=== PATIENT | female | born 1945 | race Caucasian/White ===

== ENCOUNTER 2016-12-18 12:01 | Outpatient (CLI) | payer MEDICARE | END 2016-12-18 12:02 | disposition short-term general hospital (02) | DX: R51 Headache (principal); R42 Dizziness and giddiness; R07.9 Chest pain, unspecified; W18.30XA Fall on same level, unspecified, initial encounter; Y92.009 Unspecified place in unspecified non-institutional (private) residence as the place of occurrence of the external cause | CPT/HCPCS: A0425; A0427 ==

== ENCOUNTER 2017-06-05 10:37 | Outpatient (CLI) | payer MEDICARE | END 2017-06-05 10:38 | disposition short-term general hospital (02) | LOC: EMS 10:37 | PROVIDERS: ATTEND Surgery | DX: R69 Illness, unspecified (principal) | CPT/HCPCS: A0425; A0429 ==

== ENCOUNTER 2017-07-06 10:32 | Emergency (ER) | payer MEDICARE ==
[2017-07-06] MEDS ORDERED: oxyCODONE 5 MG TABLET PO STA (11:30)
--- NOTE | 2017-07-06 11:31 | ED Physician Documentation ---
History of Present Illness - Stated complaint Stated Complaint: GLF/HIP/LT KNEE PX - Chief complaint Chief Complaint: General - History obtained from History obtained from: Patient, Family - History of Present Illness Timing: Today, How many hours ago (6) Pain level max: 8 Pain level now: 8 Improved by: nothing Worsened by: nothing - Additonal information Additional information: Patient is a 71-year-old female who presents to the emergency department with a trip and fall today landing on her left side of her head, hip and knee. Continued pain since that time. Took her Vicodin at home without relief. She states that she has a history of several strokes in the past, daughter noticed that her left side of her face seems to be drooping more than usual today. Patient has been able to ambulate after the fall, but states her Vicodin is not controlling her pain. Did not lose consciousness. Has not had vomiting. 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 : None HEENT: None Psych: None Musculoskeletal: None Derm: None - Past Surgical History Past Surgical History: Yes General: Cholecystectomy Ortho: Spine surgery /JUNIOR STAFF ACCOUNTANT: Hysterectomy Neuro: Craniotomy - Present Medications Home Medications: Ambulatory Orders Medication Instructions Recorded Confirmed Aspirin [Aspir 81] 81 mg PO DAILY 06/08/14 07/06/17 Hydrocodone/Acetaminophen 1 tab PO Q6H PRN 06/08/14 07/06/17 [Hydrocodone-APAP 7.5-300] LORazepam [Ativan] 1 mg PO TID PRN 06/08/14 07/06/17 Levetiracetam [Keppra] 1,000 mg PO BID 06/08/14 07/06/17 Triamterene/Hydrochlorothiazid 1 tab PO DAILY 06/08/14 07/06/17 [Triamterene-Hctz 37.5-25 mg Tb] Melatonin 10 mg QPM 01/21/16 07/06/17 levETIRAcetam [Keppra] 250 mg BID 01/21/16 07/06/17 Atorvastatin [Lipitor] 1 tab PO DAILY 08/06/16 07/06/17 Calcium Carbonate 2 tab PO DAILY 08/06/16 07/06/17 Cholecalciferol (Vitamin D3) 400 units PO DAILY 08/06/16 07/06/17 [Vitamin D3] Escitalopram [Lexapro] 1 tab PO DAILY 08/06/16 07/06/17 Gabapentin 2 tab PO DAILY 08/06/16 07/06/17 Omeprazole 1 tab PO DAILY 08/06/16 07/06/17 Cephalexin [Keflex] 500 mg PO Q6H #28 capsule 07/06/17 Oxycodone HCl/Acetaminophen 1 - 2 each PO Q6H PRN #14 tablet 07/06/17 [Percocet 5-325 mg Tablet] - Allergies Allergies/Adverse Reactions: Allergies Allergy/AdvReac Type Severity Reaction Status Date / Time No Known Drug Allergies Allergy Verified 07/06/17 11:29 - Social History Does the pt smoke?: No Smoking Status: Never smoker Does the pt drink ETOH?: No Does the pt have substance abuse?: No - Immunizations Immunizations are current?: Yes - POLST Patient has POLST: No PD ED PE NORMAL - Vitals Vital signs reviewed: Yes - General General: Alert and oriented X 3, No acute distress, Well developed/nourished - HEENT HEENT: Atraumatic, PERRL, EOMI, Ears normal, Moist mucous membranes, Pharynx benign - Neck Neck: Supple, no meningeal sign, No bony TTP - Cardiac Cardiac: RRR, Strong equal pulses - Respiratory Respiratory: No respiratory distress, Clear bilaterally - Abdomen Abdomen: Soft, Non tender, Non distended - Back Back: No CVA TTP, No spinal TTP - Derm Derm: Warm and dry - Extremities Extremities: No deformity, Other (mild diffuse TTP L hip and knee. FROM present , but with pain. normal skin. NVI. o/w normal exam of the remaining extremities. ) - Neuro Neuro: Alert and oriented X 3, No motor deficit, No sensory deficit, Normal speech, Other (minimal L facial droop. NIHSS 1 @1102) - Psych Psych: Normal mood, Normal affect Results - Vitals Vitals: Vital Signs - 24 hr 07/06/17 07/06/17 07/06/17 10:34 12:37 13:35 Temperature 36.0 C L 36.7 C Heart Rate 78 74 76 Respiratory 18 18 12 Rate Blood Pressure 136/95 H 138/91 H 146/77 H O2 Saturation 98 99 94 07/06/17 15:14 Temperature 36.6 C Heart Rate 71 Respiratory 16 Rate Blood Pressure 135/62 H O2 Saturation 98 Oxygen O2 Source Room air - EKG (time done) 1231 Rate: Rate (enter#) (71) Rhythm: NSR [place]: Normal Intervals: Normal FL QRS: Normal Ischemia: Non specific changes - Labs Labs: Laboratory Tests 07/06/17 07/06/17 07/06/17 12:45 12:45 12:45 WBC 6.4 RBC 4.48 Hgb 10.9 L Hct 33.7 L MCV 75.2 L MCH 24.3 L MCHC 32.4 RDW 15.7 H Plt Count 294 MPV 7.9 Neut # 3.6 Lymph # 2.1 [place] # 0.4 Eos # 0.2 Baso # 0.1 Absolute Nucleated RBC 0.00 Nucleated RBC % 0.0 PT 11.6 INR 1.0 APTT 27.4 Sodium 139 Potassium 3.9 Chloride 104 Carbon Dioxide 26 Anion Gap 9.0 BUN 24 H Creatinine 1.0 Estimated GFR (MDRD) 55 L Glucose 86 Calcium 9.2 Total Bilirubin 0.6 AST 19 ALT 19 Alkaline Phosphatase 73 Total Protein 7.1 Albumin 4.0 Globulin 3.1 Albumin/Globulin Ratio 1.3 Lipase 35 Urine Color Urine Clarity Urine pH Ur Specific [place] Urine Protein Urine Glucose (UA) Urine Ketones Urine Occult Blood Urine Nitrite Urine Bilirubin Urine Urobilinogen Ur Leukocyte Esterase Urine RBC Urine WBC Ur Epithelial Cells Ur Squamous Epith Cells Urine Bacteria Ur Microscopic Review Urine Culture Comments 07/06/17 14:10 WBC RBC Hgb Hct MCV MCH MCHC RDW Plt Count MPV Neut # Lymph # [place] # Eos # Baso # Absolute Nucleated RBC Nucleated RBC % PT INR APTT Sodium Potassium Chloride Carbon Dioxide Anion Gap BUN Creatinine Estimated GFR (MDRD) Glucose Calcium Total Bilirubin AST ALT Alkaline Phosphatase Total Protein Albumin Globulin Albumin/Globulin Ratio Lipase Urine Color YELLOW Urine Clarity HAZY Urine pH 6.0 Ur Specific [place] 1.010 Urine Protein NEGATIVE Urine Glucose (UA) NEGATIVE Urine Ketones NEGATIVE Urine Occult Blood NEGATIVE Urine Nitrite NEGATIVE Urine Bilirubin NEGATIVE Urine Urobilinogen 0.2 (NORMAL) Ur Leukocyte Esterase MODERATE H Urine RBC 0-5 Urine WBC >25 H Ur Epithelial Cells FEW Renal Tubular Ur Squamous Epith Cells FEW Squamous Urine Bacteria None Seen Ur Microscopic Review INDICATED Urine Culture Comments INDICATED - Rads (name of study) head CT Radiology: Prelim report reviewed, EMP read contemporaneously, See rad report ( No acute intracranial process. ) L hip xray Radiology: Prelim report reviewed, EMP read contemporaneously, See rad report ( No definite fracture given exam limitations secondary to bony demineralization. ) L knee xray Radiology: Prelim report reviewed, EMP read contemporaneously, See rad report ( No definite fracture or malalignment. ) PD MEDICAL DECISION MAKING - ED course Complexity details: reviewed old records, reviewed results, re-evaluated patient , considered differential, d/w patient, d/w family ED course: Patient is a 71-year-old female who presents to the emergency department after a mechanical trip and fall in which she injured her head, her left knee and her left hip. No acute findings on x-ray. Pain well controlled. Ambulating well with a walker in the emergency department. No acute findings on head CT. Does appear to have a UTI and we will treat her for this. Does not appear to have had an acute stroke. Her neurological findings appear to be baseline according to the patient and her family. She would like to go home at this time and does not want further workup in the hospital including carotid ultrasound, CT angiogram or MRI. She will follow-up closely with her PCP. Will place on pain medication for home. No acute laboratory issues other than the UTI. Patient and family counseled regarding signs and symptoms for which I believe and urgent re-evaluation would be necessary. Patient with good understanding of and agreement to plan and is comfortable going home at this time This document was made in part using voice recognition software. While efforts are made to proofread this document, sound alike and grammatical errors may occur. Departure - Departure Disposition: 01 Home, Self Care Clinical Impression: UTI (urinary tract infection) Qualifiers: Urinary tract infection type: acute cystitis Hematuria presence: without hematuria Qualified Code(s): N30.00 - Acute cystitis without hematuria Fall Qualifiers: Encounter type: initial encounter Qualified Code(s): W19.XXXA - Unspecified fall, initial encounter Condition: Good Instructions: ED Mechanical Fall, ED UTI Cystitis Female Follow-Up: Kimani Mckeon MD [Primary Care Provider] - Within 1 week Prescriptions: Cephalexin [Keflex] 500 mg PO Q6H #28 capsule Oxycodone HCl/Acetaminophen [Percocet 5-325 mg Tablet] 1 - 2 each PO Q6H PRN # 14 tablet PRN Reason: pain Comments: Take all antibiotics until gone. Return if you worsen. Do not drink alcohol or drive while on narcotic pain medicine. Note that many narcotic pain relievers also contain tylenol/acetaminophen. Please ensure that your total dose of acetaminophen from all sources does not exceed 3 grams (3000mg) per day. You may constipated on this medication, take a stool softener such as "Colace" twice a day while you are on it. Also recommend a [id number] laxative such as senna or MiraLAX any day that you do not have a bowel movement. If you received narcotic pain medication in the emergency department, do not drive or operate machinery for the next 24 hours. Discharge Date/Time: 07/06/17 15:14
[2017-07-06] MEDS ORDERED: oxyCODONE 5 MG TABLET ONE (12:06)
--- NOTE | 2017-07-06 12:25 | XRAY Preliminary Report ---
Exam: XR Hip w/Pelvis 2-3V LT IMPRESSION: No definite fracture given exam limitations secondary to bony demineralization. Consider MRI for further evaluation - if warranted. [facility] SITE ID: [id number]
--- NOTE | 2017-07-06 12:27 | XRAY Report ---
EXAM: LEFT HIP AND PELVIS RADIOGRAPHY EXAM DATE: 07/06/2017 11:56 AM. HISTORY: Fall, L hip pain. COMPARISONS: None. TECHNIQUE: 1 view of the pelvis and 1 view of the hip. FINDINGS: Bones: Bony demineralization does limit cortical evaluation. No definite fracture or focus of destruc tion. Degenerative changes at the lumbosacral junction. Joints: The bilateral hip, pubis symphysis, and sacroiliac joints are grossly normal. Soft Tissues: Unremarkable. IMPRESSION: No definite fracture given exam limitations secondary to bony demineralization. Consider MRI for further evaluation - if warranted. [facility] Referring Provider Line: [phone] SITE ID: [id number]
--- NOTE | 2017-07-06 12:27 | XRAY Preliminary Report ---
Exam: XR Knee 4 View LT IMPRESSION: No definite fracture or malalignment. [facility] SITE ID: [id number]
--- NOTE | 2017-07-06 12:29 | XRAY Report ---
EXAM: LEFT KNEE RADIOGRAPHY EXAM DATE: 07/06/2017 11:55 AM. CLINICAL HISTORY: Fall, L knee pain. COMPARISON: None. TECHNIQUE: 4 views. FINDINGS: Bones: Diffuse demineralization does limit characterization of the bony cortices. No definite fractur e or focus of destruction. Joints: No effusion. No subluxations. Soft Tissues: Normal. No soft tissue swelling. IMPRESSION: No definite fracture or malalignment. [facility] Referring Provider Line: [phone] SITE ID: [id number]
--- NOTE | 2017-07-06 12:37 | CT Preliminary Report ---
Exam: CT Head W/O IMPRESSION: No acute intracranial process. [facility] SITE ID: [id number]
--- NOTE | 2017-07-06 12:39 | CT Report ---
EXAM: CT HEAD EXAM DATE: 07/06/2017 12:19 PM. CLINICAL HISTORY: Fall, head injury, L sided weakness. COMPARISON: 08/06/2016. TECHNIQUE: Multiaxial CT images were obtained from the foramen magnum to the vertex. IV contrast: Non e. Reformats: Coronal. In accordance with CT protocol optimization, one or more of the following dose reduction techniques w ere utilized for this exam: automated exposure control, adjustment of mA and/or KV based on patient s ize, or use of iterative reconstructive technique. FINDINGS: Parenchyma: No intraparenchymal hemorrhage. No evidence of mass, midline shift, or CT findings of inf arction. Penn-white differentiation is distinct. Extraaxial Spaces: Normal for age. No subdural or epidural collections identified. Ventricles: Normal in size and position. Sinuses: Imaged paranasal sinuses, orbits, and mastoids show no significant abnormality. Bones: Post craniotomy changes, right parietal distribution. No evidence of acute fracture or calvari al defect. IMPRESSION: No acute intracranial process. [facility] Referring Provider Line: [phone] SITE ID: [id number]
[2017-07-06 12:56] LABS: BASOPHILS # (AUTO) 0.1 10^3/uL (0.0-0.1); BASOPHILS % (AUTO) 0.9 %; EOSINOPHILS # (AUTO) 0.2 10^3/uL (0.0-0.7); EOSINOPHILS % (AUTO) 3.5 %; HCT - HEMATOCRIT 33.7 % (37.0-47.0); HGB - HEMOGLOBIN 10.9 g/dL (12.0-16.0); LYMPHOCYTES # (AUTO) 2.1 10^3/uL (1.5-3.5); LYMPHOCYTES % (AUTO) 32.6 %; MEAN CORPUSCULAR HEMOGLOBIN 24.3 pg (27.0-31.0); MEAN CORPUSCULAR HGB CONC 32.4 g/dL (32.0-36.0); MEAN CORPUSCULAR VOLUME 75.2 fL (81.0-99.0); MEAN PLATELET VOLUME 7.9 fL (7.9-10.8); MONOCYTES # (AUTO) 0.4 10^3/uL (0.0-1.0); NEUTROPHILS # (AUTO) 3.6 10^3/uL (1.5-6.6); RED BLOOD COUNT 4.48 10^6/uL (4.20-5.40); RED CELL DISTRIBUTION WIDTH 15.7 % (12.0-15.0); UNCORRECTED WHITE BLOOD COUNT 6.4 x10^3/uL; WHITE BLOOD COUNT 6.4 x10^3/uL (4.8-10.8)
[2017-07-06 13:04] LABS: PT - PROTHROMBIN TIME 11.6 secs (9.9-12.6)
[2017-07-06 13:07] LABS: ALBUMIN/GLOBULIN RATIO 1.3 (1.0-2.2); BILIRUBIN,TOTAL 0.6 mg/dL (0.2-1.0); CALCIUM 9.2 mg/dL (8.5-10.3); POTASSIUM 3.9 mmol/L (3.5-5.0); TOTAL PROTEIN 7.1 g/dL (6.7-8.2)
[2017-07-06] MEDS ORDERED: KETOROLAC 30 MG/ML VIAL IM STA (13:07)
[2017-07-06 13:12] LABS: PARTIAL THROMBOPLASTIN TIME 27.4 secs (24.9-33.3)
[2017-07-06] MEDS ORDERED: KETOROLAC 30 MG/ML VIAL ONE (13:22)
[2017-07-06 14:28] LABS: BILIRUBIN,URINE NEGATIVE (NEGATIVE)
[2017-07-06 14:51] LABS: UA w/ MICROSCOPIC CHARGE YES
[2017-07-06 14:55] LABS: UR CULTURE IF IND INDICATED; WBC,URINE >25 /HPF (0-5)
[2017-07-06 15:14] VITALS: BP 135/62
== END 2017-07-06 15:14 | disposition home or self-care (01) ==
LOC: ED 10:32
DX: N30.00 Acute cystitis without hematuria (principal); M25.552 Pain in left hip; M25.562 Pain in left knee; W01.0XXA Fall on same level from slipping, tripping and stumbling without subsequent striking against object, initial encounter; Y92.019 Unspecified place in single-family (private) house as the place of occurrence of the external cause; I10 Essential (primary) hypertension; Z86.73 Personal history of transient ischemic attack (TIA), and cerebral infarction without residual deficits; G47.30 Sleep apnea, unspecified; G40.909 Epilepsy, unspecified, not intractable, without status epilepticus; Z79.82 Long term (current) use of aspirin
CPT/HCPCS: 36415; 70450; 73502; 73564; 80053; 81001; 83690; 85025; 85610; 85730; 87086; 93005; 96372; 99283; A9270; 81003

== ENCOUNTER 2017-07-18 09:13 | Emergency (ER) | payer MEDICARE ==
--- NOTE | 2017-07-18 11:44 | ED Physician Documentation ---
PD HPI LOWER EXT INJURY - Stated complaint Stated Complaint: LT KNEE PX - Chief complaint Chief Complaint: Ext Problem - History obtained from History obtained from: Patient, Family - History of Present Illness PD HPI LOW EXT INJURY LOCATION: Left, Hip, Knee Type of injury: Fall Where injury occurred: Home Timing - onset: How many days ago (12) Timing - duration: Days (12) Timing - details: Abrupt onset, Still present Improved by: Rest, Immobilization Worsened by: Moving, Palpating Associated symptoms: No: Weakness, Numbness, Tingling, Swelling Contributing factors: No: Anticoagulated Similar symptoms before: Diagnosis (hip contusion) Recently seen: Emergency Dept - Additional information Additional information: 71-year-old female fell 12 days ago in her home onto her left hip and knee. She has pain in the knee and hip that was initially some better with pain medication and she has run out of her oxycodone in the hydrocodone that she has at home is inadequate for her pain relief.She has been able to bear weight on the left hip with her walker. Review of Systems Constitutional: denies: Fever Eyes: denies: Decreased vision Ears: denies: Ear pain Nose: denies: Congestion Throat: denies: Sore throat Respiratory: denies: Cough GI: denies: Vomiting Skin: denies: Rash Musculoskeletal: reports: Joint pain, Pain with weight bearing. 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 : None HEENT: None Psych: None Musculoskeletal: None Derm: None - Past Surgical History Past Surgical History: Yes General: Cholecystectomy Ortho: Spine surgery /MACHINE BUNCH MAKER: Hysterectomy Neuro: Craniotomy - Present Medications Home Medications: Ambulatory Orders Medication Instructions Recorded Confirmed Aspirin [Aspir 81] 81 mg PO DAILY 06/08/14 07/18/17 Hydrocodone/Acetaminophen 1 tab PO Q6H PRN 06/08/14 07/18/17 [Hydrocodone-APAP 7.5-300] LORazepam [Ativan] 1 mg PO TID PRN 06/08/14 07/18/17 Levetiracetam [Keppra] 1,500 mg PO BID 06/08/14 07/18/17 Triamterene/Hydrochlorothiazid 1 tab PO DAILY 06/08/14 07/18/17 [Triamterene-Hctz 37.5-25 mg Tb] Melatonin 10 mg QPM 01/21/16 07/18/17 Atorvastatin [Lipitor] 1 tab PO DAILY 08/06/16 07/18/17 Calcium Carbonate 2 tab PO DAILY 08/06/16 07/18/17 Cholecalciferol (Vitamin D3) 400 units PO DAILY 08/06/16 07/18/17 [Vitamin D3] Escitalopram [Lexapro] 20 mg PO DAILY 08/06/16 07/18/17 Gabapentin 2 tab PO TID 08/06/16 07/18/17 Omeprazole 1 tab PO DAILY 08/06/16 07/18/17 Oxycodone HCl 10 mg PO Q6HR PRN #20 tablet 07/18/17 - Allergies Allergies/Adverse Reactions: Allergies Allergy/AdvReac Type Severity Reaction Status Date / Time No Known Drug Allergies Allergy Verified 07/06/17 11:29 - Social History Does the pt smoke?: No Smoking Status: Never smoker Does the pt drink ETOH?: No Does the pt have substance abuse?: No - Immunizations Immunizations are current?: Yes - POLST Patient has POLST: No PD ED PE NORMAL - Vitals Vital signs reviewed: Yes (hypertensive ) - General General: No acute distress, Well developed/nourished - HEENT HEENT: Atraumatic, PERRL - Respiratory Respiratory: No respiratory distress - Derm Derm: Normal color, Warm and dry, No rash - Extremities Extremities: No deformity, No edema, Other (I am able to flex and rotate the left hip without much pain to the patient . There is no shortening and the distal n/v is intact. There is ligamentous laxity to the medial and lateral collateral ligaments of the left knee and this is not different from the right knee. There is some tenderness along the joint line medial and lateral. ) - Neuro Neuro: No motor deficit, No sensory deficit - Psych Psych: Normal mood, Normal affect Results - Vitals Vitals: Vital Signs - 24 hr 07/18/17 09:18 Temperature 36.7 C Heart Rate 74 Respiratory 18 Rate Blood Pressure 147/95 H O2 Saturation 97 Oxygen O2 Source Room air PD MEDICAL DECISION MAKING - ED course Complexity details: reviewed results, re-evaluated patient, considered differential, d/w patient, d/w family ED course: 71-year-old female with a fall 2012 days ago had x-rays done at that time I have reviewed the x-rays they do appear to be adequate x-rays with fair bone density and no evidence of acute fracture. The patient's course is consistent with contusion and recovery from this with a poor pain tolerance and a resistance to narcotic pain reliever. She requires a higher dose of pain medication and hydrocodone does not appear as effective his oxycodone for this pain. We will provide a limited prescription for oxycodone for this episode of pain. Departure - Departure Disposition: 01 Home, Self Care Clinical Impression: Contusion of hip, left Qualifiers: Encounter type: initial encounter Qualified Code(s): S70.02XA - Contusion of left hip, initial encounter Left knee sprain Qualifiers: Encounter type: initial encounter Involved ligament of knee: unspecified ligament Qualified Code(s): S83.92XA - Sprain of unspecified site of left knee, initial encounter Condition: Stable Instructions: ED Sprain Knee, ED Contusion Hip Follow-Up: Kimani Mckeon MD [Primary Care Provider] - Prescriptions: Oxycodone HCl 10 mg PO Q6HR PRN #20 tablet PRN Reason: Pain
[2017-07-18 11:52] VITALS: BP 148/98
== END 2017-07-18 12:01 | disposition home or self-care (01) ==
LOC: ED 09:13
DX: S70.02XA Contusion of left hip, initial encounter (principal); W01.0XXA Fall on same level from slipping, tripping and stumbling without subsequent striking against object, initial encounter; Y92.019 Unspecified place in single-family (private) house as the place of occurrence of the external cause; S83.92XA Sprain of unspecified site of left knee, initial encounter; I10 Essential (primary) hypertension; G47.30 Sleep apnea, unspecified; Z86.73 Personal history of transient ischemic attack (TIA), and cerebral infarction without residual deficits; G40.909 Epilepsy, unspecified, not intractable, without status epilepticus; Z79.82 Long term (current) use of aspirin
CPT/HCPCS: 99283

== ENCOUNTER 2017-10-29 13:31 | Outpatient (CLI) | payer MEDICARE | END 2017-10-29 13:32 | disposition short-term general hospital (02) | LOC: EMS 13:31 | PROVIDERS: ATTEND Surgery | DX: R10.9 Unspecified abdominal pain (principal) | CPT/HCPCS: A0425; A0429 ==

== ENCOUNTER 2017-11-06 09:55 | Outpatient (CLI) | payer MEDICARE | END 2017-11-06 09:56 | disposition critical access hospital (66) | LOC: EMS 09:55 | PROVIDERS: ATTEND Surgery | DX: R52 Pain, unspecified (principal) | CPT/HCPCS: A0425; A0429 ==

== ENCOUNTER 2017-11-06 10:12 | Emergency (ER) | payer MEDICARE ==
[2017-11-06] MEDS ORDERED: HYDROmorphone 1 MG/ML SYRINGE IM STA (11:40)
[2017-11-06] MEDS ORDERED: LORazepam 2 MG/ML VIAL IM STA (11:40)
[2017-11-06] MEDS ORDERED: ONDANSETRON ODT 4 MG TABLET TL STA (11:40)
--- NOTE | 2017-11-06 11:43 | ED Physician Documentation ---
PD HPI ABD PAIN - Stated complaint Stated Complaint: WEAKNESS - Chief complaint Chief Complaint: Abd Pain - History obtained from History obtained from: Patient - History of Present Illness Timing - onset: Today Timing - duration: Hours Timing - details: Gradual onset, Still present Quality: Aching, Sharp, Pain Location: LUQ Improved by: Laying still Worsened by: Moving, Breathing, Position, Palpation Associated symptoms: Nausea Similar symptoms before: Diagnosis (hiatal hernia) Recently seen: Emergency Dept - Additional information Additional information: 72-year-old female with chronic pain and pain management issues as developed some epigastric and left upper quadrant pain that has been diagnosed as a hiatal hernia. She was seen at [facility] several weeks ago with this similar pain. She is normally on pain medication 4 times per day. She takes hydrocodone 10/325. This morning her son left for work without giving her her pain medication and Ativan. He usually has her medications locked up and dispenses them to her. 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 : None HEENT: None Psych: None Musculoskeletal: None Derm: None - Past Surgical History Past Surgical History: Yes General: Cholecystectomy Ortho: Spine surgery /SYSTEMS NAVIGATOR: Hysterectomy Neuro: Craniotomy - Present Medications Home Medications: Ambulatory Orders Medication Instructions Recorded Confirmed Aspirin [Aspir 81] 81 mg PO DAILY 06/08/14 07/18/17 Hydrocodone/Acetaminophen 1 tab PO Q6H PRN 06/08/14 07/18/17 [Hydrocodone-APAP 7.5-300] LORazepam [Ativan] 1 mg PO TID PRN 06/08/14 07/18/17 Levetiracetam [Keppra] 1,500 mg PO BID 06/08/14 07/18/17 Triamterene/Hydrochlorothiazid 1 tab PO DAILY 06/08/14 07/18/17 [Triamterene-Hctz 37.5-25 mg Tb] Melatonin 10 mg QPM 01/21/16 07/18/17 Atorvastatin [Lipitor] 1 tab PO DAILY 08/06/16 07/18/17 Calcium Carbonate 2 tab PO DAILY 08/06/16 07/18/17 Cholecalciferol (Vitamin D3) 400 units PO DAILY 08/06/16 07/18/17 [Vitamin D3] Escitalopram [Lexapro] 20 mg PO DAILY 08/06/16 07/18/17 Gabapentin 2 tab PO TID 08/06/16 07/18/17 Omeprazole 1 tab PO DAILY 08/06/16 07/18/17 Oxycodone HCl 10 mg PO Q6HR PRN #20 tablet 07/18/17 - Allergies Allergies/Adverse Reactions: Allergies Allergy/AdvReac Type Severity Reaction Status Date / Time No Known Drug Allergies Allergy Verified 07/06/17 11:29 - Social History Does the pt smoke?: No Smoking Status: Never smoker Does the pt drink ETOH?: No Does the pt have substance abuse?: No - Immunizations Immunizations are current?: Yes - POLST Patient has POLST: No PD ED PE NORMAL - Vitals Vital signs reviewed: Yes (hypertensive) - General General: Alert and oriented X 3, Well developed/nourished, Other (72 y/o female is grunting in pain and appears anxious. ) - HEENT HEENT: Atraumatic, PERRL, EOMI - Neck Neck: Supple, no meningeal sign - Cardiac Cardiac: RRR, No murmur - Respiratory Respiratory: No respiratory distress, Clear bilaterally - Abdomen Abdomen: Soft, Other (epigastric and LUQ pain with hyperalldynia) - Back Back: No CVA TTP, No spinal TTP - Derm Derm: Normal color, Warm and dry, No rash - Extremities Extremities: No deformity, No edema - Neuro Neuro: Alert and oriented X 3, No motor deficit, No sensory deficit, Normal speech Eye Opening: Spontaneous Motor: Obeys Commands Verbal: Oriented GCS Score: 15 - Psych Psych: Other (mood is helpless and affect is flat. ) Results - Vitals Vitals: Vital Signs - 24 hr 11/06/17 11/06/17 10:13 12:21 Temperature 36.5 C Heart Rate 83 69 Respiratory 18 20 Rate Blood Pressure 149/86 H 124/84 H O2 Saturation 100 100 Oxygen O2 Source Room air PD MEDICAL DECISION MAKING - ED course Complexity details: reviewed old records, reviewed results, re-evaluated patient , considered differential, d/w patient ED course: This 72-year-old female usually takes 10 mg of hydrocodone and Ativan in the morning. She was unable to access her medications because her son left to go to work without unlocking the narcotic. She came into the emergency department with a pain crisis she was administered 1 mg of Dilaudid IM and Ativan. She had improvement and is able to ambulate in the department without significant difficulty. Departure - Departure Disposition: 01 Home, Self Care Clinical Impression: Pain crisis Condition: Stable Instructions: ED Chronic Pain Management Follow-Up: Kimani Mckeon MD [Primary Care Provider] -
[2017-11-06 12:23] VITALS: BP 124/84
== END 2017-11-06 14:34 | disposition home or self-care (01) ==
LOC: EDUNIT# → ED 10:12
DX: R10.13 Epigastric pain (principal); G89.29 Other chronic pain; I10 Essential (primary) hypertension; G47.30 Sleep apnea, unspecified; Z86.73 Personal history of transient ischemic attack (TIA), and cerebral infarction without residual deficits; Z79.82 Long term (current) use of aspirin
CPT/HCPCS: 96372; 99283; 99284; J1170; J2060; Q0162

== ENCOUNTER 2017-12-16 10:24 | Outpatient (CLI) | payer MEDICARE | END 2017-12-16 23:59 | disposition critical access hospital (66) | LOC: EMS 10:24 | PROVIDERS: ATTEND Surgery | DX: R07.81 Pleurodynia (principal); M54.2 Cervicalgia; R51 Headache; R42 Dizziness and giddiness; W18.39XA Other fall on same level, initial encounter; W22.8XXA Striking against or struck by other objects, initial encounter; Y92.003 Bedroom of unspecified non-institutional (private) residence as the place of occurrence of the external cause | CPT/HCPCS: A0425; A0427 ==

== ENCOUNTER 2017-12-16 10:28 | Emergency (ER) | payer MEDICARE ==
--- NOTE | 2017-12-16 12:18 | ED Physician Documentation ---
PD HPI HEAD INJURY - Stated complaint Stated Complaint: FALL - Chief complaint Chief Complaint: Neuro - History obtained from History obtained from: Patient - History of Present Illness Mechanism of head injury: Fell (lost balance or thinks she might have had seizure, which she has about once weekly.) Where head injury occurred: Home Timing - onset: Today Location of injury: Right, Front Associated symptoms: No: LOC, AMS, Nausea / vomiting, Neck pain Symptoms worsen with: Palpation, Movement Similar symptoms before: Has not had sx before Recently seen: Not recently seen Review of Systems Constitutional: denies: Fever, Chills Nose: denies: Rhinorrhea / runny nose, Congestion Throat: denies: Sore throat Cardiac: reports: Chest pain / pressure (right side where she fell) Respiratory: denies: Cough GI: reports: Abdominal Pain (right side after the fall). 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 : None HEENT: None Psych: None Musculoskeletal: None Derm: None - Past Surgical History Past Surgical History: Yes General: Cholecystectomy Ortho: Spine surgery /MINIATURE SET DESIGNER: Hysterectomy Neuro: Craniotomy - Present Medications Home Medications: Ambulatory Orders Medication Instructions Recorded Confirmed Aspirin [Aspir 81] 81 mg PO DAILY 06/08/14 07/18/17 Hydrocodone/Acetaminophen 1 tab PO Q6H PRN 06/08/14 07/18/17 [Hydrocodone-APAP 7.5-300] LORazepam [Ativan] 1 mg PO TID PRN 06/08/14 07/18/17 Levetiracetam [Keppra] 1,500 mg PO BID 06/08/14 07/18/17 Triamterene/Hydrochlorothiazid 1 tab PO DAILY 06/08/14 07/18/17 [Triamterene-Hctz 37.5-25 mg Tb] Melatonin 10 mg QPM 01/21/16 07/18/17 Atorvastatin [Lipitor] 1 tab PO DAILY 08/06/16 07/18/17 Calcium Carbonate 2 tab PO DAILY 08/06/16 07/18/17 Cholecalciferol (Vitamin D3) 400 units PO DAILY 08/06/16 07/18/17 [Vitamin D3] Escitalopram [Lexapro] 20 mg PO DAILY 08/06/16 07/18/17 Gabapentin 2 tab PO TID 08/06/16 07/18/17 Omeprazole 1 tab PO DAILY 08/06/16 07/18/17 Oxycodone HCl 10 mg PO Q6HR PRN #20 tablet 07/18/17 Oxycodone HCl/Acetaminophen 1 each PO TID PRN #15 tablet 12/16/17 [Percocet 7.5-325 mg Tablet] - Allergies Allergies/Adverse Reactions: Allergies Allergy/AdvReac Type Severity Reaction Status Date / Time No Known Drug Allergies Allergy Verified 07/06/17 11:29 - Social History Does the pt smoke?: No Smoking Status: Never smoker Does the pt drink ETOH?: No Does the pt have substance abuse?: No - Immunizations Immunizations are current?: Yes - POLST Patient has POLST: No PD ED PE NORMAL - Vitals Vital signs reviewed: Yes - General General: Alert and oriented X 3, No acute distress, Well developed/nourished - HEENT HEENT: Ears normal, Pharynx benign. No: Atraumatic (some tender right side of head without deformity. ) - Neck Neck: Supple, no meningeal sign, No adenopathy - Cardiac Cardiac: RRR, No murmur - Respiratory Respiratory: Clear bilaterally, Other (right lateral chest) - Abdomen Abdomen: Soft, Non tender - Back Back: No CVA TTP - Derm Derm: Normal color, Warm and dry - Extremities Extremities: No tenderness to palpate, Normal ROM s pain, No edema, No calf tenderness / cord - Neuro Neuro: Alert and oriented X 3, No motor deficit, Normal speech Eye Opening: Spontaneous Motor: Obeys Commands Verbal: Oriented GCS Score: 15 Results - Vitals Vitals: Oxygen O2 Source Room air - Labs Labs: Laboratory Tests 12/16/17 12/16/17 12:30 12:30 WBC 7.2 RBC 4.45 Hgb 9.7 L Hct 30.5 L MCV 68.6 L MCH 21.7 L MCHC 31.7 L RDW 20.3 H Plt Count 365 MPV 7.5 L Neut # 4.5 Lymph # 1.8 [place] # 0.6 Eos # 0.2 Baso # 0.1 Absolute Nucleated RBC 0.00 Nucleated RBC % 0.0 Sodium 137 Potassium 4.0 Chloride 103 Carbon Dioxide 25 Anion Gap 9.0 BUN 19 Creatinine 0.9 Estimated GFR (MDRD) 61 L Glucose 94 Calcium 9.1 Total Bilirubin 0.3 AST 20 ALT 18 Alkaline Phosphatase 67 Total Protein 7.1 Albumin 3.8 Globulin 3.3 Albumin/Globulin Ratio 1.2 Lipase 24 - Rads (name of study) CT abd and chest Radiology: Prelim report reviewed (no organ injuries nor noted fractures. ) head CT Radiology: Prelim report reviewed (no acute findings/ no bleeding) PD MEDICAL DECISION MAKING - ED course Complexity details: reviewed results (CTs normal. ), considered differential, d/ w patient Departure - Departure Disposition: Home, Self Care Clinical Impression: Accidental fall Qualifiers: Encounter type: initial encounter Qualified Code(s): W19.XXXA - Unspecified fall, initial encounter Chest wall contusion Qualifiers: Encounter type: initial encounter Laterality: right Qualified Code(s): S20.211A - Contusion of right front wall of thorax, initial encounter Abdominal wall contusion Qualifiers: Encounter type: initial encounter Qualified Code(s): S30.1XXA - Contusion of abdominal wall, initial encounter Condition: Stable Record reviewed to determine appropriate education?: Yes Instructions: ED Contusion Chest Wall Follow-Up: Kimani Mckeon MD [Primary Care Provider] - Prescriptions: Oxycodone HCl/Acetaminophen [Percocet 7.5-325 mg Tablet] 1 each PO TID PRN #15 tablet PRN Reason: Pain Comments: No signs of internal organ injury or fractures or bleeding on your CT scans of the head chest and belly. Continue usual medications including your typical pain medications at home. Add Percocet if needed 3 times a day for pain. Recheck if not improved over the next several days. Discharge Date/Time: 12/16/17 15:02
[2017-12-16] MEDS ORDERED: LORazepam 0.5 MG TABLET PO STA (12:27)
[2017-12-16] MEDS ORDERED: HYDROmorphone 1 MG/ML SYRINGE IVP STA (12:27)
[2017-12-16 12:47] LABS: BASOPHILS # (AUTO) 0.1 10^3/uL (0.0-0.1); BASOPHILS % (AUTO) 1.2 %; EOSINOPHILS # (AUTO) 0.2 10^3/uL (0.0-0.7); EOSINOPHILS % (AUTO) 2.6 %; HGB - HEMOGLOBIN 9.7 g/dL (12.0-16.0); LYMPHOCYTES # (AUTO) 1.8 10^3/uL (1.5-3.5); LYMPHOCYTES % (AUTO) 25.4 %; MEAN CORPUSCULAR HEMOGLOBIN 21.7 pg (27.0-31.0); MEAN CORPUSCULAR HGB CONC 31.7 g/dL (32.0-36.0); MEAN CORPUSCULAR VOLUME 68.6 fL (81.0-99.0); MEAN PLATELET VOLUME 7.5 fL (7.9-10.8); MONOCYTES # (AUTO) 0.6 10^3/uL (0.0-1.0); MONOCYTES % (AUTO) 7.8 %; NEUTROPHILS # (AUTO) 4.5 10^3/uL (1.5-6.6); PLT - PLATELET COUNT 365 10^3/uL (130-450); RED BLOOD COUNT 4.45 10^6/uL (4.20-5.40); RED CELL DISTRIBUTION WIDTH 20.3 % (12.0-15.0); WHITE BLOOD COUNT 7.2 x10^3/uL (4.8-10.8)
[2017-12-16 12:54] LABS: ALBUMIN 3.8 g/dL (3.2-5.5); ALBUMIN/GLOBULIN RATIO 1.2 (1.0-2.2); BILIRUBIN,TOTAL 0.3 mg/dL (0.2-1.0); CALCIUM 9.1 mg/dL (8.5-10.3); CREATININE 0.9 mg/dL (0.4-1.0); TOTAL PROTEIN 7.1 g/dL (6.7-8.2)
[2017-12-16] MEDS ORDERED: IOPAMIDOL-300 100 ML VIAL ONE (13:15)
--- NOTE | 2017-12-16 13:57 | CT Preliminary Report ---
Exam: CT HEAD W/O IMPRESSION: No acute intracranial abnormality identified. [facility] SITE ID: [id number]
--- NOTE | 2017-12-16 13:57 | CT Report ---
EXAM: CT HEAD EXAM DATE: 12/16/2017 01:31 PM. CLINICAL HISTORY: Fell and struck head with pain; h/o prior craniotomy 4 years. COMPARISON: 07/06/2017. TECHNIQUE: Multiaxial CT images were obtained from the foramen magnum to the vertex. Reformats: Coron al. IV contrast: None. In accordance with CT protocol optimization, one or more of the following dose reduction techniques w ere utilized for this exam: automated exposure control, adjustment of mA and/or KV based on patient s ize, or use of iterative reconstructive technique. FINDINGS: Parenchyma: No acute intracranial abnormality identified. No acute hemorrhage, mass effect, midline s hift. Penn-white differentiation appears maintained. Extraaxial Spaces: No acute extra axial collection. Ventricles: Appropriate in size and configuration. Sinuses and Orbits: Imaged paranasal sinuses, orbits, and mastoids show no significant abnormality. Bones: No depressed skull fracture. Prior right-sided craniotomy changes again noted. Other: None. IMPRESSION: No acute intracranial abnormality identified. [facility] Referring Provider Line: [phone] SITE ID: [id number]
[2017-12-16] MEDS ORDERED: IOPAMIDOL-300 100 ML VIAL IVP ONE (14:02)
--- NOTE | 2017-12-16 14:02 | CT Report ---
EXAM: CT CHEST EXAM DATE: 12/16/2017 01:38 PM. CLINICAL HISTORY: Fell and hurts left chest/abd and head. COMPARISONS: None. TECHNIQUE: Routine helical CT imaging was performed through the chest. IV contrast: None. Reconstruct ions: Coronal and sagittal. In accordance with CT protocol optimization, one or more of the following dose reduction techniques w ere utilized for this exam: automated exposure control, adjustment of mA and/or KV based on patient s ize, or use of iterative reconstructive technique. FINDINGS: Lungs/Pleura: Trachea and central bronchi are patent. There is mild respiratory motion artifact durin g image acquisition. Small amount of reticulation noted at the left lung base. No other focal consoli dation or pleural effusions. No pneumothorax. No dominant mass. Mediastinum: Cardiac size appears normal. No pericardial effusion. Aorta and great vessels appear unr emarkable. Coronary artery calcifications. Large hiatal hernia with dominant portion of the stomach a t the left lower chest medially. Bones: Anterior cervical spine fusion hardware noted. No acute fracture or spondylolisthesis identifi ed. Mild multilevel degenerative changes of the spine. Visualized Abdomen: Prior cholecystectomy surgical changes are noted. Calcification at the approximat e mid pole of the left kidney anterior left renal rounded lesion is partially visualized. Other: None. IMPRESSION: 1. Large hiatal hernia with much of the stomach at the left lower chest medially and adjacent mild at electasis. No other focal lung consolidation or pleural effusions. No pneumothorax. [facility] Referring Provider Line: [phone] SITE ID: [id number]
--- NOTE | 2017-12-16 14:09 | CT Report ---
EXAM: CT ABDOMEN AND PELVIS EXAM DATE: 12/16/2017 01:38 PM. CLINICAL HISTORY: Fell and hurts chest and abd/head. COMPARISONS: None. TECHNIQUE: Routine helical CT imaging was performed through the abdomen and pelvis. IV contrast: 100M L ISOVUE 300. Enteric contrast: No. Reconstructions: Coronal and sagittal. In accordance with CT protocol optimization, one or more of the following dose reduction techniques w ere utilized for this exam: automated exposure control, adjustment of mA and/or KV based on patient s ize, or use of iterative reconstructive technique. FINDINGS: Lung Bases: Large hiatal hernia with much of the stomach at the left lung base medially. Liver: Too small to characterize tiny hypoattenuating foci within the right lobe, possibly tiny cyst or hemangioma. Otherwise, homogeneous without focal mass. Gallbladder/Bile Ducts: Prior cholecystectomy. Spleen: Unremarkable. Pancreas: Unremarkable. Adrenal Glands: Unremarkable. Kidneys: Symmetric enhancement. No hydronephrosis. Calcification at the posterior midpole of the left kidney measuring approximately 7 mm. Probable cyst anteriorly at the mid to lower pole of the left k idney measuring approximately 19 mm. Peritoneal Cavity/Bowel: No bowel obstruction. Mild colonic diverticulosis. No acute focal inflammato ry change. No discrete collection. No bulky adenopathy. No free air. No free fluid. Pelvic Organs: Urinary bladder is incompletely distended. Uterus appears surgically absent. Vasculature: Mild atherosclerotic vascular calcification. No aneurysmal dilation. Bones: Degenerative change of the spine again noted, most notably at L5-S1 and L2-L3, without signifi cant change from lumbar spine CT 08/06/2016. T12 Schmorl's node again noted. No acute fracture identi fied. No spondylolisthesis. Other: None. IMPRESSION: No acute traumatic visceral injury identified within the abdomen or pelvis. [facility] Referring Provider Line: [phone] SITE ID: [id number]
--- NOTE | 2017-12-16 14:09 | CT Preliminary Report ---
Exam: CT ABDOMEN/PELVIS W/ IMPRESSION: No acute traumatic visceral injury identified within the abdomen or pelvis. [facility] SITE ID: [id number]
[2017-12-16 14:46] VITALS: BP 137/90
== END 2017-12-16 15:02 | disposition home or self-care (01) ==
LOC: EDUNIT# → ED 10:28
DX: S20.211A Contusion of right front wall of thorax, initial encounter (principal); S30.1XXA Contusion of abdominal wall, initial encounter; W18.30XA Fall on same level, unspecified, initial encounter; W22.09XA Striking against other stationary object, initial encounter; Y92.009 Unspecified place in unspecified non-institutional (private) residence as the place of occurrence of the external cause; I10 Essential (primary) hypertension; Z86.73 Personal history of transient ischemic attack (TIA), and cerebral infarction without residual deficits; Z79.82 Long term (current) use of aspirin; Z86.69 Personal history of other diseases of the nervous system and sense organs
CPT/HCPCS: 36415; 70450; 71260; 74177; 80053; 83690; 85025; 96374; 99284; A9270; J1170; Q9967

== ENCOUNTER 2017-12-21 11:07 | Outpatient (CLI) | payer MEDICARE | END 2017-12-21 11:08 | disposition critical access hospital (66) | LOC: EMS 11:07 | PROVIDERS: ATTEND Surgery | DX: R53.1 Weakness (principal); R20.0 Anesthesia of skin; R51 Headache; R11.0 Nausea; R42 Dizziness and giddiness | CPT/HCPCS: A0425; A0427 ==

== ENCOUNTER 2017-12-21 11:20 | Observation (INO) | payer MEDICARE ==
[2017-12-21] MEDS ORDERED: MORPHINE 2 MG/ML CARPUJECT IVP STA (11:27)
--- NOTE | 2017-12-21 11:30 | ED Physician Documentation ---
History of Present Illness - Stated complaint Stated Complaint: POSS STROKE - Additonal information Additional information: hx from pt 72 female hx fall ICH and crani in 2012 today was in good health walking the dog when she abruptly developed L sided weakness at 1015 and a severe MOLINA no fall no recent fever cough NVD Review of Systems Constitutional: denies: Fever, Chills Eyes: reports: Decreased vision (L eye) Ears: denies: Loss of hearing Throat: denies: Sore throat Cardiac: denies: Chest pain / pressure Respiratory: denies: Dyspnea GI: denies: Abdominal Pain, Nausea, Vomiting Neurologic: reports: Focal weakness, Numbness, Headache. 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 : None HEENT: None Psych: None Musculoskeletal: None Derm: None - Past Surgical History Past Surgical History: Yes General: Cholecystectomy Ortho: Spine surgery /KIER TENDER: Hysterectomy Neuro: Craniotomy - Present Medications Home Medications: Ambulatory Orders Medication Instructions Recorded Confirmed Aspirin [Aspir 81] 81 mg PO DAILY 06/08/14 07/18/17 Hydrocodone/Acetaminophen 1 tab PO Q6H PRN 06/08/14 07/18/17 [Hydrocodone-APAP 7.5-300] LORazepam [Ativan] 1 mg PO TID PRN 06/08/14 07/18/17 Levetiracetam [Keppra] 1,500 mg PO BID 06/08/14 07/18/17 Triamterene/Hydrochlorothiazid 1 tab PO DAILY 06/08/14 07/18/17 [Triamterene-Hctz 37.5-25 mg Tb] Melatonin 10 mg QPM 01/21/16 07/18/17 Atorvastatin [Lipitor] 1 tab PO DAILY 08/06/16 07/18/17 Calcium Carbonate 2 tab PO DAILY 08/06/16 07/18/17 Cholecalciferol (Vitamin D3) 400 units PO DAILY 08/06/16 07/18/17 [Vitamin D3] Escitalopram [Lexapro] 20 mg PO DAILY 08/06/16 07/18/17 Gabapentin 2 tab PO TID 08/06/16 07/18/17 Omeprazole 1 tab PO DAILY 08/06/16 07/18/17 Oxycodone HCl 10 mg PO Q6HR PRN #20 tablet 07/18/17 Oxycodone HCl/Acetaminophen 1 each PO TID PRN #15 tablet 12/16/17 [Percocet 7.5-325 mg Tablet] - Allergies Allergies/Adverse Reactions: Allergies Allergy/AdvReac Type Severity Reaction Status Date / Time No Known Drug Allergies Allergy Verified 07/06/17 11:29 - Social History Does the pt smoke?: No Smoking Status: Never smoker Does the pt drink ETOH?: No Does the pt have substance abuse?: No - Immunizations Immunizations are current?: Yes - POLST Patient has POLST: No PD ED PE NORMAL - Vitals Vital signs reviewed: Yes - General General: Alert and oriented X 3 - HEENT HEENT: PERRL, EOMI, Other (dec vision from L eye) - Neck Neck: Supple, no meningeal sign - Cardiac Cardiac: RRR - Respiratory Respiratory: No respiratory distress, Clear bilaterally - Derm Derm: Normal color - Neuro Neuro: Alert and oriented X 3, Normal speech. 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 2-12 intact (dec sensation L face and dec vision L eye), No motor deficit, No sensory deficit Eye Opening: Spontaneous Motor: Obeys Commands Verbal: Oriented GCS Score: 15 Results - Vitals Vitals: Vital Signs - 24 hr 12/21/17 12/21/17 11:25 11:45 Temperature 37.3 C Heart Rate 70 66 Respiratory 14 19 Rate Blood Pressure 142/71 H 146/87 H O2 Saturation 98 100 Oxygen O2 Source Room air - EKG (time done) 1219 Rate: Rate (enter#) (62) Rhythm: NSR [place]: Normal Intervals: Normal [place] Ischemia: Non specific changes - Labs Labs: Laboratory Tests 12/21/17 12/21/17 12/21/17 11:28 11:28 11:28 WBC 8.9 RBC 4.85 Hgb 10.5 L Hct 32.9 L MCV 67.8 L MCH 21.6 L MCHC 31.9 L RDW 20.6 H Plt Count 425 MPV 7.4 L Neut # Not Reportable Lymph # Not Reportable [place] # Not Reportable Eos # Not Reportable Baso # Not Reportable Absolute Nucleated RBC Not Reportable Total Counted 100 Band Neuts % (Manual) 3 Abnorm Lymph % (Manual) 0 Myelocytes % 1 H Nucleated RBC % Not Reportable Neutrophils # (Manual) 5.3 Lymphocytes # (Manual) 3.2 Monocytes # (Manual) 0.3 Eosinophils # (Manual) 0.0 Basophils # (Manual) 0.0 Differential Comment MANUAL DIFFERENTIAL Platelet Estimate NORMAL (130-450,000) Platelet Morphology NORMAL APPEARANCE RBC Morph Micro Appear 1+ OVALOCYTES PT 12.0 INR 1.1 Sodium 134 L Potassium 3.7 Chloride 103 Carbon Dioxide 19 L Anion Gap 12.0 BUN 16 Creatinine 1.1 H Estimated GFR (MDRD) 49 L Glucose 98 Calcium 9.6 - Rads (name of study) CTH Radiology: See rad report (no acute - prior crani ) CTA head Radiology: See rad report (no intracranial large vesel occlusion) CTA neck Radiology: See rad report (tortuous carotid arteries without acute abn or stenosis, vertebral arteries grossly unremarkable but eval limited by streak artifact from hardware) PD MEDICAL DECISION MAKING - ED course ED course: acute stroke in window for TPA but not a candidate 2/2 prior ICH CTH CTA head and neck neg spoke with Dr Goel neuro at [facility] and they have no intervention to benefit pt (ie not a TPA or IR candidate) so rec admit [place] for echo tele MRI PT etc, states if pt already on asa but hx ICH would rec change to plavix but not do a period of both due to risk of bleed 2 PM sx about the same pt updated re plan called hospitalist at 2 PM Departure - Departure Disposition: 66 [facility] DC/Xfer Clinical Impression: Cerebrovascular accident (CVA) Qualifiers: CVA mechanism: unspecified Qualified Code(s): I63.9 - Cerebral infarction, unspecified Anemia Qualifiers: Anemia type: unspecified type Qualified Code(s): D64.9 - Anemia, unspecified Condition: Fair NIHSS - Time Time: 11:20 - Level of Consciousness Level of consciousness: (0) Alert, Keenly responsive LOC Questions: (0) Answers both Q's correct LOC Commands: (0) Performs both correctly - Gaze Best Gaze: (0) Normal - Visual Visual: (1) Partial hemianopia - Facial Palsy Facial Palsy: (0) Normal, symmetrical movement - Motor Arms (both separate) Motor Arm (right): (0) No drift Motor Arm (left): (2) Some effort against gravity - Motor Legs (both separate) Motor Leg (right): (0) No drift Motor Leg (left): (2) Some effort against gravity - Limb Ataxia Limb Ataxia: (0) Absent - Sensory Sensory: (1) Oqac-yk-ohzjwild loss - Best Language Best Language: (0) No aphasia - Dysarthria Dysarthria: (0) Normal - Extinction and Inattention (formally neg Extinction and inattention: (0) No abnormality - Total Score/Results Total Score/Result: 6
[2017-12-21 11:33] LABS: BASOPHILS % (AUTO) 1.5 %; EOSINOPHILS % (AUTO) 1.9 %; HGB - HEMOGLOBIN 10.5 g/dL (12.0-16.0); LYMPHOCYTES % (AUTO) 34.5 %; MEAN CORPUSCULAR HEMOGLOBIN 21.6 pg (27.0-31.0); MEAN CORPUSCULAR HGB CONC 31.9 g/dL (32.0-36.0); MEAN CORPUSCULAR VOLUME 67.8 fL (81.0-99.0); MEAN PLATELET VOLUME 7.4 fL (7.9-10.8); MONOCYTES % (AUTO) 7.1 %; PLT - PLATELET COUNT 425 10^3/uL (130-450); RED BLOOD COUNT 4.85 10^6/uL (4.20-5.40); RED CELL DISTRIBUTION WIDTH 20.6 % (12.0-15.0); WHITE BLOOD COUNT 8.9 x10^3/uL (4.8-10.8)
[2017-12-21 11:41] LABS: CALCIUM 9.6 mg/dL (8.5-10.3); CREATININE 1.1 mg/dL (0.4-1.0)
[2017-12-21 11:45] LABS: ABNORMAL LYMPHS % (MANUAL) 0 %
[2017-12-21 11:50] LABS: INR 1.1 (0.8-1.2)
[2017-12-21] MEDS ORDERED: IOPAMIDOL-300 100 ML VIAL ONE (11:55)
--- NOTE | 2017-12-21 12:01 | CT Preliminary Report ---
Exam: CT HEAD W/O STROKE PROTOCOL IMPRESSION: 1. No acute intracranial abnormality. 2. No contraindication to thrombolytic therapy. 3. Prior right frontal craniotomy. Findings discussed immediately with Dr. Chiu by phone on 12/21/2017 at 11:59 AM [facility] The above findings were discussed with Dr. Chiu by Dr. Dawna Valencia at 12:00 hrs on 12/21/17. SITE ID: [id number]
--- NOTE | 2017-12-21 12:02 | CT Report ---
EXAM: CT HEAD EXAM DATE: 12/21/2017 11:42 AM. CLINICAL HISTORY: L side weakness onset 1015. COMPARISON: None. TECHNIQUE: Multiaxial CT images were obtained from the foramen magnum to the vertex. Reformats: Coron al. IV contrast: None. In accordance with CT protocol optimization, one or more of the following dose reduction techniques w ere utilized for this exam: automated exposure control, adjustment of mA and/or KV based on patient s ize, or use of iterative reconstructive technique. FINDINGS: Parenchyma: No intraparenchymal hemorrhage. No evidence of mass, midline shift, or CT findings of inf arction. Penn-white differentiation is distinct. Extraaxial Spaces: Normal for age. No subdural or epidural collections identified. Ventricles: Normal in size and position. Sinuses and Orbits: Imaged paranasal sinuses, orbits, and mastoids show no significant abnormality. Bones: Prior left frontal craniotomy. Other: None. IMPRESSION: 1. No acute intracranial abnormality. 2. No contraindication to thrombolytic therapy. 3. Prior right frontal craniotomy. Findings discussed immediately with Dr. Chiu by phone on 12/21/2017 at 11:59 AM [facility] The above findings were discussed with Dr. Chiu by Dr. Dawna Valencia at 12:00 hrs on 12/21/17. Referring Provider Line: [phone] SITE ID: [id number]
[2017-12-21 12:13] LABS: BAND NEUTROPHILS % (MANUAL) 3 %; LYMPHOCYTES # (MANUAL) 3.2 10^3/uL (1.5-3.5); LYMPHOCYTES % (MANUAL) 36 %; MONOCYTES # (MANUAL) 0.3 10^3/uL (0.0-1.0); MYELOCYTES % (MANUAL) 1 %; NEUTROPHILS # (MANUAL) 5.3 10^3/uL (1.5-6.6); NEUTROPHILS % (MANUAL) 57 %
[2017-12-21 12:14] LABS: DIFFERENTIAL COMMENT MANUAL DIFFERENTIAL; PLATELET ESTIMATE, MANUAL NORMAL (130-450,000) (NORMAL); PLATELET MORPHOLOGY NORMAL APPEARANCE (NORMAL)
[2017-12-21] MEDS ORDERED: IOPAMIDOL-300 100 ML VIAL IVP ONE (12:17)
--- NOTE | 2017-12-21 12:33 | CT Preliminary Report ---
Exam: CT NECK ANGIO IMPRESSION: 1. The tortuous cervical carotid arteries do not show evidence of acute abnormality or significant st enosis. 2. The cervical vertebral arteries are grossly unremarkable as far as visualized but evaluation is li mited by streak artifact from spinal fusion hardware. [facility] SITE ID: [id number]
--- NOTE | 2017-12-21 12:41 | CT Report ---
EXAM: CT ANGIOGRAM HEAD. CT OF THE BRAIN WITHOUT IV CONTRAST. EXAM DATE: 12/21/2017 12:16 PM CLINICAL HISTORY: Left sided weakness. COMPARISON: None. TECHNIQUE: Brain CT with contrast: Routine contrast enhanced brain CT. Coronal reconstructions. CT Angiogram: Using a multidetector scanner, high-resolution axial images were acquired from the skul l base through vertex following rapid infusion of intravenous contrast. Reformats: Multiplanar MIP re formats were reconstructed. Nascet criteria used for stenosis measurement. IV Contrast: 80 mL Isovue 300. In accordance with CT protocol optimization, one or more of the following dose reduction techniques w ere utilized for this exam: automated exposure control, adjustment of mA and/or KV based on patient s ize, or use of iterative reconstructive technique. FINDINGS: Contrast enhanced brain CT: No abnormal enhancement. Head CT angiogram: Mild atherosclerotic calcifications of the cavernous segments of the internal carotid arteries. Minim al atherosclerotic calcification of the proximal left intradural vertebral artery. These changes are not associated with arterial occlusive disease. No evidence for proximal flow limiting stenosis, occlusion or filling defect of the anterior, middle or posterior cerebral arteries. No intracranial vertebrobasilar insufficiency or evidence for aneurys m of the [place] of [place]. Impression: 1. No evidence for intracranial large vessel occlusion. 2. No evidence for abnormal brain enhancement. [facility] Referring Provider Line: [phone] SITE ID: [id number]
--- NOTE | 2017-12-21 12:42 | CT Report ---
EXAM: CT ANGIOGRAM NECK EXAM DATE: 12/21/2017 12:16 PM. CLINICAL HISTORY: Left-sided weakness. COMPARISON: None. TECHNIQUE: Routine axial helical imaging was performed from the skull base through the aortic arch. R econstructions: Routine multiplanar 3D MIP reconstructions. IV Contrast: 80 mL Isovue 300. Evaluation of arterial stenosis is based on a NASCET method of measurement. In accordance with CT protocol optimization, one or more of the following dose reduction techniques w ere utilized for this exam: automated exposure control, adjustment of mA and/or KV based on patient s ize, or use of iterative reconstructive technique. FINDINGS: Chronic multilevel hypertrophic degenerative cervical spinal spondylosis and findings of previous ant erior cervical spine surgical fusion. Cervical vertebral arteries are grossly patent bilaterally and a focal flow-limiting lesion is not id entified but evaluation is incomplete where obscured by beam hardening artifact from spinal fusion hoover rdware. Tortuous bilateral cervical carotid arteries. Both arteries are medialized into the retropharyngeal s pace especially notable near their bifurcations in the neck. There is no evidence for acute abnormality or focal flow-limiting stenosis of the cervical carotid ar teries. IMPRESSION: 1. The tortuous cervical carotid arteries do not show evidence of acute abnormality or significant st enosis. 2. The cervical vertebral arteries are grossly unremarkable as far as visualized but evaluation is li mited by streak artifact from spinal fusion hardware. [facility] Referring Provider Line: [phone] SITE ID: [id number]
[2017-12-21] MEDS ORDERED: LORazepam 0.5 MG TABLET PO STA (14:06)
[2017-12-21] MEDS ORDERED: ONDANSETRON 4 MG/2 ML VIAL ONE (14:34)
[2017-12-21] MEDS ORDERED: PROMETHAZINE INJ 12.5 MG in SODIUM CHLORIDE 0.9% 50 ML IV STA (14:41)
--- NOTE | 2017-12-21 16:03 | HISTORY & PHYSICAL EXAMINATION ---
Chief Complaint - Chief Complaint Chief Complaint: acute left sided weakness History of Present Illness - Admitted From Admitted From:: ED - History Obtained From Records Reviewed: yes History obtained from: chart review, patient, patient's daughter Exam Limitations: none - History of Present Illness HPI Comment/Other: Marion Roth is an obese 72 year old female with a past medical history of intercranial hemorrhage, craniotomy in 2011, hypertension, hyperlipidemia, sleep apnea, CPAP prescribed-but non-compliant, CVA, seizure disorder, hiatal hernia, chronic hearing loss and anemia. She presented to the ED via ambulance after she was in her bathroom and noticed sudden left arm and leg weakness with blurry vision and a headache. The headache was described as if a tight band was around her head near her forehead and was squeezing. She denies loss of consciousness, falls, or incontinence. She will be admitted to observation for a TIA/CVA work up. Her daughter, Conchita is present for this exam. History - Past Medical History Cardiovascular: reports: Hypertension, High cholesterol Respiratory: reports: Sleep apnea, CPAP use (non-compliant) Neuro: reports: CVA, Head injury (ICH and craniotomy in 2011), Seizure disorder Endocrine/Autoimmune: reports: None GI: reports: GERD, Hiatal hernia HAM PASSER: reports: None : reports: Nocturia, Frequency HEENT: reports: Chronic vision loss, Chronic hearing loss Psych: reports: Depression, Anxiety, Schizophrenia Musculoskeletal: reports: Chronic back pain Derm: reports: None MRSA Hx?: No - Past Surgical History General: reports: Cholecystectomy Ortho: reports: Spine surgery /HAM PASSER: reports: Hysterectomy Neuro: reports: Craniotomy - Family & Social History Family History: Mother: , Father: Family History Comment/Other: Mother of heart disease, CVA. Father suffered from cardiac disease and claims that he swallowed a toothpic which became lodged in his throat which led to iminent . The patient has 3 brother, and 6 sisters. Her older brother just this week. Living arrangement: At home Living Situation: With family Social History Notes: The patient has 2 daughters, older one lives in [place], [place]. The patient lives with her daughter, Conchita and her . They have 2 dogs. The patient denies alcohol, tobacco, or illicit drug use. The patient wishes to be a FULL code. - Substance History Use: Uses substance without health or social issues: NONE Abuse: Recurrent use of substance despite neg consequences: NONE Dependence: Experiences withdrawal or developed tolerances: NONE - POLST Patient has POLST: No POLST Status: Full Code Meds/Allgy - Home Medications Home Medications: Ambulatory Orders Medication Instructions Recorded Confirmed LORazepam [Ativan] 1 mg PO TID 06/08/14 12/21/17 Levetiracetam [Keppra] 1,500 mg PO BID 06/08/14 12/21/17 Triamterene/Hydrochlorothiazid 1 tab PO DAILY 06/08/14 12/21/17 [Triamterene-Hctz 37.5-25 mg Tb] Gabapentin 600 mg PO 0800,1400,2100 08/06/16 12/21/17 Omeprazole 325 mg PO DAILY 08/06/16 12/21/17 Ferrous Sulfate 325 mg PO DAILY 12/21/17 12/21/17 Hydrocodone/Acetaminophen 1 tab PO QID 12/21/17 12/21/17 [Hydrocodone-Acetamin 10-325 mg] Aspirin [Adult Aspirin Regimen] 81 mg PO DAILY #30 tablet. 12/22/17 Atorvastatin Calcium 40 mg PO DAILY #30 tablet 12/22/17 Risperidone [Risperdal] 2 mg PO DAILY #30 tablet 12/22/17 Sertraline [Zoloft] 50 mg PO DAILY #30 tablet 12/22/17 Temazepam [Restoril] 15 mg PO HS #30 capsule 12/22/17 - Allergies Allergies/Adverse Reactions: Allergies Allergy/AdvReac Type Severity Reaction Status Date / Time No Known Drug Allergies Allergy Verified 07/06/17 11:29 Review of Systems - Constitutional Constitutional: reports: Fatigue, Weakness - Eyes Eyes: reports: Blurred vision, Vision loss, Corrective lenses - Ears, Nose & Throat Ears, Nose & Throat: reports: Hearing loss, Hearing aids, Dental decay - Cardiovascular Cariovascular: reports: Decr. exercise tolerance - Gastrointestinal Gastrointestinal: reports: Constipation, Reflux/heartburn - Genitourinary Genitourinary: reports: Dysuria, Frequency, Incontinence, Nocturia - Musculoskeletal Musculoskeletal: reports: Back pain, Limited range of motion, Joint swelling - Neurological Neurological: reports: General weakness, Focal weakness, Headache, Numbness, Abnormal gait, Seizures, Incoordination - Psychiatric Psychiatric: reports: Depression, Anxiety - Hematologic/Lymphatic Hematologic/Lymphatic: reports: Anemia - All Other Systems All Other Systems: reports: Reviewed and negative Exam - Vital Signs Reviewed Vital Signs: Yes Vital Signs: Vital Signs x48h Pulse Resp BP Pulse Ox 12/21/17 14:37 67 18 125/79 100 - Physical Exam General Appearance: positive: Alert, Moderate distress, Anxious Eyes Bilateral: positive: Normal inspection, PERRL ENT: positive: ENT inspection nml, Pharynx nml, Dry mucous membranes Neck: positive: Nml inspection, Thyroid nml, No JVD, Trachea midline Respiratory: positive: Chest non-tender, No respiratory distress, Other ( diminished) Cardiovascular: positive: Regular rate & rhythm, No gallop, Systolic murmur, Decreased pulse(s) Peripheral Pulses: positive: 1+ Abdomen: positive: Non-tender, Nml bowel sounds, Other (obese, soft) Back: positive: Nml inspection Skin: positive: No rash, Warm, Dry, Pallor Extremities: positive: Non-tender, Full ROM, Nml appearance, Pedal edema Neurologic/Psychiatric: positive: Oriented x3, Motor nml, Weakness, Sensory loss , Slurred/abnml speech, Depressed mood/affect Reflexes: Bicep (R): 3+, Bicep (L): 1+, Ankle (R): 3+, Ankle (L): 1+ Conclusion/Plan - Problem List (1) TIA (transient ischemic attack) Conclusion/Plan: Patient has a history of CVA, but does not think it caused any residual today. She was in her usual state of health today while walking her dog. Soon after that she was in her bathroom and began having sudden left sided weakness with blurry vision. She also had a headache which felt like a band was tightly squeezing her head near her forehead. She denies falls or recent head injury. She had trouble speaking and describes her tongue felt enlarged and numb as if she had been to the dentist. She also states that this became worse as noted by EMS, but after getting to the ED it became better. During this exam, the patient is noted to have no difficulty speaking, and no facial droop. Both upper and lower left extremities are noted to be weakened. Plan: Admit to observation and complete a TIA/CVA work up. (2) Seizure disorder Conclusion/Plan: Patient has a history of ICH and craniotomy in ~2011. 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 She remains on Keppra and lorazepam at home. Plan: Seizure precautions and monitor. (3) Hiatal hernia Conclusion/Plan: Patient was recently diagnosed with this and can be seen on her most recent CT scan completed on 12/16/17. The hernia is described as a large hiatal hernia with much of the stomach at the left lung base medially. Patient states that she has a scheduled EGD and colonoscopy coming up. Plan: Continue PPI and monitor. (4) Depression with anxiety Conclusion/Plan: Although the patient has just lost her brother, she can be tearful at times and has physical signs of anxiety such as rocking back and forth, making little eye contact and focusing on the past. She takes max dose of Lexapro at home and is prescribed lorazepam, as needed. MRI was not available due to staffing yesterday, so patient is recommended to complete at another time. Plan: Changed Lexapro to Zoloft as per her request. This should be monitored and followed up with psychologist. - Lab Results Lab results reviewed: Yes Fish Bones: 12/22/17 06:26 12/22/17 06:26 - Diagnostic Imaging Results Diagnostic Imaging Results: positive: Prelim report reviewed, Final report reviewed - EKG Results EKG Interpreted Independently: Yes Core Measures - Anticipated LOS I expect patient to be DC'd or transferred within 96 hours.: Yes - DVT/VTE - Prophylaxis VTE/DVT Device ordered at admit?: Yes VTE/DVT Prophylaxis med ordered at admit?: Yes - Stroke - Rehab Assessment Rehab services assessment to be ordered?: Yes - AMI - Statin at Admit Aspirin Prescribed on Admit: Yes
[2017-12-21] MEDS: LORazepam 2 MG/ML VIAL IVP PRN ×2 (16:27→20:00)
[2017-12-21] MEDS: HYDROcod/ACETAM 10 MG/325 MG TABLET PO SCH ×2 (16:28→20:02)
[2017-12-21] MEDS: SODIUM CHLORIDE FLUSH 0.9% 10 ML SYRINGE IVP SCH ×2 (16:30→20:06)
--- NOTE | 2017-12-21 18:49 | ADVANCE CARE PLANNING NOTE ---
Advance Care Planning - Date/Time Date: 12/21/17 Time: 18:49 - Purpose of encounter Text: Establish code status and end-of-life wishes. - Parties in attendance Parties in attendance: Myself, the patient Marion Roth and her daughter, Conchita. - Decisional capacity Decisional capacity of: The patient is A & O x4 and understands her medical decisions. Daughter is in agreement. - Subjective/Patient's story Subjective/Patient's story: Marion states that she would like us to perform life saving measures. She states that she does not want to be kept in a vegetative state, but if it is something that can be fixed, ok. - Objective/Medical story Objective/Medical Story: Patient was questioned on all 4 aspects of rescue; Intubation-yes, chest compressions-yes, shocking-yes, cardiac medications-yes. The patient and her daughter are fully aware that the chances of a full recovery after resuscitation are minimal and may only be in the low teens (%). The patient agreed with remaining a FULL code, make all attempts. - Goals of Care Goals of care determinations: Goals of care are to treat all medical conditions and make all rescue attempts in case of an emergency. The patient wants more than anything to have her anxiety managed, and feels that "she has made many mistakes in her life". - Plan Plan: Continue medical work up for TIA/CVA and inform the patient of the results. She will likely be discharged in the AM after testing comes back and she passes a PT evaluation. - Code Status Code Status: Attempt Resuscitation - Time Spent on Advance Care Planning Time spent on advance care plannin
[2017-12-21] MEDS: levETIRAcetam 250 MG TABLET PO SCH (20:00)
[2017-12-21] MEDS: GABAPENTIN 300 MG CAPSULE PO SCH (20:01)
[2017-12-21] MEDS ORDERED: NON FORMULARY MED (Melatonin [Melatonin] 10 MG) PO SCH (21:00)
[2017-12-21] MEDS ORDERED: ATORVASTATIN 10 MG TABLET PO SCH ×2 (21:00)
[2017-12-22] MEDS: LORazepam 2 MG/ML VIAL IVP PRN ×4 (00:53→13:23)
[2017-12-22] MEDS: SODIUM CHLORIDE FLUSH 0.9% 10 ML SYRINGE IVP PRN ×2 (00:54→11:39)
[2017-12-22] MEDS ORDERED: TEMAZEPAM 7.5 MG CAPSULE PO PRN (01:25)
[2017-12-22 06:51] LABS: BASOPHILS # (AUTO) 0.1 10^3/uL (0.0-0.1); EOSINOPHILS # (AUTO) 0.2 10^3/uL (0.0-0.7); EOSINOPHILS % (AUTO) 3.2 %; HGB - HEMOGLOBIN 9.7 g/dL (12.0-16.0); LYMPHOCYTES % (AUTO) 27.1 %; MEAN CORPUSCULAR HEMOGLOBIN 21.1 pg (27.0-31.0); MEAN CORPUSCULAR HGB CONC 30.9 g/dL (32.0-36.0); MEAN CORPUSCULAR VOLUME 68.4 fL (81.0-99.0); MEAN PLATELET VOLUME 7.6 fL (7.9-10.8); MONOCYTES # (AUTO) 0.5 10^3/uL (0.0-1.0); MONOCYTES % (AUTO) 7.4 %; NEUTROPHILS # (AUTO) 4.4 10^3/uL (1.5-6.6); NEUTROPHILS % (AUTO) 61.3 %; PLT - PLATELET COUNT 403 10^3/uL (130-450); RED BLOOD COUNT 4.59 10^6/uL (4.20-5.40); RED CELL DISTRIBUTION WIDTH 20.8 % (12.0-15.0); WHITE BLOOD COUNT 7.2 x10^3/uL (4.8-10.8)
[2017-12-22 06:56] LABS: ALBUMIN 3.9 g/dL (3.2-5.5); ALBUMIN/GLOBULIN RATIO 1.3 (1.0-2.2); BILIRUBIN,TOTAL 0.5 mg/dL (0.2-1.0); CALCIUM 8.8 mg/dL (8.5-10.3); CREATININE 1.1 mg/dL (0.4-1.0); MAGNESIUM 1.8 mg/dL (1.7-2.8); TOTAL PROTEIN 6.9 g/dL (6.7-8.2)
[2017-12-22] MEDS ORDERED: PANTOPRAZOLE 40 MG TABLET PO SCH (07:00)
[2017-12-22 07:12] LABS: PLATELET ESTIMATE, MANUAL NORMAL (130-450,000) (NORMAL)
[2017-12-22] MEDS: ONDANSETRON 4 MG/2 ML VIAL IVP PRN ×2 (07:50→12:51)
[2017-12-22] MEDS: SODIUM CHLORIDE FLUSH 0.9% 10 ML SYRINGE IVP SCH ×3 (07:51→12:53)
[2017-12-22] MEDS: HYDROcod/ACETAM 10 MG/325 MG TABLET PO SCH ×2 (08:33→13:23)
[2017-12-22] MEDS ORDERED: CHOLECALCIFEROL 400 UNIT PO SCH (09:00)
[2017-12-22] MEDS ORDERED: ASPIRIN EC 81 MG TABLET PO SCH (09:00)
[2017-12-22] MEDS ORDERED: ESCITALOPRAM 10 MG TABLET PO SCH (09:00)
[2017-12-22] MEDS ORDERED: CALCIUM CARBONATE PO SCH (09:00)
[2017-12-22] MEDS ORDERED: FERROUS SULFATE 325 MG TABLET PO SCH (09:00)
[2017-12-22] MEDS ORDERED: POLYETHYLENE GLYCOL 3350 17 GM PACKET PO SCH (09:00)
[2017-12-22] MEDS ORDERED: TRIAMT/HCTZ 37.5 MG/25 MG CAPSULE PO SCH (09:00)
[2017-12-22] MEDS: levETIRAcetam 250 MG TABLET PO SCH (10:09)
[2017-12-22] MEDS: GABAPENTIN 300 MG CAPSULE PO SCH (10:12)
--- NOTE | 2017-12-22 12:23 | Discharge Plan ---
Discharge Plan Disposition: Home, Self Care Condition: Good Prescriptions: Aspirin [Adult Aspirin Regimen] 81 mg PO DAILY #30 tablet. Atorvastatin Calcium 40 mg PO DAILY #30 tablet Risperidone [Risperdal] 2 mg PO DAILY #30 tablet Sertraline [Zoloft] 50 mg PO DAILY #30 tablet Diet: Regular Activity Restrictions: No Restrictions Shower Restrictions: No Driving Restrictions: No Weight Bearing: Full Weight Instruction Topics: Stroke Sx, TIA, Stroke After Moods Depression, Stroke Self Care, Stroke Dc Additional Instructions or Follow Up instructions: You were admitted overnight due to left sided weakness which improved. All testing was normal. We recommend a follow up MRI as an outpatient. You were evaluated by physical therapy. Please see your PCP as a follow up to this stay. No Smoking: If you smoke, Please STOP! Call for help. Follow-up with: Kimani Mckeon MD [Primary Care Provider] -
--- NOTE | 2017-12-22 12:25 | DISCHARGE SUMMARY ---
Discharge Summary Admit Date: 12/21/17 Discharge Date: 12/22/17 Discharging Provider: GIOVANNI Ramos Primary Care Provider: Kimani Mckeon Code Status: Attempt Resuscitation Condition at Discharge: Good Discharge Disposition: 01 Home, Self Care - DIAGNOSES Admission Diagnoses: Essential (primary) hypertension (I10) Anxiety disorder, unspecified (F41.9) Epilepsy, unspecified, not intractable, without status epilepticus (G40.909) Transient cerebral ischemic attack, unspecified (G45.9) Hyperlipidemia, unspecified (E78.5) Weakness (R53.1) Discharge Diagnoses with Status of Each Condition: TIA (transient ischemic attack) (G45.9) confirmed on this admission based on exam findings. Seizure disorder (G40.909) chronic, stable. HTN (hypertension) (I10) chronic stable. Dyslipidemia (E78.5) chronic, statin increased due to this event. Left-sided weakness (R53.1) improved. Anxiety and depression (F41.9) worsened, so medications were changed. - HPI History of Present Illness: Marion Roth is an obese 72 year old female with a past medical history of intercranial hemorrhage, craniotomy in 2011, hypertension, hyperlipidemia, sleep apnea, CPAP prescribed-but non-compliant, CVA, seizure disorder, hiatal hernia, chronic hearing loss and anemia. She presented to the ED via ambulance after she was in her bathroom and noticed sudden left arm and leg weakness with blurry vision and a headache. The headache was described as if a tight band was around her head near her forehead and was squeezing. She denies loss of consciousness, falls, or incontinence. She will be admitted to observation for a TIA/CVA work up. Her daughter, Conchita is present for this exam. - HOSPITAL COURSE Hospital Course: The following diagnoses were prevalent during this hospital stay: (1) TIA (transient ischemic attack)- Patient has a history of CVA, but does not think it caused any residual today. She was in her usual state of health today while walking her dog. Soon after that she was in her bathroom and began having sudden left sided weakness with blurry vision. She also had a headache which felt like a band was tightly squeezing her head near her forehead. She denies falls or recent head injury. She had trouble speaking and describes her tongue felt enlarged and numb as if she had been to the dentist. She also states that this became worse as noted by EMS, but after getting to the ED it became better. During admission exam, the patient is noted to have no difficulty speaking, and no facial droop. Both upper and lower left extremities were noted to be weakened. Patient was admitted to observation and complete a TIA/CVA work up was completed including telemetry monitoring, echocardiogram, MRI STAT (this was not completed due to lack of staffing), PT evaluation and CTA head/neck was completed in the ED. (2) Seizure disorder- Patient has a history of ICH and craniotomy in ~2011. 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 She remains on Keppra and lorazepam at home which was continued while inpatient. Patient was placed on Seizure precautions and monitored. (3) Hiatal hernia- Patient was recently diagnosed with this and can be seen on her most recent CT scan completed on 12/16/17. The hernia is described as a large hiatal hernia with much of the stomach at the left lung base medially. Patient states that she has a scheduled EGD and colonoscopy coming up. Patient was continued on her regular PPI and monitored. (4) Depression with anxiety- Although the patient has just lost her brother, she can be tearful at times and has physical signs of anxiety such as rocking back and forth, making little eye contact and focusing on the past. She takes max dose of Lexapro at home and is prescribed lorazepam, as needed. MRI was not available due to staffing yesterday, so patient is recommended to complete at another time. Patient's medications were reviewed and it was noted that she continued to have uncontrolled anxiety which was causing nausea and mild tremors. Lexapro was changed to Zoloft as per her request. This should be monitored and followed up with psychologist. Disposition: At the time of discharge, it was explained that she is medically cleared to return home. The patient was in stable condition and was transported via private car, daughter. Prescriptions were sent to pharmacy. - ALLERGIES Allergies/Adverse Reactions: Allergies Allergy/AdvReac Type Severity Reaction Status Date / Time No Known Drug Allergies Allergy Verified 07/06/17 11:29 - MEDICATIONS Home Medications: Ambulatory Orders Medication Instructions Recorded Confirmed LORazepam [Ativan] 1 mg PO TID 06/08/14 12/21/17 Levetiracetam [Keppra] 1,500 mg PO BID 06/08/14 12/21/17 Triamterene/Hydrochlorothiazid 1 tab PO DAILY 06/08/14 12/21/17 [Triamterene-Hctz 37.5-25 mg Tb] Gabapentin 600 mg PO 0800,1400,2100 08/06/16 12/21/17 Omeprazole 325 mg PO DAILY 08/06/16 12/21/17 Ferrous Sulfate 325 mg PO DAILY 12/21/17 12/21/17 Hydrocodone/Acetaminophen 1 tab PO QID 12/21/17 12/21/17 [Hydrocodone-Acetamin 10-325 mg] Aspirin [Adult Aspirin Regimen] 81 mg PO DAILY #30 tablet. 12/22/17 Atorvastatin Calcium 40 mg PO DAILY #30 tablet 12/22/17 Risperidone [Risperdal] 2 mg PO DAILY #30 tablet 12/22/17 Sertraline [Zoloft] 50 mg PO DAILY #30 tablet 12/22/17 - PHYSICAL EXAM AT DISCHARGE General Appearance: positive: Alert, Moderate distress, Anxious, Other (Patient very anxious about returning home, since MRI was not completed.) Eyes Bilateral: positive: Normal inspection, PERRL ENT: positive: ENT inspection nml, Pharynx nml, No signs of dehydration Neck: positive: Nml inspection, Thyroid nml, No JVD, Trachea midline Respiratory: positive: Chest non-tender, No respiratory distress, Breath sounds nml Cardiovascular: positive: Regular rate & rhythm, No gallop, Decreased pulse(s) Abdomen: positive: Non-tender, Nml bowel sounds, Other (obese, soft) Back: positive: Nml inspection Skin: positive: No rash, Warm, Dry Extremities: positive: Non-tender, Full ROM, Pedal edema Neurologic/Psychiatric: positive: Oriented x3, CN's nml (2-12), Motor nml, Sensation nml, Weakness, Sensory loss, Depressed mood/affect Reflexes: Bicep (R): 3+, Bicep (L): 2+ - LABS Result Diagrams: 12/22/17 06:26 12/22/17 06:26 - DIAGNOSTIC IMAGING Diagnostic Imaging Results: Prelim report reviewed, Final report reviewed Diagnostic Imaging Results Comments: EXAM: CT ANGIOGRAM HEAD. CT OF THE BRAIN WITHOUT IV CONTRAST. EXAM DATE: 12/21/2017 12:16 PM CLINICAL HISTORY: Left sided weakness. COMPARISON: None. TECHNIQUE: Brain CT with contrast: Routine contrast enhanced brain CT. Coronal reconstructions. CT Angiogram: Using a multidetector scanner, high-resolution axial images were acquired from the skull base through vertex following rapid infusion of intravenous contrast. Reformats: Multiplanar MIP reformats were reconstructed. Nascet criteria used for stenosis measurement. IV Contrast: 80 mL Isovue 300. In accordance with CT protocol optimization, one or more of the following dose reduction techniques were utilized for this exam: automated exposure control, adjustment of mA and/or KV based on patient size, or use of iterative reconstructive technique. FINDINGS: Contrast enhanced brain CT: No abnormal enhancement. Head CT angiogram: Mild atherosclerotic calcifications of the cavernous segments of the internal carotid arteries. Minimal atherosclerotic calcification of the proximal left intradural vertebral artery. These changes are not associated with arterial occlusive disease. No evidence for proximal flow limiting stenosis, occlusion or filling defect of the anterior, middle or posterior cerebral arteries. No intracranial vertebrobasilar insufficiency or evidence for aneurysm of the [place] of [place]. Impression: 1. No evidence for intracranial large vessel occlusion. 2. No evidence for abnormal brain enhancement. EXAM: CT ANGIOGRAM NECK EXAM DATE: 12/21/2017 12:16 PM. CLINICAL HISTORY: Left-sided weakness. COMPARISON: None. TECHNIQUE: Routine axial helical imaging was performed from the skull base through the aortic arch. Reconstructions: Routine multiplanar 3D MIP reconstructions. IV Contrast: 80 mL Isovue 300. Evaluation of arterial stenosis is based on a NASCET method of measurement. In accordance with CT protocol optimization, one or more of the following dose reduction techniques were utilized for this exam: automated exposure control, adjustment of mA and/or KV based on patient size, or use of iterative reconstructive technique. FINDINGS: Chronic multilevel hypertrophic degenerative cervical spinal spondylosis and findings of previous anterior cervical spine surgical fusion. Cervical vertebral arteries are grossly patent bilaterally and a focal flow- limiting lesion is not identified but evaluation is incomplete where obscured by beam hardening artifact from spinal fusion hardware. Tortuous bilateral cervical carotid arteries. Both arteries are medialized into the retropharyngeal space especially notable near their bifurcations in the neck. There is no evidence for acute abnormality or focal flow-limiting stenosis of the cervical carotid arteries. IMPRESSION: 1. The tortuous cervical carotid arteries do not show evidence of acute abnormality or significant stenosis. 2. The cervical vertebral arteries are grossly unremarkable as far as visualized but evaluation is limited by streak artifact from spinal fusion hardware. EXAM: CT HEAD EXAM DATE: 12/21/2017 11:42 AM. CLINICAL HISTORY: L side weakness onset 1015. COMPARISON: None. TECHNIQUE: Multiaxial CT images were obtained from the foramen magnum to the vertex. Reformats: Coronal. IV contrast: None. In accordance with CT protocol optimization, one or more of the following dose reduction techniques were utilized for this exam: automated exposure control, adjustment of mA and/or KV based on patient size, or use of iterative reconstructive technique. FINDINGS: Parenchyma: No intraparenchymal hemorrhage. No evidence of mass, midline shift, or CT findings of infarction. Epnn-white differentiation is distinct. Extraaxial Spaces: Normal for age. No subdural or epidural collections identified. Ventricles: Normal in size and position. Sinuses and Orbits: Imaged paranasal sinuses, orbits, and mastoids show no significant abnormality. Bones: Prior left frontal craniotomy. Other: None. IMPRESSION: 1. No acute intracranial abnormality. 2. No contraindication to thrombolytic therapy. 3. Prior right frontal craniotomy. ECHOCARDIOGRAM 12/21/17 As compared to a previous echocardiogram there are no significant changes. Mild concentric LV hypertrophy, EF of 70-75%, no regional wall motion abnormalities. No valve abnormalities, the RVSP at rest is 21 mmHg. A prior echo on 01/22/16 was negative for PFO shunting. - FOLLOW UP Follow Up: Disposition: 01 Home, Self Care Condition: Good Prescriptions: Aspirin [Adult Aspirin Regimen] 81 mg PO DAILY #30 tablet. Atorvastatin Calcium 40 mg PO DAILY #30 tablet Sertraline [Zoloft] 50 mg PO DAILY #30 tablet Risperidone 2mg PO daily #30 tablet Diet: Regular Activity Restrictions: No Restrictions Shower Restrictions: No Driving Restrictions: No Weight Bearing: Full Weight Additional Instructions or Follow Up instructions: You were admitted overnight due to left sided weakness which improved. All testing was normal. We recommend a follow up MRI as an outpatient. You were evaluated by physical therapy and passed. It is thought that you are at near baseline mobility. Please see your PCP as a follow up to this stay. - TIME SPENT Time Spent in Discharge (Minutes): 60
[2017-12-22] MEDS ORDERED: SERTRALINE 50 MG TABLET PO SCH (13:00)
[2017-12-22 14:10] VITALS: BP 132/80
== END 2017-12-22 13:50 | disposition home or self-care (01) ==
LOC: EDUNIT# → ED 11:20 → UNDOADMOB 14:06 → OBS 14:06
PROVIDERS: ADMIT Hospitalist; ATTEND Nurse Practitioner
DX: G45.9 Transient cerebral ischemic attack, unspecified (principal); G40.909 Epilepsy, unspecified, not intractable, without status epilepticus; I10 Essential (primary) hypertension; E78.5 Hyperlipidemia, unspecified; R53.1 Weakness; D64.9 Anemia, unspecified; F41.8 Other specified anxiety disorders; K44.9 Diaphragmatic hernia without obstruction or gangrene; K21.9 Gastro-esophageal reflux disease without esophagitis; R29.706 NIHSS score 6; G47.30 Sleep apnea, unspecified; H91.90 Unspecified hearing loss, unspecified ear; Z86.79 Personal history of other diseases of the circulatory system; Z86.73 Personal history of transient ischemic attack (TIA), and cerebral infarction without residual deficits; Z91.19 Patient's noncompliance with other medical treatment and regimen; Z79.82 Long term (current) use of aspirin; Z79.891 Long term (current) use of opiate analgesic; Z79.899 Other long term (current) drug therapy
CPT/HCPCS: 36415; 70450; 70496; 70498; 80048; 80053; 83735; 85025; 85610; 93005; 93306; 96374; 96375; 96376; 97161; 99284; A9270; G0378; G8978; G8979; J2060; Q9967; 99285

== ENCOUNTER 2018-01-20 10:38 | Emergency (ER) | payer MEDICARE ==
[2018-01-20 11:14] LABS: MUDS CUTOFF CONCENTRATIONS CUTOFF CONC BELOW:
[2018-01-20 11:17] LABS: BILIRUBIN,URINE NEGATIVE (NEGATIVE); GLUCOSE, URINE (UA) NEGATIVE (NEGATIVE); KETONES,URINE (UA) NEGATIVE (NEGATIVE); LEUKOCYTE ESTERASE, URINE NEGATIVE (NEGATIVE); NITRITE,URINE NEGATIVE (NEGATIVE); OCCULT BLOOD,URINE NEGATIVE (NEGATIVE); PROTEIN,URINE NEGATIVE (NEGATIVE); UROBILINOGEN,URINE 0.2 (NORMAL) E.U./dL (NORMAL)
[2018-01-20 11:20] LABS: CLARITY,URINE CLEAR (CLEAR)
[2018-01-20 11:33] LABS: AMPHETAMINE SCREEN,URINE NEGATIVE (NEGATIVE); BENZODIAZEPINES SCREEN, URINE POSITIVE (NEGATIVE); COCAINE SCREEN URINE NEGATIVE (NEGATIVE); METHAMPHETAMINES SCREEN, URINE NEGATIVE (NEGATIVE); OPIATE SCREEN, URINE NEGATIVE (NEGATIVE)
[2018-01-20 11:34] LABS: METHADONE SCREEN, URINE NEGATIVE (NEGATIVE); OXYCODONE SCREEN, URINE NEGATIVE (NEGATIVE); PROPOXYPHENE SCREEN, URINE NEGATIVE (NEGATIVE); TRICYCLIC ANTIDEPRESSANT,URINE NEGATIVE (NEGATIVE)
[2018-01-20 11:35] LABS: BASOPHILS # (AUTO) 0.1 10^3/uL (0.0-0.1); BASOPHILS % (AUTO) 0.7 %; EOSINOPHILS # (AUTO) 0.2 10^3/uL (0.0-0.7); EOSINOPHILS % (AUTO) 2.3 %; HGB - HEMOGLOBIN 10.9 g/dL (12.0-16.0); LYMPHOCYTES # (AUTO) 1.8 10^3/uL (1.5-3.5); LYMPHOCYTES % (AUTO) 26.3 %; MEAN CORPUSCULAR HEMOGLOBIN 22.8 pg (27.0-31.0); MEAN CORPUSCULAR VOLUME 71.3 fL (81.0-99.0); MEAN PLATELET VOLUME 7.5 fL (7.9-10.8); MONOCYTES # (AUTO) 0.5 10^3/uL (0.0-1.0); NEUTROPHILS # (AUTO) 4.4 10^3/uL (1.5-6.6); NEUTROPHILS % (AUTO) 63.7 %; PLT - PLATELET COUNT 347 10^3/uL (130-450); RED BLOOD COUNT 4.76 10^6/uL (4.20-5.40); RED CELL DISTRIBUTION WIDTH 23.6 % (12.0-15.0)
[2018-01-20 11:51] LABS: ACETAMINOPHEN < 10 ug/mL (10-30); ALBUMIN 4.2 g/dL (3.2-5.5); ALBUMIN/GLOBULIN RATIO 1.4 (1.0-2.2); ALKALINE PHOSPHATASE 77 IU/L (42-121); ALT ALANINE AMINOTRANSFERASE 21 IU/L (10-60); AST ASPARTATE AMINOTRANSFERASE 22 IU/L (10-42); BILIRUBIN,TOTAL 0.4 mg/dL (0.2-1.0); BUN - BLOOD UREA NITROGEN 18 mg/dL (6-20); CALCIUM 9.2 mg/dL (8.5-10.3); CARBON DIOXIDE - CO2 24 mmol/L (21-32); CHLORIDE 103 mmol/L (101-111); GFR - MDRD 54 (>89); GLUCOSE 97 mg/dL (70-100); LIPASE 46 U/L (22-51); SALICYLATE < 6.0 mg/dL; SODIUM 135 mmol/L (135-145); TOTAL PROTEIN 7.3 g/dL (6.7-8.2)
[2018-01-20 12:01] LABS: PLATELET ESTIMATE, MANUAL NORMAL (130-450,000) (NORMAL); PLATELET MORPHOLOGY NORMAL APPEARANCE (NORMAL)
[2018-01-20] MEDS ORDERED: LORazepam 0.5 MG TABLET PO STA ×2 (12:33→19:37)
[2018-01-20] MEDS ORDERED: HYDROcod/ACETAM 10 MG/325 MG TABLET PO STA (12:33)
[2018-01-20] MEDS ORDERED: GABAPENTIN 100 MG CAPSULE PO STA (13:39)
[2018-01-20] MEDS ORDERED: PANTOPRAZOLE 40 MG TABLET PO STA (18:16)
[2018-01-20] MEDS ORDERED: HYDROcod/ACETAM 5/325 MG TABLET PO STA (19:37)
[2018-01-20] MEDS ORDERED: ATORVASTATIN 40 MG TABLET PO STA (21:59)
[2018-01-20] MEDS ORDERED: levETIRAcetam 250 MG TABLET PO STA (22:00)
[2018-01-20] MEDS ORDERED: risperiDONE 1 MG TABLET PO SCH (22:00)
--- NOTE | 2018-01-20 23:05 | ED Physician Documentation ---
PD HPI MHE - Stated complaint Stated Complaint: MHE - Chief complaint Chief Complaint: MHE - History obtained from History obtained from: Patient, Family - History of Present Illness Primary symptom: Suicidal ideation, Depression Pain level max: 0 Pain level now: 0 Similar symptoms before: Diagnosis (Depression) Recently seen: Not recently seen - Additional information Additional information: Patient is a 72-year-old female who presents to the emergency department complaining of worsening depression and suicidal ideation. She states that she feels worthless and does not see a reason to live. Her brother recently . She had 10 brothers and sisters, only 4 of which are still living. She states that she has had a long history of depression but [place] She is accompanied today by her daughter. Review of Systems Ten Systems: 10 systems reviewed and negative Constitutional: denies: Fever, Chills Ears: denies: Ear pain Nose: denies: Rhinorrhea / runny nose, Congestion Throat: denies: Sore throat Cardiac: denies: Chest pain / pressure Respiratory: denies: Dyspnea, Cough, Wheezing GI: denies: Abdominal Pain, Nausea, Vomiting, Diarrhea Skin: denies: Rash Musculoskeletal: denies: Neck pain, Back pain Neurologic: denies: Headache PD PAST MEDICAL HISTORY - Past Medical History Cardiovascular: Hypertension, High cholesterol Respiratory: Sleep apnea, CPAP use Neuro: CVA, Head injury, Seizure disorder Endocrine/Autoimmune: None GI: GERD, Hiatal hernia POT ROOM TAPPER: None : Nocturia, Frequency HEENT: Chronic vision loss, Chronic hearing loss Psych: Depression, Anxiety, Schizophrenia Musculoskeletal: Chronic back pain Derm: None - Past Surgical History Past Surgical History: Yes General: Cholecystectomy Ortho: Spine surgery /POT ROOM TAPPER: Hysterectomy Neuro: Craniotomy - Present Medications Home Medications: Ambulatory Orders Medication Instructions Recorded Confirmed LORazepam [Ativan] 1 mg PO TID 06/08/14 01/20/18 Levetiracetam [Keppra] 1,500 mg PO BID 06/08/14 01/20/18 Triamterene/Hydrochlorothiazid 1 tab PO DAILY 06/08/14 01/20/18 [Triamterene-Hctz 37.5-25 mg Tb] Gabapentin 600 mg PO 0800,1400,2100 08/06/16 01/20/18 Omeprazole 325 mg PO DAILY 08/06/16 01/20/18 Ferrous Sulfate 325 mg PO DAILY 12/21/17 01/20/18 Hydrocodone/Acetaminophen 1 tab PO QID 12/21/17 01/20/18 [Hydrocodone-Acetamin 10-325 mg] Aspirin [Adult Aspirin Regimen] 81 mg PO DAILY #30 tablet. 12/22/17 01/20/18 Atorvastatin Calcium 40 mg PO DAILY #30 tablet 12/22/17 01/20/18 Risperidone [Risperdal] 2 mg PO DAILY #30 tablet 12/22/17 01/20/18 Sertraline [Zoloft] 75 mg PO DAILY 01/20/18 01/20/18 - Allergies Allergies/Adverse Reactions: Allergies Allergy/AdvReac Type Severity Reaction Status Date / Time No Known Drug Allergies Allergy Verified 07/06/17 11:29 - Social History Does the pt smoke?: No Smoking Status: Never smoker Does the pt drink ETOH?: No Does the pt have substance abuse?: No - Immunizations Immunizations are current?: Yes - POLST Patient has POLST: No POLST Status: Full Code PD ED PE NORMAL - Vitals Vital signs reviewed: Yes - General General: Alert and oriented X 3, Well developed/nourished, Other (Tearful) - HEENT HEENT: PERRL, Moist mucous membranes, Pharynx benign - Neck Neck: Supple, no meningeal sign - Cardiac Cardiac: RRR, Strong equal pulses - Respiratory Respiratory: No respiratory distress, Clear bilaterally - Abdomen Abdomen: Soft, Non tender, Non distended - Derm Derm: Warm and dry, No rash - Extremities Extremities: No edema, No calf tenderness / cord - Neuro Neuro: Alert and oriented X 3 - Psych Psych: Other (Tearful during interview) Results - Vitals Vitals: Vital Signs - 24 hr 01/20/18 01/20/18 10:48 21:49 Temperature 36.5 C 36.8 C Heart Rate 77 88 Respiratory 20 17 Rate Blood Pressure 142/92 H 140/85 H O2 Saturation 98 99 Oxygen O2 Source Room air - Labs Labs: Laboratory Tests 01/20/18 01/20/18 01/20/18 11:05 11:29 11:29 WBC 7.0 RBC 4.76 Hgb 10.9 L Hct 33.9 L MCV 71.3 L MCH 22.8 L MCHC 32.0 RDW 23.6 H Plt Count 347 MPV 7.5 L Neut # 4.4 Lymph # 1.8 [place] # 0.5 Eos # 0.2 Baso # 0.1 Absolute Nucleated RBC 0.00 Nucleated RBC % 0.0 Manual Slide Review Indicated Platelet Estimate NORMAL (130-450,000) Platelet Morphology NORMAL APPEARANCE RBC Morph Micro Appear 3+ MICROCYTOSIS Sodium 135 Potassium 4.0 Chloride 103 Carbon Dioxide 24 Anion Gap 8.0 BUN 18 Creatinine 1.0 Estimated GFR (MDRD) 54 L Glucose 97 Calcium 9.2 Total Bilirubin 0.4 AST 22 ALT 21 Alkaline Phosphatase 77 Total Protein 7.3 Albumin 4.2 Globulin 3.1 Albumin/Globulin Ratio 1.4 Lipase 46 Urine Color YELLOW Urine Clarity CLEAR Urine pH 6.0 Ur Specific [place] 1.010 Urine Protein NEGATIVE Urine Glucose (UA) NEGATIVE Urine Ketones NEGATIVE Urine Occult Blood NEGATIVE Urine Nitrite NEGATIVE Urine Bilirubin NEGATIVE Urine Urobilinogen 0.2 (NORMAL) Ur Leukocyte Esterase NEGATIVE Ur Microscopic Review NOT INDICATED Urine Culture Comments NOT INDICATED Salicylates < 6.0 Urine Opiates Screen NEGATIVE Ur Oxycodone Screen NEGATIVE Urine Methadone Screen NEGATIVE Ur Propoxyphene Screen NEGATIVE Acetaminophen < 10 L Ur Barbiturates Screen NEGATIVE Ur Tricyclics Screen NEGATIVE Ur Phencyclidine Scrn NEGATIVE Ur Amphetamine Screen NEGATIVE U Methamphetamines Scrn NEGATIVE U Benzodiazepines Scrn POSITIVE H Urine Cocaine Screen NEGATIVE U Cannabinoids Screen NEGATIVE Ethyl Alcohol < 5.0 PD MEDICAL DECISION MAKING - ED course Complexity details: reviewed results, re-evaluated patient, considered differential, d/w patient, d/w family ED course: Patient is a 72-year-old female with a long history of depression, feeling suicidal today. She appears medically clear for psychiatric care. Social work was consulted but is unable to evaluate the patient today. We will hold her until social work and evaluate her in the morning. She is considering tele- psychiatry while in the emergency department as well for medication adjustment. Patient will be turned over to the oncoming emergency department physician. This document was made in part using voice recognition software. While efforts are made to proofread this document, sound alike and grammatical errors may occur. Departure - Departure Clinical Impression: Suicidal ideation Depression Qualifiers: Depression Type: unspecified Qualified Code(s): F32.9 - Major depressive disorder, single episode, unspecified Condition: Stable
[2018-01-21] MEDS ORDERED: HYDROcod/ACETAM 5/325 MG TABLET PO STA (01:44)
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
[2018-01-21] MEDS ORDERED: MAG HYDROX/AL HYDROX/SIMETH 30 ML UDC PO STA (07:20)
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
--- NOTE | 2018-01-21 08:25 | XRAY Report ---
EXAM: LEFT ANKLE RADIOGRAPHY EXAM DATE: 01/21/2018 08:09 AM. CLINICAL HISTORY: Injury. Pain COMPARISON: None. TECHNIQUE: 3 views. FINDINGS: Bones: There is a sclerotic appearing expansile lesion in the medial aspect of the distal tibial shaf t with nonaggressive features. This may represent a healing fracture or ossification of a fibroma. No evidence of an acute fracture is seen. Joints: No effusion. No subluxations. The ankle mortise is normally aligned. Soft Tissues: Mild soft tissue swelling. IMPRESSION: Nonaggressive appearing distal left tibial lesion. No evidence of an acute fracture or ac crow malalignment. If there is persistent left tibial pain or a history of malignancy whole body bone scan may be useful. [facility] Referring Provider Line: [phone] SITE ID: [id number]
[2018-01-21] MEDS ORDERED: risperiDONE 1 MG TABLET PO SCH (10:00)
[2018-01-21] MEDS ORDERED: TRIAMT/HCTZ 37.5 MG/25 MG CAPSULE PO SCH (10:00)
[2018-01-21] MEDS ORDERED: SERTRALINE 25 MG TABLET PO SCH (10:00)
[2018-01-21] MEDS ORDERED: HYDROcod/ACETAM 5/325 MG TABLET PO SCH (10:00)
[2018-01-21] MEDS ORDERED: PANTOPRAZOLE 40 MG TABLET PO SCH (11:00)
[2018-01-21] MEDS ORDERED: levETIRAcetam 250 MG TABLET PO SCH (11:00)
[2018-01-21] MEDS ORDERED: GABAPENTIN 300 MG CAPSULE PO SCH (11:00)
[2018-01-21] MEDS ORDERED: LORazepam 0.5 MG TABLET PO SCH (11:00)
[2018-01-21 15:19] VITALS: BP 141/97
== END 2018-01-21 15:36 | disposition home or self-care (01) ==
LOC: ED 10:38
DX: R45.851 Suicidal ideations (principal); F32.9 Major depressive disorder, single episode, unspecified; Z86.73 Personal history of transient ischemic attack (TIA), and cerebral infarction without residual deficits; I10 Essential (primary) hypertension; E78.00 Pure hypercholesterolemia, unspecified
CPT/HCPCS: 36415; 73610; 80053; 80306; 80307; 81003; 83690; 85025; 93005; 99284; 99285; A9270; G0480; Q3014; 80320; 80329; 81001; 87086

== ENCOUNTER 2018-02-24 12:12 | Outpatient (CLI) | payer MEDICARE | END 2018-02-24 12:13 | disposition critical access hospital (66) | LOC: EMS 12:12 | PROVIDERS: ATTEND Surgery | DX: M54.2 Cervicalgia (principal); M54.9 Dorsalgia, unspecified; M25.562 Pain in left knee; R56.9 Unspecified convulsions | CPT/HCPCS: A0425; A0429 ==

== ENCOUNTER 2018-02-24 12:32 | Emergency (ER) | payer MEDICARE ==
[2018-02-24] MEDS ORDERED: MORPHINE 10 MG/ML VIAL IVP STA (12:39)
--- NOTE | 2018-02-24 12:43 | ED Physician Documentation ---
History of Present Illness - Stated complaint Stated Complaint: NECK/BACK PX - Chief complaint Chief Complaint: Back Pain - History obtained from History obtained from: Patient, EMS - History of Present Illness Timing: Today Pain level max: 9 Pain level now: 7 Improved by: remaining still Worsened by: movement - Additonal information Additional information: patient states she has several seizures per week and is on keppra for this. States thinks she had a few seizures last night and this am. Now with head, neck and back pain. Review of Systems Ten Systems: 10 systems reviewed and negative Constitutional: denies: Fever, Chills Ears: denies: Ear pain Nose: denies: Rhinorrhea / runny nose, Congestion Throat: denies: Sore throat Cardiac: denies: Chest pain / pressure Respiratory: denies: Cough GI: denies: Abdominal Pain, Nausea, Vomiting, Diarrhea Skin: denies: Rash Neurologic: denies: Focal weakness, Numbness, Confused PD PAST MEDICAL HISTORY - Past Medical History Cardiovascular: Hypertension, High cholesterol Respiratory: Sleep apnea, CPAP use Endocrine/Autoimmune: None GI: GERD, Hiatal hernia GLASS SCULLION: None : Nocturia, Frequency HEENT: Chronic vision loss, Chronic hearing loss Psych: Depression, Anxiety, Schizophrenia Musculoskeletal: Chronic back pain Derm: None - Past Surgical History Past Surgical History: Yes General: Cholecystectomy Ortho: Spine surgery /GLASS SCULLION: Hysterectomy Neuro: Craniotomy - Present Medications Home Medications: Ambulatory Orders Medication Instructions Recorded Confirmed LORazepam [Ativan] 1 mg PO TID 06/08/14 01/20/18 Levetiracetam [Keppra] 1,500 mg PO BID 06/08/14 01/20/18 Triamterene/Hydrochlorothiazid 1 tab PO DAILY 06/08/14 01/20/18 [Triamterene-Hctz 37.5-25 mg Tb] Gabapentin 600 mg PO 0800,1400,2100 08/06/16 01/20/18 Omeprazole 325 mg PO DAILY 08/06/16 01/20/18 Ferrous Sulfate 325 mg PO DAILY 12/21/17 01/20/18 Hydrocodone/Acetaminophen 1 tab PO QID 12/21/17 01/20/18 [Hydrocodone-Acetamin 10-325 mg] Aspirin [Adult Aspirin Regimen] 81 mg PO DAILY #30 tablet. 12/22/17 01/20/18 Atorvastatin Calcium 40 mg PO DAILY #30 tablet 12/22/17 01/20/18 Risperidone [Risperdal] 2 mg PO DAILY #30 tablet 12/22/17 01/20/18 Sertraline [Zoloft] 75 mg PO DAILY 01/20/18 01/20/18 Cyclobenzaprine [Flexeril] 10 mg PO TID PRN #14 tablet 02/24/18 Oxycodone HCl/Acetaminophen 1 - 2 each PO Q6H PRN #10 tablet 02/24/18 [Percocet 5-325 mg Tablet] - Allergies Allergies/Adverse Reactions: Allergies Allergy/AdvReac Type Severity Reaction Status Date / Time NSAIDS (Non-Steroidal Allergy Unknown Verified 02/24/18 12:38 Anti-Inflamma - Social History Does the pt smoke?: No Smoking Status: Never smoker Does the pt drink ETOH?: No Does the pt have substance abuse?: No - Immunizations Immunizations are current?: Yes - POLST Patient has POLST: No POLST Status: Full Code PD ED PE NORMAL - Vitals Vital signs reviewed: Yes - General General: Alert and oriented X 3, No acute distress, Well developed/nourished - HEENT HEENT: Atraumatic, PERRL, Ears normal, Moist mucous membranes - Neck Neck: Supple, no meningeal sign, Other (mild c-spine ttp) - Cardiac Cardiac: RRR, Strong equal pulses - Respiratory Respiratory: No respiratory distress, Clear bilaterally - Abdomen Abdomen: Soft, Non tender, Non distended - Back Back: Other (mild diffuse T/L spine TTP.) - Derm Derm: Warm and dry - Extremities Extremities: No deformity, No tenderness to palpate, Normal ROM s pain - Neuro Neuro: Alert and oriented X 3, electrologist 2-12 intact, No motor deficit, No sensory deficit Eye Opening: Spontaneous Motor: Obeys Commands Verbal: Oriented GCS Score: 15 Results - Vitals Vitals: Oxygen O2 Source Room air - Labs Labs: Laboratory Tests 02/24/18 02/24/18 13:00 13:00 WBC 7.9 RBC 4.97 Hgb 11.8 L Hct 36.2 L MCV 72.8 L MCH 23.8 L MCHC 32.7 RDW 20.1 H Plt Count 323 MPV 7.7 L Neut # 5.0 Lymph # 2.2 [place] # 0.5 Eos # 0.2 Baso # 0.1 Absolute Nucleated RBC 0.00 Nucleated RBC % 0.0 Sodium 131 L Potassium 3.5 Chloride 99 L Carbon Dioxide 21 Anion Gap 11.0 BUN 14 Creatinine 0.8 Estimated GFR (MDRD) 70 L Glucose 93 Calcium 9.0 Total Bilirubin 0.6 AST 21 ALT 23 Alkaline Phosphatase 75 Total Protein 7.3 Albumin 4.1 Globulin 3.2 Albumin/Globulin Ratio 1.3 Lipase 35 - Rads (name of study) head CT Radiology: Prelim report reviewed, EMP read contemporaneously, See rad report ( No acute intracranial abnormality) Cervical spine CT Radiology: Prelim report reviewed, EMP read contemporaneously, See rad report ( No acute cervical spine abnormality) Thoracic spine x-ray Radiology: Prelim report reviewed, EMP read contemporaneously, See rad report ( No acute abnormality) Lumbar spine x-ray Radiology: Prelim report reviewed, EMP read contemporaneously, See rad report ( No acute abnormality) PD MEDICAL DECISION MAKING - ED course Complexity details: reviewed old records (Prior ED visit), reviewed results, re- evaluated patient, considered differential, d/w patient, d/w family ED course: Patient is a 72-year-old female who presents to the emergency department with head, neck and back pain after having a seizure at home today. No acute findings on imaging. Pain well controlled. Will prescribe a small amount of pain medication and muscle relaxants for home. Ambulating well in the emergency department. No acute neurological deficits. Will have her follow-up with her doctor to adjust her Keppra as needed. Patient counseled regarding signs and symptoms for which I believe and urgent re-evaluation would be necessary. Patient with good understanding of and agreement to plan and is comfortable going home at this time This document was made in part using voice recognition software. While efforts are made to proofread this document, sound alike and grammatical errors may occur. Departure - Departure Disposition: 01 Home, Self Care Clinical Impression: Neck pain, Seizure disorder Back pain Qualifiers: Back pain location: back pain in unspecified location Chronicity: acute Back pain laterality: bilateral Qualified Code(s): M54.9 - Dorsalgia, unspecified Condition: Good Instructions: ED Neck Back Pain General Follow-Up: Kimani Mckeon MD [Primary Care Provider] - Within 1 week Prescriptions: Cyclobenzaprine [Flexeril] 10 mg PO TID PRN #14 tablet PRN Reason: Spasms Oxycodone HCl/Acetaminophen [Percocet 5-325 mg Tablet] 1 - 2 each PO Q6H PRN # 10 tablet PRN Reason: pain Comments: Return if you worsen. This should improve over the next 2-3 days. You should talk with your doctor about adjusting your antiseizure medications Do not drink alcohol or drive while on narcotic pain medicine. Note that many narcotic pain relievers also contain tylenol/acetaminophen. Please ensure that your total dose of acetaminophen from all sources does not exceed 3 grams (3000mg) per day. You may constipated on this medication, take a stool softener such as "Colace" twice a day while you are on it. Also recommend a uqha-kub-tabkjfp laxative such as senna or MiraLAX any day that you do not have a bowel movement. If you received narcotic pain medication in the emergency department, do not drive or operate machinery for the next 24 hours. Discharge Date/Time: 02/24/18 15:00
[2018-02-24] MEDS ORDERED: ONDANSETRON 4 MG/2 ML VIAL IVP STA (12:44)
[2018-02-24 13:13] LABS: BASOPHILS # (AUTO) 0.1 10^3/uL (0.0-0.1); BASOPHILS % (AUTO) 1.1 %; EOSINOPHILS # (AUTO) 0.2 10^3/uL (0.0-0.7); EOSINOPHILS % (AUTO) 2.1 %; HGB - HEMOGLOBIN 11.8 g/dL (12.0-16.0); LYMPHOCYTES # (AUTO) 2.2 10^3/uL (1.5-3.5); LYMPHOCYTES % (AUTO) 27.2 %; MEAN CORPUSCULAR HEMOGLOBIN 23.8 pg (27.0-31.0); MEAN CORPUSCULAR HGB CONC 32.7 g/dL (32.0-36.0); MEAN CORPUSCULAR VOLUME 72.8 fL (81.0-99.0); MEAN PLATELET VOLUME 7.7 fL (7.9-10.8); MONOCYTES # (AUTO) 0.5 10^3/uL (0.0-1.0); MONOCYTES % (AUTO) 6.4 %; NEUTROPHILS % (AUTO) 63.2 %; PLT - PLATELET COUNT 323 10^3/uL (130-450); RED BLOOD COUNT 4.97 10^6/uL (4.20-5.40); RED CELL DISTRIBUTION WIDTH 20.1 % (12.0-15.0); WHITE BLOOD COUNT 7.9 x10^3/uL (4.8-10.8)
[2018-02-24 13:20] LABS: ALBUMIN 4.1 g/dL (3.2-5.5); ALBUMIN/GLOBULIN RATIO 1.3 (1.0-2.2); BILIRUBIN,TOTAL 0.6 mg/dL (0.2-1.0); CREATININE 0.8 mg/dL (0.4-1.0); TOTAL PROTEIN 7.3 g/dL (6.7-8.2)
--- NOTE | 2018-02-24 13:57 | XRAY Preliminary Report ---
Exam: XR THORACIC SPINE 2 VIEW IMPRESSION: Negative for acute fracture and subluxation. [facility] SITE ID: [id number]
--- NOTE | 2018-02-24 13:57 | XRAY Report ---
EXAM: THORACIC SPINE RADIOGRAPHY EXAM DATE: 02/24/2018 01:29 PM. CLINICAL HISTORY: Back pain, s/p seizure. COMPARISON: CT 08/06/2016. TECHNIQUE: 2 views. FINDINGS: Alignment: There is a very mild broad-based apex right curvature of the thoracic spine which appears unchanged since previous CT. No subluxation. Bones: There are findings of prior anterior surgical fusion of C5-C7. Thoracic vertebral bodies appea r normal in height. Disks: Normal. Disk heights are maintained. Soft Tissues: Right diaphragm is elevated, unchanged. IMPRESSION: Negative for acute fracture and subluxation. [facility] Referring Provider Line: [phone] SITE ID: [id number]
--- NOTE | 2018-02-24 13:58 | CT Report ---
EXAM: CT HEAD EXAM DATE: 02/24/2018 01:39 PM. CLINICAL HISTORY: Headache, s/p seizure. COMPARISON: 12/21/2017. TECHNIQUE: Multiaxial CT images were obtained from the foramen magnum to the vertex. Reformats: Coron al. IV contrast: None. In accordance with CT protocol optimization, one or more of the following dose reduction techniques w ere utilized for this exam: automated exposure control, adjustment of mA and/or KV based on patient s ize, or use of iterative reconstructive technique. FINDINGS: Parenchyma: No intraparenchymal hemorrhage. No evidence of mass, midline shift, or CT findings of acu te infarction. Small focus of hypodensity within the low left basal ganglia region could represent re mote lacunar infarct or prominent perivascular space. Penn-white differentiation is distinct. There i s scattered air ventricular white matter hypodensity which may represent small vessel ischemic diseas e. Extraaxial Spaces: Normal for age. No subdural or epidural collections identified. Ventricles: Normal in size and position. Sinuses and Orbits: Imaged paranasal sinuses, orbits, and mastoids show no significant abnormality. Bones: No evidence of acute fracture or calvarial defect. Patient has undergone right lateral craniot agustin. Other: None. IMPRESSION: No acute intracranial CT abnormality. No evidence of hemorrhage or mass effect. [facility] Referring Provider Line: [phone] SITE ID: [id number]
--- NOTE | 2018-02-24 14:04 | XRAY Report ---
EXAM: LUMBOSACRAL SPINE RADIOGRAPHY EXAM DATE: 02/24/2018 01:29 PM. CLINICAL HISTORY: Back pain COMPARISONS: 08/06/2016. TECHNIQUE: 2 views. FINDINGS: Alignment: No evidence of dislocation. Bones: No fractures or focal bony lesions. Disks/Facets: There is moderate multilevel degenerative disease. Sacroiliac Joints: Unremarkable. Soft Tissues: No unexpected findings. IMPRESSION: No evidence of fracture or dislocation. There is moderate multilevel degenerative disease . [facility] Referring Provider Line: [phone] SITE ID: [id number]
--- NOTE | 2018-02-24 14:07 | CT Report ---
EXAM: CT CERVICAL SPINE WITHOUT CONTRAST DATE: 02/24/2018 01:39 PM. HISTORY: Neck pain COMPARISONS: 08/06/2016. TECHNIQUE: Thin-section axial images were acquired of the cervical spine without contrast. Post-proce ssing: Coronal and sagittal reformats. Other: None. In accordance with CT protocol optimization, one or more of the following dose reduction techniques w ere utilized for this exam: automated exposure control, adjustment of mA and/or KV based on patient s ize, or use of iterative reconstructive technique. FINDINGS: Alignment: No evidence of dislocation. There is reversal of the normal cervical lordosis. Patient has undergone C5-C7 cervical fusion. No evidence of acute hardware dysfunction. Bones: No fracture or bone lesion. Interspace Levels/Facets: No evidence of significant degenerative disease. Musculature: No significant abnormalities are seen. Other: No evidence of prevertebral soft tissue swelling or apical pneumothorax. IMPRESSION: No evidence of cervical spine fracture or dislocation. [facility] Referring Provider Line: [phone] SITE ID: [id number]
[2018-02-24] MEDS ORDERED: oxyCOD/ACETAMIN 5 MG/325 MG TABLET PO STA (14:34)
[2018-02-24 14:54] VITALS: BP 135/74
== END 2018-02-24 15:00 | disposition home or self-care (01) ==
LOC: EDUNIT# → ED 12:32
DX: G40.909 Epilepsy, unspecified, not intractable, without status epilepticus (principal); M54.2 Cervicalgia; M54.9 Dorsalgia, unspecified; R51 Headache; I10 Essential (primary) hypertension
CPT/HCPCS: 36415; 70450; 72070; 72100; 72125; 80053; 83690; 85025; 96374; 99284; A9270

== ENCOUNTER 2018-04-13 09:52 | Outpatient (CLI) | payer MEDICARE | END 2018-04-13 09:53 | disposition critical access hospital (66) | LOC: EMS 09:52 | PROVIDERS: ATTEND Surgery | DX: R51 Headache (principal); R53.1 Weakness; R29.810 Facial weakness; R47.81 Slurred speech | CPT/HCPCS: A0425; A0427 ==

== ENCOUNTER 2018-04-13 10:05 | Observation (INO) | payer MEDICARE ==
--- NOTE | 2018-04-13 10:09 | ED Physician Documentation ---
PD HPI FOCAL NEURO - Stated complaint Stated Complaint: L WEAKNESS, L FACIAL DROOP - History obtained from History obtained from: Patient - History of Present Illness Timing - onset: How many hours ago (about 9 am, so 1 hour ago, had onset of headache and then left sided weakness. She says she has had these several times before, with Dx of TIAs.), Today Timing - duration: Hours (1) Timing - details: Abrupt onset, Still present Severity of deficit: Moderate Weakness: Face, Arm, Leg, Left Numbness: No: Face, Arm, Leg Associated symptoms: Headache. No: Nausea / vomiting, Fall, Head injury Contributing factors: negative: Anticoagulated (just aspirin daily), Vascular dz , Atrial fibrillation Baseline status: positive: A&OX3, ambulatory, indep Similar symptoms before: Diagnosis (TIA) Recently seen: Not recently seen Review of Systems Constitutional: denies: Fever, Chills Nose: denies: Rhinorrhea / runny nose, Congestion Throat: denies: Sore throat Cardiac: denies: Chest pain / pressure, Palpitations Respiratory: denies: Dyspnea, Cough GI: denies: Abdominal Pain, Nausea, Vomiting : denies: Dysuria, Frequency Skin: denies: Rash, Lesions Neurologic: reports: Focal weakness, Headache. denies: Numbness, Confused, Altered mental status, Head injury PD PAST MEDICAL HISTORY - Past Medical History Cardiovascular: Hypertension, High cholesterol Respiratory: Sleep apnea, CPAP use Endocrine/Autoimmune: None GI: GERD, Hiatal hernia COMPUTER COMPOSITOR: None : Nocturia, Frequency HEENT: Chronic vision loss, Chronic hearing loss Psych: Depression, Anxiety, Schizophrenia Musculoskeletal: Chronic back pain Derm: None - Past Surgical History Past Surgical History: Yes General: Cholecystectomy Ortho: Spine surgery /COMPUTER COMPOSITOR: Hysterectomy Neuro: Craniotomy - Present Medications Home Medications: Ambulatory Orders Medication Instructions Recorded Confirmed LORazepam [Ativan] 1 mg PO TID PRN 06/08/14 04/13/18 Triamterene/Hydrochlorothiazid 1 tab PO DAILY 06/08/14 04/13/18 [Triamterene-Hctz 37.5-25 mg Tb] Gabapentin 600 mg PO 0800,1400,2100 08/06/16 04/13/18 Omeprazole 20 mg PO BIDAC 08/06/16 04/13/18 Hydrocodone/Acetaminophen 1 tab PO QID PRN 12/21/17 04/13/18 [Hydrocodone-Acetamin 10-325 mg] Aspirin [Adult Aspirin Regimen] 81 mg PO DAILY #30 tablet. 12/22/17 04/13/18 Sertraline [Zoloft] 50 mg PO DAILY 01/20/18 04/13/18 Atorvastatin Calcium 40 mg PO QPM 04/13/18 04/13/18 Meclizine HCl [Motion Sickness 25 mg PO DAILY PRN 04/13/18 04/13/18 Relief] Risperidone [Risperdal] 2 mg PO QPM 04/13/18 04/13/18 levETIRAcetam [Levetiracetam] 1,500 mg PO BID 04/13/18 04/13/18 - Allergies Allergies/Adverse Reactions: Allergies Allergy/AdvReac Type Severity Reaction Status Date / Time NSAIDS (Non-Steroidal Allergy Unknown Verified 02/24/18 12:38 Anti-Inflamma - Social History Does the pt smoke?: No Smoking Status: Never smoker Does the pt drink ETOH?: No Does the pt have substance abuse?: No - Family History Family history: reports: Non contributory - Immunizations Immunizations are current?: Yes - POLST Patient has POLST: No POLST Status: Full Code PD ED PE NORMAL - Vitals Vital signs reviewed: Yes - General General: Alert and oriented X 3, No acute distress, Well developed/nourished - HEENT HEENT: Moist mucous membranes, Pharynx benign - Neck Neck: Supple, no meningeal sign, No adenopathy - Cardiac Cardiac: RRR, No murmur - Respiratory Respiratory: Clear bilaterally - Abdomen Abdomen: Soft, Non tender - Back Back: No CVA TTP - Derm Derm: Normal color, Warm and dry - Extremities Extremities: No tenderness to palpate, Normal ROM s pain, No calf tenderness / cord, Other (1+ edema in both legs, not tender. ) - Neuro Neuro: Alert and oriented X 3, No sensory deficit, Normal speech, Other (mild left facial droop and left arm/leg weakness. ) Eye Opening: Spontaneous Motor: Obeys Commands Verbal: Oriented GCS Score: 15 - Psych Psych: Normal mood NIHSS - Level of Consciousness Level of consciousness: (0) Alert, Keenly responsive LOC Questions: (0) Answers both Q's correct LOC Commands: (0) Performs both correctly - Gaze Best Gaze: (0) Normal - Visual Visual: (0) No loss - Facial Palsy Facial Palsy: (1) Minor paralysis - Motor Arms (both separate) Motor Arm (right): (0) No drift Motor Arm (left): (1) Drift - Motor Legs (both separate) Motor Leg (right): (0) No drift Motor Leg (left): (1) Drift - Limb Ataxia Limb Ataxia: (0) Absent - Sensory Sensory: (0) Normal - Best Language Best Language: (0) No aphasia - Dysarthria Dysarthria: (0) Normal - Extinction and Inattention (formally neg Extinction and inattention: (0) No abnormality - Total Score/Results Total Score/Result: 3 Results - Vitals Vitals: Vital Signs - 24 hr 04/13/18 04/13/18 04/13/18 10:08 10:57 11:08 Temperature 36.1 C L Heart Rate 76 69 72 Respiratory 16 14 18 Rate Blood Pressure 137/90 H 132/80 H 143/90 H O2 Saturation 65 L 97 95 04/13/18 12:52 Temperature Heart Rate 65 Respiratory 12 Rate Blood Pressure 127/81 H O2 Saturation 95 Oxygen O2 Source Room air - Labs Labs: Laboratory Tests 04/13/18 04/13/18 04/13/18 10:28 10:28 10:28 WBC 6.6 RBC 5.18 Hgb 13.0 Hct 40.8 MCV 78.6 L MCH 25.2 L MCHC 32.0 RDW 19.0 H Plt Count 253 MPV 7.7 L Neut # (Auto) 4.7 Lymph # (Auto) 1.4 L [place] # (Auto) 0.3 Eos # (Auto) 0.1 Baso # (Auto) 0.0 Absolute Nucleated RBC 0.00 Nucleated RBC % 0.0 Sodium 136 Potassium 3.8 Chloride 101 Carbon Dioxide 25 Anion Gap 10.0 BUN 15 Creatinine 1.0 Estimated GFR (MDRD) 54 L Glucose 137 H Calcium 9.3 Total Bilirubin 0.7 AST 24 ALT 24 Alkaline Phosphatase 79 Total Protein 7.5 Albumin 4.1 Globulin 3.4 Albumin/Globulin Ratio 1.2 Triglycerides 163 H Cholesterol 131 LDL Cholesterol, Calc 41 VLDL Cholesterol 33 HDL Cholesterol 57 L LDL/HDL Ratio 0.7 Cholesterol/HDL Ratio 2.3 Lipase 29 - Rads (name of study) head CT Radiology: Prelim report reviewed, Discussed with rads (no acute process.) braing angio Radiology: Prelim report reviewed (no proximal occlusions nor flow defects noted. ) PD MEDICAL DECISION MAKING - ED course Complexity details: considered differential (She has had several episodes similar to this diagnosed as TIA. She was here several months ago and had neck CTA as well as an echocardiogram. There are no obvious abnormalities. The note from that admission said there was discussion with [facility] neurology and the patient was not a candidate because of prior brain surgery. I did not talk with them today. I did discuss potential interventions or TPA with the patient and she did not want any of the "that clot busting medicine." The one-sided weakness or associated with the headaches each time in lieu of her prior brain surgery would also suggest the possibility of complex migraines versus TIA. At this point she still has considerable left-sided weakness. The patient does not want TPA. She does not have any proximal lesions on her brain CTA and so there is no retrieval interventions. I talked with the hospitalist who will place her in observation here.), d/w patient - Sepsis Event Vital Signs: Vital Signs - 24 hr 04/13/18 04/13/18 04/13/18 10:08 10:57 11:08 Temperature 36.1 C L Heart Rate 76 69 72 Respiratory 16 14 18 Rate Blood Pressure 137/90 H 132/80 H 143/90 H O2 Saturation 65 L 97 95 04/13/18 12:52 Temperature Heart Rate 65 Respiratory 12 Rate Blood Pressure 127/81 H O2 Saturation 95 Oxygen O2 Source Room air Departure - Departure Disposition: ED Place in Observation Clinical Impression: Left-sided weakness Headache Qualifiers: Headache type: unspecified Headache chronicity pattern: acute headache Intractability: not intractable Qualified Code(s): R51 - Headache TIA (transient ischemic attack) Qualifiers: Transient cerebral ischemia type: unspecified Qualified Code(s): G45.9 - Transient cerebral ischemic attack, unspecified Condition: Stable Record reviewed to determine appropriate education?: Yes Discharge Date/Time: 04/13/18 13:55
[2018-04-13] MEDS ORDERED: SODIUM CHLORIDE 0.9% 1,000 ML IV ONE (10:19)
[2018-04-13] MEDS ORDERED: ONDANSETRON 4 MG/2 ML VIAL IVP STA (10:19)
[2018-04-13] MEDS ORDERED: MORPHINE 10 MG/ML VIAL IVP STA (10:19)
[2018-04-13] MEDS ORDERED: METOCLOPRAMIDE 10 MG/2 ML VIAL IVP STA (10:20)
[2018-04-13] MEDS ORDERED: ACETAMINOPHEN 1,000 MG/100 ML 100 ML IV STA (10:21)
[2018-04-13 10:35] LABS: BASOPHILS % (AUTO) 0.5 %; EOSINOPHILS # (AUTO) 0.1 10^3/uL (0.0-0.7); EOSINOPHILS % (AUTO) 1.9 %; LYMPHOCYTES # (AUTO) 1.4 10^3/uL (1.5-3.5); LYMPHOCYTES % (AUTO) 20.6 %; MEAN CORPUSCULAR HEMOGLOBIN 25.2 pg (27.0-31.0); MEAN CORPUSCULAR VOLUME 78.6 fL (81.0-99.0); MEAN PLATELET VOLUME 7.7 fL (7.9-10.8); MONOCYTES # (AUTO) 0.3 10^3/uL (0.0-1.0); MONOCYTES % (AUTO) 5.2 %; NEUTROPHILS # (AUTO) 4.7 10^3/uL (1.5-6.6); NEUTROPHILS % (AUTO) 71.8 %; PLT - PLATELET COUNT 253 10^3/uL (130-450); RED BLOOD COUNT 5.18 10^6/uL (4.20-5.40); WHITE BLOOD COUNT 6.6 x10^3/uL (4.8-10.8)
[2018-04-13] MEDS ORDERED: IOPAMIDOL-300 100 ML VIAL ONE (10:37)
--- NOTE | 2018-04-13 10:38 | CT Report ---
Procedure Date: 04/13/2018 Accession Number: [id number] / [id number] Procedure: CT - Head W/O Stroke Protocol CPT Code: FULL RESULT: EXAM: CT HEAD EXAM DATE: 04/13/2018 10:26 AM. CLINICAL HISTORY: Onset headache and left side weakness this morning. Stroke protocol. COMPARISON: 02/24/2018. TECHNIQUE: Multiaxial CT images were obtained from the foramen magnum to the vertex. Reformats: Coronal. IV contrast: None. In accordance with CT protocol optimization, one or more of the following dose reduction techniques were utilized for this exam: automated exposure control, adjustment of mA and/or KV based on patient size, or use of iterative reconstructive technique. FINDINGS: Parenchyma: Minimal patchy hypodensity bilaterally greatest in the left putamen, as before. No intraparenchymal hemorrhage. No evidence of mass, midline shift, or CT findings of acute infarction. Penn-white differentiation is distinct. Extraaxial Spaces: Normal for age. No subdural or epidural collections identified. Ventricles: Normal in size and position. Sinuses and Orbits: Imaged paranasal sinuses, orbits, and mastoids show no significant abnormality. Bones: Right parietal craniotomy, as before. Mild hyperostosis frontalis interna. Other: Mild calcification in bilateral cavernous internal carotid arteries and proximal intracranial left vertebral artery. No hyperdense MCA. IMPRESSION: 1. No intracranial hemorrhage or current CT evidence of acute CVA. 2. Minimal small vessel ischemic change bilaterally, as before. 3. Prior right parietal craniotomy. [facility] The critical result notification system was initiated by Dr. Colt Markham at 10:35 hrs on 04/13/18. The above findings were discussed with [employer] by Dr. Colt Markham at 10:37 hrs on 04/13/18.
[2018-04-13 10:47] LABS: ALBUMIN 4.1 g/dL (3.2-5.5); ALBUMIN/GLOBULIN RATIO 1.2 (1.0-2.2); BILIRUBIN,TOTAL 0.7 mg/dL (0.2-1.0); CALCIUM 9.3 mg/dL (8.5-10.3); TOTAL PROTEIN 7.5 g/dL (6.7-8.2)
[2018-04-13] MEDS ORDERED: IOPAMIDOL-300 100 ML VIAL IVP ONE (10:55)
--- NOTE | 2018-04-13 11:35 | CT Report ---
Procedure Date: 04/13/2018 Accession Number: [id number] / [id number] Procedure: CT - Head Angio CPT Code: FULL RESULT: EXAM: CT ANGIOGRAM HEAD. CT SCAN OF THE HEAD WITH CONTRAST. EXAM DATE: 04/13/2018 10:56 AM CLINICAL HISTORY: Headache and onset left weakness this morning. COMPARISON: CTA of the head 12/21/[address] scan of the head without contrast 04/13/2008 seen.. TECHNIQUE: - CT Scan Head: Using a multidetector scanner, axial images were acquired from the foramen magnum to the skull vertex prior to and following contrast administration. - CT Angiogram: Using a multidetector scanner, high-resolution axial images were acquired from the skull base through vertex following rapid infusion of intravenous contrast. Reformats: Multiplanar MIP reformats were reconstructed. Nascet criteria used for stenosis measurement. IV Contrast: 100 mL Isovue-300. In accordance with CT protocol optimization, one or more of the following dose reduction techniques were utilized for this exam: automated exposure control, adjustment of mA and/or KV based on patient size, or use of iterative reconstructive technique. FINDINGS: CT scan of the head with contrast: There is normal enhancement within the deep venous sinuses. There is normal enhancement within the brain parenchyma. CTA of the head: There are surgical changes of a right frontal craniotomy. The imaged portions of the orbits are normal in appearance. The trimmer helper spaces exhibit symmetric densities. The right and left parotid spaces enhance symmetrically. There are small foci of calcific plaquing of the left vertebral artery intradural segment producing a less than 25% stenosis. The right vertebral artery intradural segment is smooth and nonstenotic. The right posterior inferior cerebellar artery is without flow-limiting stenosis. The left posterior-inferior cerebellar artery is without flow-limiting stenosis. The right anterior inferior cerebellar artery is smooth and nonstenotic. There is a small left anterior-inferior cerebellar artery. The basilar artery is without flow-limiting stenosis. The right superior cerebellar artery is without flow-limiting stenosis. The left superior cerebellar artery is without flow-limiting stenosis. The left P1 and P2 segments of the left posterior cerebral artery are without flow-limiting stenosis. The right P1 and P2 segments of the right posterior cerebral artery are without flow-limiting stenosis. There is mild calcific plaquing in the cavernous and supraclinoid intracranial internal carotid arteries bilaterally without flow-limiting stenosis. The right M1 and proximal M2 segments of the right middle cerebral artery are smooth and nonstenotic. The left M1 and proximal M2 segments of the left middle cerebral artery are smooth and nonstenotic. The right A1 segment is smooth and nonstenotic. The left A1 segment is smooth and nonstenotic. There is a small anterior communicating artery. The right A2 segment of the right anterior cerebral artery is smooth and nonstenotic. The left A2 segment of the left anterior cerebral artery is smooth and nonstenotic. There is normal enhancement within the deep venous sinuses. IMPRESSION: 1. Normal postcontrast CT scan of the head. 2. There are small foci of calcific plaquing of the left vertebral artery intradural segment producing a less than 25% stenosis. 3. There is no evidence of cerebral aneurysm. There is no proximal arterial occlusion.
[2018-04-13] MEDS ORDERED: SODIUM CHLORIDE FLUSH 0.9% 10 ML SYRINGE IVP PRN (13:01)
[2018-04-13] MEDS ORDERED: SUMAtriptan 25 MG TABLET PO STA (14:10)
[2018-04-13] MEDS ORDERED: HYDROcod/ACETAM 10 MG/325 MG TABLET PO PRN (14:35)
[2018-04-13 14:38] LABS: CHOL/HDL RATIO 2.3 (<4.4); CHOLESTEROL 131 mg/dL; HDL CHOLESTEROL 57 mg/dL; LDL CHOLESTEROL,CALCULATED 41 mg/dL; LDL/HDL RATIO 0.7 (<4.4); VLDL CHOLESTEROL 33 mg/dL
[2018-04-13] MEDS ORDERED: LORazepam 0.5 MG TABLET PO PRN (14:39)
[2018-04-13] MEDS ORDERED: GABAPENTIN 400 MG CAPSULE PO SCH (15:17)
[2018-04-13] MEDS ORDERED: risperiDONE 1 MG TABLET PO SCH ×2 (16:00→21:00)
[2018-04-13] MEDS ORDERED: ATORVASTATIN 40 MG TABLET PO SCH ×2 (16:00→21:00)
[2018-04-13] MEDS: SODIUM CHLORIDE FLUSH 0.9% 10 ML SYRINGE IVP SCH (16:52)
[2018-04-13] MEDS: PANTOPRAZOLE 40 MG TABLET PO SCH (16:52)
--- NOTE | 2018-04-13 17:03 | PROVIDER PROGRESS NOTE ---
Hospitalist Cross-cover Note - Cross-Cover Note Cross-Cover Note: Addendum: In scrolling further down in old imaging studies, noted MRI brain WAS done with very similar presentation (see Dr Quevedo Admission note 01/21/2016) (same facial tingling left sided "not working" On that visit, patient was also still symptomatic in the ED, however MRI did not show any abnormalities even when she was still having symptoms. MRI notable only for mild chronic microvascular angiopathy (also noted on CT today) MRI at that time with no evidence of infarction, hemorrhge, or acute abnormality ; A previously noted 6mm focus of signal abnormality in the Right hypothalamus was LESS evident on that study, (possible artifact) Neurology has suggested (in communication w/ ED) these symptoms could represent complex migraine. Gave patient dose of Imitrex 25 mg and she DOES note symptoms resolved . At this time, given EACH of these episodes has occurred with headache, although these episodes have been diagnosed as TIA's, may have all been manifestation of complex migraine Given the extensive brain imaging she has had with each of these episodes (no new findings), and since often in setting of headache, will NOT pursue MRi brain again . Continue observation overnight on telemetry If any new changes, will reconsider brain MRI, Likely discharge in AM with prn imitrex (only to us on limited basis )
--- NOTE | 2018-04-13 19:52 | HISTORY & PHYSICAL EXAMINATION ---
DATE OF SERVICE: 04/13/2018 Physician: GIOVANNI Holder PRIMARY CARE PROVIDER: Kimani Mckeon MD CHIEF COMPLAINT: Onset of weakness on left and slurred speech this morning, and left facial tingling. HISTORY OF PRESENT ILLNESS: Patient is a 72-year-old female who presented to the ER today after developing symptoms of "trouble walking, odd feeling of her left leg and left upper extremity," although she was able to bear weight, "it just felt weak." Also had feel slurred speech and felt like she had to repeatedly asked her daughter to repeat herself. She had woken up feeling her normal self, did have toast with peanut butter this morning and then these symptoms developed approximately at 9 o'clock. She finds it very similar to symptoms that she had when presented here on several occasions in past with diagnosis of TIA. Also, at approximately the same time this morning, she did have a headache. Headache started at the back of her neck, went over her head, and behind her eyes. She was "due" for her Vicodin which she takes for osteoarthritis pain but there was very little relief of the headache with the Vicodin. In the emergency room, she did still have persistent left sided weakness. Daughter was present, and notes that at a certain point her mother had to sit, could raise R arm gustavo 1/[address] up compared with left, and reports "both sides of her mouth were drooping". Head CT with no acute finding / nor old. CTA of the head and neck similarly showed no gross abnormality, although there was some artifact by spinal fusion hardware. She does have small vessel ischemic changes bilaterally, which are not new. A CT angiogram of the brain done today showed only small foci of calcific plaquing of the left vertebral artery, less than 25 % stenosis. No evidence of aneurysm or arterial occlusion. Echocardiograms done previously demonstrate normal LV size and function with an EF of 70-75 percent and no significant valvular abnormality. PAST MEDICAL HISTORY: Includes: 1. Seizure disorder. 2. 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 3. Recent diagnosis of a hiatal hernia and GERD which the patient denies, but was found incidentally on a chest x-ray. 4. Anxiety. 5. Lower extremity edema. The patient denies hypertension. 6. Hypercholesterolemia. 7. Osteoarthritis. 8. Chronic opiate use for lower back pain and osteoarthritis. 9. Peripheral neuropathy. HOME MEDICATIONS: Include: 1. Atorvastatin 40 mg once daily. 2. Gabapentin 600 mg at 8, 2 p.m. and 9 p.m. 3. Ativan 1 tablet 3 times daily approximately at 8 a.m., 2 p.m. and 4 p.m. 4. Keppra 1500 mg twice daily. 5. Omeprazole 20 mg twice daily. 6. Risperdal 2 mg once daily at bedtime for sleep. 7. Zoloft 75 mg once daily. 8. Maxzide 37.5/25 once daily (patient reports this is only for lower extremity edema). 9. Aspirin 81 mg once daily 10. Vicodin 10 mg/325 one tablet 4 times daily for osteoarthritis pain. The patient had 120 Vicodin filled on 04/06/2018 and 90 Ativan tablets filled on 03/30/2018. ALLERGIES: NO KNOWN DRUG ALLERGIES. SOCIAL HISTORY: She is a never smoker. No tobacco and no alcohol. No illicits. FAMILY HISTORY: Her mother of pneumonia approximately age 94. Father of what she believes was peritonitis at age 78. She was 1 of 10 children of whom only 4 are left. Mother and his sister did have a stroke and she reports "lots of heart disease." [place]. SOCIAL HISTORY: The patient lives with her daughter, Conchita and . [place] She has a daughter who lives in [place]. REVIEW OF SYSTEMS: GENERAL: She does have approximately 50-pound unintentional weight gain. She reports this is due to "being sedentary." No new activity intolerance. No fevers or night sweats. HEAD, EARS, EYES, NOSE AND THROAT: She does wear glasses. She denies any vision changes including no specific vision changes with this presentation. CARDIOVASCULAR: She reports that at baseline and for a long time she has been relatively activity intolerant with shortness of breath with anything she does. She reports this is her baseline and she admits that she is sedentary. RESPIRATORY: Occasional cough, gentle activity intolerance. No orthopnea, no PND. GASTROINTESTINAL: No nausea, vomiting, diarrhea, constipation, other than a single episode of loose bowels yesterday. GENITOURINARY: Occasionally has urgency. No incontinence. No dysuria. MUSCULOSKELETAL: As per the HPI. No falls at home. NEUROLOGIC: As per the HPI. She does have history of migraines; however, she has never been on a triptan. PSYCHIATRIC: She does have anxiety, not clear why she is on the Risperdal, but reports that her mood is controlled. ENDOCRINE: She denies excessive thirst, however, reports that she drinks very much fluid during the day, including water, soda and coffee. No heat or cold intolerance. No unusual bruising or bleeding. PHYSICAL EXAMINATION: VITAL SIGNS: On presentation, she was afebrile, heart rate 79, blood pressure 133/98. At the time I saw her, her most recent vital signs were heart rate of 66, blood pressure 130/83, respiratory rate 14, 98% oxygenation on room air. GENERAL: She is a pleasant female who appears perhaps slightly older than stated age with considerable wrinkling, lying on the stretcher. She is alert, oriented and appropriate. HEAD, EARS, EYES, NOSE AND THROAT: She has a full head of hair. She has no obvious cranial abnormality on visual exam but has a slight depression on the R upper parietal yessica. Eyes: She is not wearing glasses currently. Extraocular movements are intact with a slight slow beat nystagmus at the extremes to the upper right and upper left. There is no icterus. Oral mucosa is moist. Tongue is midline. NECK: Supple. Carotids are +2. No appreciable bruit. Her neck is full. CARDIOVASCULAR: Skin is warm and dry with no diaphoresis. She has a regular rate and rhythm with no appreciable extra sounds. Pulses are +2 radial and dorsalis pedis bilaterally. LUNGS: She has unlabored respirations at rest and no adventitious breath sounds. ABDOMEN: Generous. She has an old small laparoscopy scar, right upper quadrant. Her abdomen is soft. She had tenderness in the left upper quadrant area with deep palpation , but otherwise is nontender. Bowel sounds are positive. No appreciable organomegaly. SKIN: Warm and dry. NEUROLOGIC: As above. Cranial nerves 2-12 are intact. NO dysarthria, no facial droop for me Her upper extremity pulverizer strength was equal bilaterally, 5/5. Her lower extremity strength was possibly 4/5 on the left and 5/5 on the right w/ plantar / dorsiflexion Patellar reflexes were not appreciable DIAGNOSTIC STUDIES: CT angiogram done today: 1. Normal post-contrast CT scan of the head. 2. Small foci of calcific plaquing of the left vertebral artery intradural segment, less than 25% stenosis. No evidence of aneurysm, no proximal arterial occlusion. CT head done today: 1. No intracranial hemorrhage or evidence of acute CVA nor old CVA. 2. Small vessel ischemic change bilaterally. 3. Prior right parietal craniotomy. Echocardiogram done 12/21/2017: Normal left ventricular size and function with an EF of 70-75 percent, grade 1 diastolic dysfunction. No wall motion abnormalities, no significant valvular disease, just trace mitral regurgitation, negative bubble study. EKG was not yet done today. EKG January 2017: Normal sinus rhythm with a rate of approximately 78 with no acute ischemic changes. LABORATORY DATA: Today, sodium 136, potassium 3.8, chloride 101, bicarbonate 25 , BUN 15, creatinine 1.0, glucose 137. Remaining chemistry studies unremarkable consistent with prior labs. CBC: White count 6.6, hemoglobin 13, hematocrit 40.8, 252,000 platelets. ASSESSMENT AND PLAN: 1. Left-sided weakness and left facial paresthesia. (See addendum as well) Although these symptoms have been diagnosed as TIA on prior presentations ,( even with a negative MRI done WHILE when symptoms were persisting in 2016 ), neurologist in d/w ED suggested these could represent complex Migraines. (RF ;s for ischemia are ? family history of CAD and stroke. She personally denies hypertension, saying that the Maxzide is only for lower extremity edema. She does not smoke. She is not diabetic. Cholesterol numbers have not been checked recently. (I am ordering/ she is on statin) and on daily ASA. Imaging studies thus far are unrevealing including the noncontrast CT and the CT angiogram as has been the case in the past. At this time, I will not repeat the carotid ultrasound or the echo which are unlikely to have new information. Conceivably this could be a complex migraine. I am curious to try a dose of Imitrex and she still has some mild sensation of weakness and still feels "weird." I will first evaluate the response to the Imitrex, but then will consider still a brain MRI. EKG is not yet done in ED ws done on admit to floor; NSR , rate 68, no ischemic changes. Flattened T waves She continue on her aspirin. Blood pressure control is in a very reasonable range does not require any acute lowering nor does require any volume to ensure it is high enough. She will have serial neuro exams. At this time she does not require a swallow evaluation and she will be on telemetry. 2. Hypercholesterolemia. As noted, she will have a repeat lipid panel as I do not see one in the last 2 years. She will continue on her statin. 3. Sleep apnea. She is not using her CPAP. 4. History of traumatic brain injury.(s/p fall backwards due to seizure w/ ICH , sp craniotomy; no residual deficits) 5. Seizure disorder. She is on Keppra and has not had a seizure recently, although she reports that when she does have them, it consists of just some muscle tightening and she is generally conscious with these./ not post ictal after 6. Depression and anxiety. She will continue on her home Ativan, nighttime Risperdal and Zoloft. I do not anticipate that any of those are related to her symptoms. I also do not suspect that any of this represents a seizure (although on one of these presentations, she did have a seizure the morning she presented w/ these same paresthesias and left sided weakness. 7. Chronic pain. She will continue on her 4 times daily p.r.n. Vicodin at home dose . 8. Gastroesophageal reflux disease. The patient was recently started on omeprazole. She has some questions about whether she really has this and says it was started just because they "saw a hiatal hernia on a chest x-ray." We will defer continued PPI to her primary care provider. 9. CODE STATUS: FULL. 10. Venous thromboembolism prophylaxis will be Lovenox. TD: 04/13/2018 14:34 SONU
[2018-04-13] MEDS: GABAPENTIN 300 MG CAPSULE PO SCH (20:18)
[2018-04-13] MEDS: levETIRAcetam 250 MG TABLET PO SCH (20:18)
[2018-04-13] MEDS: HYDROcod/ACETAM 10 MG/325 MG TABLET PO PRN (20:19)
[2018-04-13] MEDS: LORazepam 0.5 MG TABLET PO PRN (20:19)
[2018-04-14] MEDS: SODIUM CHLORIDE FLUSH 0.9% 10 ML SYRINGE IVP SCH ×2 (00:22→08:42)
[2018-04-14] MEDS: HYDROcod/ACETAM 10 MG/325 MG TABLET PO PRN ×2 (00:34→08:52)
[2018-04-14] MEDS: LORazepam 0.5 MG TABLET PO PRN ×2 (00:34→08:52)
[2018-04-14] MEDS: PANTOPRAZOLE 40 MG TABLET PO SCH (06:21)
[2018-04-14] MEDS ORDERED: PANTOPRAZOLE 40 MG TABLET PO SCH (07:00)
[2018-04-14 07:57] VITALS: BP 146/82
[2018-04-14] MEDS: levETIRAcetam 250 MG TABLET PO SCH (08:41)
[2018-04-14] MEDS: GABAPENTIN 300 MG CAPSULE PO SCH (08:41)
[2018-04-14] MEDS: ENOXAPARIN 40 MG/0.4 ML SYRINGE SUBQ SCH ×2 (08:41→10:12)
[2018-04-14] MEDS ORDERED: POLYETHYLENE GLYCOL 3350 17 GM PACKET PO SCH (09:00)
[2018-04-14] MEDS ORDERED: ASPIRIN EC 81 MG TABLET PO SCH (09:00)
[2018-04-14] MEDS ORDERED: SERTRALINE 50 MG TABLET PO SCH (09:00)
[2018-04-14 09:53] LABS: BASOPHILS # (AUTO) 0.1 10^3/uL (0.0-0.1); BASOPHILS % (AUTO) 0.7 %; EOSINOPHILS # (AUTO) 0.2 10^3/uL (0.0-0.7); EOSINOPHILS % (AUTO) 2.3 %; HGB - HEMOGLOBIN 12.3 g/dL (12.0-16.0); LYMPHOCYTES # (AUTO) 1.5 10^3/uL (1.5-3.5); LYMPHOCYTES % (AUTO) 19.6 %; MEAN CORPUSCULAR HEMOGLOBIN 25.4 pg (27.0-31.0); MEAN CORPUSCULAR VOLUME 79.4 fL (81.0-99.0); MEAN PLATELET VOLUME 7.8 fL (7.9-10.8); MONOCYTES # (AUTO) 0.5 10^3/uL (0.0-1.0); MONOCYTES % (AUTO) 6.3 %; NEUTROPHILS # (AUTO) 5.4 10^3/uL (1.5-6.6); NEUTROPHILS % (AUTO) 71.1 %; PLT - PLATELET COUNT 267 10^3/uL (130-450); RED BLOOD COUNT 4.85 10^6/uL (4.20-5.40); RED CELL DISTRIBUTION WIDTH 19.1 % (12.0-15.0); WHITE BLOOD COUNT 7.6 x10^3/uL (4.8-10.8)
[2018-04-14 10:02] LABS: ALBUMIN 3.7 g/dL (3.2-5.5); ALBUMIN/GLOBULIN RATIO 1.1 (1.0-2.2); BILIRUBIN,TOTAL 0.6 mg/dL (0.2-1.0); CALCIUM 9.1 mg/dL (8.5-10.3); MAGNESIUM 1.7 mg/dL (1.7-2.8); TOTAL PROTEIN 7.2 g/dL (6.7-8.2)
--- NOTE | 2018-04-14 10:32 | Discharge Plan ---
Discharge Plan Disposition: Home, Self Care Condition: Stable Prescriptions: SUMAtriptan [Imitrex] 25 mg PO Q6H PRN #15 tablet PRN Reason: Headache Diet: Regular Activity Restrictions: Activity as Tolerated Shower Restrictions: No (fall precaution) Weight Bearing: Full Weight Instruction Topics: Sumatriptan tablets, ED Headache Migraine, TIA Additional Instructions or Follow Up instructions: May follow up PCP in one week, follow up neurologist as out-pt. Should your symptoms return or worsen, you may present ER or call 911 for help. No Smoking: If you smoke, Please STOP! Call for help. Follow-up with: Kimani Mckeon MD [Primary Care Provider] -
--- NOTE | 2018-04-14 10:40 | DISCHARGE SUMMARY ---
Discharge Summary Discharge Date: 04/14/18 Discharging Provider: WATSON Primary Care Provider: Dr. Mckeon Condition at Discharge: Stable Discharge Disposition: 01 Home, Self Care Discharge Facility Name: home - DIAGNOSES Admission Diagnoses: TIA hx of traumatic brain injury seizure anxiety Chronic pain Discharge Diagnoses with Status of Each Condition: TIA pt has hx of recent couple times of TIA, all image studies were negative for acute findings in the past. today pt walked free at floor hallway. NIHSS is zero. CT and CTA of head on this time are negative for acute findings. Ms. Ulloa , [employer], who admitted pt on yesterday, she did not think pt had TIA, per Ms Laila reports to me, so no MRI, ECHO, US of carotid were ordered. Imitrex release pt' s headache. Pt had no complaints after admission of Imitrex. Imitrex is prescribed to pt as PRN hx of traumatic brain injury stable, continue PCP management seizure stable, continue home regimen anxiety stable, continue PCP management Chronic pain stable, continue PCP management - HPI History of Present Illness: Pt was admitted for TIA. Pt had couple times of TIA in this year. All image studies were negative to explain her symptoms. Pt had hx of traumatic brain injury. CT and CTA of head today are negative intracranial findings. Pt walked free in floor hallway by herself. NIHSS is zero. - ALLERGIES Allergies/Adverse Reactions: Allergies Allergy/AdvReac Type Severity Reaction Status Date / Time NSAIDS (Non-Steroidal Allergy Unknown Verified 02/24/18 12:38 Anti-Inflamma - MEDICATIONS Home Medications: Ambulatory Orders Medication Instructions Recorded Confirmed LORazepam [Ativan] 1 mg PO TID PRN 06/08/14 04/13/18 Triamterene/Hydrochlorothiazid 1 tab PO DAILY 06/08/14 04/13/18 [Triamterene-Hctz 37.5-25 mg Tb] Gabapentin 600 mg PO 0800,1400,2100 08/06/16 04/13/18 Omeprazole 20 mg PO BIDAC 08/06/16 04/13/18 Hydrocodone/Acetaminophen 1 tab PO QID PRN 12/21/17 04/13/18 [Hydrocodone-Acetamin 10-325 mg] Aspirin [Adult Aspirin Regimen] 81 mg PO DAILY #30 tablet. 12/22/17 04/13/18 Sertraline [Zoloft] 50 mg PO DAILY 01/20/18 04/13/18 Atorvastatin Calcium 40 mg PO QPM 04/13/18 04/13/18 Meclizine HCl [Motion Sickness 25 mg PO DAILY PRN 04/13/18 04/13/18 Relief] Risperidone [Risperdal] 2 mg PO QPM 04/13/18 04/13/18 levETIRAcetam [Levetiracetam] 1,500 mg PO BID 04/13/18 04/13/18 SUMAtriptan [Imitrex] 25 mg PO Q6H PRN #15 tablet 04/14/18 - PHYSICAL EXAM AT DISCHARGE General Appearance: positive: No acute distress, Alert. negative: Lethargic Eyes Bilateral: positive: Normal inspection, PERRL, No lid inflammation, Conjunctivae nml ENT: positive: ENT inspection nml, Pharynx nml, No signs of dehydration. negative: Purulent nasal drainage, Pharyngeal erythema, Oral lesions Neck: positive: Nml inspection, Thyroid nml, No JVD, Trachea midline. negative : Thyromegaly, Lymphadenopathy (R), Lymphadenopathy (L), Stiff neck, Carotid bruit, Swelling/bruising, Tracheal deviation Respiratory: positive: Chest non-tender, No respiratory distress, Breath sounds nml. negative: Wheezes, Rales, Rhonchi Cardiovascular: positive: Regular rate & rhythm, No murmur, No gallop. negative : Irregularly irregular, Extrasystoles, Tachycardia, Bradycardia, JVD present, Systolic murmur, Diastolic murmur Peripheral Pulses: positive: 2+ Abdomen: positive: Non-tender, No organomegaly, Nml bowel sounds, No distention. negative: Tenderness, Guarding, Rebound Back: positive: Nml inspection. negative: CVA tenderness (R), CVA tenderness (L ) Skin: positive: Color nml, No rash, Warm, Dry. negative: Cyanosis, Diaphoresis , Pallor Extremities: positive: Non-tender, Full ROM, Nml appearance. negative: Calf tenderness, Ronak's sign/cords Neurologic/Psychiatric: positive: Motor nml, Sensation nml, Mood/affect nml. negative: Weakness, Sensory loss, Facial droop, Slurred/abnml speech, Depressed mood/affect - LABS Result Diagrams: 04/14/18 09:45 04/14/18 09:45 - FOLLOW UP Follow Up: May follow up PCP in one week, follow up neurologist as out-pt. Should your symptoms return or worsen, you may present ER or call 911 for help. - TIME SPENT Time Spent in Discharge (Minutes): 45
[2018-04-14] MEDS ORDERED: NYSTATIN POWDER 15 GM TOP SCH (11:00)
[2018-04-14] MEDS ORDERED: SERTRALINE 25 MG TABLET PO SCH (16:00)
== END 2018-04-14 11:00 | disposition home or self-care (01) ==
LOC: EDUNIT# → ED 10:05 → SUPCPDRO 10:05 → MS2 13:01 → OBS 17:55
PROVIDERS: ADMIT Nurse Practitioner; ATTEND Nurse Practitioner Gerontology
DX: R51 Headache (principal); R29.810 Facial weakness; R47.81 Slurred speech; G40.909 Epilepsy, unspecified, not intractable, without status epilepticus; G89.29 Other chronic pain; F41.9 Anxiety disorder, unspecified; F32.9 Major depressive disorder, single episode, unspecified; M19.90 Unspecified osteoarthritis, unspecified site; R60.0 Localized edema; E78.00 Pure hypercholesterolemia, unspecified; G47.30 Sleep apnea, unspecified; K21.9 Gastro-esophageal reflux disease without esophagitis; Z79.82 Long term (current) use of aspirin; Z79.891 Long term (current) use of opiate analgesic; R20.2 Paresthesia of skin; R53.1 Weakness; I10 Essential (primary) hypertension; F20.9 Schizophrenia, unspecified; Z79.899 Other long term (current) drug therapy; R40.2412 Glasgow coma scale score 13-15, at arrival to emergency department; M54.5 Low back pain; K44.9 Diaphragmatic hernia without obstruction or gangrene; Z82.3 Family history of stroke; Z82.49 Family history of ischemic heart disease and other diseases of the circulatory system; Z86.69 Personal history of other diseases of the nervous system and sense organs; Z87.820 Personal history of traumatic brain injury
CPT/HCPCS: 36415; 70450; 70496; 80053; 80061; 83690; 83735; 85025; 93005; 96361; 96365; 96372; 96375; 99284; 99285; A9270; G0378; J0131; J1650; J2765; Q9967; 83721; 99283

== ENCOUNTER 2018-04-20 11:07 | Outpatient (CLI) | payer MEDICARE | END 2018-04-20 11:08 | disposition critical access hospital (66) | LOC: EMS 11:07 | PROVIDERS: ATTEND Surgery | DX: R10.9 Unspecified abdominal pain (principal) | CPT/HCPCS: A0425; A0429 ==

== ENCOUNTER 2018-04-20 11:21 | Emergency (ER) | payer MEDICARE ==
[2018-04-20 11:32] VITALS: BP 138/97
[2018-04-20 11:47] LABS: BASOPHILS # (AUTO) 0.1 10^3/uL (0.0-0.1); BASOPHILS % (AUTO) 1.4 %; EOSINOPHILS # (AUTO) 0.1 10^3/uL (0.0-0.7); EOSINOPHILS % (AUTO) 1.4 %; HGB - HEMOGLOBIN 13.5 g/dL (12.0-16.0); LYMPHOCYTES # (AUTO) 2.7 10^3/uL (1.5-3.5); LYMPHOCYTES % (AUTO) 26.9 %; MEAN CORPUSCULAR HEMOGLOBIN 25.6 pg (27.0-31.0); MEAN CORPUSCULAR HGB CONC 33.5 g/dL (32.0-36.0); MEAN CORPUSCULAR VOLUME 76.3 fL (81.0-99.0); MONOCYTES # (AUTO) 0.8 10^3/uL (0.0-1.0); MONOCYTES % (AUTO) 8.1 %; NEUTROPHILS # (AUTO) 6.1 10^3/uL (1.5-6.6); NEUTROPHILS % (AUTO) 62.2 %; PLT - PLATELET COUNT 341 10^3/uL (130-450); RED BLOOD COUNT 5.28 10^6/uL (4.20-5.40); RED CELL DISTRIBUTION WIDTH 18.2 % (12.0-15.0); WHITE BLOOD COUNT 9.8 x10^3/uL (4.8-10.8)
--- NOTE | 2018-04-20 11:50 | ED Physician Documentation ---
PD HPI ABD PAIN - Stated complaint Stated Complaint: ABD PX - Chief complaint Chief Complaint: Abd Pain - History obtained from History obtained from: Patient - History of Present Illness Timing - onset: Today Timing - duration: Days Timing - details: Gradual onset (has had some pain in upper abd for several days. Recently in hospital for left weakness and headache Dx with either TIA or possible complex migraine. Did not have abd pain at that time. States does have ongoing back pain and did not have her pain med nor ativan for anxiety today due to the abd pain.), Still present, Waxing and waning Quality: Cramping, Aching, Pain Location: Epigastric Radiation: Lower back. No: Left flank, Right flank Improved by: No: Eating Worsened by: Eating Associated symptoms: Nausea. No: Fever, Diarrhea, Constipation, Melena, Hematochezia Recently seen: Emergency Dept, Admitted (for TIA symptoms. 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 : Nocturia, Frequency HEENT: Chronic vision loss, Chronic hearing loss Psych: Depression, Anxiety, Schizophrenia Musculoskeletal: Chronic back pain Derm: None - Past Surgical History Past Surgical History: Yes General: Cholecystectomy Ortho: Spine surgery /REGIONAL HR MANAGER: Hysterectomy Neuro: Craniotomy - Present Medications Home Medications: Ambulatory Orders Medication Instructions Recorded Confirmed LORazepam [Ativan] 1 mg PO TID PRN 06/08/14 04/20/18 Triamterene/Hydrochlorothiazid 1 tab PO DAILY 06/08/14 04/20/18 [Triamterene-Hctz 37.5-25 mg Tb] Gabapentin 600 mg PO 0800,1400,2100 08/06/16 04/20/18 Omeprazole 20 mg PO BIDAC 08/06/16 04/20/18 Hydrocodone/Acetaminophen 1 tab PO QID PRN 12/21/17 04/20/18 [Hydrocodone-Acetamin 10-325 mg] Aspirin [Adult Aspirin Regimen] 81 mg PO DAILY #30 tablet. 12/22/17 04/20/18 Sertraline [Zoloft] 50 mg PO DAILY 01/20/18 04/20/18 Atorvastatin Calcium 40 mg PO QPM 04/13/18 04/20/18 Meclizine HCl [Motion Sickness 25 mg PO DAILY PRN 04/13/18 04/20/18 Relief] Risperidone [Risperdal] 2 mg PO QPM 04/13/18 04/20/18 levETIRAcetam [Levetiracetam] 1,500 mg PO BID 04/13/18 04/20/18 SUMAtriptan [Imitrex] 25 mg PO Q6H PRN #15 tablet 04/14/18 04/20/18 Lidocaine Viscous 2% [Xylocaine 5 ml PO Q4H PRN #1 bottle 04/20/18 Viscous 2%] Sucralfate 1 gm PO QID #30 tablet 04/20/18 - Allergies Allergies/Adverse Reactions: Allergies Allergy/AdvReac Type Severity Reaction Status Date / Time NSAIDS (Non-Steroidal Allergy Unknown Verified 02/24/18 12:38 Anti-Inflamma - Social History Does the pt smoke?: No Smoking Status: Never smoker Does the pt drink ETOH?: No Does the pt have substance abuse?: No - Immunizations Immunizations are current?: Yes - POLST Patient has POLST: No POLST Status: Full Code PD ED PE NORMAL - Vitals Vital signs reviewed: Yes - General General: Alert and oriented X 3, No acute distress, Well developed/nourished - HEENT HEENT: Ears normal, Pharynx benign - Neck Neck: Supple, no meningeal sign, No adenopathy - Cardiac Cardiac: RRR, No murmur - Respiratory Respiratory: Clear bilaterally - Abdomen Abdomen: Soft, Non distended, No organomegaly, Other (tender epigastric and RUQ areas. ) - Back Back: No CVA TTP - Derm Derm: Normal color, Warm and dry, No rash - Extremities Extremities: No tenderness to palpate, Normal ROM s pain, No edema, No calf tenderness / cord - Neuro Neuro: Alert and oriented X 3, No motor deficit, Normal speech Results - Vitals Vitals: Vital Signs - 24 hr 04/20/18 11:25 Temperature 36.2 C L Heart Rate 70 Respiratory 22 Rate Blood Pressure 138/97 H O2 Saturation 95 Oxygen O2 Source Room air - Labs Labs: Laboratory Tests 04/20/18 04/20/18 04/20/18 11:29 11:29 12:15 WBC 9.8 RBC 5.28 Hgb 13.5 Hct 40.3 MCV 76.3 L MCH 25.6 L MCHC 33.5 RDW 18.2 H Plt Count 341 MPV 8.0 Neut # (Auto) 6.1 Lymph # (Auto) 2.7 [place] # (Auto) 0.8 Eos # (Auto) 0.1 Baso # (Auto) 0.1 Absolute Nucleated RBC 0.00 Nucleated RBC % 0.0 Sodium 129 L Potassium 3.8 Chloride 98 L Carbon Dioxide 22 Anion Gap 9.0 BUN 14 Creatinine 0.9 Estimated GFR (MDRD) 61 L Glucose 83 Calcium 9.6 Total Bilirubin 0.8 AST 24 ALT 25 Alkaline Phosphatase 68 Total Protein 7.6 Albumin 3.9 Globulin 3.7 Albumin/Globulin Ratio 1.1 Lipase 78 H Urine Color YELLOW Urine Clarity CLEAR Urine pH 7.5 Ur Specific [place] 1.010 Urine Protein NEGATIVE Urine Glucose (UA) NEGATIVE Urine Ketones NEGATIVE Urine Occult Blood NEGATIVE Urine Nitrite NEGATIVE Urine Bilirubin NEGATIVE Urine Urobilinogen 0.2 (NORMAL) Ur Leukocyte Esterase MODERATE H Urine RBC 0-5 Urine WBC 11-25 H Ur Epithelial Cells FEW Transitional Ur Squamous Epith Cells FEW Squamous Urine Bacteria Rare Ur Microscopic Review INDICATED Urine Culture Comments INDICATED PD MEDICAL DECISION MAKING - ED course Complexity details: reviewed old records, reviewed results, re-evaluated patient (improved with gi cocktail. ), considered differential, d/w patient - Sepsis Event Vital Signs: Vital Signs - 24 hr 04/20/18 11:25 Temperature 36.2 C L Heart Rate 70 Respiratory 22 Rate Blood Pressure 138/97 H O2 Saturation 95 Oxygen O2 Source Room air Departure - Departure Disposition: Home, Self Care Clinical Impression: Epigastric abdominal pain Gastritis Qualifiers: Gastritis type: unspecified gastritis Chronicity: acute Gastritis bleeding: without bleeding Qualified Code(s): K29.00 - Acute gastritis without bleeding Condition: Stable Record reviewed to determine appropriate education?: Yes Instructions: ED Gastritis Follow-Up: Kimani Mckeon MD [Primary Care Provider] - Prescriptions: Lidocaine Viscous 2% [Xylocaine Viscous 2%] 5 ml PO Q4H PRN #1 bottle PRN Reason: Pain Sucralfate 1 gm PO QID #30 tablet Comments: Continue usual medications. You can use the omeprazole that you have once or twice daily. Add sucralfate 3 or 4 times a day to coat the stomach. To that you can use antacid such as Maalox or Mylanta and combine the lidocaine with it. That did seem to help you here today. Follow-up with your primary care this coming week. Return as needed. Discharge Date/Time: 04/20/18 13:44
[2018-04-20 11:58] LABS: ALBUMIN 3.9 g/dL (3.2-5.5); ALBUMIN/GLOBULIN RATIO 1.1 (1.0-2.2); BILIRUBIN,TOTAL 0.8 mg/dL (0.2-1.0); CALCIUM 9.6 mg/dL (8.5-10.3); CREATININE 0.9 mg/dL (0.4-1.0); TOTAL PROTEIN 7.6 g/dL (6.7-8.2)
[2018-04-20 12:21] LABS: BILIRUBIN,URINE NEGATIVE (NEGATIVE); GLUCOSE, URINE (UA) NEGATIVE (NEGATIVE); KETONES,URINE (UA) NEGATIVE (NEGATIVE); LEUKOCYTE ESTERASE, URINE MODERATE (NEGATIVE); NITRITE,URINE NEGATIVE (NEGATIVE); OCCULT BLOOD,URINE NEGATIVE (NEGATIVE); PH,URINE 7.5 PH (5.0-7.5); PROTEIN,URINE NEGATIVE (NEGATIVE); UROBILINOGEN,URINE 0.2 (NORMAL) E.U./dL (NORMAL)
[2018-04-20 12:23] LABS: CLARITY,URINE CLEAR (CLEAR)
[2018-04-20] MEDS ORDERED: LORazepam 2 MG/ML VIAL IVP STA (12:23)
[2018-04-20] MEDS ORDERED: ONDANSETRON 4 MG/2 ML VIAL IVP STA (12:23)
[2018-04-20] MEDS ORDERED: MORPHINE 10 MG/ML VIAL IVP STA (12:23)
[2018-04-20] MEDS ORDERED: MAG HYDROX/AL HYDROX/SIMETH 30 ML UDC PO STA (12:23)
[2018-04-20] MEDS ORDERED: LIDOCAINE VISCOUS 2% 15 ML UDC MM STA (12:23)
[2018-04-20 12:33] LABS: BACTERIA,URINE Rare /HPF (None Seen); EPITHELIAL CELLS,UR FEW Transitional /HPF (<= Few); RBC,URINE 0-5 /HPF (0-5); SQUAMOUS EPITHELIAL CELL,UR FEW Squamous (<= Few)
[2018-04-20] MEDS ORDERED: SUCRALFATE 1 GM/10 ML UDC PO STA (13:09)
== END 2018-04-20 13:44 | disposition home or self-care (01) ==
LOC: ED 11:21
DX: R10.13 Epigastric pain (principal); K29.00 Acute gastritis without bleeding; I10 Essential (primary) hypertension; E78.00 Pure hypercholesterolemia, unspecified; Z86.73 Personal history of transient ischemic attack (TIA), and cerebral infarction without residual deficits
CPT/HCPCS: 36415; 80053; 81001; 83690; 85025; 87086; 96374; 96375; 99283; A9270; J2060; 81003

== ENCOUNTER 2019-02-08 10:34 | Outpatient (CLI) | payer MEDICARE | END 2019-02-08 10:35 | disposition critical access hospital (66) | LOC: EMS 10:34 | PROVIDERS: ATTEND Surgery | DX: R11.2 Nausea with vomiting, unspecified (principal); R19.7 Diarrhea, unspecified; R53.1 Weakness; R10.9 Unspecified abdominal pain | CPT/HCPCS: A0425; A0429 ==

== ENCOUNTER 2019-02-08 10:52 | Emergency (ER) | payer MEDICARE ==
[2019-02-08] MEDS ORDERED: IOVERSOL 320 100 ML VIAL IVP ONE ×3 (10:53→13:01)
--- NOTE | 2019-02-08 11:28 | ED Physician Documentation ---
PD HPI NVD - Stated complaint Stated Complaint: N/V/D - Chief complaint Chief Complaint: Abd Pain - History obtained from History obtained from: Patient - History of Present Illness Timing - onset: How many days ago (2) Timing - duration: Days (2) Timing - details: Abrupt onset, Still present Associated symptoms: Fever, Abdominal pain (upper abd and LUQ area), Loss of appetite Contributing factors: No: Sick contact, Bad food, Recent antibiotics Improved by: No: Vomiting Worsened by: Eating, Palpation. No: Breathing Similar symptoms before: Has not had sx before Recently seen: Not recently seen Review of Systems Constitutional: reports: Myalgias, Fatigue. denies: Fever, Chills Nose: denies: Rhinorrhea / runny nose, Congestion Throat: denies: Sore throat Cardiac: denies: Chest pain / pressure, Palpitations Respiratory: denies: Cough GI: reports: Abdominal Pain (cramping pain epigastric and LUQ,), Nausea, Constipation, Diarrhea. denies: Vomiting : denies: Dysuria, Frequency Musculoskeletal: denies: Neck pain, Back pain, Extremity swelling Neurologic: reports: Generalized weakness. 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, Frequency HEENT: Chronic vision loss, Chronic hearing loss Psych: Depression, Anxiety, Schizophrenia Musculoskeletal: Chronic back pain Derm: None - Past Surgical History Past Surgical History: Yes General: Cholecystectomy Ortho: Spine surgery /FARM SUPERVISOR: Hysterectomy Neuro: Craniotomy - Present Medications Home Medications: Ambulatory Orders Medication Instructions Recorded Confirmed RX: LORazepam [Ativan] 1 mg PO TID PRN 06/08/14 04/20/18 RX: Triamterene/Hydrochlorothiazid 1 tab PO DAILY 06/08/14 04/20/18 [Triamterene-Hctz 37.5-25 mg Tb] RX: Gabapentin 600 mg PO 0800,1400,2100 08/06/16 04/20/18 RX: Omeprazole 20 mg PO BIDAC 08/06/16 04/20/18 RX: Hydrocodone/Acetaminophen 1 tab PO QID PRN 12/21/17 04/20/18 [Hydrocodone-Acetamin 10-325 mg] RX: Aspirin [Adult Aspirin Regimen] 81 mg PO DAILY #30 tablet. 12/22/17 04/20/18 RX: Sertraline [Zoloft] 50 mg PO DAILY 01/20/18 04/20/18 RX: Atorvastatin Calcium 40 mg PO QPM 04/13/18 04/20/18 RX: Meclizine HCl [Motion Sickness 25 mg PO DAILY PRN 04/13/18 04/20/18 Relief] RX: Risperidone [Risperdal] 2 mg PO QPM 04/13/18 04/20/18 RX: levETIRAcetam [Levetiracetam] 1,500 mg PO BID 04/13/18 04/20/18 SUMAtriptan [Imitrex] 25 mg PO Q6H PRN #15 tablet 04/14/18 04/20/18 RX: Lidocaine Viscous 2% 5 ml PO Q4H PRN #1 bottle 04/20/18 [Xylocaine Viscous 2%] RX: Sucralfate 1 gm PO QID #30 tablet 04/20/18 Diphenoxylate/Atropine [Lomotil] 1 each PO QID PRN #12 tablet 02/08/19 Ondansetron Odt [Zofran] 4 mg TL Q6H PRN #15 tablet 02/08/19 Oxycodone HCl/Acetaminophen 1 each PO Q6H PRN #15 tablet 02/08/19 [Percocet 7.5-325 mg Tablet] RX: Famotidine 20 mg PO DAILY #30 tablet 02/08/19 - Allergies Allergies/Adverse Reactions: Allergies Allergy/AdvReac Type Severity Reaction Status Date / Time NSAIDS (Non-Steroidal Allergy Unknown Verified 02/08/19 11:10 Anti-Inflamma - Social History Does the pt smoke?: No Smoking Status: Never smoker Does the pt drink ETOH?: No Does the pt have substance abuse?: No - Immunizations Immunizations are current?: Yes - POLST Patient has POLST: No POLST Status: Full Code PD ED PE NORMAL - Vitals Vital signs reviewed: Yes - General General: Alert and oriented X 3, No acute distress, Well developed/nourished - HEENT HEENT: PERRL, Ears normal, Pharynx benign. No: Moist mucous membranes - Neck Neck: Supple, no meningeal sign, No adenopathy - Cardiac Cardiac: RRR, No murmur - Respiratory Respiratory: Clear bilaterally - Abdomen Abdomen: Normal bowel sounds, Soft, Non distended, No organomegaly, Other (tender epigastric and LUQ with local guarding but no percussion nor rebound tenderness. ) - Rectal Rectal: Deferred - Back Back: No CVA TTP - Derm Derm: Normal color, Warm and dry - Extremities Extremities: Normal ROM s pain, No edema, No calf tenderness / cord - Neuro Neuro: Alert and oriented X 3, No motor deficit, Normal speech Results - Vitals Vitals: Vital Signs - 24 hr 02/08/19 02/08/19 02/08/19 10:55 13:51 14:40 Temperature 36.2 C L 36.7 C Heart Rate 73 56 L 67 Respiratory 14 18 20 Rate Blood Pressure 151/103 H 149/85 H 121/101 H O2 Saturation 97 99 96 Oxygen O2 Source Room air - Labs Labs: Laboratory Tests 02/08/19 02/08/19 11:45 11:45 WBC 8.8 RBC 5.34 Hgb 14.0 Hct 42.7 MCV 79.9 L MCH 26.2 L MCHC 32.8 RDW 14.9 Plt Count 311 MPV 8.6 Neut # (Auto) 5.5 Lymph # (Auto) 2.7 [place] # (Auto) 0.4 Eos # (Auto) 0.1 Baso # (Auto) 0.1 Absolute Nucleated RBC 0.01 Nucleated RBC % 0.1 Sodium 136 Potassium 3.5 Chloride 103 Carbon Dioxide 19 L Anion Gap 14.0 H BUN 15 Creatinine 0.9 Estimated GFR (MDRD) 61 L Glucose 94 Calcium 9.7 Magnesium 1.9 Total Bilirubin 0.7 AST 22 ALT 23 Alkaline Phosphatase 63 Total Protein 7.5 Albumin 4.1 Globulin 3.4 Albumin/Globulin Ratio 1.2 Lipase 44 - Rads (name of study) abd CT Radiology: Prelim report reviewed (diverticula but no signs diverticulitis. s/p CCY and Hyst. No acute process otherwise. ), See rad report PD MEDICAL DECISION MAKING - ED course Complexity details: reviewed results, re-evaluated patient (improved with IV meds. ), considered differential (consider diverticulitis, gallbladder (has had it removed), gastritis, GE, among others. ), d/w patient, d/w family Departure - Departure Disposition: 01 Home, Self Care Clinical Impression: Nausea vomiting and diarrhea, Gastroenteritis Condition: Stable Record reviewed to determine appropriate education?: Yes Instructions: ED Diet Vomiting Diarrhea Follow-Up: Kimani Mckeon MD [Primary Care Provider] - Prescriptions: Diphenoxylate/Atropine [Lomotil] 1 each PO QID PRN #12 tablet PRN Reason: Diarrhea RX: Famotidine 20 mg PO DAILY #30 tablet Ondansetron Odt [Zofran] 4 mg TL Q6H PRN #15 tablet PRN Reason: Nausea / Vomiting Oxycodone HCl/Acetaminophen [Percocet 7.5-325 mg Tablet] 1 each PO Q6H PRN #15 tablet PRN Reason: Pain Comments: I presume this may be an abrupt viral stomach flu and typically would last couple of days. Use ondansetron if needed for nausea and Lomotil for diarrhea. Famotidine acid reduction medicine daily for the next week or 2. Add Percocet for pain as needed for the short term. Recheck if not improved over the next 1 to 2 days and return sooner if worsening. Discharge Date/Time: 02/08/19 15:04
[2019-02-08] MEDS ORDERED: SODIUM CHLORIDE 0.9% 1,000 ML IV ONE (12:16)
[2019-02-08] MEDS ORDERED: ONDANSETRON 4 MG/2 ML VIAL IVP STA ×2 (12:16→14:13)
[2019-02-08] MEDS ORDERED: LIDOCAINE VISCOUS 2% 15 ML UDC MM STA (12:17)
[2019-02-08] MEDS ORDERED: FAMOTIDINE 20 MG/2 ML VIAL IVP STA (12:17)
[2019-02-08] MEDS ORDERED: MAG HYDROX/AL HYDROX/SIMETH 30 ML UDC PO STA (12:17)
[2019-02-08] MEDS ORDERED: MORPHINE 10 MG/ML VIAL IVP STA (12:17)
[2019-02-08 12:24] LABS: BASOPHILS # (AUTO) 0.1 10^3/uL (0.0-0.1); EOSINOPHILS # (AUTO) 0.1 10^3/uL (0.0-0.7); EOSINOPHILS % (AUTO) 1.2 %; LYMPHOCYTES # (AUTO) 2.7 10^3/uL (1.5-3.5); LYMPHOCYTES % (AUTO) 30.7 %; MEAN CORPUSCULAR HEMOGLOBIN 26.2 pg (27.0-31.0); MEAN CORPUSCULAR HGB CONC 32.8 g/dL (32.0-36.0); MEAN CORPUSCULAR VOLUME 79.9 fL (81.0-99.0); MEAN PLATELET VOLUME 8.6 fL (7.9-10.8); MONOCYTES # (AUTO) 0.4 10^3/uL (0.0-1.0); MONOCYTES % (AUTO) 4.1 %; NEUTROPHILS # (AUTO) 5.5 10^3/uL (1.5-6.6); PLT - PLATELET COUNT 311 10^3/uL (130-450); RED BLOOD COUNT 5.34 10^6/uL (4.20-5.40); RED CELL DISTRIBUTION WIDTH 14.9 % (12.0-15.0); WHITE BLOOD COUNT 8.8 x10^3/uL (4.8-10.8)
[2019-02-08 12:33] LABS: ALBUMIN 4.1 g/dL (3.2-5.5); ALBUMIN/GLOBULIN RATIO 1.2 (1.0-2.2); BILIRUBIN,TOTAL 0.7 mg/dL (0.2-1.0); CALCIUM 9.7 mg/dL (8.5-10.3); CREATININE 0.9 mg/dL (0.4-1.0); MAGNESIUM 1.9 mg/dL (1.7-2.8); TOTAL PROTEIN 7.5 g/dL (6.7-8.2)
--- NOTE | 2019-02-08 13:32 | CT Report ---
Reason: left upper abd pain for few days Procedure Date: 02/08/2019 Accession Number: [id number] / [id number] Procedure: CT - Abdomen/Pelvis W CPT Code: FULL RESULT: EXAM: CT ABDOMEN AND PELVIS EXAM DATE: 02/08/2019 01:05 PM. CLINICAL HISTORY: Abdomen pain. COMPARISONS: ABDOMEN/PELVIS W/ 12/16/2017 1:24 PM. TECHNIQUE: Routine helical CT imaging was performed through the abdomen and pelvis. IV contrast: 90 cc of Optiray 320. Enteric contrast: No. Reconstructions: Coronal and sagittal. In accordance with CT protocol optimization, one or more of the following dose reduction techniques were utilized for this exam: automated exposure control, adjustment of mA and/or KV based on patient size, or use of iterative reconstructive technique. FINDINGS: Lung Bases: Large hiatal hernia. Liver: Stable subcentimeter right lobe low density. Gallbladder/Bile Ducts: Cholecystectomy. No dilated ducts. Spleen: Stable ill-defined subcentimeter low densities. Pancreas: Normal. Adrenal Glands: Normal. Kidneys: Stable nonobstructing posterior left renal cortical 7 mm calcification and anterior 19 mm exophytic left renal cortical cyst, otherwise unremarkable. Peritoneal Cavity/Bowel: Moderate diverticulosis. No free fluid, free air or adenopathy. No masses or acute inflammatory process. The appendix is not identified. Pelvic Organs: Hysterectomy. Unremarkable bladder. Vasculature: No aortic enlargement. Mild atherosclerotic calcification. Bones: Degenerative disk disease at L2-L3 and L5-S1. Other: None. IMPRESSION: 1. Diverticulosis without diverticulitis or other acute abnormality in the abdomen and pelvis. 2. Cholecystectomy and hysterectomy. 3. Large hiatal RADIA
[2019-02-08] MEDS ORDERED: HYDROmorphone 1 MG/ML CARPUJECT IVP STA (14:13)
[2019-02-08] MEDS ORDERED: DIPHENOX/ATROPINE 2.5/0.025 MG TABLET PO STA (14:13)
[2019-02-08 14:41] VITALS: BP 121/101
== END 2019-02-08 15:04 | disposition home or self-care (01) ==
LOC: EDBD → EDUNIT# → ED 10:52
DX: K52.9 Noninfective gastroenteritis and colitis, unspecified (principal); K57.30 Diverticulosis of large intestine without perforation or abscess without bleeding; K21.9 Gastro-esophageal reflux disease without esophagitis; K44.9 Diaphragmatic hernia without obstruction or gangrene; I10 Essential (primary) hypertension; Z79.82 Long term (current) use of aspirin; Z90.49 Acquired absence of other specified parts of digestive tract
CPT/HCPCS: 36415; 74177; 80053; 83690; 83735; 85025; 96361; 96374; 96375; 99283; 99284; A9270; J1170; Q9967

== ENCOUNTER 2019-02-10 12:10 | Outpatient (CLI) | payer MEDICARE | END 2019-02-10 12:11 | disposition critical access hospital (66) | LOC: EMS 12:10 | PROVIDERS: ATTEND Surgery | DX: R53.1 Weakness (principal); R20.0 Anesthesia of skin; R51 Headache; R11.0 Nausea | CPT/HCPCS: A0425; A0427 ==

== ENCOUNTER 2019-02-10 12:25 | Observation (INO) | payer MEDICARE ==
[2019-02-10] MEDS ORDERED: IOVERSOL 320 100 ML VIAL IVP ONE ×3 (12:40→14:56)
--- NOTE | 2019-02-10 12:42 | ED Physician Documentation ---
PD HPI FOCAL NEURO - Stated complaint Stated Complaint: POSS STROKE - History obtained from History obtained from: Patient, EMS - History of Present Illness Timing - onset: Today (73-year-old woman with history of schizophrenia and anxiety, also a subdural hemorrhage necessitating craniotomy in 2011 presents with 2 complaints. One she had recurrent epigastric nonradiating pain that recurred today. She was seen here 2 days ago for it, had a negative work-up and improved with pain medication. Secondly at 1130 this morning she started to have difficulty with her tongue and left-sided numbness. She feels like the left-sided numbness is gone but still has a thick tongue. 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 HEENT: Chronic vision loss, Chronic hearing loss Psych: Depression, Anxiety, Schizophrenia Musculoskeletal: Chronic back pain Derm: None - Past Surgical History Past Surgical History: Yes General: Cholecystectomy Ortho: Spine surgery /MAGAZINE 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 12/22/17 02/10/19 RX: Sertraline [Zoloft] 50 mg PO DAILY 01/20/18 02/10/19 RX: Atorvastatin Calcium 40 mg PO QPM 04/13/18 02/10/19 RX: Meclizine HCl [Motion Sickness 25 mg PO DAILY PRN 04/13/18 02/10/19 Relief] RX: Risperidone [Risperdal] 2 mg PO QPM 04/13/18 02/10/19 RX: levETIRAcetam [Levetiracetam] 1,500 mg PO BID 04/13/18 02/10/19 Diphenoxylate/Atropine [Lomotil] 1 each PO QID PRN #12 tablet 02/08/19 02/10/19 Ondansetron Odt [Zofran] 4 mg TL Q6H PRN #15 tablet 02/08/19 02/10/19 Oxycodone HCl/Acetaminophen 1 each PO Q6H PRN #15 tablet 02/08/19 02/10/19 [Percocet 7.5-325 mg Tablet] RX: Famotidine 20 mg PO DAILY #30 tablet 02/08/19 02/10/19 - Allergies Allergies/Adverse Reactions: Allergies Allergy/AdvReac Type Severity Reaction Status Date / Time NSAIDS (Non-Steroidal Allergy Unknown Verified 02/10/19 12:53 Anti-Inflamma - Social History Does the pt smoke?: No Smoking Status: Never smoker Does the pt drink ETOH?: No Does the pt have substance abuse?: No - Family History Family history: reports: Non contributory - Immunizations Immunizations are current?: Yes - POLST Patient has POLST: No POLST Status: Full Code PD ED PE NORMAL - Vitals Vital signs reviewed: Yes - General General: Alert and oriented X 3, No acute distress - HEENT HEENT: PERRL, EOMI - Neck Neck: Supple, no meningeal sign, No bony TTP - Cardiac Cardiac: RRR, No murmur - Respiratory Respiratory: No respiratory distress, Clear bilaterally - Abdomen Abdomen: Normal bowel sounds, Soft, Non tender - Back Back: No CVA TTP, No spinal TTP - Derm Derm: Normal color, Warm and dry - Neuro Neuro: Alert and oriented X 3 Eye Opening: Spontaneous Motor: Obeys Commands Verbal: Oriented GCS Score: 15 - Psych Psych: Normal mood, Normal affect NIHSS - Time Time: 12:50 - Level of Consciousness Level of consciousness: (0) Alert, Keenly responsive LOC Questions: (0) Answers both Q's correct LOC Commands: (0) Performs both correctly - Gaze Best Gaze: (0) Normal - Visual Visual: (0) No loss - Facial Palsy Facial Palsy: (0) Normal, symmetrical movement - Motor Arms (both separate) Motor Arm (right): (0) No drift Motor Arm (left): (0) No drift - Motor Legs (both separate) Motor Leg (right): (0) No drift Motor Leg (left): (0) No drift - Limb Ataxia Limb Ataxia: (0) Absent - Sensory Sensory: (1) [id number] loss (L side, arm/leg/face) - Best Language Best Language: (0) No aphasia - Dysarthria Dysarthria: (1) [id number] dysarthria (thick tongue) - Extinction and Inattention (formally neg Extinction and inattention: (0) No abnormality - Total Score/Results Total Score/Result: 2 Results - Vitals Vitals: Vital Signs - 24 hr 02/10/19 02/10/19 02/10/19 12:25 13:10 13:11 Temperature 35.8 C L Heart Rate 63 60 60 Respiratory 22 14 18 Rate Blood Pressure 179/118 H 195/77 H 195/77 H O2 Saturation 100 98 99 02/10/19 02/10/19 13:30 13:37 Temperature Heart Rate 64 64 Respiratory 19 20 Rate Blood Pressure 166/87 H 141/92 H O2 Saturation 99 98 Oxygen O2 Source Room air - Labs Labs: Laboratory Tests 02/10/19 02/10/19 02/10/19 12:55 12:55 12:55 WBC 8.8 RBC 5.05 Hgb 13.2 Hct 41.0 MCV 81.2 MCH 26.2 L MCHC 32.3 RDW 15.3 H Plt Count 266 MPV 8.5 Neut # (Auto) 5.1 Lymph # (Auto) 2.9 [place] # (Auto) 0.5 Eos # (Auto) 0.1 Baso # (Auto) 0.2 H Absolute Nucleated RBC 0.00 Nucleated RBC % 0.0 Manual Slide Review Indicated Platelet Morphology RARE GIANT PLATELETS PT 13.6 H INR 1.2 Sodium 133 L Potassium 3.8 Chloride 100 L Carbon Dioxide 20 L Anion Gap 13.0 BUN 20 Creatinine 0.9 Estimated GFR (MDRD) 61 L Glucose 93 Calcium 8.9 Total Bilirubin 0.7 AST 24 ALT 23 Alkaline Phosphatase 59 Total Creatine Kinase 110 CK-MB (CK-2) Troponin I Total Protein 7.0 Albumin 3.8 Globulin 3.2 Albumin/Globulin Ratio 1.2 Lipase 42 Urine Color Urine Clarity Urine pH Ur Specific [place] Urine Protein Urine Glucose (UA) Urine Ketones Urine Occult Blood Urine Nitrite Urine Bilirubin Urine Urobilinogen Ur Leukocyte Esterase Urine RBC Urine WBC Ur Squamous Epith Cells Urine Bacteria Ur Microscopic Review Urine Culture Comments 02/10/19 02/10/19 12:55 13:30 WBC RBC Hgb Hct MCV MCH MCHC RDW Plt Count MPV Neut # (Auto) Lymph # (Auto) [place] # (Auto) Eos # (Auto) Baso # (Auto) Absolute Nucleated RBC Nucleated RBC % Manual Slide Review Platelet Morphology PT INR Sodium Potassium Chloride Carbon Dioxide Anion Gap BUN Creatinine Estimated GFR (MDRD) Glucose Calcium Total Bilirubin AST ALT Alkaline Phosphatase Total Creatine Kinase CK-MB (CK-2) 2.5 Troponin I < 0.04 Total Protein Albumin Globulin Albumin/Globulin Ratio Lipase Urine Color YELLOW Urine Clarity CLEAR Urine pH 6.5 Ur Specific [place] <=1.005 Urine Protein NEGATIVE Urine Glucose (UA) NEGATIVE Urine Ketones TRACE Urine Occult Blood NEGATIVE Urine Nitrite NEGATIVE Urine Bilirubin NEGATIVE Urine Urobilinogen 0.2 (NORMAL) Ur Leukocyte Esterase SMALL H Urine RBC None Seen Urine WBC 0-3 Ur Squamous Epith Cells MANY Squamous H Urine Bacteria Rare Ur Microscopic Review INDICATED Urine Culture Comments NOT INDICATED - Rads (name of study) CTH, CTAH, CTAN Radiology: EMP read contemporaneously (normal) PD MEDICAL DECISION MAKING - ED course ED course: 73-year-old woman who presents with 2 complaints, recurrent epigastric pain that was worked up the other day and negative. Interestingly she does not remember whether or not any other day, she did, but she remembers clearly that she had 10 mg of morphine, 1 mg of Dilaudid, and received a prescription for Percocet to go home with. Of note her less pressing complaint to her is new neurologic sympto ms starting 1130 this morning consisting of a thick tongue and left-sided numbness. The left-sided numbness persists on exam which she says is improving. NIH stroke scale on arrival was 2. Case was discussed by phone with Dr. Whitney Connors, tele-stroke neurology at [facility]. Given the psychiatric comorbidities, the history of the subdural hemorrhage, and low stroke scale she recommends against TPA and I agree. Departure - Departure Disposition: ED Place in Observation Clinical Impression: Epigastric abdominal pain TIA (transient ischemic attack) Qualifiers: Transient cerebral ischemia type: unspecified Qualified Code(s): G45.9 - Transient cerebral ischemic attack, unspecified Condition: Stable Discharge Date/Time: 02/10/19 14:20
[2019-02-10] MEDS ORDERED: MAG HYDROX/AL HYDROX/SIMETH 30 ML UDC PO STA (12:56)
[2019-02-10] MEDS ORDERED: LIDOCAINE VISCOUS 2% 15 ML UDC MM STA (12:56)
--- NOTE | 2019-02-10 12:59 | CT Report ---
Reason: CVA sx Procedure Date: 02/10/2019 Accession Number: [id number] / [id number] Procedure: CT - Head W/O Stroke Protocol CPT Code: FULL RESULT: EXAM: CT HEAD EXAM DATE: 02/10/2019 12:44 PM. CLINICAL HISTORY: CVA sx. COMPARISON: HEAD ANGIO 04/13/2018 10:23 AM HEAD W/O STROKE PROTOCOL 04/13/2018 10:23 AM. TECHNIQUE: Multiaxial CT images were obtained from the foramen magnum to the vertex. Reformats: Sagittal and coronal. IV contrast: None. In accordance with CT protocol optimization, one or more of the following dose reduction techniques were utilized for this exam: automated exposure control, adjustment of mA and/or KV based on patient size, or use of iterative reconstructive technique. FINDINGS: Parenchyma: Lacunar infarct in the left basal ganglia, similar to the prior head CT dated 04/13/2018. It was not present on the prior examination. No intraparenchymal hemorrhage. No evidence of mass, midline shift, or CT findings of acute infarction. Penn-white differentiation is distinct. Extraaxial Spaces: Normal for age. No subdural or epidural collections identified. Ventricles: Normal in size and position. Sinuses and Orbits: Imaged paranasal sinuses, orbits, and mastoids show no significant abnormality. Bones: Prior right-sided craniotomy. Other: None. IMPRESSION: 1. No acute intracranial abnormality. 2. Old lacunar infarct in the left basal ganglia, similar to the prior head CT dated 04/13/2018. RADIA The critical test notification system was initiated by Dr. Dawna Valencia at 12:54 PM on 02/10/2019. The above critical test findings were discussed with Woody Coelho by Dr. Dawna Valencia at 12:58 PM on 02/10/2019.
--- NOTE | 2019-02-10 13:01 | CT Report ---
Reason: CVA sx Procedure Date: 02/10/2019 Accession Number: [id number] / [id number] Procedure: CT - ANGIO HEAD W CPT Code: FULL RESULT: EXAM: CT ANGIOGRAM HEAD. EXAM DATE: 02/10/2019 12:46 PM CLINICAL HISTORY: 73-year-old woman with acute stroke. COMPARISON: HEAD ANGIO 04/13/2018 10:23 AM HEAD W/O STROKE PROTOCOL 02/10/2019 12:29 PM. TECHNIQUE: - CT Angiogram: Using a multidetector scanner, high-resolution axial images were acquired from the skull base through vertex following rapid infusion of intravenous contrast. Reformats: Multiplanar MIP reformats were reconstructed. Nascet criteria used for stenosis measurement. IV Contrast: OPTI 320 100mL. In accordance with CT protocol optimization, one or more of the following dose reduction techniques were utilized for this exam: automated exposure control, adjustment of mA and/or KV based on patient size, or use of iterative reconstructive technique. FINDINGS: CTA HEAD: RIGHT: - Visualized Internal Carotid: Patent without significant stenosis or aneurysm. There is mild atherosclerotic plaque along the siphon. - Anterior Cerebral: Patent without significant stenosis or aneurysm. - Middle Cerebral: Patent without significant stenosis or aneurysm. - Posterior Cerebral: Patent without significant stenosis or aneurysm. - Posterior Communicating: Not well seen. - Visualized Vertebral: Patent without significant stenosis or dissection. LEFT: - Visualized Internal Carotid: Patent without significant stenosis or aneurysm. There is mild atherosclerotic plaque along the siphon. - Anterior Cerebral: Patent without significant stenosis or aneurysm. The A1 segment is hypoplastic, a normal variant. - Middle Cerebral: Patent without significant stenosis or aneurysm. - Posterior Cerebral: Patent without significant stenosis or aneurysm. - Posterior Communicating: Patent. No aneurysm. - Visualized Vertebral: Patent without significant stenosis or dissection. CENTRAL: - Anterior Communicating: Patent. No aneurysm. - Basilar: Patent without significant stenosis, dissection, or aneurysm. POSTCONTRAST HEAD: No abnormal enhancement. IMPRESSION: 1. No large vessel occlusion, significant vascular stenosis, or aneurysm. RADIA
--- NOTE | 2019-02-10 13:03 | CT Report ---
Reason: CVA sx Procedure Date: 02/10/2019 Accession Number: [id number] / [id number] Procedure: CT - ANGIO NECK W/WO CPT Code: FULL RESULT: EXAM: CT ANGIOGRAM NECK EXAM DATE: 02/10/2019 12:46 PM. CLINICAL HISTORY: 73-year-old woman with acute stroke. COMPARISON: HEAD ANGIO 04/13/2018 10:23 AM. TECHNIQUE: Routine axial helical imaging was performed from the skull base through the aortic arch. Reconstructions: Routine multiplanar 3D MIP reconstructions. IV Contrast: OPTI 320 100mL. Evaluation of arterial stenosis is based on a NASCET method of measurement. In accordance with CT protocol optimization, one or more of the following dose reduction techniques were utilized for this exam: automated exposure control, adjustment of mA and/or KV based on patient size, or use of iterative reconstructive technique. FINDINGS: RIGHT: - Common and Internal Carotid: Patent without signficant stenosis. No evidence of atherosclerotic plaque at the bifurcation. Stenosis by NASCET criteria: 0%. No evidence of dissection. - External Carotid: Unremarkable. - Vertebral: Patent without significant stenosis. No evidence of dissection. LEFT: - Common and Internal Carotid: Patent without signficant stenosis. No evidence of atherosclerotic plaque at the bifurcation. Stenosis by NASCET criteria: 0%. No evidence of dissection. - External Carotid: Unremarkable. - Vertebral: Patent without significant stenosis. No evidence of dissection. SOFT TISSUES AND BONES: Visualized soft tissues are unremarkable. Lung apices are clear. No evidence of acute fracture or malalignment of the cervical spine. Status post ACDF of C5-C7. IMPRESSION: 1. Normal CTA of the neck. No significant vascular stenosis, atherosclerotic plaque, or dissection. RADIA
[2019-02-10 13:07] LABS: BASOPHILS # (AUTO) 0.2 10^3/uL (0.0-0.1); BASOPHILS % (AUTO) 2.2 %; EOSINOPHILS # (AUTO) 0.1 10^3/uL (0.0-0.7); EOSINOPHILS % (AUTO) 1.5 %; HGB - HEMOGLOBIN 13.2 g/dL (12.0-16.0); LYMPHOCYTES # (AUTO) 2.9 10^3/uL (1.5-3.5); LYMPHOCYTES % (AUTO) 33.1 %; MEAN CORPUSCULAR HEMOGLOBIN 26.2 pg (27.0-31.0); MEAN CORPUSCULAR HGB CONC 32.3 g/dL (32.0-36.0); MEAN CORPUSCULAR VOLUME 81.2 fL (81.0-99.0); MEAN PLATELET VOLUME 8.5 fL (7.9-10.8); MONOCYTES # (AUTO) 0.5 10^3/uL (0.0-1.0); MONOCYTES % (AUTO) 5.3 %; NEUTROPHILS # (AUTO) 5.1 10^3/uL (1.5-6.6); NEUTROPHILS % (AUTO) 57.9 %; PLT - PLATELET COUNT 266 10^3/uL (130-450); RED BLOOD COUNT 5.05 10^6/uL (4.20-5.40); RED CELL DISTRIBUTION WIDTH 15.3 % (12.0-15.0); WHITE BLOOD COUNT 8.8 x10^3/uL (4.8-10.8)
[2019-02-10 13:09] LABS: INR 1.2 (0.8-1.2); PT - PROTHROMBIN TIME 13.6 secs (9.9-12.6)
[2019-02-10 13:15] LABS: ALBUMIN 3.8 g/dL (3.2-5.5); ALBUMIN/GLOBULIN RATIO 1.2 (1.0-2.2); BILIRUBIN,TOTAL 0.7 mg/dL (0.2-1.0); CALCIUM 8.9 mg/dL (8.5-10.3); CREATININE 0.9 mg/dL (0.4-1.0)
[2019-02-10] MEDS ORDERED: ASPIRIN CHEW 81 MG TABLET PO STA (13:17)
[2019-02-10] MEDS ORDERED: LABETALOL 20 MG/4 ML SYRINGE IVP STA (13:17)
[2019-02-10] MEDS ORDERED: MORPHINE 10 MG/ML VIAL IVP STA (13:23)
[2019-02-10 13:25] LABS: TROPONIN I < 0.04 ng/mL (<0.49)
[2019-02-10 13:26] LABS: PLATELET MORPHOLOGY RARE GIANT PLATELETS (NORMAL)
[2019-02-10 13:27] LABS: CREATINE KINASE MB 2.5 ng/mL (0.6-6.3)
[2019-02-10 13:39] LABS: BILIRUBIN,URINE NEGATIVE (NEGATIVE); GLUCOSE, URINE (UA) NEGATIVE (NEGATIVE); KETONES,URINE (UA) TRACE mg/dL (NEGATIVE); LEUKOCYTE ESTERASE, URINE SMALL (NEGATIVE); NITRITE,URINE NEGATIVE (NEGATIVE); OCCULT BLOOD,URINE NEGATIVE (NEGATIVE); PH,URINE 6.5 PH (5.0-7.5); PROTEIN,URINE NEGATIVE (NEGATIVE); UROBILINOGEN,URINE 0.2 (NORMAL) E.U./dL (NORMAL)
[2019-02-10 13:41] LABS: CLARITY,URINE CLEAR (CLEAR)
[2019-02-10 13:48] LABS: BACTERIA,URINE Rare /HPF (None Seen); RBC,URINE None Seen /HPF (0-5); SQUAMOUS EPITHELIAL CELL,UR MANY Squamous (<= Few)
[2019-02-10] MEDS ORDERED: SODIUM CHLORIDE FLUSH 0.9% 10 ML SYRINGE IVP PRN (13:56)
[2019-02-10] MEDS ORDERED: LORazepam 1 MG TABLET PO PRN (13:58)
[2019-02-10] MEDS ORDERED: MECLIZINE 12.5 MG TABLET PO PRN (13:58)
--- NOTE | 2019-02-10 16:13 | HISTORY & PHYSICAL EXAMINATION ---
Chief Complaint - Chief Complaint Chief Complaint: my left arm went numb ~ 11-30 til 2-2:30, along with MOLINA History of Present Illness - Admitted From Admitted From:: ED - History Obtained From Records Reviewed: old EMR nots History obtained from: Patient - History of Present Illness HPI Comment/Other: Patient is a 73 yo woman (actually known to me from prior very similar presentation in April 2019) who abruptly developed LUE tingling and numbness (says this is the first time her whole arm felt numb) along with a frontal and posterior headache, and abdominal pain "My stomach always hurts, but anytime I get this numbness the stomach hurst worse". Today she also has an assoicated "thick tongue". By ~ 2.5-3 hrs, the L arm parestheia had resolved, but the tongue "thickness" and headache persist. Of note she was in the ED for the abdominal pain 2 days ago which she say sresolved. With the LUE paresthesia and headache, No assoicated motor weakness or discordination, no dysarthria, no trouble chewing or swallowing, no facial assymetry, no vision changes or field defects. She is on daily ASA and statin. RE CVA risks, no DM, no tobacco, on statin, lipids controlled, no Htn on maxizide LE edema (pt denies for HTN), Fam hx of CVA and CAD. In ED today, CT brain showed lacunar infarct Left basal ganglia unchanged from 04/2018; . CTA neck and CTA brain showed no significant vessel narrowing. . VS unremarkable on presentation, x modestly elevated SBP 150-160, improved without intervention, but improved w/no intervention. The last MRI brain was 2015. At that time an MRI was able to be pursued WHILE having paresthesias, NO findings consistent with ischemia on DWI WHILE symptoms persisted; felt to be more c/w anxiety attack at that time. In April 2018 with a similar presentation, complex migraine was considered, as she had a similar presentation with headache andparesthesias and reported improvement with imitrex. She was discharged with Rx for prn imitrex. She has no recall of ever trying imitrex but reports presenting several x similar symptoms. Patient admitted for evaluation of possible TIA today. Of note, patients granddaughter notes that she perceives element of attention seeking from patient when she visits. 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 Father suffered from cardiac disease and claims that he swallowed a toothpic which became lodged in his throat which led to iminent . The patient has 3 brother, and 6 sisters. Her older brother just this week. Social History Notes: The patient has 2 daughters, older one lives in [place], [place]. The patient lives with her daughter, Conchita and her . No longer have dogs. 350 lb autistic 17 yo of whom patient is somewhat "afraid" . The patient denies alcohol, tobacco, or illicit drug use. The patient wishes to be a FULL code. - Substance History Use: Uses substance without health or social issues: NONE Abuse: Recurrent use of substance despite neg consequences: NONE - POLST Patient has POLST: No POLST Status: Full Code Meds/Allgy - Home Medications Home Medications: Ambulatory Orders Medication Instructions Recorded Confirmed LORazepam [Ativan] 1 mg PO TID PRN 06/08/14 02/10/19 Gabapentin 600 mg PO 0800,1400,2100 08/06/16 02/10/19 Omeprazole 20 mg PO BIDAC 08/06/16 02/10/19 Hydrocodone/Acetaminophen 1 tab PO QID PRN 12/21/17 02/10/19 [Hydrocodone-Acetamin 10-325 mg] Aspirin [Adult Aspirin Regimen] 81 mg PO DAILY #30 tablet. 12/22/17 02/10/19 Sertraline [Zoloft] 50 mg PO DAILY 01/20/18 02/10/19 Atorvastatin Calcium 40 mg PO QPM 04/13/18 02/10/19 Meclizine HCl [Motion Sickness 25 mg PO DAILY PRN 04/13/18 02/10/19 Relief] Risperidone [Risperdal] 2 mg PO QPM 04/13/18 02/10/19 levETIRAcetam [Levetiracetam] 1,500 mg PO BID 04/13/18 02/10/19 Diphenoxylate/Atropine [Lomotil] 1 each PO QID PRN #12 tablet 02/08/19 02/10/19 Famotidine 20 mg PO DAILY #30 tablet 02/08/19 02/10/19 Ondansetron Odt [Zofran Odt] 4 mg TL Q6H PRN #15 tablet 02/08/19 02/10/19 Triamterene/Hydrochlorothiazid 1 tab PO DAILY PRN #0 02/11/19 02/10/19 [Triamterene-Hctz 37.5-25 mg Tb] - Allergies Allergies/Adverse Reactions: Allergies Allergy/AdvReac Type Severity Reaction Status Date / Time NSAIDS (Non-Steroidal Allergy Unknown Verified 02/10/19 12:53 Anti-Inflamma Review of Systems - Constitutional Constitutional: reports: Weight loss (reports 14 lb wt loss). denies: Fatigue, Weight gain - Eyes Eyes: reports: Other (wears glasses). denies: Pain, Field loss, Vision loss, Dipolpia - Ears, Nose & Throat Ears, Nose & Throat: reports: Vertigo (takes meclizine in the am for occas vertigiounous symptoms). denies: Hearing loss, Sore throat - Cardiovascular Cariovascular: denies: Palpitations, Chest pain, Lightheadedness (has vertigo, uses meclizine q am) - Respiratory Respiratory: denies: Cough, Sputum production, Wheezing - Gastrointestinal Gastrointestinal: reports: Abdominal pain ("always have pain from my hiatal hernia"), Constipation (Reports chronic abdominal pain bilateral upper quadrants, no change in bowel habits, BM ~ q 3 days, no constipation, occas diarrhea (cant elaborate on why lomotil is on med list), Diarrhea. 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 Grand daughter informs me in private in the diaz that she notices her grandmother (this patient) seems to attention seek when she is there "acts weaker"/ needy of assist) - Endocrine Endocrine: denies: Polyuria, Polydypsia - All Other Systems All Other Systems: reports: Reviewed and negative Exam - Vital Signs Reviewed Vital Signs: Yes Vital Signs: Vital Signs x48h Temp Pulse Pulse Resp BP BP Pulse Ox 02/10/19 15:56 37.0 C 54 L 18 115/90 H 95 02/10/19 14:00 62 22 151/80 H 98 02/10/19 13:37 64 20 141/92 H 98 02/10/19 13:30 64 19 166/87 H 99 02/10/19 13:11 60 18 195/77 H 99 02/10/19 13:10 60 14 195/77 H 98 02/10/19 12:25 35.8 C L 63 22 179/118 H 100 - Physical Exam General Appearance: positive: Lethargic, Other (pleasant, elderly female alert, oriented, but increasingly anxious with history taking, grabbing head when I ask questions, but relaxes with assurance just getting history) Eyes Bilateral: positive: PERRL, EOMI, Other (no nystagmus) Respiratory: positive: No respiratory distress, Breath sounds nml Cardiovascular: positive: Regular rate & rhythm, No murmur Abdomen: positive: No organomegaly, Nml bowel sounds, Tenderness (across upper abdomen, permits deep palpation, no guarding, no rebound) Back: positive: CVA tenderness (R), CVA tenderness (L) Skin: positive: Warm, Dry. negative: Diaphoresis, Pallor, Skin rash Extremities: negative: Pedal edema (as above, anxious, Patient denies any suicidal ideation, or thoughts of self harm, several mos ago,had SI as house was too "crazy" . Has 18 yo 350 lb autistic grandson, she was nervous of him, also dogs in the house (dogs were ok), she says her medication was changed; NO further thoughts of self harm) Neurologic/Psychiatric: positive: Oriented x3, Other (oriented but anxious, no facial asymmetry CN 2-12 intact, rapid alternating movements intact, articulate, symmetric 5/5 hand firer watertender (? maybe 4+ / 5 on left), no finger discoordination left, no pronator drift). negative: Mood/affect nml, Facial droop Conclusion/Plan - Problem List (1) TIA (transient ischemic attack) Conclusion/Plan: Possible TIA No + hyperlipidemia on statin, on ASA, no dM, no HTN, no tobacco , + FHx CAD stroke No new findings on CT head, CTA head/ neck with no significant vessel narrowing On ASA, Statin, no hx afib Monitor on telemetry Last MRI 2015 as noted WHILE symptoms (similar paresthesias) present showed no ischemia and ED MD suspected anxiety Prior consideration that this could be migraine relief w/imitrex (she does not recall this) MRI tonight; patient reports the sensation of tongue numbness/ thickness present during MRI If no ischemia on MRI, since symptoms still present negative findings argue this is not ischemia No significant findings on prior Echo 12/2017 w/ similar presentation (EF 70-75%, n WMA, No significant valuvlar abnl, RVSP 21mm) I have no reason to suspect this has changed, Qualifiers: Transient cerebral ischemia type: unspecified Qualified Code(s): G45.9 - Transient cerebral ischemic attack, unspecified (2) Abdominal pain Conclusion/Plan: No associated fever, chills,, no leukocytosis unchanged bowel movements, no emesis, tolerating PO, non acute abdomen No change in regimen Continue home H2B for known hiatal hernia Continue home analgesic that she takes for OA pain (vicodin) (3) Anxiety Conclusion/Plan: Anxiety and Depression/ Chronic normally takes tid ativan 1mg continue home zoloft If MRI negative, ? if some psychiatric component of symptoms given granddaughters report of what she perceives as attention seeking when she is in house (diagnosis of exclusion, but since still has tongue paresthesia, if MRI negative w/ continued symptoms (as it was in 2016), helpful information Continue Ativan 1mg TID prn (states she will be ok in Mri) Mild metabolic acidosis may be compensating for mild hyperventilation/ quite anxious affect (4) Hyperlipidemia Conclusion/Plan: On statin, lipids checked 04/23; Good control, LDL 41, TC 131, HDL 57 TG 163 (5) Prerenal azotemia Conclusion/Plan: very mild with BUN/cr ratio 20:1 will gently hydrate tonight (6) Osteoarthritis Conclusion/Plan: Has been on long standing qid vicodin ; continue home regimen, patient denies, self change of dose, no diversion, has been taking benzo (1 mg tid ativan for long time w/o adverse effect) Not on bowel regimen; denies constipation Continue home regimen (7) Insomnia Conclusion/Plan: Insomnia and anxiety On Risperdal 2 mg at home continue home regime (8) Vertigo Conclusion/Plan: Takes daily morning meclizine for AM vertigionous symptoms continue prn kevon meclizine (9) Full code status Conclusion/Plan: Patient states "Do whatever you need to do" (10) History of suicidal ideation Conclusion/Plan: Several months ago Reports situational (see above) Denies any thoughts of self harm - Lab Results Fish Bones: 02/10/19 12:55 02/10/19 12:55
[2019-02-10] MEDS: GABAPENTIN 300 MG CAPSULE PO SCH ×2 (16:47→21:01)
[2019-02-10] MEDS ORDERED: GADOBUTROL 10 MMOL/10 ML VIAL ONE (18:54)
[2019-02-10] MEDS ORDERED: GADOBUTROL 10 MMOL/10 ML VIAL IVP ONE (19:01)
--- NOTE | 2019-02-10 20:02 | MRI Report ---
Reason: TIA Procedure Date: 02/10/2019 Accession Number: [id number] / [id number] Procedure: MRI - Brain W/WO CPT Code: FULL RESULT: EXAM: MRI BRAIN WITHOUT AND WITH CONTRAST. EXAM DATE: 02/10/2019 06:59 PM. CLINICAL HISTORY: 73-year-old presenting with TIA-like episode. Evaluate for intracranial pathology. COMPARISON: CTA head and neck 02/10/2019; CT head 02/10/2019; MR brain 01/21/2016. TECHNIQUE: Multiplanar, multisequence T1-weighted and fluid-sensitive MR sequences of the brain were performed. Sequences optimized for routine evaluation. Other: None. IV Contrast: 10 cc Gadavist. FINDINGS: Brain Volume: Normal for age. Parenchyma: No acute parenchymal hemorrhage, mass, or midline shift. There is mild to moderate bilateral areas of T2/FLAIR signal hyperintensity seen that appear similar to MR brain 01/21/2016. No areas of restricted diffusion seen to suggest acute infarct. No areas of abnormal parenchymal susceptibility artifact. No abnormal enhancement. Ventricles/Cisterns: No hydrocephalus. Post surgical changes of right parietal craniotomy with underlying dural thickening enhancement that is likely postsurgical. No other definite abnormal extraction fluid collection/mass seen. Orbits: Symmetric and unremarkable. Sella Turcica: The pituitary gland, cavernous sinuses, suprasellar cistern and optic chiasm are unremarkable. IAC: Symmetric and unremarkable. Vasculature: Normal signal flow void is seen in the major arterial structures at the skull base. The dural sinuses are patent and enhance normally. Sinuses: No acute sinus disease. Bones: Post surgical changes of right parietal craniotomy. Other: None. IMPRESSION: 1. No definite acute intracranial pathology seen; specifically, no acute infarct, acute intracranial hemorrhage, mass, hydrocephalus, or midline shift. No abnormal postcontrast enhancement. 2. Mild to moderate white matter changes seen that appear similar to MR brain 01/21/2016 that while nonspecific, may represent sequela of chronic small vessel ischemic disease. 3. Post surgical changes of prior right parietal craniotomy similar to CT head 02/10/2019. RADIA
[2019-02-10] MEDS: SODIUM CHLORIDE FLUSH 0.9% 10 ML SYRINGE IVP SCH (20:27)
[2019-02-10] MEDS ORDERED: risperiDONE 1 MG TABLET PO SCH (21:00)
[2019-02-10] MEDS ORDERED: ATORVASTATIN 40 MG TABLET PO SCH (21:00)
[2019-02-10] MEDS: levETIRAcetam 250 MG TABLET PO SCH (21:01)
[2019-02-10] MEDS: HYDROcod/ACETAM 10 MG/325 MG TABLET PO PRN (21:02)
[2019-02-11] MEDS: SODIUM CHLORIDE FLUSH 0.9% 10 ML SYRINGE IVP SCH ×2 (00:09→08:21)
[2019-02-11] MEDS: HYDROcod/ACETAM 10 MG/325 MG TABLET PO PRN (06:32)
[2019-02-11 07:47] VITALS: BP 106/77
[2019-02-11] MEDS ORDERED: GABAPENTIN 300 MG CAPSULE PO SCH (08:00)
[2019-02-11] MEDS: levETIRAcetam 250 MG TABLET PO SCH (08:18)
[2019-02-11] MEDS ORDERED: ASPIRIN EC 81 MG TABLET PO SCH (09:00)
[2019-02-11] MEDS ORDERED: POLYETHYLENE GLYCOL 3350 17 GM PACKET PO SCH (09:00)
[2019-02-11] MEDS ORDERED: FAMOTIDINE 20 MG TABLET PO SCH (09:00)
[2019-02-11] MEDS ORDERED: SERTRALINE 50 MG TABLET PO SCH (09:00)
--- NOTE | 2019-02-11 10:59 | Discharge Plan ---
Discharge Plan Disposition: 01 Home, Self Care Condition: Stable Diet: Regular Activity Restrictions: No Restrictions Shower Restrictions: No Driving Restrictions: Yes Weight Bearing: Full Weight Additional Instructions or Follow Up instructions: 1 Left upper extremity, and tongue paresthesia, and headache; You came to the hospital with left arm, and hand tingling and numbness, you also had at the same time a headache across the front and back of your head. You noted your tongue felt "thick" which affected speech. You had no vision changes, no motor problems (could move/use all extremities at normal strength),no swallowing difficulties, no trouble understanding, no facial droop. CT scan of the head showed no bleed, no new findings since the CT of April 2018, (Old lacunar (deep brain) infarct of left basal ganglia as seen in 2018). Imaging of the brain and neck vessels showed no narrowing. MRI of the brain done WHILE you still had sensation of tongue thickness/ numbness did not show signs of impaired blood flow. Similarly in 2016, you had an Mri while still having similar symptoms, with no finding of impaired blood flow. All of this was done to ensure this was not a stroke, As there were no MRI findings while you still had symptoms this is NOT likely a TIA. You did not have a stroke No heart abnormalities on telemetry Mild elevation on blood pressure when you arrived 170-190s systolic for ~ 1 hr, improved quiclkly to low 100's once settled in hospital with no intervention Of note you had no exacerbation of those symptoms with a low pressure. You are on Aspirin and statin, you are not diabetic, nor hypertensive, nor smoker. Continue the ASpirin and statin for prevention of stroke 2 Abdominal Pain; you have a known hiatal hernia, you report chronic associated pain, but worsening pain along with the above symptoms. tolerating food, No fever, no elevated white count, moving bowels This improved with no specific intervention 3 No new medications needed Resume your home medications EXCEPT; -The only recommended change in your medications since your blood pressure runs low, is to only take the triametere/ HCTZ IF NEEDED for swelling you have no swelling now No Smoking: If you smoke, Please STOP! Call for help. Follow-up with: Kimani Mckeon MD [Primary Care Provider] - 1 Week
--- NOTE | 2019-02-12 20:33 | DISCHARGE SUMMARY ---
Discharge Summary Admit Date: 02/10/19 Discharge Date: 02/11/19 Discharging Provider: Carli Ulloa Code Status: Attempt Resuscitation Condition at Discharge: Stable Discharge Disposition: 01 Home, Self Care Discharge Facility Name: Discharge from [facility] to home - DIAGNOSES Admission Diagnoses: -TIA (not discharge diagnosis) Left upper extremity paresthesia , tongue paresthesia Anxiety GERD Discharge Diagnoses with Status of Each Condition: NOT TIA/Do not suspect TIA, MRI DWI with no ischemia while tongue paresthesias still present LUE , tongue paresthesia; Resolved Anxiety; chronic ongoing, continue w/ TID Ativan GERD - HPI History of Present Illness: Patient is a 73 yo woman who developed LUE tingling and numbness (says this is the first time her whole arm felt numb) along with a frontal and posterior headache, and abdominal pain "My stomach always hurts, but anytime I get this numbness the stomach hurst worse". Today she also has an assoicated "thick t ongue". Reports symptoms persisted By ~ 2.5-3 hrs, including while in ED, noted the L arm parestheia had resolved, but the tongue "thickness" and headache persist. With the LUE paresthesia and headache, No assoicated motor weakness or discordination, no dysarthria, no trouble chewing or swallowing, no facial assymetry, no vision changes or field defects. She is on daily ASA and statin. RE CVA risks, no DM, no tobacco, on statin, lipids controlled, no Htn on maxizide for LE edema (pt denies for HTN), Fam hx of CVA and CAD. In ED today, CT brain showed lacunar infarct Left basal ganglia unchanged from 04/2018; . CTA neck and CTA brain showed no significant vessel narrowing. . VS unremarkable on presentation, x modestly elevated SBP 150-160, improved without intervention, to a baseline of ~ SBP 106 w/ no worsening of symptoms The last MRI brain was 2015. At that time an MRI was able to be pursued WHILE having paresthesias, NO findings consistent with ischemia on DWI WHILE symptoms persisted; felt to be more c/w anxiety attack at that time. In April 2018 with a similar presentation, complex migraine was considered, as she had a similar presentation with headache andparesthesias and reported improvement with imitrex. She was discharged with Rx for prn imitrex. She has no recall of ever trying imitrex but reports presenting several x similar symptoms. Patient admitted for evaluation of possible TIA today. Of note, patients granddaughter notes that she perceives element of attention seeking from patient when she visits. - CONSULTS | PROCEDURES Consultations: none Procedures: none - HOSPITAL COURSE Hospital Course: Left upper extremity, and tongue paresthesia, and headache; No other neurologic symptoms or deficts CT scan of the head showed no bleed, no new findings since the CT of April 2018, (Old lacunar infarct of left basal ganglia as seen in 2018). CTA of the brain and neck vessels showed no narrowing. MRI of the brain done WHILE still had sensation of tongue thickness/ numbness/paresthesia did not show signs of ischemia or infarct Similarly in 2016, Mri done while still having similar symptoms, with no finding of impaired blood flow. No significant findings on prior Echo 12/2017 w/ similar presentation (EF 70- 75%, n WMA, No significant valuvlar abnl, RVSP 21mm) I have no reason to suspect this has changed, REpeat Echo not pursued These paresthesias do NOT likely represent TIA. Anxiety high on the differential, family member notes attention seeking when visits and patient with very anxious affect on history taking Continues ASA and statin Continues TID ativan for anxiety (C02 20 Mild metabolic acidosis may be compensating for mild hyperventilation/ quite anxious affect may represent hyperventilation) Prerenal azotemia Conclusion/Plan: very mild with BUN/cr ratio 20:1 Patient is on Dyazide only for Hx LE edema No edema identified , not even trace pretibial Pt reports the dyazide is only for LE edema, NOT hypertension, and indeed her SBP runs low 100's, Advised patient to only take the dyazide prn edema, not daily - ALLERGIES Allergies/Adverse Reactions: Allergies Allergy/AdvReac Type Severity Reaction Status Date / Time NSAIDS (Non-Steroidal Allergy Unknown Verified 02/10/19 12:53 Anti-Inflamma - MEDICATIONS Home Medications: Ambulatory Orders Medication Instructions Recorded Confirmed LORazepam [Ativan] 1 mg PO TID PRN 06/08/14 02/10/19 Gabapentin 600 mg PO 0800,1400,2100 08/06/16 02/10/19 Omeprazole 20 mg PO BIDAC 08/06/16 02/10/19 Hydrocodone/Acetaminophen 1 tab PO QID PRN 12/21/17 02/10/19 [Hydrocodone-Acetamin 10-325 mg] Aspirin [Adult Aspirin Regimen] 81 mg PO DAILY #30 tablet. 12/22/17 02/10/19 Sertraline [Zoloft] 50 mg PO DAILY 01/20/18 02/10/19 Atorvastatin Calcium 40 mg PO QPM 04/13/18 02/10/19 Meclizine HCl [Motion Sickness 25 mg PO DAILY PRN 04/13/18 02/10/19 Relief] Risperidone [Risperdal] 2 mg PO QPM 04/13/18 02/10/19 levETIRAcetam [Levetiracetam] 1,500 mg PO BID 04/13/18 02/10/19 Diphenoxylate/Atropine [Lomotil] 1 each PO QID PRN #12 tablet 02/08/19 02/10/19 Famotidine 20 mg PO DAILY #30 tablet 02/08/19 02/10/19 Ondansetron Odt [Zofran Odt] 4 mg TL Q6H PRN #15 tablet 02/08/19 02/10/19 Triamterene/Hydrochlorothiazid 1 tab PO DAILY PRN #0 02/11/19 02/10/19 [Triamterene-Hctz 37.5-25 mg Tb] - PHYSICAL EXAM AT DISCHARGE General Appearance: positive: Other (anxious to get discharged) Eyes Bilateral: positive: Normal inspection, PERRL, EOMI Neck: negative: No JVD Respiratory: positive: No respiratory distress, Breath sounds nml. negative: Wheezes, Rales Cardiovascular: positive: Regular rate & rhythm, No murmur Abdomen: positive: Nml bowel sounds, No distention. negative: Tenderness Skin: positive: Warm, Dry Extremities: negative: Pedal edema Neurologic/Psychiatric: positive: Oriented x3. negative: Mood/affect nml (anxious affect, CN 2-12 intact, facial symmetry, Rapid alternating movements intact, 5/5 upper and lower motor strength) - LABS Result Diagrams: 02/10/19 12:55 02/10/19 12:55 - DIAGNOSTIC IMAGING Diagnostic Imaging Results: Final report reviewed Diagnostic Imaging Results Comments: In ED today, CT brain showed lacunar infarct Left basal ganglia unchanged from 04/2018; . CTA neck and CTA brain showed no significant vessel narrowing MRI brain (of note, still had sensation of tongue being thick during study MRI; smild to moderate bilaeral areas ofT2/flair similar to MR brain 01/21/16, NO areasof restricted diffusion to suggest acute infarct; No abnormal enhancement No acute inracranial pathology, Mild to moderate white matter changes similar to MR 01/21/16, ; SVID - SEPSIS Current Stage of Sepsis: Ruled out (na) Confirmed Source and Organism (if known) of Sepsis: NA
== END 2019-02-11 11:25 | disposition home or self-care (01) ==
LOC: ED 12:25 → MS2 13:56 → OBS 22:21
PROVIDERS: ADMIT Nurse Practitioner; ATTEND Nurse Practitioner
DX: R20.2 Paresthesia of skin (principal); F41.9 Anxiety disorder, unspecified; F20.9 Schizophrenia, unspecified; F32.9 Major depressive disorder, single episode, unspecified; K21.9 Gastro-esophageal reflux disease without esophagitis; E87.2 Acidosis; R39.2 Extrarenal uremia; K44.9 Diaphragmatic hernia without obstruction or gangrene; G89.29 Other chronic pain; M54.9 Dorsalgia, unspecified; G40.909 Epilepsy, unspecified, not intractable, without status epilepticus; G47.30 Sleep apnea, unspecified; R35.1 Nocturia; R35.0 Frequency of micturition; E78.5 Hyperlipidemia, unspecified; H54.7 Unspecified visual loss; H91.90 Unspecified hearing loss, unspecified ear; G47.00 Insomnia, unspecified; R42 Dizziness and giddiness; M19.90 Unspecified osteoarthritis, unspecified site; Z79.82 Long term (current) use of aspirin; Z79.891 Long term (current) use of opiate analgesic; Z87.820 Personal history of traumatic brain injury; Z82.0 Family history of epilepsy and other diseases of the nervous system; Z82.49 Family history of ischemic heart disease and other diseases of the circulatory system
CPT/HCPCS: 36415; 70450; 70496; 70498; 70553; 80053; 81001; 82550; 82553; 83690; 84484; 85025; 85610; 93005; 96374; 99284; 99285; A9270; A9585; Q9967; 81003; 87086

== ENCOUNTER 2019-02-26 18:53 | Observation (INO) | payer MEDICARE ==
--- NOTE | 2019-02-26 19:13 | ED Physician Documentation ---
PD HPI CHEST PAIN - Stated complaint Stated Complaint: SOA/MOLINA - Chief complaint Chief Complaint: Cardiac - History obtained from History obtained from: Patient - History of Present Illness Timing - onset: Today (Since 1:00 today she said some left sided jaw pain with breathlessness and some slight substernal chest pressure that is otherwise nonradiating. The pain and the shortness of breath are not exertional. She denies pedal edema or calf pain. She has a slight cough with it. No history of heart problems with the exception of on a stress test about 6 years ago she had a area of completed ischemia per her description.) Review of Systems Ten Systems: 10 systems reviewed and negative Constitutional: denies: Fever, Chills Nose: denies: Rhinorrhea / runny nose, Congestion Cardiac: denies: Palpitations, Pedal edema, Calf pain Respiratory: denies: Hemoptysis, Wheezing GI: denies: Abdominal Pain PD PAST MEDICAL HISTORY - Past Medical History Cardiovascular: Hypertension, High cholesterol Respiratory: Sleep apnea, CPAP use Neuro: TIA, Seizure disorder, Other (TBI/ SDH craniotomy 2011, 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 >>>reports falling backwards from chair as cause of TBI) Endocrine/Autoimmune: None GI: GERD, Hiatal hernia 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 : Nocturia, Frequency HEENT: Chronic vision loss, Chronic hearing loss Psych: Depression, Anxiety, Schizophrenia Musculoskeletal: Chronic back pain Derm: None - Past Surgical History Past Surgical History: Yes General: Cholecystectomy Ortho: Spine surgery /PRODUCTION MACHINE TENDER: Hysterectomy Neuro: Craniotomy - Present Medications Home Medications: Ambulatory Orders Medication Instructions Recorded Confirmed RX: LORazepam [Ativan] 1 mg PO TID PRN 06/08/14 02/10/19 RX: Gabapentin 600 mg PO 0800,1400,2100 08/06/16 02/10/19 RX: Omeprazole 20 mg PO BIDAC 08/06/16 02/10/19 RX: Hydrocodone/Acetaminophen 1 tab PO QID PRN 12/21/17 02/10/19 [Hydrocodone-Acetamin 10-325 mg] RX: Aspirin [Adult Aspirin Regimen] 81 mg PO DAILY #30 tablet. 12/22/17 02/10/19 RX: Sertraline [Zoloft] 50 mg PO DAILY 01/20/18 02/10/19 RX: Atorvastatin Calcium 40 mg PO QPM 04/13/18 02/10/19 RX: Meclizine HCl [Motion Sickness 25 mg PO DAILY PRN 04/13/18 02/10/19 Relief] RX: Risperidone [Risperdal] 2 mg PO QPM 04/13/18 02/10/19 RX: levETIRAcetam [Levetiracetam] 1,500 mg PO BID 04/13/18 02/10/19 RX: Diphenoxylate/Atropine 1 each PO QID PRN #12 tablet 02/08/19 02/10/19 [Lomotil] RX: Famotidine 20 mg PO DAILY #30 tablet 02/08/19 02/10/19 RX: Ondansetron Odt [Zofran Odt] 4 mg TL Q6H PRN #15 tablet 02/08/19 02/10/19 RX: Triamterene/Hydrochlorothiazid 1 tab PO DAILY PRN #0 02/11/19 02/10/19 [Triamterene-Hctz 37.5-25 mg Tb] - Allergies Allergies/Adverse Reactions: Allergies Allergy/AdvReac Type Severity Reaction Status Date / Time NSAIDS (Non-Steroidal Allergy Unknown Verified 02/26/19 18:59 Anti-Inflamma - Social History Does the pt smoke?: No Smoking Status: Never smoker Does the pt drink ETOH?: No Does the pt have substance abuse?: No - Family History Family history: reports: Non contributory - Immunizations Immunizations are current?: Yes - POLST Patient has POLST: No POLST Status: Full Code PD ED PE NORMAL - Vitals Vital signs reviewed: Yes - General General: Alert and oriented X 3, No acute distress - HEENT HEENT: PERRL, EOMI - Neck Neck: Supple, no meningeal sign, No bony TTP - Cardiac Cardiac: RRR, No murmur - Respiratory Respiratory: No respiratory distress, Clear bilaterally - Abdomen Abdomen: Soft, Non tender - Extremities Extremities: No edema, No calf tenderness / cord - Neuro Neuro: Alert and oriented X 3, Normal speech Results - Vitals Vitals: Vital Signs - 24 hr 02/26/19 02/26/19 02/26/19 18:55 19:29 19:30 Temperature 36.2 C L Heart Rate 80 68 68 Respiratory 14 16 16 Rate Blood Pressure 171/108 H 180/97 H 111/89 H O2 Saturation 96 96 97 Oxygen O2 Source Room air - EKG (time done) 1905 Rate: Rate (enter#) (70) Rhythm: NSR [place]: Normal Intervals: Normal HI QRS: Normal Ischemia: Normal ST segments Computer interpretation: Agree with computer - Labs Labs: Laboratory Tests 02/26/19 02/26/19 02/26/19 19:22 19:22 19:22 WBC 7.2 RBC 4.45 Hgb 12.2 Hct 36.3 L MCV 81.6 MCH 27.3 MCHC 33.5 RDW 15.1 H Plt Count 263 MPV 7.9 Neut # (Auto) 4.4 Lymph # (Auto) 2.2 [place] # (Auto) 0.4 Eos # (Auto) 0.2 Baso # (Auto) 0.1 Absolute Nucleated RBC 0.00 Nucleated RBC % 0.0 D-Dimer Sodium 136 Potassium 3.6 Chloride 103 Carbon Dioxide 23 Anion Gap 10.0 BUN 16 Creatinine 0.8 Estimated GFR (MDRD) 70 L Glucose 96 Calcium 8.7 Total Bilirubin 0.3 AST 19 ALT 23 Alkaline Phosphatase 62 Troponin I < 0.04 Total Protein 6.7 Albumin 3.8 Globulin 2.9 Albumin/Globulin Ratio 1.3 Lipase 37 02/26/19 19:22 WBC RBC Hgb Hct MCV MCH MCHC RDW Plt Count MPV Neut # (Auto) Lymph # (Auto) [place] # (Auto) Eos # (Auto) Baso # (Auto) Absolute Nucleated RBC Nucleated RBC % D-Dimer 216.3 Sodium Potassium Chloride Carbon Dioxide Anion Gap BUN Creatinine Estimated GFR (MDRD) Glucose Calcium Total Bilirubin AST ALT Alkaline Phosphatase Troponin I Total Protein Albumin Globulin Albumin/Globulin Ratio Lipase - Rads (name of study) 1v chest Radiology: EMP read contemporaneously (hiatal hernia, NAD) PD MEDICAL DECISION MAKING - ED course ED course: 73 yo F with acute CP. EKG and initial biomarkers neg. HEART score 5. Dr. Thurman will obs. Departure - Departure Disposition: ED Place in Observation Clinical Impression: Full code status, Chest pain Condition: Stable Discharge Date/Time: 02/26/19 20:46
[2019-02-26 19:29] LABS: BASOPHILS # (AUTO) 0.1 10^3/uL (0.0-0.1); BASOPHILS % (AUTO) 0.8 %; EOSINOPHILS # (AUTO) 0.2 10^3/uL (0.0-0.7); EOSINOPHILS % (AUTO) 2.5 %; HGB - HEMOGLOBIN 12.2 g/dL (12.0-16.0); LYMPHOCYTES # (AUTO) 2.2 10^3/uL (1.5-3.5); LYMPHOCYTES % (AUTO) 30.1 %; MEAN CORPUSCULAR HEMOGLOBIN 27.3 pg (27.0-31.0); MEAN CORPUSCULAR HGB CONC 33.5 g/dL (32.0-36.0); MEAN CORPUSCULAR VOLUME 81.6 fL (81.0-99.0); MEAN PLATELET VOLUME 7.9 fL (7.9-10.8); MONOCYTES # (AUTO) 0.4 10^3/uL (0.0-1.0); MONOCYTES % (AUTO) 5.6 %; NEUTROPHILS # (AUTO) 4.4 10^3/uL (1.5-6.6); PLT - PLATELET COUNT 263 10^3/uL (130-450); RED BLOOD COUNT 4.45 10^6/uL (4.20-5.40); RED CELL DISTRIBUTION WIDTH 15.1 % (12.0-15.0); WHITE BLOOD COUNT 7.2 x10^3/uL (4.8-10.8)
[2019-02-26] MEDS ORDERED: ACETAMINOPHEN 325 MG TABLET PO STA (19:36)
[2019-02-26] MEDS ORDERED: ONDANSETRON 4 MG/2 ML VIAL IVP STA (19:36)
--- NOTE | 2019-02-26 19:39 | XRAY Report ---
Reason: chest pain Procedure Date: 02/26/2019 Accession Number: [id number] / [id number] Procedure: XR - Chest 1 View X-Ray CPT Code: 16527 FULL RESULT: EXAM: CHEST RADIOGRAPHY EXAM DATE: 02/26/2019 06:58 PM. CLINICAL HISTORY: Chest pain. COMPARISON: THORACIC SPINE 2 VIEW 02/24/2018 1:15 PM. TECHNIQUE: 1 view. FINDINGS: Lungs/Pleura: There is a retrocardiac double density which appears similar to the previous exam and is consistent with a moderate sized hiatal hernia. No consolidation or acute airspace disease. Negative for pneumothorax. Trachea is midline. Mediastinum: Heart size is normal. Other: None. IMPRESSION: 1. No acute airspace disease. 2. Moderate sized hiatal hernia unchanged [facility]
[2019-02-26 19:41] LABS: ALBUMIN 3.8 g/dL (3.2-5.5); ALBUMIN/GLOBULIN RATIO 1.3 (1.0-2.2); BILIRUBIN,TOTAL 0.3 mg/dL (0.2-1.0); CALCIUM 8.7 mg/dL (8.5-10.3); CREATININE 0.8 mg/dL (0.4-1.0); TOTAL PROTEIN 6.7 g/dL (6.7-8.2)
[2019-02-26] MEDS ORDERED: ASPIRIN CHEW 81 MG TABLET PO STA (19:47)
[2019-02-26] MEDS ORDERED: ACETAMINOPHEN 325 MG TABLET PO PRN (19:57)
[2019-02-26] MEDS ORDERED: SODIUM CHLORIDE FLUSH 0.9% 10 ML SYRINGE IVP PRN (19:57)
--- NOTE | 2019-02-26 20:14 | HISTORY & PHYSICAL EXAMINATION ---
Chief Complaint - Chief Complaint Chief Complaint: chest pain History of Present Illness - Admitted From Admitted From:: [facility] ED - History Obtained From Records Reviewed: yes History obtained from: patient - History of Present Illness HPI Comment/Other: Patient seen on 02/26/19 at 2100pm Patient is a 73 y/o female who presented to the ED with complain of substernal chest pain, left jaw pain, dyspnea and headache. Onset was around 1pm today while she was clearing the dining table. It was intermittent. She denies any chest pain currently and she appears comfortable on room air She reports feeling nauseous earlier, but not currently. She denied vomiting or abdominal pain. She reports having a chemical stress test about 15 years ago, but is not clear on the outcome She rates her headache as an 8/10. She denies any injury. Work up in the ED included Troponin and EKG which are unremarkable so far. She is being admitted for further work up. 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 Father suffered from cardiac disease and claims that he swallowed a toothpic which became lodged in his throat which led to iminent . The patient has 3 brother, and 6 sisters. Her older brother just this week. Social History Notes: The patient has 2 daughters, older one lives in [place], [place]. The patient lives with her daughter, Conchita and her . No longer have dogs. 350 lb autistic 17 yo of whom patient is somewhat "afraid" . The patient denies alcohol, tobacco, or illicit drug use. The patient wishes to be a FULL code. - Substance History Use: Uses substance without health or social issues: NONE - POLST Patient has POLST: No POLST Status: Full Code Meds/Allgy - Home Medications Home Medications: Ambulatory Orders Medication Instructions Recorded Confirmed LORazepam [Ativan] 1 mg PO TID PRN 06/08/14 02/10/19 Gabapentin 600 mg PO 0800,1400,2100 08/06/16 02/10/19 Omeprazole 20 mg PO BIDAC 08/06/16 02/10/19 Hydrocodone/Acetaminophen 1 tab PO QID PRN 12/21/17 02/10/19 [Hydrocodone-Acetamin 10-325 mg] Aspirin [Adult Aspirin Regimen] 81 mg PO DAILY #30 tablet. 12/22/17 02/10/19 Sertraline [Zoloft] 50 mg PO DAILY 01/20/18 02/10/19 Atorvastatin Calcium 40 mg PO QPM 04/13/18 02/10/19 Meclizine HCl [Motion Sickness 25 mg PO DAILY PRN 04/13/18 02/10/19 Relief] Risperidone [Risperdal] 2 mg PO QPM 04/13/18 02/10/19 levETIRAcetam [Levetiracetam] 1,500 mg PO BID 04/13/18 02/10/19 Diphenoxylate/Atropine [Lomotil] 1 each PO QID PRN #12 tablet 02/08/19 02/10/19 Famotidine 20 mg PO DAILY #30 tablet 02/08/19 02/10/19 Ondansetron Odt [Zofran Odt] 4 mg TL Q6H PRN #15 tablet 02/08/19 02/10/19 Triamterene/Hydrochlorothiazid 1 tab PO DAILY PRN #0 02/11/19 02/10/19 [Triamterene-Hctz 37.5-25 mg Tb] - Allergies Allergies/Adverse Reactions: Allergies Allergy/AdvReac Type Severity Reaction Status Date / Time NSAIDS (Non-Steroidal Allergy Unknown Verified 02/26/19 18:59 Anti-Inflamma Review of Systems - Constitutional Constitutional: denies: Fever, Chills, Malaise, Weakness, Poor appetite, D iaphoresis, Night sweats - Eyes Eyes: denies: Blurred vision, Vision loss - Ears, Nose & Throat Ears, Nose & Throat: denies: Nasal pain, Nasal discharge, Sore throat, Hoarseness - Cardiovascular Cariovascular: reports: Chest pain. denies: Irregular heart rate, Palpitations, Edema, Lightheadedness, Syncope, Exertional dyspnea - Respiratory Respiratory: denies: Cough, Sputum production, Wheezing, Hemoptysis, Orthopnea - Gastrointestinal Gastrointestinal: denies: Abdominal pain, Abdominal distention, Black stools, Nausea, Vomiting - Genitourinary Genitourinary: denies: Dysuria, Frequency, Urgency, Hematuria - Musculoskeletal Musculoskeletal: denies: Muscle pain, Back pain - Integumentary Integumentary: denies: Rash, Pruritis, Lesions - Neurological Neurological: denies: General weakness, Focal weakness, Headache, Dizziness - Psychiatric Psychiatric: denies: Depression, Anxiety - Endocrine Endocrine: denies: Polyuria, Polydypsia - Hematologic/Lymphatic Hematologic/Lymphatic: denies: Anemia, Bruising, Petechiae Prior Level of Functionality: Patient is independent of activities of daily living. Lives with one of her daughter and daughter's family Exam - Vital Signs Vital Signs: Vital Signs x48h Temp Pulse Resp BP Pulse Ox 02/26/19 19:30 68 16 111/89 H 97 02/26/19 19:29 68 16 180/97 H 96 02/26/19 18:55 36.2 C L 80 14 171/108 H 96 - Physical Exam General Appearance: positive: No acute distress, Alert. negative: Anxious, Le thargic Eyes Bilateral: positive: Normal inspection, PERRL, EOMI ENT: positive: ENT inspection nml, No signs of dehydration Neck: positive: Nml inspection, No JVD, Trachea midline Respiratory: positive: Chest non-tender, No respiratory distress, Breath sounds nml. negative: Wheezes, Rales, Rhonchi Cardiovascular: positive: Regular rate & rhythm, No murmur Abdomen: positive: Non-tender, Nml bowel sounds, No distention. negative: Guarding, Rebound Back: positive: Nml inspection Skin: positive: Color nml, No rash, Warm Extremities: positive: Non-tender, Nml appearance, No pedal edema Neurologic/Psychiatric: positive: Oriented x3, CN's nml (2-12) Conclusion/Plan - Problem List (1) Chest pain Conclusion/Plan: Trend troponin X 2 more. If negative proceed with stress test Patient given full dose aspirin in the ED Will continue baby aspirin daily Qualifiers: Chest pain type: unspecified Qualified Code(s): R07.9 - Chest pain, unspecified (2) Hyperlipidemia Conclusion/Plan: On atorvastatin (3) Osteoarthritis Conclusion/Plan: On vicodin (4) Vertigo Conclusion/Plan: On meclizine (5) Anxiety Conclusion/Plan: On ativan and sertraline (6) Depression Conclusion/Plan: On sertraline Qualifiers: Depression Type: unspecified Qualified Code(s): F32.9 - Major depressive disorder, single episode, unspecified (7) Hypertension Conclusion/Plan: On triamterene/HCTZ Will order hydralazine prn for SBP>160 (8) Seizure disorder Conclusion/Plan: On keppra - Lab Results Fish Bones: 02/26/19 19:22 02/26/19 19:22 - Diagnostic Imaging Results Diagnostic Imaging Results: positive: Final report reviewed - EKG Results EKG Interpreted Independently: Yes Core Measures - Anticipated LOS I expect patient to be DC'd or transferred within 96 hours.: Yes - DVT/VTE - Prophylaxis VTE/DVT Device ordered at admit?: Yes VTE/DVT Prophylaxis med ordered at admit?: Yes
[2019-02-26] MEDS: HYDROcod/ACETAM 10 MG/325 MG TABLET PO PRN (22:03)
[2019-02-26] MEDS: SODIUM CHLORIDE 0.9% 1,000 ML IV SCH (22:04)
[2019-02-27] MEDS: SODIUM CHLORIDE FLUSH 0.9% 10 ML SYRINGE IVP SCH ×2 (01:00→08:42)
[2019-02-27] MEDS: HYDROcod/ACETAM 10 MG/325 MG TABLET PO PRN ×2 (04:10→11:49)
[2019-02-27] MEDS ORDERED: ONDANSETRON ODT 4 MG TABLET TL PRN (05:10)
[2019-02-27 05:32] LABS: BASOPHILS # (AUTO) 0.1 10^3/uL (0.0-0.1); BASOPHILS % (AUTO) 0.8 %; EOSINOPHILS # (AUTO) 0.2 10^3/uL (0.0-0.7); EOSINOPHILS % (AUTO) 3.2 %; HGB - HEMOGLOBIN 12.2 g/dL (12.0-16.0); MEAN CORPUSCULAR HEMOGLOBIN 26.8 pg (27.0-31.0); MEAN CORPUSCULAR HGB CONC 32.6 g/dL (32.0-36.0); MEAN CORPUSCULAR VOLUME 82.4 fL (81.0-99.0); MEAN PLATELET VOLUME 7.9 fL (7.9-10.8); MONOCYTES # (AUTO) 0.5 10^3/uL (0.0-1.0); MONOCYTES % (AUTO) 6.9 %; NEUTROPHILS % (AUTO) 59.1 %; PLT - PLATELET COUNT 256 10^3/uL (130-450); RED BLOOD COUNT 4.53 10^6/uL (4.20-5.40); RED CELL DISTRIBUTION WIDTH 15.1 % (12.0-15.0); WHITE BLOOD COUNT 6.8 x10^3/uL (4.8-10.8)
[2019-02-27 05:40] LABS: CREATININE 0.9 mg/dL (0.4-1.0)
[2019-02-27] MEDS: SODIUM CHLORIDE 0.9% 1,000 ML IV SCH (07:03)
[2019-02-27] MEDS ORDERED: LORazepam 0.5 MG TABLET PO PRN (07:53)
[2019-02-27] MEDS ORDERED: MECLIZINE 12.5 MG TABLET PO PRN (08:17)
[2019-02-27] MEDS: GABAPENTIN 300 MG CAPSULE PO SCH ×2 (08:41→13:40)
[2019-02-27] MEDS ORDERED: SERTRALINE 50 MG TABLET PO SCH (09:00)
[2019-02-27] MEDS ORDERED: ENOXAPARIN 40 MG/0.4 ML SYRINGE SUBQ SCH (09:00)
[2019-02-27] MEDS ORDERED: ASPIRIN EC 325 MG TABLET PO SCH (09:00)
[2019-02-27] MEDS ORDERED: POLYETHYLENE GLYCOL 3350 17 GM PACKET PO SCH (09:00)
[2019-02-27] MEDS ORDERED: levETIRAcetam 250 MG TABLET PO SCH (09:00)
[2019-02-27] MEDS ORDERED: ASPIRIN EC 81 MG TABLET PO SCH ×2 (09:00)
[2019-02-27] MEDS ORDERED: REGADENOSON 0.4 MG/5 ML SYRINGE IVP ONE ×2 (10:26→13:19)
[2019-02-27] MEDS ORDERED: AMINOPHYLLINE 250 MG/10 ML VIAL ONE (10:26)
[2019-02-27] MEDS ORDERED: amLODIPine 5 MG TABLET PO SCH (13:00)
--- NOTE | 2019-02-27 13:02 | CARDIAC PROCEDURE NOTE ---
DATE OF SERVICE: 02/27/2019 Physician: Gricelda Rahman MD INDICATION: Chest pain. CARDIAC RISK FACTORS: Advanced age, obesity, untreated HTN, unknown lipid status. PROCEDURE: After signing informed consent, patient underwent a Lexiscan pharmaceutical stress test with nuclear myocardial perfusion imaging. RESTING HEART RATE: 77. PEAK HEART RATE: 94. RESTING BLOOD PRESSURE: 159/92. PEAK BLOOD PRESSURE: 148/83. Lexiscan was infused per protocol. Patient developed brief flushing and shortness of breath and then had mild "abdominal tightness." She had no chest pain. Oxygen saturation remained between 93-95% throughout the entire test. RESTING EKG: Normal sinus rhythm, left atrial enlargement, right IVCD. EKG AT PEAK: Flattening of T waves in leads V4 through V6 (she already has very low T-waves in leads 2, 3, aVF, and V3 through V6 at baseline). SUMMARY 1. Abnormal resting EKG. 2. No chest pain symptoms during pharmaceutical stress testing. 3. Borderline abnormal EKG changes on this pharmaceutical stress test. 4. Nuclear images reported separately. TD: 02/27/2019 12:45 MTDD
[2019-02-27 13:46] LABS: CHOL/HDL RATIO 2.2 (<4.4); CHOLESTEROL 127 mg/dL; HDL CHOLESTEROL 57 mg/dL; LDL CHOLESTEROL,CALCULATED 49 mg/dL; LDL/HDL RATIO 0.9 (<4.4); VLDL CHOLESTEROL 21 mg/dL
--- NOTE | 2019-02-27 14:06 | Nuclear Medicine Report ---
Reason: chest pain Procedure Date: 02/27/2019 Accession Number: [id number] / [id number] Procedure: NM - Myocardial Perfusion STR/RST CPT Code: FULL RESULT: EXAM: SINGLE-ISOTOPE PHARMACOLOGICAL STRESS TEST WITH REGADENOSON. SINGLE-ISOTOPE AND TWO-DAY REST/STRESS MYOCARDIAL PERFUSION SCANS WITH TOMOGRAPHIC IMAGING, QUANTITATIVE ANALYSIS, WALL MOTION ANALYSIS AND CALCULATION OF EJECTION FRACTION. EXAM DATE: 02/27/2019 01:21 PM. CLINICAL HISTORY: Chest pain. COMPARISON: None available. TECHNIQUE: A pharmacological stress was performed with the infusion of 0.4 mg regadenoson per protocol. According to protocol, 9.2 mCi of Tc-99m sestamibi was injected for stress myocardial perfusion scan. Motion correction was applied when appropriate. The following day after the intravenous administration of 42.9 mCi of Tc-99m sestamibi, a rest myocardial perfusion scan was done with tomography. Motion correction was applied when appropriate. Gated tomographic images were obtained for wall motion analysis and computation of left ventricular ejection fraction. FINDINGS: Visual analysis, there is a small mild reversible defect in the inferolateral wall. There is mildly decreased activity in the anteroseptal wall, similar between the rest and stress images and favored to represent breast attenuation artifact. No other convincing significant fixed or reversible perfusion defects. Computer analysis. Summed stress score 5 Summed rest score 3 Summed difference score 2 Wall motion analysis demonstrates wall motion abnormality. The left ventricular end-diastolic volume is 55 cc. The left ventricular end-systolic volume is 8 cc. The left ventricular ejection fraction is calculated to be 85%. IMPRESSION: 1. On visual analysis, small, mild reversible defect in the inferolateral wall. No other convincing significant fixed or reversible perfusion defects. 2. Left ventricular ejection fraction of 85%. 3. Normal segmental and global wall motion. 4. Normal left ventricular cavity size, no change with stress. 5. Based on computer analysis, mildly abnormal study with mild ischemia. Please correlate findings with stress ECG tracings and procedure notes. [facility]
--- NOTE | 2019-02-27 15:22 | Discharge Plan ---
Discharge Plan Disposition: Home, Self Care Condition: Stable Prescriptions: HYDROcodone/ACET 10/325 [[place] 10 mg/325 mg] 1 tab PO Q6HR PRN #8 tablet PRN Reason: Pain Amlodipine Besylate [Norvasc] 2.5 mg PO DAILY #30 tablet Aspirin [Aspirin EC] 81 mg PO DAILY #30 tablet. Nitroglycerin [Nitrostat] 0.4 mg SL [id number] #100 tab.subl Diet: Cardiac Activity Restrictions: Activity as Tolerated Shower Restrictions: No Driving Restrictions: No Additional Instructions or Follow Up instructions: You were here to evaluate chest pain. The blood tests showed that you did not have a heart attack. The chemical stress test, however, showed that you have coronary heart disease (the stress test was abnormal). Two new prescriptions have been prescribed for that: Norvasc once a day to dilate the coronary arteries and help your occasional high blood pressure, AND nitroglycerin to take only when you get a feeling of chest pain/pressure. You should also be on an aspirin a day and keep treating the cholesterol. Resume all your other pre-hospital medications but remain off the Triampterene/HCT (water pill). See your PCP in follow-up, to get a referral to have a Chemist [employer], since you may need to be scheduled for a coronary angiogram. If you have new or worsening synptoms, come to the ER. No Smoking: If you smoke, Please STOP! Call for help. Follow-up with: Miguel Angel Torres MD [Primary Care Provider] -
[2019-02-27 15:53] VITALS: BP 163/88
[2019-02-27] MEDS ORDERED: risperiDONE 1 MG TABLET PO SCH (21:00)
--- NOTE | 2019-03-02 21:43 | DISCHARGE SUMMARY ---
Physician: Gricelda Rahman MD DATE OF ADMISSION: 02/26/2019 DATE OF DISCHARGE: 02/27/2019 HISTORY OF PRESENT ILLNESS: This is a 73-year-old white female with a history of untreated hypertension, hyperlipidemia, obesity, sleep apnea on CPAP, seizure disorder, paresthesias of the face and tongue which may be a type of migraine, migraine headaches, GERD. The patient presented after new onset of chest pain that was intermittent and associated with nausea; it came and went, occurred with mild activity, like clearing the dining room table. The chest pain was not present in the ER. She was placed in Observation status for evaluation of new onset of chest pain. HOSPITAL COURSE AND DISCHARGE DIAGNOSES 1. Unstable angina pectoris. The patient had serum troponins that were normal x3. She underwent a pharmaceutical stress test the following day. During the stress test, she had no symptoms of chest pain with this but had mild epigastric "tightness" that was brief. The EKG did show new T-wave flattening, and the nuclear scan showed a small area of reversible ischemia in the inferior wall. The patient was managed by increasing medical management: starting Norvasc for both blood pressure control and coronary vasodilation. Also, sublingual nitroglycerin was prescribed, and she was instructed in its use and advised to take 1 aspirin daily. She was told to have light activity, to see her PCP and get a referral to a extrusion former since she may need a coronary angiogram. If symptoms should recur, she was told to come to the ER. 2. Abnormal stress test. As described above. 3. Hypertension, uncontrolled. The patient states she was on Triamterene for blood pressure control, but that this was stopped several months ago; however here she had poorly controlled blood pressure in the 150s-180s/90s. For this reason, she was put on Norvasc as a new agent. 4. Seizure disorder. The patient was kept on her seizure medications while here. 5. Hyperlipidemia. The patient was already on a statin. She had serum fasting lipid levels done that showed total cholesterol of 127, LDL of 49 and triglycerides of 107. She was advised to continue with the same regimen. 6. Osteoarthritis. The patient was kept on her medications for this. 7. Vertigo. She had no complaints of this while here. 8. Anxiety and depression. The patient was kept on her medications while here. ALLERGIES: NONSTEROIDAL ANTI-INFLAMMATORY MEDICINES. MEDICATIONS AT TIME OF DISCHARGE 1. Atorvastatin 40 mg every night. 2. Gabapentin 600 mg every day. 3. Tylenol with codeine 1 tablet q.i.d. p.r.n. 4. Levetiracetam 1500 mg p.o. b.i.d. 5. Lorazepam 1 mg t.i.d. p.r.n. anxiety. 6. Meclizine p.r.n. motion sickness. 7. Omeprazole 20 mg b.i.d. 8. Risperdal 2 mg every night. 9. Sertraline 100 mg daily. 10. [place] 10/325 mg q.i.d., a 2-day supply was provided. 11. Amlodipine 2.5 mg daily. 12. Enteric-coated aspirin 81 mg daily. 13. Sublingual nitroglycerin 0.4 mg every 5 minutes p.r.n. chest pain. 14. Zofran translingual p.r.n. nausea CONDITION OF PATIENT UPON DISCHARGE: Stable. PHYSICAL EXAMINATION VITAL SIGNS: Blood pressure 163/88, pulse 63, room air saturation 93%. HEENT: Unremarkable. NECK: No JVD. No carotid bruits. CHEST: Clear. HEART: Normal heart sounds. ABDOMEN: Obese, nontender. EXTREMITIES: No edema. NEUROLOGIC: Grossly intact. FOLLOWUP: She was advised to see her PCP in the next several days for hospital followup and for referral to a extrusion former. She was advised to come back to the emergency room if chest pain symptoms recurred and were not resolved with sublingual nitroglycerin. CODE STATUS: FULL CODE. Time required to complete the entire discharge, chart review, patient education, dictation: 30 minutes. cc requested for Dr. Miguel Angel Torres. TD: 03/02/2019 19:03 SONU
== END 2019-02-27 16:05 | disposition home or self-care (01) ==
LOC: ED 18:53 → MS2 19:57
PROVIDERS: ADMIT Internal Medicine; ATTEND Internal Medicine
DX: I20.0 Unstable angina (principal); I10 Essential (primary) hypertension; I25.9 Chronic ischemic heart disease, unspecified; G40.909 Epilepsy, unspecified, not intractable, without status epilepticus; E78.5 Hyperlipidemia, unspecified; M19.90 Unspecified osteoarthritis, unspecified site; R42 Dizziness and giddiness; F41.9 Anxiety disorder, unspecified; F32.9 Major depressive disorder, single episode, unspecified; G47.30 Sleep apnea, unspecified; Z87.820 Personal history of traumatic brain injury; R94.31 Abnormal electrocardiogram [ECG] [EKG]; E66.9 Obesity, unspecified; Z68.36 Body mass index [BMI] 36.0-36.9, adult
CPT/HCPCS: 36415; 71045; 78452; 80048; 80053; 80061; 83690; 84484; 85025; 85379; 93005; 93017; 96361; 96372; 96374; 99283; 99284; A9270; A9500; G0378; J1650; J2785; Q0162; 83721

== ENCOUNTER 2019-03-01 17:08 | Emergency (ER) | payer MEDICARE ==
[2019-03-01] MEDS ORDERED: ASPIRIN CHEW 81 MG TABLET PO STA (17:21)
[2019-03-01] MEDS ORDERED: MORPHINE 2 MG/ML CARPUJECT IVP STA ×2 (17:21→18:29)
--- NOTE | 2019-03-01 17:23 | ED Physician Documentation ---
PD HPI CHEST PAIN - Stated complaint Stated Complaint: CP, SOA - Chief complaint Chief Complaint: Cardiac - History obtained from History obtained from: Patient - History of Present Illness Timing - onset: Today (73-year-old woman who I admitted a few days ago for chest pain. During her visit she ruled out. Had a stress test showing a small mild reversible defect in the inferolateral wall without other convincing fixed or reversible perfusion defects. She developed substernal sharp chest pain at rest radiating to the left jaw about half an hour ago while eating dinner. It is similar to but sharper than the chest pain she presented with the other day. She tried nitro twice without help.) Review of Systems Ten Systems: 10 systems reviewed and negative Constitutional: denies: Fever, Chills Throat: denies: Dental pain / toothache, Oral lesions / sores, Sore throat Cardiac: reports: Chest pain / pressure. denies: Palpitations, Pedal edema, Calf pain Respiratory: reports: Dyspnea. 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 : Nocturia, Frequency HEENT: Chronic vision loss, Chronic hearing loss Psych: Depression, Anxiety, Schizophrenia Musculoskeletal: Chronic back pain Derm: None - Past Surgical History Past Surgical History: Yes General: Cholecystectomy Ortho: Spine surgery /NOTCH MACHINE OPERATOR: Hysterectomy Neuro: Craniotomy - Present Medications Home Medications: Ambulatory Orders Medication Instructions Recorded Confirmed Gabapentin 600 mg PO 0800,1400,2100 08/06/16 02/27/19 Omeprazole 20 mg PO BIDAC 08/06/16 02/27/19 Hydrocodone/Acetaminophen 1 tab PO QID PRN 12/21/17 02/27/19 [Hydrocodone-Acetamin 10-325 mg] Aspirin [Adult Aspirin Regimen] 81 mg PO DAILY #30 tablet. 12/22/17 02/27/19 Atorvastatin Calcium 40 mg PO QPM 04/13/18 02/27/19 Meclizine HCl [[place] 25 mg PO DAILY PRN 04/13/18 02/27/19 Relief] Risperidone [Risperdal] 2 mg PO QPM 04/13/18 02/27/19 levETIRAcetam [Levetiracetam] 1,500 mg PO BID 04/13/18 02/27/19 Diphenoxylate/Atropine [Lomotil] 1 each PO QID PRN #12 tablet 02/08/19 02/27/19 Famotidine 20 mg PO DAILY #30 tablet 02/08/19 02/27/19 Ondansetron Odt [Zofran Odt] 4 mg TL Q6H PRN #15 tablet 02/08/19 02/27/19 Amlodipine Besylate [Norvasc] 2.5 mg PO DAILY #30 tablet 02/27/19 Aspirin [Aspirin EC] 81 mg PO DAILY #30 tablet.dr 02/27/19 HYDROcodone/ACET 10/325 [[place] 10 1 tab PO Q6HR PRN #8 tablet 02/27/19 mg/325 mg] LORazepam [Lorazepam] 1 mg PO TID PRN 02/27/19 02/27/19 Nitroglycerin [Nitrostat] 0.4 mg SL [id number] #100 tab.subl 02/27/19 Sertraline HCl 100 mg PO DAILY 02/27/19 02/27/19 - Allergies Allergies/Adverse Reactions: Allergies Allergy/AdvReac Type Severity Reaction Status Date / Time NSAIDS (Non-Steroidal Allergy Unknown Verified 03/01/19 17:19 Anti-Inflamma - Social History Does the pt smoke?: No Smoking Status: Never smoker Does the pt drink ETOH?: No Does the pt have substance abuse?: No - Family History Family history: reports: Non contributory - Immunizations Immunizations are current?: Yes - POLST Patient has POLST: No POLST Status: Full Code PD ED PE NORMAL - Vitals Vital signs reviewed: Yes - General General: Alert and oriented X 3, No acute distress - HEENT HEENT: PERRL, EOMI - Neck Neck: Supple, no meningeal sign, No bony TTP - Cardiac Cardiac: RRR, Other (sublt 1/6 systolic murmur, ) - Respiratory Respiratory: No respiratory distress, Clear bilaterally - Abdomen Abdomen: Soft, Non tender - Back Back: No CVA TTP, No spinal TTP - Derm Derm: No rash - Extremities Extremities: No edema, No calf tenderness / cord - Neuro Neuro: Alert and oriented X 3, Normal speech Results - Vitals Vitals: Vital Signs - 24 hr 03/01/19 03/01/19 17:12 17:20 Temperature 36.9 C Heart Rate 84 Respiratory 16 Rate Blood Pressure 167/92 H Blood Pressure 153/96 H [Left] O2 Saturation 97 Oxygen O2 Source Room air - EKG (time done) 1713 Rate: Rate (enter#) (81) Rhythm: NSR [place]: Normal Intervals: Normal [place] QRS: Normal Ischemia: Non specific changes (Prior echo reviewed she has mild aortic regurgitation kind of diffusely flat T waves. Really no change from a few days ago.). No: ST elevation c/w ischemia Compare to prior EKG: Unchanged from prior EKG Computer interpretation: Agree with computer - Labs Labs: Laboratory Tests 03/01/19 03/01/19 03/01/19 17:30 17:30 17:30 WBC 7.4 RBC 4.51 Hgb 12.4 Hct 37.2 MCV 82.4 MCH 27.4 MCHC 33.3 RDW 15.0 Plt Count 252 MPV 8.1 Neut # (Auto) 5.3 Lymph # (Auto) 1.4 L [place] # (Auto) 0.4 Eos # (Auto) 0.2 Baso # (Auto) 0.0 Absolute Nucleated RBC 0.00 Nucleated RBC % 0.0 PT 11.8 INR 1.0 Sodium 141 Potassium 3.5 Chloride 105 Carbon Dioxide 25 Anion Gap 11.0 BUN 22 H Creatinine 0.8 Estimated GFR (MDRD) 70 L Glucose 115 H Calcium 8.6 Total Bilirubin 0.5 AST 23 ALT 22 Alkaline Phosphatase 72 Total Creatine Kinase 56 CK-MB (CK-2) Troponin I Total Protein 7.0 Albumin 3.9 Globulin 3.1 Albumin/Globulin Ratio 1.3 Lipase 39 03/01/19 17:30 WBC RBC Hgb Hct MCV MCH MCHC RDW Plt Count MPV Neut # (Auto) Lymph # (Auto) [place] # (Auto) Eos # (Auto) Baso # (Auto) Absolute Nucleated RBC Nucleated RBC % PT INR Sodium Potassium Chloride Carbon Dioxide Anion Gap BUN Creatinine Estimated GFR (MDRD) Glucose Calcium Total Bilirubin AST ALT Alkaline Phosphatase Total Creatine Kinase CK-MB (CK-2) 1.3 Troponin I < 0.04 Total Protein Albumin Globulin Albumin/Globulin Ratio Lipase PD MEDICAL DECISION MAKING - ED course ED course: 73-year-old woman with recurrent typical pain in the setting of a recently positive stress test. EKG is nonischemic and initial biomarkers are negative, but she is been in pain a relatively short time. Given the situation I spoke with [facility]. [facility] who agreed with treating this as unstable angina. She was administered aspirin, heparin, and oral metoprolol. She defers to the hospitalist there for admission. Dr De Anda accepts and [place] were completed. Departure - Departure Disposition: 02 Transfer Acute Care Hosp Clinical Impression: Unstable angina Condition: Serious
[2019-03-01 17:38] LABS: BASOPHILS % (AUTO) 0.6 %; EOSINOPHILS # (AUTO) 0.2 10^3/uL (0.0-0.7); HGB - HEMOGLOBIN 12.4 g/dL (12.0-16.0); LYMPHOCYTES # (AUTO) 1.4 10^3/uL (1.5-3.5); MEAN CORPUSCULAR HEMOGLOBIN 27.4 pg (27.0-31.0); MEAN CORPUSCULAR HGB CONC 33.3 g/dL (32.0-36.0); MEAN CORPUSCULAR VOLUME 82.4 fL (81.0-99.0); MEAN PLATELET VOLUME 8.1 fL (7.9-10.8); MONOCYTES # (AUTO) 0.4 10^3/uL (0.0-1.0); MONOCYTES % (AUTO) 5.9 %; NEUTROPHILS # (AUTO) 5.3 10^3/uL (1.5-6.6); NEUTROPHILS % (AUTO) 71.5 %; PLT - PLATELET COUNT 252 10^3/uL (130-450); RED BLOOD COUNT 4.51 10^6/uL (4.20-5.40); WHITE BLOOD COUNT 7.4 x10^3/uL (4.8-10.8)
[2019-03-01 17:43] LABS: PT - PROTHROMBIN TIME 11.8 secs (9.9-12.6)
[2019-03-01 17:55] LABS: ALBUMIN 3.9 g/dL (3.2-5.5); ALBUMIN/GLOBULIN RATIO 1.3 (1.0-2.2); BILIRUBIN,TOTAL 0.5 mg/dL (0.2-1.0); CALCIUM 8.6 mg/dL (8.5-10.3); CREATININE 0.8 mg/dL (0.4-1.0)
[2019-03-01 17:56] LABS: TROPONIN I < 0.04 ng/mL (<0.49)
[2019-03-01 17:58] LABS: CREATINE KINASE MB 1.3 ng/mL (0.6-6.3)
[2019-03-01] MEDS ORDERED: HEPARIN 25000UNITS/500ML (D5W) 25,000 UNIT/500 ML BAG IV STA (18:08)
[2019-03-01] MEDS ORDERED: HEPARIN 5,000 UNIT/ML VIAL IVP STA (18:08)
[2019-03-01] MEDS ORDERED: METOPROLOL TARTRATE 50 MG TABLET PO STA (18:09)
[2019-03-01] MEDS ORDERED: NITROGLYCERIN 2% PASTE TOP STA (18:29)
[2019-03-01 19:41] VITALS: BP 140/105
[2019-03-01] MEDS ORDERED: ONDANSETRON 4 MG/2 ML VIAL IVP STA (19:58)
== END 2019-03-01 20:13 | disposition short-term general hospital (02) ==
LOC: ED 17:08
DX: I20.0 Unstable angina (principal); I35.1 Nonrheumatic aortic (valve) insufficiency; I10 Essential (primary) hypertension; Z79.82 Long term (current) use of aspirin
CPT/HCPCS: 36415; 80053; 82550; 82553; 83690; 84484; 85025; 85610; 93005; 96374; 96375; 96376; 99284; A9270

== ENCOUNTER 2019-03-09 16:07 | Outpatient (CLI) | payer MEDICARE | END 2019-03-09 16:08 | disposition short-term general hospital (02) | LOC: EMS 16:07 | PROVIDERS: ATTEND Surgery | DX: R07.9 Chest pain, unspecified (principal) | CPT/HCPCS: A0425; A0427 ==

== ENCOUNTER 2019-03-29 17:34 | Outpatient (CLI) | payer MEDICARE | END 2019-03-29 17:35 | disposition critical access hospital (66) | LOC: EMS 17:34 | PROVIDERS: ATTEND Surgery | DX: R07.9 Chest pain, unspecified (principal); R11.0 Nausea; R10.9 Unspecified abdominal pain; R19.7 Diarrhea, unspecified | CPT/HCPCS: A0425; A0427 ==

== ENCOUNTER 2019-03-29 17:49 | Emergency (ER) | payer MEDICARE ==
[2019-03-29] MEDS ORDERED: MAG HYDROX/AL HYDROX/SIMETH 30 ML UDC PO STA (18:05)
[2019-03-29] MEDS ORDERED: LIDOCAINE VISCOUS 2% 15 ML UDC MM STA (18:05)
--- NOTE | 2019-03-29 18:07 | ED Physician Documentation ---
PD HPI CHEST PAIN - Stated complaint Stated Complaint: CP - Chief complaint Chief Complaint: Cardiac - History obtained from History obtained from: Patient - History of Present Illness Timing - onset: Today (73-year-old woman presents by eminence for chest pain. I sent her to [facility] about a month ago for chest pain episode after a positive stress test. Per her report she had an angiogram during that admission which was negative for coronary disease. Subsequent to that she did have another chest pain episode and she was treated and released from scheduled ED. About an hour and a half ago she was sitting in her chair watching TV and she developed substernal chest pressure radiating to the back and stomach. There is no shortness of breath with it but she is slightly nauseous.) Review of Systems Ten Systems: 10 systems reviewed and negative Constitutional: denies: Fever, Chills Cardiac: reports: Chest pain / pressure. 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, Frequency HEENT: Chronic vision loss, Chronic hearing loss Psych: Depression, Anxiety, Schizophrenia Musculoskeletal: Chronic back pain Derm: None - Past Surgical History Past Surgical History: Yes General: Cholecystectomy Ortho: Spine surgery /HEAD AND NECK SURGEON: Hysterectomy Neuro: Craniotomy - Present Medications Home Medications: Ambulatory Orders Medication Instructions Recorded Confirmed Gabapentin 600 mg PO 0800,1400,2100 08/06/16 02/27/19 Omeprazole 20 mg PO BIDAC 08/06/16 02/27/19 Hydrocodone/Acetaminophen 1 tab PO QID PRN 12/21/17 02/27/19 [Hydrocodone-Acetamin 10-325 mg] Aspirin [Adult Aspirin Regimen] 81 mg PO DAILY #30 tablet. 12/22/17 02/27/19 Atorvastatin Calcium 40 mg PO QPM 04/13/18 02/27/19 Meclizine HCl [Motion [place] 25 mg PO DAILY PRN 04/13/18 02/27/19 Relief] Risperidone [Risperdal] 2 mg PO QPM 04/13/18 02/27/19 levETIRAcetam [Levetiracetam] 1,500 mg PO BID 04/13/18 02/27/19 Diphenoxylate/Atropine [Lomotil] 1 each PO QID PRN #12 tablet 02/08/19 02/27/19 Famotidine 20 mg PO DAILY #30 tablet 02/08/19 02/27/19 Ondansetron Odt [Zofran Odt] 4 mg TL Q6H PRN #15 tablet 02/08/19 02/27/19 Amlodipine Besylate [Norvasc] 2.5 mg PO DAILY #30 tablet 02/27/19 Aspirin [Aspirin EC] 81 mg PO DAILY #30 tablet. 02/27/19 HYDROcodone/ACET 10/325 [[place] 10 1 tab PO Q6HR PRN #8 tablet 02/27/19 mg/325 mg] LORazepam [Lorazepam] 1 mg PO TID PRN 02/27/19 02/27/19 Nitroglycerin [Nitrostat] 0.4 mg SL [id number] #100 tab.subl 02/27/19 Sertraline HCl 100 mg PO DAILY 02/27/19 02/27/19 - Allergies Allergies/Adverse Reactions: Allergies Allergy/AdvReac Type Severity Reaction Status Date / Time NSAIDS (Non-Steroidal Allergy Unknown Verified 03/29/19 17:57 Anti-Inflamma - Social History Does the pt smoke?: No Smoking Status: Never smoker Does the pt drink ETOH?: No Does the pt have substance abuse?: No - Immunizations Immunizations are current?: Yes - POLST Patient has POLST: No POLST Status: Full Code PD ED PE NORMAL - Vitals Vital signs reviewed: Yes - General General: Alert and oriented X 3, No acute distress - HEENT HEENT: PERRL, EOMI - Neck Neck: Supple, no meningeal sign, No bony TTP - Cardiac Cardiac: RRR, No murmur - Respiratory Respiratory: No respiratory distress, Clear bilaterally - Abdomen Abdomen: Other (Slight epigastric tenderness noting that she does not have a gallbladder) - Derm Derm: Normal color, Warm and dry - Extremities Extremities: No edema, No calf tenderness / cord - Neuro Neuro: Alert and oriented X 3, Normal speech Results - Vitals Vitals: Vital Signs - 24 hr 03/29/19 17:53 Temperature 36.6 C Heart Rate 71 Respiratory 14 Rate Blood Pressure 149/78 H O2 Saturation 98 Oxygen O2 Source Room air - EKG (time done) 1754 Rate: Rate (enter#) (70) Rhythm: NSR [place]: Normal Intervals: Normal [place] QRS: Normal Ischemia: Non specific changes Computer interpretation: Agree with computer - Labs Labs: Laboratory Tests 03/29/19 03/29/19 03/29/19 18:05 18:05 18:05 WBC 8.4 RBC 4.39 Hgb 11.7 L Hct 36.3 L MCV 82.7 MCH 26.7 L MCHC 32.2 RDW 13.3 Plt Count 259 MPV 10.1 Neut # (Auto) 5.4 Lymph # (Auto) 2.3 [place] # (Auto) 0.6 Eos # (Auto) 0.1 Baso # (Auto) 0.1 Absolute Nucleated RBC 0.00 Nucleated RBC % 0.0 Sodium 134 L Potassium 3.6 Chloride 103 Carbon Dioxide 21 Anion Gap 10.0 BUN 22 H Creatinine 0.9 Estimated GFR (MDRD) 61 L Glucose 95 Calcium 9.0 Total Bilirubin 0.7 AST 21 ALT 22 Alkaline Phosphatase 67 Troponin I < 0.04 Total Protein 7.1 Albumin 3.9 Globulin 3.2 Albumin/Globulin Ratio 1.2 Lipase 36 - Rads (name of study) 1v chest Radiology: EMP read contemporaneously (hiatal hernia, nad) PD MEDICAL DECISION MAKING - ED course Complexity details: reviewed old records (Catheterization report from [facility] was received and reviewed. She had coronary angiography on March 042018. ) ED course: 73-year-old woman with recurrent chest pain, previous work-up basically rules out a coronary event given negative angiogram 3 weeks ago. [place] better after treatment here. Had minimal chest pain on discharge, had developed a recurrent headache at that point. Departure - Departure Disposition: Home, Self Care Clinical Impression: Chest pain Qualifiers: Chest pain type: unspecified Qualified Code(s): R07.9 - Chest pain, unspecified Condition: Good Instructions: ED Chest Pain NonCardiac Comments: Follow up with your physician, next available appointment. Return for new or worsening symptoms.
[2019-03-29 18:16] LABS: BASOPHILS # (AUTO) 0.1 10^3/uL (0.0-0.1); BASOPHILS % (AUTO) 0.6 %; EOSINOPHILS # (AUTO) 0.1 10^3/uL (0.0-0.7); EOSINOPHILS % (AUTO) 1.3 %; HGB - HEMOGLOBIN 11.7 g/dL (12.0-16.0); LYMPHOCYTES # (AUTO) 2.3 10^3/uL (1.5-3.5); LYMPHOCYTES % (AUTO) 27.5 %; MEAN CORPUSCULAR HEMOGLOBIN 26.7 pg (27.0-31.0); MEAN CORPUSCULAR HGB CONC 32.2 g/dL (32.0-36.0); MEAN CORPUSCULAR VOLUME 82.7 fL (81.0-99.0); MEAN PLATELET VOLUME 10.1 fL (7.9-10.8); MONOCYTES # (AUTO) 0.6 10^3/uL (0.0-1.0); MONOCYTES % (AUTO) 6.6 %; NEUTROPHILS # (AUTO) 5.4 10^3/uL (1.5-6.6); NEUTROPHILS % (AUTO) 63.9 %; PLT - PLATELET COUNT 259 10^3/uL (130-450); RED BLOOD COUNT 4.39 10^6/uL (4.20-5.40); RED CELL DISTRIBUTION WIDTH 13.3 % (12.0-15.0); WHITE BLOOD COUNT 8.4 x10^3/uL (4.8-10.8)
[2019-03-29 18:26] LABS: ALBUMIN 3.9 g/dL (3.2-5.5); ALBUMIN/GLOBULIN RATIO 1.2 (1.0-2.2); BILIRUBIN,TOTAL 0.7 mg/dL (0.2-1.0); CREATININE 0.9 mg/dL (0.4-1.0); TOTAL PROTEIN 7.1 g/dL (6.7-8.2)
[2019-03-29] MEDS ORDERED: MORPHINE 2 MG/ML CARPUJECT IVP STA (18:29)
[2019-03-29] MEDS ORDERED: LORazepam 1 MG TABLET PO STA (18:48)
--- NOTE | 2019-03-29 19:04 | XRAY Report ---
Reason: chest pain Procedure Date: 03/29/2019 Accession Number: [id number] / [id number] Procedure: XR - Chest 1 View X-Ray CPT Code: 56372 FULL RESULT: EXAM: CHEST RADIOGRAPHY EXAM DATE: 03/29/2019 06:13 PM. CLINICAL HISTORY: Chest pain. COMPARISON: CHEST 1 VIEW 02/26/2019 6:58 PM ABDOMEN/PELVIS W/ 02/08/2019 12:58 PM. TECHNIQUE: 1 view. FINDINGS: Lungs/Pleura: No focal pneumonia or edema evident. No gross pneumothorax or pleural effusion. Mediastinum: No cardiomegaly. Moderate hiatal hernia. Stable aortic contour. Other: Previous cervical surgery. IMPRESSION: 1. No acute process seen in the chest. 2. Hiatal hernia. RADIA
[2019-03-29] MEDS ORDERED: HYDROcod/ACET 5/325 Prepack 4 PO STA (19:25)
[2019-03-29 19:27] VITALS: BP 135/85
== END 2019-03-29 20:02 | disposition home or self-care (01) ==
LOC: EDUNIT# → ED 17:49
DX: R07.89 Other chest pain (principal); R51 Headache; K44.9 Diaphragmatic hernia without obstruction or gangrene; K21.9 Gastro-esophageal reflux disease without esophagitis; I10 Essential (primary) hypertension; Z90.49 Acquired absence of other specified parts of digestive tract; Z79.82 Long term (current) use of aspirin
CPT/HCPCS: 36415; 71045; 80053; 83690; 84484; 85025; 93005; 99283; 99284; A9270; J8499

== ENCOUNTER 2019-04-13 16:48 | Outpatient (CLI) | payer MEDICARE | END 2019-04-13 16:49 | disposition critical access hospital (66) | LOC: EMS 16:48 | PROVIDERS: ATTEND Surgery | DX: R20.0 Anesthesia of skin (principal); R53.1 Weakness; R47.9 Unspecified speech disturbances; R13.10 Dysphagia, unspecified | CPT/HCPCS: A0425; A0427 ==

== ENCOUNTER 2019-04-13 17:08 | Emergency (ER) | payer MEDICARE ==
[2019-04-13] MEDS ORDERED: LORazepam 2 MG/ML VIAL IVP STA (17:12)
[2019-04-13] MEDS ORDERED: ACETAMINOPHEN 325 MG TABLET PO STA (17:12)
--- NOTE | 2019-04-13 17:13 | ED Physician Documentation ---
PD HPI [facility] - Stated complaint Stated Complaint: STROKE SX - History obtained from History obtained from: Patient, EMS - History of Present Illness Timing - onset: Today (73-year-old woman with schizophrenia and anxiety presents with dizziness and nausea that started at 10 AM subsequently felt left-sided numbness and weakness with tongue heaviness around 1 PM and that is persistent. Brought in by ambulance with concern for stroke. She has a history of subdural hemorrhage necessitating craniotomy many years ago. Of note she presented 2 months ago with almost exactly the same complaints and brain MRI was negative. Her main complaint on initial evaluation was that she missed her Ativan dose and would like a dose of that. She also has a headache and left leg pain. There was no trauma.) Review of Systems Ten Systems: 10 systems reviewed and negative Constitutional: denies: Fever, Chills Nose: denies: Rhinorrhea / runny nose, Congestion Respiratory: denies: Dyspnea, Cough GI: denies: Abdominal Pain, Nausea, Vomiting PD PAST MEDICAL HISTORY - Past Medical History Cardiovascular: Hypertension, High cholesterol Respiratory: Sleep apnea, CPAP use Neuro: TIA, Seizure disorder, Other Endocrine/Autoimmune: None GI: GERD, Hiatal hernia [facility] [employer] [facility]: None : Nocturia, Frequency HEENT: Chronic vision loss, Chronic hearing loss Psych: Depression, Anxiety, Schizophrenia Musculoskeletal: Chronic back pain Derm: None - Past Surgical History Past Surgical History: Yes General: Cholecystectomy Ortho: Spine surgery /[facility] [employer] [facility]: Hysterectomy Neuro: Craniotomy - Present Medications Home Medications: Ambulatory Orders Medication Instructions Recorded Confirmed RX: Gabapentin 600 mg PO 0800,1400,2100 08/06/16 02/27/19 RX: Omeprazole 20 mg PO BIDAC 08/06/16 02/27/19 RX: Hydrocodone/Acetaminophen 1 tab PO QID PRN 12/21/17 02/27/19 [Hydrocodone-Acetamin 10-325 mg] RX: Aspirin [Adult Aspirin Regimen] 81 mg PO DAILY #30 tablet. 12/22/17 02/27/19 RX: Atorvastatin Calcium 40 mg PO QPM 04/13/18 02/27/19 RX: Meclizine HCl [Motion Sickness 25 mg PO DAILY PRN 04/13/18 02/27/19 Relief] RX: Risperidone [Risperdal] 2 mg PO QPM 04/13/18 02/27/19 RX: levETIRAcetam [Levetiracetam] 1,500 mg PO BID 04/13/18 02/27/19 RX: Diphenoxylate/Atropine 1 each PO QID PRN #12 tablet 02/08/19 02/27/19 [Lomotil] RX: Famotidine 20 mg PO DAILY #30 tablet 02/08/19 02/27/19 RX: Ondansetron Odt [Zofran Odt] 4 mg TL Q6H PRN #15 tablet 02/08/19 02/27/19 Amlodipine Besylate [Norvasc] 2.5 mg PO DAILY #30 tablet 02/27/19 Aspirin [Aspirin EC] 81 mg PO DAILY #30 tablet.dr 02/27/19 Nitroglycerin [Nitrostat] 0.4 mg SL [id number] #100 tab.subl 02/27/19 RX: HYDROcodone/ACET 10/325 [[place] 1 tab PO Q6HR PRN #8 tablet 02/27/19 10 mg/325 mg] RX: LORazepam [Lorazepam] 1 mg PO TID PRN 02/27/19 02/27/19 RX: Sertraline HCl 100 mg PO DAILY 02/27/19 02/27/19 - Allergies Allergies/Adverse Reactions: Allergies Allergy/AdvReac Type Severity Reaction Status Date / Time NSAIDS (Non-Steroidal Allergy Unknown Verified 03/29/19 17:57 Anti-Inflamma - Social History Does the pt smoke?: No Smoking Status: Never smoker Does the pt drink ETOH?: No Does the pt have substance abuse?: No - Immunizations Immunizations are current?: Yes - POLST Patient has POLST: No POLST Status: Full Code PD ED PE NORMAL - Vitals Vital signs reviewed: Yes - General General: Alert and oriented X 3, No acute distress - HEENT HEENT: PERRL, EOMI - Neck Neck: Supple, no meningeal sign, No bony TTP - Cardiac Cardiac: RRR, No murmur - Respiratory Respiratory: No respiratory distress, Clear bilaterally - Abdomen Abdomen: Soft, Non tender - Back Back: No CVA TTP, No spinal TTP - Derm Derm: Normal color, Warm and dry - Neuro Neuro: Alert and oriented X 3, Normal speech, Other (No pronator drift on the left but she does drift, this is consistent with more of a psychosomatic than a primary neurologic disorder. There is no facial droop. She has difficulty getting the left leg off the bed but claims that is much due to hip pain as it is weakness.) Eye Opening: Spontaneous Motor: Obeys Commands Verbal: Oriented GCS Score: 15 - Psych Psych: Normal mood, Normal affect NIHSS - Time Time: 17:10 - Level of Consciousness Level of consciousness: (0) Alert, Keenly responsive LOC Questions: (0) Answers both Q's correct LOC Commands: (0) Performs both correctly - Gaze Best Gaze: (0) Normal - Visual Visual: (0) No loss - Facial Palsy Facial Palsy: (0) Normal, symmetrical movement - Motor Arms (both separate) Motor Arm (right): (0) No drift Motor Arm (left): (1) Drift (but not pronator) - Motor Legs (both separate) Motor Leg (right): (0) No drift Motor Leg (left): (1) Drift - Limb Ataxia Limb Ataxia: (0) Absent - Sensory Sensory: (0) Normal - Best Language Best Language: (0) No aphasia - Dysarthria Dysarthria: (0) Normal - Extinction and Inattention (formally neg Extinction and inattention: (0) No abnormality - Total Score/Results Total Score/Result: 2 Results - Vitals Vitals: Vital Signs - 24 hr 04/13/19 04/13/19 17:13 17:55 Temperature 36.2 C L Heart Rate 58 L 56 L Respiratory 20 18 Rate Blood Pressure 174/106 H 141/70 H O2 Saturation 97 97 Oxygen O2 Source Room air - EKG (time done) 1732 Rate: Rate (enter#) (55) Rhythm: NSR [place]: Normal Intervals: Other (borderline IVCD 113msec) QRS: Normal Ischemia: Normal ST segments Computer interpretation: Agree with computer - Labs Labs: Laboratory Tests 04/13/19 04/13/19 04/13/19 17:20 17:20 17:20 WBC 9.5 RBC 4.47 Hgb 11.8 L Hct 36.5 L MCV 81.7 MCH 26.4 L MCHC 32.3 RDW 12.6 Plt Count 316 MPV 10.4 Neut # (Auto) 5.4 Lymph # (Auto) 3.2 [place] # (Auto) 0.7 Eos # (Auto) 0.1 Baso # (Auto) 0.1 Absolute Nucleated RBC 0.00 Nucleated RBC % 0.0 PT 12.3 INR 1.1 Sodium 134 L Potassium 3.8 Chloride 102 Carbon Dioxide 21 Anion Gap 11.0 BUN 15 Creatinine 0.8 Estimated GFR (MDRD) 70 L Glucose 91 Calcium 8.8 Total Bilirubin 0.5 AST 22 ALT 21 Alkaline Phosphatase 71 Total Protein 7.2 Albumin 4.1 Globulin 3.1 Albumin/Globulin Ratio 1.3 Lipase 42 - Rads (name of study) CT Head Radiology: EMP read contemporaneously (post op chgs, NAD) PD MEDICAL DECISION MAKING - ED course ED course: 73-year-old woman presents by ambulance for headache, left-sided weakness. Noting that she had very similar symptoms 2 months ago with negative work-up and negative MRI. She does have a history of remote subarachnoid hemorrhage and craniotomy on the right and a seizure disorder. This could be psychosomatic, or could be focal seizure causing Foster's paralysis. She was as concerned about missing her Ativan dosing and having her headache treated as she was about any neurologic deficits. She received some Ativan and Tylenol, the Tylenol had no effect on her headache and this was followed by a milligram of Dilaudid. On recheck at 6:45 PM most of her complaints had resolved and she had no drift of the arm or leg. Departure - Departure Disposition: 01 Home, Self Care Clinical Impression: Left-sided weakness, Seizure disorder Condition: Good Record reviewed to determine appropriate education?: Yes Health Concerns: stroke like symptoms Plan of Treatment: continue current meds Instructions: ED Headache Migraine Comments: You had very similar symptoms 2 months ago that worked up with a negative work- up. I suspect you have a irritable focus on your brain from the previous intracranial hemorrhage that causes recurrent episodes of left-sided symptoms. Thankfully these resolved with treatment here today. Follow-up with your doctor, continue current medications. Discharge Date/Time: 04/13/19 19:01
[2019-04-13 17:37] LABS: ALBUMIN 4.1 g/dL (3.2-5.5); ALBUMIN/GLOBULIN RATIO 1.3 (1.0-2.2); BILIRUBIN,TOTAL 0.5 mg/dL (0.2-1.0); CALCIUM 8.8 mg/dL (8.5-10.3); CREATININE 0.8 mg/dL (0.4-1.0); TOTAL PROTEIN 7.2 g/dL (6.7-8.2)
[2019-04-13 17:50] LABS: INR 1.1 (0.8-1.2); PT - PROTHROMBIN TIME 12.3 secs (9.9-12.6)
[2019-04-13 17:56] LABS: BASOPHILS # (AUTO) 0.1 10^3/uL (0.0-0.1); BASOPHILS % (AUTO) 0.5 %; EOSINOPHILS # (AUTO) 0.1 10^3/uL (0.0-0.7); EOSINOPHILS % (AUTO) 1.5 %; HGB - HEMOGLOBIN 11.8 g/dL (12.0-16.0); LYMPHOCYTES # (AUTO) 3.2 10^3/uL (1.5-3.5); LYMPHOCYTES % (AUTO) 33.7 %; MEAN CORPUSCULAR HEMOGLOBIN 26.4 pg (27.0-31.0); MEAN CORPUSCULAR HGB CONC 32.3 g/dL (32.0-36.0); MEAN CORPUSCULAR VOLUME 81.7 fL (81.0-99.0); MEAN PLATELET VOLUME 10.4 fL (7.9-10.8); MONOCYTES # (AUTO) 0.7 10^3/uL (0.0-1.0); MONOCYTES % (AUTO) 6.9 %; NEUTROPHILS # (AUTO) 5.4 10^3/uL (1.5-6.6); NEUTROPHILS % (AUTO) 57.1 %; PLT - PLATELET COUNT 316 10^3/uL (130-450); RED BLOOD COUNT 4.47 10^6/uL (4.20-5.40); RED CELL DISTRIBUTION WIDTH 12.6 % (12.0-15.0); WHITE BLOOD COUNT 9.5 x10^3/uL (4.8-10.8)
--- NOTE | 2019-04-13 18:04 | CT Report ---
Reason: CVAA sx Procedure Date: 04/13/2019 Accession Number: [id number] / [id number] Procedure: CT - HEAD WO CPT Code: FULL RESULT: EXAM: CT HEAD EXAM DATE: 04/13/2019 05:27 PM. CLINICAL HISTORY: Stroke COMPARISON: HEAD ANGIO 02/10/2019 12:29 PM. TECHNIQUE: Multiaxial CT images were obtained from the foramen magnum to the vertex. Reformats: Sagittal and coronal. IV contrast: None. In accordance with CT protocol optimization, one or more of the following dose reduction techniques were utilized for this exam: automated exposure control, adjustment of mA and/or KV based on patient size, or use of iterative reconstructive technique. FINDINGS: Parenchyma: No intraparenchymal hemorrhage. No evidence of mass, midline shift, or CT findings of infarction. Penn-white differentiation is distinct. Extraaxial Spaces: Normal for age. No subdural or epidural collections identified. Ventricles: Normal in size and position. Sinuses and Orbits: Imaged paranasal sinuses, orbits, and mastoids show no significant abnormality. Bones: Patient has undergone right frontal lateral craniotomy. No acute bony abnormalities are seen. Other: None. IMPRESSION: No acute intracranial CT abnormality. RADIA
[2019-04-13 18:08] VITALS: BP 141/70
[2019-04-13] MEDS ORDERED: HYDROmorphone 1 MG/ML CARPUJECT IVP STA (18:15)
[2019-04-13] MEDS ORDERED: ONDANSETRON 4 MG/2 ML VIAL IVP STA (18:23)
== END 2019-04-13 19:01 | disposition home or self-care (01) ==
LOC: EDUNIT# → ED 17:08
DX: R53.1 Weakness (principal); G40.909 Epilepsy, unspecified, not intractable, without status epilepticus; I10 Essential (primary) hypertension; Z86.73 Personal history of transient ischemic attack (TIA), and cerebral infarction without residual deficits
CPT/HCPCS: 36415; 70450; 80053; 83690; 85025; 85610; 93005; 96374; 96375; 99284; A9270; J1170; J2060

== ENCOUNTER 2019-04-14 18:17 | Outpatient (CLI) | payer MEDICARE | END 2019-04-14 18:18 | disposition critical access hospital (66) | LOC: EMS 18:17 | PROVIDERS: ATTEND Surgery | DX: R07.9 Chest pain, unspecified (principal); R11.0 Nausea | CPT/HCPCS: A0425; A0429 ==

== ENCOUNTER 2019-04-14 18:36 | Emergency (ER) | payer MEDICARE ==
[2019-04-14 19:26] LABS: BASOPHILS # (AUTO) 0.1 10^3/uL (0.0-0.1); BASOPHILS % (AUTO) 0.7 %; EOSINOPHILS # (AUTO) 0.1 10^3/uL (0.0-0.7); EOSINOPHILS % (AUTO) 2.1 %; HGB - HEMOGLOBIN 12.2 g/dL (12.0-16.0); LYMPHOCYTES # (AUTO) 2.8 10^3/uL (1.5-3.5); LYMPHOCYTES % (AUTO) 40.9 %; MEAN CORPUSCULAR HEMOGLOBIN 26.4 pg (27.0-31.0); MEAN CORPUSCULAR HGB CONC 32.6 g/dL (32.0-36.0); MEAN PLATELET VOLUME 9.9 fL (7.9-10.8); MONOCYTES # (AUTO) 0.4 10^3/uL (0.0-1.0); MONOCYTES % (AUTO) 6.2 %; NEUTROPHILS # (AUTO) 3.4 10^3/uL (1.5-6.6); NEUTROPHILS % (AUTO) 49.8 %; PLT - PLATELET COUNT 320 10^3/uL (130-450); RED BLOOD COUNT 4.62 10^6/uL (4.20-5.40); RED CELL DISTRIBUTION WIDTH 12.7 % (12.0-15.0); WHITE BLOOD COUNT 6.8 x10^3/uL (4.8-10.8)
[2019-04-14 19:41] LABS: ALBUMIN 3.9 g/dL (3.2-5.5); ALBUMIN/GLOBULIN RATIO 1.2 (1.0-2.2); BILIRUBIN,TOTAL 0.4 mg/dL (0.2-1.0); CALCIUM 9.4 mg/dL (8.5-10.3); CREATININE 0.9 mg/dL (0.4-1.0); TOTAL PROTEIN 7.1 g/dL (6.7-8.2)
--- NOTE | 2019-04-14 19:45 | XRAY Report ---
Reason: Chest Pain Procedure Date: 04/14/2019 Accession Number: [id number] / [id number] Procedure: XR - Chest 1 View X-Ray CPT Code: 03134 FULL RESULT: EXAM: CHEST RADIOGRAPHY EXAM DATE: 04/14/2019 07:32 PM. CLINICAL HISTORY: Chest Pain. COMPARISON: CHEST 1 VIEW 03/29/2019 5:59 PM. TECHNIQUE: 1 view. FINDINGS: Lungs/Pleura: No focal opacities evident. No pleural effusion. No pneumothorax. Mediastinum: Within exam limitations, the cardiomediastinal contour is normal. Moderate hiatal hernia noted. Other: Lower cervical fusion and right lateral clavicle resection again noted. IMPRESSION: No acute abnormality, again noting moderate hiatal hernia, lower cervical fusion, and lateral right clavicle resection. RADIA
[2019-04-14] MEDS ORDERED: BUTALB/ACETAM/CAFF 50/325/40MG TABLET PO STA (20:26)
[2019-04-14] MEDS ORDERED: LORazepam 2 MG/ML VIAL IVP STA (20:26)
[2019-04-14] MEDS ORDERED: ONDANSETRON 4 MG/2 ML VIAL IVP STA (20:54)
--- NOTE | 2019-04-14 21:08 | ED Physician Documentation ---
History of Present Illness - Stated complaint Stated Complaint: CP,ANXIETY - Chief complaint Chief Complaint: Cardiac - History obtained from History obtained from: Patient, EMS - History of Present Illness Timing: How many hours ago (4) Pain level max: 8 Pain level now: 8 - Additonal information Additional information: Patient states that she lost her ativan today and can't find it. Now has chest pain and states that her anxiety is worsening. took ntg without relief. pain is non-radiating. states pressure like. Has been constant. States also has a headache. Review of Systems Ten Systems: 10 systems reviewed and negative Constitutional: denies: Fever, Chills Throat: denies: Sore throat Respiratory: denies: Cough GI: denies: Abdominal Pain, Vomiting, Diarrhea Skin: denies: Rash Musculoskeletal: denies: Neck pain, Back pain Neurologic: denies: Headache PD PAST MEDICAL HISTORY - Past Medical History Past Medical History: Yes Cardiovascular: Hypertension, High cholesterol, Angina Respiratory: Sleep apnea, CPAP use Neuro: TIA, Seizure disorder, Other Endocrine/Autoimmune: None GI: GERD, Hiatal hernia VP PROJECT: None : Nocturia, Frequency HEENT: Chronic vision loss, Chronic hearing loss Psych: Depression, Anxiety, Schizophrenia Musculoskeletal: Chronic back pain Derm: None - Past Surgical History Past Surgical History: Yes General: Cholecystectomy Ortho: Spine surgery /VP PROJECT: Hysterectomy Neuro: Craniotomy - Present Medications Home Medications: Ambulatory Orders Medication Instructions Recorded Confirmed Gabapentin 600 mg PO 0800,1400,2100 08/06/16 02/27/19 Omeprazole 20 mg PO BIDAC 08/06/16 02/27/19 Hydrocodone/Acetaminophen 1 tab PO QID PRN 12/21/17 02/27/19 [Hydrocodone-Acetamin 10-325 mg] Aspirin [Adult Aspirin Regimen] 81 mg PO DAILY #30 tablet. 12/22/17 02/27/19 Atorvastatin Calcium 40 mg PO QPM 04/13/18 02/27/19 Meclizine HCl [Motion Sickness 25 mg PO DAILY PRN 04/13/18 02/27/19 Relief] Risperidone [Risperdal] 2 mg PO QPM 04/13/18 02/27/19 levETIRAcetam [Levetiracetam] 1,500 mg PO BID 04/13/18 02/27/19 Diphenoxylate/Atropine [Lomotil] 1 each PO QID PRN #12 tablet 02/08/19 02/27/19 Famotidine 20 mg PO DAILY #30 tablet 02/08/19 02/27/19 Ondansetron Odt [Zofran Odt] 4 mg TL Q6H PRN #15 tablet 02/08/19 02/27/19 Amlodipine Besylate [Norvasc] 2.5 mg PO DAILY #30 tablet 02/27/19 Aspirin [Aspirin EC] 81 mg PO DAILY #30 tablet.dr 02/27/19 HYDROcodone/ACET 10/325 [[place] 10 1 tab PO Q6HR PRN #8 tablet 02/27/19 mg/325 mg] LORazepam [Lorazepam] 1 mg PO TID PRN 02/27/19 02/27/19 Nitroglycerin [Nitrostat] 0.4 mg SL [id number] #100 tab.subl 02/27/19 Sertraline HCl 100 mg PO DAILY 02/27/19 02/27/19 - Allergies Allergies/Adverse Reactions: Allergies Allergy/AdvReac Type Severity Reaction Status Date / Time NSAIDS (Non-Steroidal Allergy Unknown Verified 03/29/19 17:57 Anti-Inflamma - Social History Does the pt smoke?: No Smoking Status: Never smoker Does the pt drink ETOH?: No Does the pt have substance abuse?: No - Immunizations Immunizations are current?: Yes - POLST Patient has POLST: No POLST Status: Full Code PD ED PE NORMAL - Vitals Vital signs reviewed: Yes - General General: Alert and oriented X 3, No acute distress, Well developed/nourished - HEENT HEENT: PERRL, Moist mucous membranes - Neck Neck: Supple, no meningeal sign - Cardiac Cardiac: RRR, Strong equal pulses - Respiratory Respiratory: No respiratory distress, Clear bilaterally - Abdomen Abdomen: Soft, Non tender, Non distended - Derm Derm: Warm and dry, No rash - Extremities Extremities: No edema, No calf tenderness / cord - Neuro Neuro: Alert and oriented X 3, No motor deficit, No sensory deficit - Psych Psych: Normal mood, Normal affect Results - Vitals Vitals: Vital Signs - 24 hr 04/14/19 04/14/19 04/14/19 18:45 19:39 19:42 Temperature 36.5 C Heart Rate 64 66 Respiratory 16 18 Rate Blood Pressure 143/96 H Blood Pressure 127/69 [Left] O2 Saturation 99 97 04/14/19 04/14/19 04/14/19 20:49 21:13 21:46 Temperature 36.2 C L Heart Rate 56 L 55 L 52 L Respiratory 20 15 16 Rate Blood Pressure 173/102 H 164/72 H 153/95 H Blood Pressure [Left] O2 Saturation 99 99 97 04/14/19 22:18 Temperature 36.5 C Heart Rate 58 L Respiratory 15 Rate Blood Pressure 151/84 H Blood Pressure [Left] O2 Saturation 97 Oxygen O2 Source Room air - EKG (time done) 1846 Rate: Rate (enter#) (62) Rhythm: NSR [place]: Normal Intervals: Normal CT Ischemia: Non specific changes Compare to prior EKG: Unchanged from prior EKG - Labs Labs: Laboratory Tests 04/14/19 04/14/19 04/14/19 19:19 19:19 19:19 WBC 6.8 RBC 4.62 Hgb 12.2 Hct 37.4 MCV 81.0 MCH 26.4 L MCHC 32.6 RDW 12.7 Plt Count 320 MPV 9.9 Neut # (Auto) 3.4 Lymph # (Auto) 2.8 [place] # (Auto) 0.4 Eos # (Auto) 0.1 Baso # (Auto) 0.1 Absolute Nucleated RBC 0.00 Nucleated RBC % 0.0 Sodium 141 Potassium 3.7 Chloride 109 Carbon Dioxide 19 L Anion Gap 13.0 BUN 16 Creatinine 0.9 Estimated GFR (MDRD) 61 L Glucose 94 Calcium 9.4 Total Bilirubin 0.4 AST 16 ALT 19 Alkaline Phosphatase 67 Troponin I < 0.04 Total Protein 7.1 Albumin 3.9 Globulin 3.2 Albumin/Globulin Ratio 1.2 Lipase 42 04/14/19 21:13 WBC RBC Hgb Hct MCV MCH MCHC RDW Plt Count MPV Neut # (Auto) Lymph # (Auto) [place] # (Auto) Eos # (Auto) Baso # (Auto) Absolute Nucleated RBC Nucleated RBC % Sodium Potassium Chloride Carbon Dioxide Anion Gap BUN Creatinine Estimated GFR (MDRD) Glucose Calcium Total Bilirubin AST ALT Alkaline Phosphatase Troponin I < 0.04 Total Protein Albumin Globulin Albumin/Globulin Ratio Lipase - Rads (name of study) cxr Radiology: Prelim report reviewed, EMP read contemporaneously, See rad report (No acute abnormality) PD MEDICAL DECISION MAKING - ED course Complexity details: reviewed results, re-evaluated patient, considered differ ential (No ST elevation PA, no aortic dissection, no PE, no tension pneumothorax, no aortic aneurysm), d/w patient ED course: Symptoms resolved with Ativan and 4 mg of morphine. She is well-appearing, nontoxic. No evidence of acute coronary syndrome at this time. Negative troponin x2. No significant EKG changes. Patient counseled regarding signs and symptoms for which I believe and urgent re-evaluation would be necessary. Patient with good understanding of and agreement to plan and is comfortable going home at this time This document was made in part using voice recognition software. While efforts are made to proofread this document, sound alike and grammatical errors may occur. Departure - Departure Disposition: 01 Home, Self Care Clinical Impression: Atypical chest pain, Anxiety Condition: Good Instructions: ED Chest Pain Atypical Unkn Cause, ED Panic Attack Follow-Up: Miguel Angel Torres MD [Primary Care Provider] - Within 3 Days Comments: Your cardiac tests are negative tonight. Follow-up with your doctor for further care. Return if you worsen. Discharge Date/Time: 04/14/19 22:20
[2019-04-14] MEDS ORDERED: MORPHINE 2 MG/ML CARPUJECT IVP STA (21:58)
[2019-04-14 22:20] VITALS: BP 151/84
== END 2019-04-14 22:20 | disposition home or self-care (01) ==
LOC: ED 18:36
DX: R07.89 Other chest pain (principal); F41.9 Anxiety disorder, unspecified; I45.81 Long QT syndrome; I10 Essential (primary) hypertension; Z79.82 Long term (current) use of aspirin
CPT/HCPCS: 36415; 71045; 80053; 83690; 84484; 85025; 93005; 96374; 96375; 99284; A9270; J2060

== ENCOUNTER 2019-05-27 15:24 | Outpatient (CLI) | payer MEDICARE | END 2019-05-27 15:25 | disposition critical access hospital (66) | LOC: EMS 15:24 | PROVIDERS: ATTEND Surgery | DX: R20.0 Anesthesia of skin (principal); R53.1 Weakness; R51 Headache | CPT/HCPCS: A0425; A0429 ==

== ENCOUNTER 2019-05-27 15:45 | Emergency (ER) | payer MEDICARE ==
--- NOTE | 2019-05-27 16:05 | ED Physician Documentation ---
History of Present Illness - Stated complaint Stated Complaint: WEAKNESS - Chief complaint Chief Complaint: Neuro - Additonal information Additional information: This is a 73-year-old female with history of schizophrenia, past intracranial h emorrhage on the right status post craniotomy, stroke with possible left-sided deficits, who presents with anxiety, headache, and potentially left-sided weakness. Patient states that today she became very anxious and that 1400 she began developing a headache which is severe, more on the left side and pulsating. This was accompanied by some nausea. She denies fever or abdominal pain. She has presented in the past with anxiety and left-sided weakness, she had a work-up including an MRI which was negative. She denies chest pain. 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 : Nocturia, Frequency HEENT: Chronic vision loss, Chronic hearing loss Psych: Depression, Anxiety, Schizophrenia Musculoskeletal: Chronic back pain Derm: None - Past Surgical History Past Surgical History: Yes General: Cholecystectomy Ortho: Spine surgery /NYLON MACHINE OPERATOR: Hysterectomy Neuro: Craniotomy - Present Medications Home Medications: Ambulatory Orders Medication Instructions Recorded Confirmed Gabapentin 600 mg PO 0800,1400,2100 08/06/16 05/27/19 Omeprazole 20 mg PO BIDAC 08/06/16 05/27/19 Hydrocodone/Acetaminophen 1 tab PO QID PRN 12/21/17 05/27/19 [Hydrocodone-Acetamin 10-325 mg] Aspirin [Adult Aspirin Regimen] 81 mg PO DAILY #30 tablet. 12/22/17 05/27/19 Atorvastatin Calcium 40 mg PO QPM 04/13/18 05/27/19 Risperidone [Risperdal] 2 mg PO QPM 04/13/18 05/27/19 levETIRAcetam [Levetiracetam] 1,500 mg PO BID 04/13/18 05/27/19 Diphenoxylate/Atropine [Lomotil] 1 each PO QID PRN #12 tablet 02/08/19 05/27/19 Amlodipine Besylate [Norvasc] 2.5 mg PO DAILY #30 tablet 02/27/19 05/27/19 LORazepam [Lorazepam] 1 mg PO TID PRN 02/27/19 05/27/19 Nitroglycerin [Nitrostat] 0.4 mg SL [id number] #100 tab.subl 02/27/19 05/27/19 Sertraline HCl 150 mg PO DAILY 02/27/19 05/27/19 Cephalexin [Keflex] 500 mg PO Q6H #24 capsule 05/27/19 - Allergies Allergies/Adverse Reactions: Allergies Allergy/AdvReac Type Severity Reaction Status Date / Time NSAIDS (Non-Steroidal Allergy Unknown Verified 05/27/19 16:00 Anti-Inflamma - Social History Does the pt smoke?: No Smoking Status: Never smoker Does the pt drink ETOH?: No Does the pt have substance abuse?: No - Immunizations Immunizations are current?: Yes - POLST Patient has POLST: No POLST Status: Full Code PD ED PE NORMAL - Vitals Vital signs reviewed: Yes - General General: Alert and oriented X 3 - HEENT HEENT: Atraumatic, PERRL, EOMI - Neck Neck: Supple, no meningeal sign - Cardiac Cardiac: RRR - Respiratory Respiratory: No respiratory distress, Clear bilaterally - Abdomen Abdomen: Normal bowel sounds, Soft, Non tender, Non distended - Derm Derm: Warm and dry - Extremities Extremities: No deformity - Neuro Neuro: Alert and oriented X 3, Other (Face is symmetric, tongue protrudes in midline, there is no droop with smile or raising her eyebrows. Sensation is intact to light touch over her face as well as her bilateral arms and legs. She states that it feels slightly less on the left side of her upper face. She has 4+ out of 5 strength with hand squeeze on the left, and 4+ out of 5 strength with ankle dorsiflexion on the left. Her finger abduction, elbow flexion and extension, ankle plantar flexion are 5 out of 5 bilaterally. She has no pronator drift with bilateral arms. She has no significant drift with her right or left legs, however she states that moving the left leg causes her some pain and is unable to raise it past 45 degrees. No dysmetria on [id number] testing.) - Psych Psych: Normal mood, Normal affect Results - Vitals Vitals: Vital Signs - 24 hr 05/27/19 05/27/19 05/27/19 15:55 17:56 19:24 Temperature 36.4 C L Heart Rate 72 74 60 Respiratory 15 18 15 Rate Blood Pressure 153/104 H 149/96 H 158/87 H O2 Saturation 98 98 93 05/27/19 05/27/19 20:42 20:44 Temperature Heart Rate 70 Respiratory 23 Rate Blood Pressure 153/94 H O2 Saturation 97 Oxygen O2 Source Room air - EKG (time done) 16:01 Other comments: Other comments (Rate 66, rhythm sinus, there is no ST segment elevation or depression, there is some T wave flattening in the lateral precordial leads, QTc 420 on my calculation) - Labs Labs: Microbiology 05/27/19 17:10 Urine Culture - Final Urine,Clean Catch Less Than 10,000 COLONIES/ML UROGENITAL YUMIKO Laboratory Tests 05/27/19 05/27/19 05/27/19 16:41 16:41 16:41 WBC 8.2 RBC 4.23 Hgb 11.5 L Hct 35.8 L MCV 84.6 MCH 27.2 MCHC 32.1 RDW 13.4 Plt Count 262 MPV 10.3 Neut # (Auto) 5.0 Lymph # (Auto) 2.2 [place] # (Auto) 0.5 Eos # (Auto) 0.3 Baso # (Auto) 0.0 Absolute Nucleated RBC 0.00 Nucleated RBC % 0.0 PT 12.0 INR 1.1 Sodium 139 Potassium 3.4 L Chloride 105 Carbon Dioxide 23 Anion Gap 11.0 BUN 18 Creatinine 0.9 Estimated GFR (MDRD) 61 L Glucose 112 H Calcium 8.6 Total Bilirubin < 0.2 L AST 21 ALT 22 Alkaline Phosphatase 73 Total Protein 6.7 Albumin 3.8 Globulin 2.9 Albumin/Globulin Ratio 1.3 Lipase 31 TSH Urine Color Urine Clarity Urine pH Ur Specific [place] Urine Protein Urine Glucose (UA) Urine Ketones Urine Occult Blood Urine Nitrite Urine Bilirubin Urine Urobilinogen Ur Leukocyte Esterase Urine RBC Urine WBC Ur Squamous Epith Cells Urine Bacteria Ur Microscopic Review Urine Culture Comments Ethyl Alcohol < 5.0 05/27/19 05/27/19 16:41 17:10 WBC RBC Hgb Hct MCV MCH MCHC RDW Plt Count MPV Neut # (Auto) Lymph # (Auto) [place] # (Auto) Eos # (Auto) Baso # (Auto) Absolute Nucleated RBC Nucleated RBC % PT INR Sodium Potassium Chloride Carbon Dioxide Anion Gap BUN Creatinine Estimated GFR (MDRD) Glucose Calcium Total Bilirubin AST ALT Alkaline Phosphatase Total Protein Albumin Globulin Albumin/Globulin Ratio Lipase TSH 1.07 Urine Color YELLOW Urine Clarity CLEAR Urine pH 5.5 Ur Specific [place] 1.025 Urine Protein NEGATIVE Urine Glucose (UA) NEGATIVE Urine Ketones NEGATIVE Urine Occult Blood NEGATIVE Urine Nitrite NEGATIVE Urine Bilirubin NEGATIVE Urine Urobilinogen 0.2 (NORMAL) Ur Leukocyte Esterase TRACE H Urine RBC 0-5 Urine WBC 6-10 H Ur Squamous Epith Cells FEW Squamous Urine Bacteria Few Ur Microscopic Review INDICATED Urine Culture Comments INDICATED Ethyl Alcohol - Rads (name of study) CT Head WO Radiology: Other (Possibly increased size of past lacunar infarct, recommend MRI) MR brain W and WO Radiology: Other (No signs of acute stroke) PD MEDICAL DECISION MAKING - ED course Complexity details: considered differential (Stroke, ICH, electrolyte abnormality, migraine, anxiety) ED course: Pt presents with left sided sensation changes, on her exam she has mildly reduced menu planner strength and ankle dorsiflexion on the left, no assymetric drift of her arms or legs. Speech is normal. Pt does not know if this is new or chronic. Her chart states that she has had mild menu planner strength reduction on left in the past, but there is no documentation of her left ankle/Lower leg strength. CT head WO ordered stat. I called pt's family to ask about her baseline, there was no answer. POC glucose unremarkable. CT head WO shows possible increase of previous hypodensity, which may represent acute on chronic stroke. Her deficits are subtle and may be chronic, and she certainly would be a poor TPA candidate. MR brain was obtained and shows no acute stroke. Her symptoms may be just her baseline mild deficits from past stroke, I also think it is likely that there is an anxiety/behavioral component to some of her symptoms, given their onset with her anxiety and resolution afterwards. Given multiple past presentations with similar symptoms and her negative imaging today I doubt TIA. On re-examination her sensation changes have resolved. She states that she feels completely normal and back to baseline now. No new neurologic findings. Labs are notable for chronic anemia, and possible UTI, which we will treat with keflex. She will follow closely with her PCP and return to the ED with any new or worsening symptoms. Departure - Departure Disposition: 01 Home, Self Care Clinical Impression: Weakness UTI (urinary tract infection) Qualifiers: Urinary tract infection type: acute cystitis Hematuria presence: without hematuria Qualified Code(s): N30.00 - Acute cystitis without hematuria Condition: Stable Instructions: ED UTI Cystitis Female Follow-Up: Miguel Angel Torres MD [Primary Care Provider] - Within 1 week Prescriptions: Cephalexin [Keflex] 500 mg PO Q6H #24 capsule Comments: You were seen today for some weakness which has been improving. Some of this weakness may be from a previous stroke. Your MRI does not show signs of a new stroke. Your urine did show signs of a possible urinary tract infection, please take the antibiotic as prescribed. Follow up with your PCP as soon as possible. Discharge Date/Time: 05/27/19 20:54
[2019-05-27] MEDS ORDERED: METOCLOPRAMIDE 10 MG/2 ML VIAL IVP STA (16:33)
[2019-05-27 16:49] LABS: BASOPHILS % (AUTO) 0.5 %; EOSINOPHILS # (AUTO) 0.3 10^3/uL (0.0-0.7); EOSINOPHILS % (AUTO) 3.8 %; HGB - HEMOGLOBIN 11.5 g/dL (12.0-16.0); LYMPHOCYTES # (AUTO) 2.2 10^3/uL (1.5-3.5); LYMPHOCYTES % (AUTO) 27.4 %; MEAN CORPUSCULAR HEMOGLOBIN 27.2 pg (27.0-31.0); MEAN CORPUSCULAR HGB CONC 32.1 g/dL (32.0-36.0); MEAN CORPUSCULAR VOLUME 84.6 fL (81.0-99.0); MEAN PLATELET VOLUME 10.3 fL (7.9-10.8); MONOCYTES # (AUTO) 0.5 10^3/uL (0.0-1.0); MONOCYTES % (AUTO) 6.3 %; NEUTROPHILS % (AUTO) 61.6 %; PLT - PLATELET COUNT 262 10^3/uL (130-450); RED BLOOD COUNT 4.23 10^6/uL (4.20-5.40); RED CELL DISTRIBUTION WIDTH 13.4 % (12.0-15.0); WHITE BLOOD COUNT 8.2 x10^3/uL (4.8-10.8)
[2019-05-27 16:53] LABS: INR 1.1 (0.8-1.2)
[2019-05-27 16:59] LABS: ALBUMIN 3.8 g/dL (3.2-5.5); ALBUMIN/GLOBULIN RATIO 1.3 (1.0-2.2); ALKALINE PHOSPHATASE 73 IU/L (42-121); ALT ALANINE AMINOTRANSFERASE 22 IU/L (10-60); AST ASPARTATE AMINOTRANSFERASE 21 IU/L (10-42); BILIRUBIN,TOTAL < 0.2 mg/dL (0.2-1.0); BUN - BLOOD UREA NITROGEN 18 mg/dL (6-20); CALCIUM 8.6 mg/dL (8.5-10.3); CARBON DIOXIDE - CO2 23 mmol/L (21-32); CHLORIDE 105 mmol/L (101-111); CREATININE 0.9 mg/dL (0.4-1.0); GFR - MDRD 61 (>89); GLUCOSE 112 mg/dL (70-100); LIPASE 31 U/L (22-51); SODIUM 139 mmol/L (135-145); TOTAL PROTEIN 6.7 g/dL (6.7-8.2)
--- NOTE | 2019-05-27 17:08 | XRAY Report ---
Reason: chest pain Procedure Date: 05/27/2019 Accession Number: [id number] / [id number] Procedure: XR - Chest 1 View X-Ray CPT Code: 76922 FULL RESULT: EXAM: CHEST RADIOGRAPHY EXAM DATE: 05/27/2019 04:57 PM. CLINICAL HISTORY: Chest pain. COMPARISON: CHEST 1 VIEW 04/14/2019 7:26 PM. TECHNIQUE: 1 view. FINDINGS: Lungs/Pleura: Left basilar atelectasis or scar similar to previous exam. No acute infiltrate, consolidation, effusion, or pneumothorax. Mediastinum: Normal heart size, unchanged. Upper lobe vessels not distended. Very large hiatal hernia with prominent air-fluid level. Other: Previous resection of right clavicle head and other chronic findings. IMPRESSION: Very large hiatal hernia. RADIA
--- NOTE | 2019-05-27 17:13 | CT Report ---
Reason: Headache, ?increased weakness on left, hx stroke Procedure Date: 05/27/2019 Accession Number: [id number] / [id number] Procedure: CT - HEAD WO CPT Code: FULL RESULT: EXAM: CT HEAD EXAM DATE: 05/27/2019 04:53 PM. CLINICAL HISTORY: Headache, ?increased weakness on left, hx stroke. COMPARISON: HEAD W/O 04/13/2019 5:24 PM. TECHNIQUE: Multiaxial CT images were obtained from the foramen magnum to the vertex. Reformats: Sagittal and coronal. IV contrast: None. In accordance with CT protocol optimization, one or more of the following dose reduction techniques were utilized for this exam: automated exposure control, adjustment of mA and/or KV based on patient size, or use of iterative reconstructive technique. FINDINGS: Parenchyma: A small 8 mm hypodense focus in left lentiform nucleus (image 10 on series 3) is most consistent with an old infarct/lacunar infarct. This focus appears slightly increased in size since 7 8 19, and acute on chronic infarction cannot be completely excluded. Further evaluation is recommended on MRI brain. No evidence of intracranial hemorrhage. No midline shift or mass-effect. Extraaxial Spaces: Normal for age. No subdural or epidural collections identified. Ventricles: Normal in size and position. Sinuses and Orbits: Imaged paranasal sinuses, orbits, and mastoids show no significant abnormality. Bones: Status post right frontal craniotomy with postsurgical changes. Other: None. IMPRESSION: A small 8 mm hypodense focus in left lentiform nucleus (image 10 on series 3) is most consistent with an old infarct/lacunar infarct. This focus appears slightly increased in size since 7 8 19, and acute on chronic infarction cannot be completely excluded. Further evaluation is recommended on MRI brain. RADIA The call report notification system was initiated by Dr. Kaley Steiner at 05:07 PM on 05/27/2019. The above call report findings were discussed with Graham Em by Dr. Kaley Steiner at 05:12 PM on 05/27/2019.
[2019-05-27 17:23] LABS: BILIRUBIN,URINE NEGATIVE (NEGATIVE); CLARITY,URINE CLEAR (CLEAR); GLUCOSE, URINE (UA) NEGATIVE (NEGATIVE); KETONES,URINE (UA) NEGATIVE (NEGATIVE); LEUKOCYTE ESTERASE, URINE TRACE (NEGATIVE); NITRITE,URINE NEGATIVE (NEGATIVE); OCCULT BLOOD,URINE NEGATIVE (NEGATIVE); PH,URINE 5.5 PH (5.0-7.5); PROTEIN,URINE NEGATIVE (NEGATIVE); UROBILINOGEN,URINE 0.2 (NORMAL) E.U./dL (NORMAL)
[2019-05-27 17:32] LABS: BACTERIA,URINE Few /HPF (None Seen); RBC,URINE 0-5 /HPF (0-5); SQUAMOUS EPITHELIAL CELL,UR FEW Squamous (<= Few)
[2019-05-27] MEDS ORDERED: ACETAMINOPHEN 325 MG TABLET PO STA (17:59)
[2019-05-27] MEDS ORDERED: GADOBUTROL 10 MMOL/10 ML VIAL ONE (19:04)
--- NOTE | 2019-05-27 19:28 | MRI Report ---
Reason: Weakness,concern for increased lacunar infarctonCT Procedure Date: 05/27/2019 Accession Number: [id number] / [id number] Procedure: MRI - Brain W/WO CPT Code: FULL RESULT: EXAM: MRI BRAIN WITHOUT AND WITH CONTRAST EXAM DATE: 05/27/2019 07:11 PM. CLINICAL HISTORY: 73-year-old presenting with left-sided weakness and dizziness. Evaluate for intracranial pathology. COMPARISON: CT head 05/27/2019; MR brain 02/10/2019. TECHNIQUE: Multiplanar, multisequence T1-weighted and fluid-sensitive MR sequences of the brain were performed. Sequences optimized for routine evaluation. Other: None. IV Contrast: 10 cc Gadavist. FINDINGS: Brain Volume: Normal for age. Parenchyma: No acute hemorrhage, mass, or infarct. Prominent left subinsular perivascular space seen. There are mild to moderate bilateral areas of T2/FLAIR signal hyperintensity seen including patchy FLAIR signal hyperintensity within the perla that appears similar to MR brain 02/10/2019. No abnormal enhancement. Ventricles/Cisterns: No hydrocephalus. No abnormal extra-axial fluid collection or hemorrhage. Orbits: Symmetric and unremarkable. Sella Turc[place]: The pituitary gland, cavernous sinuses, suprasellar cistern and optic chiasm are unremarkable. IAC: Symmetric and unremarkable. Vasculature: Normal signal flow void is seen in the major arterial structures at the skull base. The dural sinuses are patent and enhance normally. Sinuses: Minimal mucosal thickening of the right maxillary sinus and ethmoid air cells. Small volume bilateral mastoid effusions. Bones: Postsurgical changes of right frontoparietal craniotomy. Changes of hyperostosis frontalis internus. Other: None. IMPRESSION: 1. No definite acute intracranial pathology seen; specifically, no acute infarct, acute intracranial hemorrhage, mass, hydrocephalus, or midline shift. No abnormal postcontrast enhancement. 2. Mild to moderate white matter changes that appear similar to MR brain 02/10/2019 and, while nonspecific, may represent sequela of chronic small-vessel ischemic disease. RADIA
[2019-05-27] MEDS ORDERED: MORPHINE 2 MG/ML CARPUJECT IVP STA (19:29)
[2019-05-27] MEDS ORDERED: cephALEXin 250 MG CAPSULE PO STA (20:37)
[2019-05-27 20:45] VITALS: BP 153/94
== END 2019-05-27 20:54 | disposition home or self-care (01) ==
LOC: ED 15:45
DX: R29.898 Other symptoms and signs involving the musculoskeletal system (principal); Z86.73 Personal history of transient ischemic attack (TIA), and cerebral infarction without residual deficits; N30.00 Acute cystitis without hematuria; D53.9 Nutritional anemia, unspecified; F41.9 Anxiety disorder, unspecified; I10 Essential (primary) hypertension; Z79.82 Long term (current) use of aspirin
CPT/HCPCS: 36415; 70450; 70553; 71045; 81001; 83690; 85610; 87086; 93005; 96374; 96375; 99283; 99284; A9270; A9585; J2765; 80053; 80320; 81003; 84443; 85025

== ENCOUNTER 2019-07-05 10:10 | Outpatient (CLI) | payer MEDICARE | END 2019-07-05 10:11 | disposition critical access hospital (66) | LOC: EMS 10:10 | PROVIDERS: ATTEND Surgery | DX: R07.9 Chest pain, unspecified (principal); F41.9 Anxiety disorder, unspecified | CPT/HCPCS: A0425; A0429 ==

== ENCOUNTER 2019-07-05 10:29 | Emergency (ER) | payer MEDICARE ==
[2019-07-05 10:55] LABS: BASOPHILS # (AUTO) 0.1 10^3/uL (0.0-0.1); BASOPHILS % (AUTO) 0.6 %; EOSINOPHILS # (AUTO) 0.2 10^3/uL (0.0-0.7); EOSINOPHILS % (AUTO) 1.7 %; LYMPHOCYTES % (AUTO) 23.3 %; MEAN CORPUSCULAR HGB CONC 32.4 g/dL (32.0-36.0); MEAN CORPUSCULAR VOLUME 83.1 fL (81.0-99.0); MEAN PLATELET VOLUME 10.2 fL (7.9-10.8); MONOCYTES # (AUTO) 0.5 10^3/uL (0.0-1.0); MONOCYTES % (AUTO) 5.6 %; NEUTROPHILS # (AUTO) 5.9 10^3/uL (1.5-6.6); NEUTROPHILS % (AUTO) 68.5 %; PLT - PLATELET COUNT 260 10^3/uL (130-450); RED BLOOD COUNT 4.45 10^6/uL (4.20-5.40); RED CELL DISTRIBUTION WIDTH 13.1 % (12.0-15.0); WHITE BLOOD COUNT 8.6 x10^3/uL (4.8-10.8)
[2019-07-05 11:06] LABS: ALBUMIN 3.6 g/dL (3.2-5.5); BILIRUBIN,TOTAL 0.3 mg/dL (0.2-1.0); CALCIUM 8.6 mg/dL (8.5-10.3); CREATININE 0.8 mg/dL (0.4-1.0); TOTAL PROTEIN 7.1 g/dL (6.7-8.2)
[2019-07-05] MEDS ORDERED: ACETAMINOPHEN 325 MG TABLET PO STA (11:18)
--- NOTE | 2019-07-05 11:18 | ED Physician Documentation ---
PD HPI CHEST PAIN - Stated complaint Stated Complaint: ANXIETY/CP - Chief complaint Chief Complaint: Cardiac - History obtained from History obtained from: Patient - History of Present Illness Timing - onset: How many hours ago (2), Today Timing - duration: Hours (2) Timing - details: Abrupt onset, Now resolved Quality: Aching, Sharp, Pain Location: Substernal Radiation: Neck, Left upper extremity Worsened by: Movement. No: Exertion, Inspiration Associated symptoms: Shortness of air, General Weakness. No: Nausea, Feeling faint / dizzy, Palpitations Similar symptoms before: No diagnosis (had similar with dx likely anxiety, since has had normal heart eval including recent heart cath 2 months ago at [facility].) Recently seen: Clinic (She states she had similar chest pain episode couple of months ago and was seen at [facility] where [facility] where she had heart testing including a heart cath and she says there is no signs of blockages at the time.) Review of Systems Constitutional: denies: Fever, Chills Nose: denies: Rhinorrhea / runny nose, Congestion Throat: denies: Sore throat Cardiac: reports: Chest pain / pressure. denies: Palpitations, Pedal edema, Calf pain Respiratory: reports: Dyspnea. 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, Frequency HEENT: Chronic vision loss, Chronic hearing loss Psych: Depression, Anxiety, Schizophrenia Musculoskeletal: Chronic back pain Derm: None - Past Surgical History Past Surgical History: Yes General: Cholecystectomy Ortho: Spine surgery /HIGH HEEL BUILDER: Hysterectomy Neuro: Craniotomy - Present Medications Home Medications: Ambulatory Orders Medication Instructions Recorded Confirmed Gabapentin 600 mg PO 0800,1400,2100 08/06/16 05/27/19 Omeprazole 20 mg PO BIDAC 08/06/16 05/27/19 Hydrocodone/Acetaminophen 1 tab PO QID PRN 12/21/17 05/27/19 [Hydrocodone-Acetamin 10-325 mg] Aspirin [Adult Aspirin Regimen] 81 mg PO DAILY #30 tablet. 12/22/17 05/27/19 Atorvastatin Calcium 40 mg PO QPM 04/13/18 05/27/19 Risperidone [Risperdal] 2 mg PO QPM 04/13/18 05/27/19 levETIRAcetam [Levetiracetam] 1,500 mg PO BID 04/13/18 05/27/19 Diphenoxylate/Atropine [Lomotil] 1 each PO QID PRN #12 tablet 02/08/19 05/27/19 Amlodipine Besylate [Norvasc] 2.5 mg PO DAILY #30 tablet 02/27/19 05/27/19 LORazepam [Lorazepam] 1 mg PO TID PRN 02/27/19 05/27/19 Nitroglycerin [Nitrostat] 0.4 mg SL [id number] #100 tab.subl 02/27/19 05/27/19 Sertraline HCl 150 mg PO DAILY 02/27/19 05/27/19 Cephalexin [Keflex] 500 mg PO Q6H #24 capsule 05/27/19 LORazepam [Ativan] 1 mg PO TID PRN #25 tablet 07/05/19 - Allergies Allergies/Adverse Reactions: Allergies Allergy/AdvReac Type Severity Reaction Status Date / Time NSAIDS (Non-Steroidal Allergy Unknown Verified 05/27/19 16:00 Anti-Inflamma - Social History Does the pt smoke?: No Smoking Status: Never smoker Does the pt drink ETOH?: No Does the pt have substance abuse?: No - Immunizations Immunizations are current?: Yes - POLST Patient has POLST: No POLST Status: Full Code PD ED PE NORMAL - Vitals Vital signs reviewed: Yes - General General: Alert and oriented X 3, No acute distress, Well developed/nourished - HEENT HEENT: Pharynx benign - Neck Neck: Supple, no meningeal sign, No adenopathy - Cardiac Cardiac: RRR, No murmur - Respiratory Respiratory: Clear bilaterally, Other (no chestwall tenderness) - Abdomen Abdomen: Soft, Non tender - Derm Derm: Normal color, Warm and dry - Extremities Extremities: Normal ROM s pain, No edema, No calf tenderness / cord - Neuro Neuro: Alert and oriented X 3, No motor deficit, Normal speech Results - Vitals Vitals: Vital Signs - 24 hr 07/05/19 07/05/19 07/05/19 10:31 10:48 11:27 Temperature 36.4 C L 36.5 C Heart Rate 71 73 72 Respiratory 18 16 16 Rate Blood Pressure 141/81 H 130/81 H 143/81 H O2 Saturation 98 97 97 07/05/19 07/05/19 07/05/19 11:53 12:00 12:35 Temperature 36.4 C L Heart Rate 67 66 69 Respiratory 20 16 96 H Rate Blood Pressure 147/97 H 144/82 H 147/86 H O2 Saturation 100 144 H Oxygen O2 Source Room air - EKG (time done) 10:34 Rate: Rate (enter#) Rhythm: NSR Patrick: Normal Intervals: Normal [place] QRS: Normal Ischemia: Normal ST segments. No: ST elevation c/w ischemia, ST depression Computer interpretation: Agree with computer - Labs Labs: Laboratory Tests 07/05/19 07/05/19 07/05/19 10:48 10:48 10:48 WBC 8.6 RBC 4.45 Hgb 12.0 Hct 37.0 MCV 83.1 MCH 27.0 MCHC 32.4 RDW 13.1 Plt Count 260 MPV 10.2 Neut # (Auto) 5.9 Lymph # (Auto) 2.0 [place] # (Auto) 0.5 Eos # (Auto) 0.2 Baso # (Auto) 0.1 Absolute Nucleated RBC 0.00 Nucleated RBC % 0.0 Sodium 140 Potassium 3.6 Chloride 105 Carbon Dioxide 26 Anion Gap 9.0 BUN 14 Creatinine 0.8 Estimated GFR (MDRD) 70 L Glucose 115 H Calcium 8.6 Magnesium 2.1 Total Bilirubin 0.3 AST 17 ALT 16 Alkaline Phosphatase 69 Troponin I High Sens Total Protein 7.1 Albumin 3.6 Globulin 3.5 Albumin/Globulin Ratio 1.0 Lipase 27 07/05/19 10:48 WBC RBC Hgb Hct MCV MCH MCHC RDW Plt Count MPV Neut # (Auto) Lymph # (Auto) [place] # (Auto) Eos # (Auto) Baso # (Auto) Absolute Nucleated RBC Nucleated RBC % Sodium Potassium Chloride Carbon Dioxide Anion Gap BUN Creatinine Estimated GFR (MDRD) Glucose Calcium Magnesium Total Bilirubin AST ALT Alkaline Phosphatase Troponin I High Sens 2.8 Total Protein Albumin Globulin Albumin/Globulin Ratio Lipase - Rads (name of study) chest xray Radiology: Prelim report reviewed (no acute process), See rad report PD MEDICAL DECISION MAKING - ED course Complexity details: reviewed results, considered differential (presume anxiety or musculoskeletal. Has had heart testing recently. No signs of [place].), d/w patient Departure - Departure Disposition: 01 Home, Self Care Clinical Impression: Chest pain at rest Anxiety disorder Qualifiers: Anxiety disorder type: generalized anxiety disorder Qualified Code(s): F41.1 - Generalized anxiety disorder Condition: Stable Record reviewed to determine appropriate education?: Yes Instructions: ED Panic Attack Follow-Up: Miguel Angel Torres MD [Primary Care Provider] - Prescriptions: LORazepam [Ativan] 1 mg PO TID PRN #25 tablet PRN Reason: Alcohol Withdrawal Comments: Continue usual medications and stay well-hydrated. Continue your Ativan 3 times a day with increasing the evening dose to 2 mg rather than 1 mg. See how you do with that with an added dose of Ativan extra if needed for anxiety. If you are still having increased overall anxiety after 2 to 3 days, then increase the morning dose as well. Follow-up with your primary care on the as planned or sooner if they have a sooner appointment. Continue your other usual medications. Your sertraline dose 150 mg does have some room for increase with a common top dose of 200 mg. However for now I would defer that to your primary care to decide whether to increase it or not. Discharge Date/Time: 07/05/19 12:54
--- NOTE | 2019-07-05 11:33 | XRAY Report ---
Reason: cp Procedure Date: 07/05/2019 Accession Number: [id number] / [id number] Procedure: XR - Chest 1 View X-Ray CPT Code: 37500 FULL RESULT: EXAM: CHEST RADIOGRAPHY EXAM DATE: 07/05/2019 10:54 AM. CLINICAL HISTORY: Chest pain. COMPARISON: CHEST 1 VIEW 05/27/2019 4:43 PM. TECHNIQUE: 1 view. FINDINGS: Lungs/Pleura: No focal opacities evident. No pleural effusion. No pneumothorax. Mediastinum: Retrocardiac density consistent with hiatal hernia is seen, otherwise, within exam limitations, the cardiomediastinal contour is normal. Other: None. IMPRESSION: No acute findings. Hiatal hernia again seen. RADIA
[2019-07-05] MEDS ORDERED: MORPHINE 10 MG/ML VIAL IVP STA (11:42)
[2019-07-05 12:36] VITALS: BP 147/86
== END 2019-07-05 12:54 | disposition home or self-care (01) ==
LOC: EDUNIT# → ED 10:29
DX: R07.9 Chest pain, unspecified (principal); F41.1 Generalized anxiety disorder; I10 Essential (primary) hypertension
CPT/HCPCS: 36415; 71045; 80053; 83690; 83735; 84484; 85025; 93005; 96374; 99284; A9270

== ENCOUNTER 2019-07-23 08:51 | Emergency (ER) | payer MEDICARE ==
--- NOTE | 2019-07-23 09:32 | ED Physician Documentation ---
PD HPI Fall - Stated complaint Stated Complaint: GLF/HEAD INJURY - Chief complaint Chief Complaint: General - History obtained from History obtained from: Patient, Family - History of Present Illness Mechanism of injury: Other (collapsed) Fall distance: Standing position Where injury occurred: Home Timing - onset: Last night Injury(ies) location: Head, Neck, Chest Quality of pain: Pain Associated symptoms: Neck pain. No: LOC, AMS, Amnesia, Seizures, Ear drainage, Nasal drainage, Weakness, Paresthesias, Dyspnea, Nausea / vomiting, Hematemesis, Abdominal distension Symptoms improve with: Rest Worsens with: Movement, Palpation Contributing factors: No: Anticoagulated Similar symptoms before: No diagnosis Recently seen: Emergency Dept - Additional information Additional information: 74 y/o female with a history ofSchizophrenia as well as hypertension TIAs seizure and traumatic brain injury with a subdural hematoma in 2011 has had 2 falls yesterday. She reports these both as a collapse and she is injured herself both in her upper back and neck. She has not had any loss of c onsciousness associated with these falls. Review of Systems Constitutional: reports: Myalgias, Fatigue. denies: Fever, Chills Eyes: denies: Decreased vision Ears: denies: Ear pain Nose: denies: Rhinorrhea / runny nose, Congestion Throat: denies: Sore throat Cardiac: denies: Chest pain / pressure, Palpitations Respiratory: denies: Dyspnea, Cough GI: denies: Abdominal Pain, Nausea, Vomiting, Constipation, Diarrhea : denies: Dysuria, Frequency Skin: denies: Rash, Lesions Musculoskeletal: reports: Neck pain, Back pain, Extremity pain Neurologic: reports: Head injury. denies: Generalized weakness, Focal weakness, Numbness, Difficulty speaking, LOC PD PAST MEDICAL HISTORY - Past Medical History Cardiovascular: Hypertension, High cholesterol, Angina Respiratory: Sleep apnea, CPAP use Neuro: TIA, Seizure disorder, Other Endocrine/Autoimmune: None GI: GERD, Hiatal hernia GLASS BLOWER: None : Nocturia, Frequency HEENT: Chronic vision loss, Chronic hearing loss Psych: Depression, Anxiety, Schizophrenia Musculoskeletal: Chronic back pain Derm: None - Past Surgical History Past Surgical History: Yes General: Cholecystectomy Ortho: Spine surgery /GLASS BLOWER: Hysterectomy Neuro: Craniotomy - Present Medications Home Medications: Ambulatory Orders Medication Instructions Recorded Confirmed Gabapentin 600 mg PO 0800,1400,2100 08/06/16 05/27/19 Omeprazole 20 mg PO BIDAC 08/06/16 05/27/19 Hydrocodone/Acetaminophen 1 tab PO QID PRN 12/21/17 05/27/19 [Hydrocodone-Acetamin 10-325 mg] Aspirin [Adult Aspirin Regimen] 81 mg PO DAILY #30 tablet. 12/22/17 05/27/19 Atorvastatin Calcium 40 mg PO QPM 04/13/18 05/27/19 Risperidone [Risperdal] 2 mg PO QPM 04/13/18 05/27/19 levETIRAcetam [Levetiracetam] 1,500 mg PO BID 04/13/18 05/27/19 Diphenoxylate/Atropine [Lomotil] 1 each PO QID PRN #12 tablet 02/08/19 05/27/19 Amlodipine Besylate [Norvasc] 2.5 mg PO DAILY #30 tablet 02/27/19 05/27/19 LORazepam [Lorazepam] 1 mg PO TID PRN 02/27/19 05/27/19 Nitroglycerin [Nitrostat] 0.4 mg SL [id number] #100 tab.subl 02/27/19 05/27/19 Sertraline HCl 150 mg PO DAILY 02/27/19 05/27/19 Cephalexin [Keflex] 500 mg PO Q6H #24 capsule 05/27/19 LORazepam [Ativan] 1 mg PO TID PRN #25 tablet 07/05/19 Hydrocodone/Acetaminophen 1 - 2 each PO Q6H PRN #14 tablet 07/23/19 [Hydrocodon-Acetaminophen 5-325] Sulfamethox/Trimeth 800/160 1 each PO BID #14 tablet 07/23/19 [Bactrim Ds] - Allergies Allergies/Adverse Reactions: Allergies Allergy/AdvReac Type Severity Reaction Status Date / Time NSAIDS (Non-Steroidal Allergy Unknown Verified 07/23/19 09:14 Anti-Inflamma - Social History Does the pt smoke?: No Smoking Status: Never smoker Does the pt drink ETOH?: No Does the pt have substance abuse?: No - Immunizations Immunizations are current?: Yes - POLST Patient has POLST: No POLST Status: Full Code PD ED PE NORMAL - Vitals Vital signs reviewed: Yes (hypertensive ) - General General: Alert and oriented X 3, Well developed/nourished, Other (74 y/o female with a dry mouth is alert and interactive ) - HEENT HEENT: Atraumatic, PERRL, EOMI, Other (dry mucous membranes ) - Neck Neck: Supple, no meningeal sign, Other (bony point tenderness to mid cervical spine with fair ROM ) - Cardiac Cardiac: RRR, No murmur - Respiratory Respiratory: No respiratory distress, Clear bilaterally, Other (There is bruising to the chest wall posteriorly on the left. 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6 Plt Count 306 MPV 9.7 Neut # (Auto) 6.4 Lymph # (Auto) 1.8 [place] # (Auto) 0.4 Eos # (Auto) 0.1 Baso # (Auto) 0.0 Absolute Nucleated RBC 0.00 Nucleated RBC % 0.0 Sodium 138 Potassium 3.5 Chloride 104 Carbon Dioxide 25 Anion Gap 9.0 BUN 13 Creatinine 0.8 Estimated GFR (MDRD) 70 L Glucose 107 H Lactic Acid 1.2 Calcium 9.2 Total Bilirubin 1.1 H AST 20 ALT 21 Alkaline Phosphatase 67 Total Protein 7.5 Albumin 4.2 Globulin 3.3 Albumin/Globulin Ratio 1.3 Lipase 31 Urine Color Urine Clarity Urine pH Ur Specific [place] Urine Protein Urine Glucose (UA) Urine Ketones Urine Occult Blood Urine Nitrite Urine Bilirubin Urine Urobilinogen Ur Leukocyte Esterase Urine RBC Urine WBC Ur Squamous Epith Cells Urine Bacteria Ur Microscopic Review Urine Culture Comments 07/23/19 09:53 WBC RBC Hgb Hct MCV MCH MCHC RDW Plt Count MPV Neut # (Auto) Lymph # (Auto) [place] # (Auto) Eos # (Auto) Baso # (Auto) Absolute Nucleated RBC Nucleated RBC % Sodium Potassium Chloride Carbon Dioxide Anion Gap BUN Creatinine Estimated GFR (MDRD) Glucose Lactic Acid Calcium Total Bilirubin AST ALT Alkaline Phosphatase Total Protein Albumin Globulin Albumin/Globulin Ratio Lipase Urine Color YELLOW Urine Clarity HAZY Urine pH 6.5 Ur Specific [place] 1.010 Urine Protein NEGATIVE Urine Glucose (UA) NEGATIVE Urine Ketones 15 H Urine Occult Blood NEGATIVE Urine Nitrite NEGATIVE Urine Bilirubin NEGATIVE Urine Urobilinogen 0.2 (NORMAL) Ur Leukocyte Esterase MODERATE H Urine RBC 0-5 Urine WBC 11-25 H Ur Squamous Epith Cells MOD Squamous H Urine Bacteria Few Ur Microscopic Review INDICATED Urine Culture Comments NOT INDICATED - Rads (name of study) ribs with PA chest Radiology: Prelim report reviewed (Impression: 1. Possible posterior lateral left fifth rib fracture with adjacent pleural thickening. No displacement. 2 No pneumothorax no pleural effusions.), EMP read indepedently, See rad report CT head Radiology: Prelim report reviewed (Impression: Chronic brain changes. No acute abnormality.), EMP read indepedently, See rad report CT cervical spine Radiology: Prelim report reviewed (Impression: 1. No acute cervical spine abn ormalities are identified. 2 Status post anterior C5 C7 cervical fusion and discectomy, stable 3 multilevel intervertebral disc degenerative changes of the cervical spine 4. facet arthropathy. Cervical kyphosis centered at C3 and C4), EMP read indepedently, See rad report Procedures - IVC sono (time) 1429 Bedside IVC sono: IVC measures (cm) (1.03), IVC collapsed c insp (cm) (complete), Dehydration (est 1-2 liter deficit) PD MEDICAL DECISION MAKING - ED course Complexity details: reviewed old records, reviewed results, re-evaluated patient, considered differential, d/w patient, d/w family ED course: 74-year-old female has had 2 falls yesterday she is found to be dehydrated on interrogation the inferior vena cava and IV saline is administered. In addition she does have urinary tract infection and she is given Rocephin 1 g intravenously.She has some pain to her neck without evidence of fracture She does have some injury associated with the fall she does have a headache without evidence of intracranial injury and she has a single nondisplaced rib fracture on the left upper posterior chest. Departure - Departure Disposition: 01 Home, Self Care Clinical Impression: Dehydration UTI (urinary tract infection) Qualifiers: Urinary tract infection type: acute cystitis Hematuria presence: without hematuria Qualified Code(s): N30.00 - Acute cystitis without hematuria Rib fracture Qualifiers: Encounter type: initial encounter Rib fracture type: single rib Fracture type: closed Laterality: left Qualified Code(s): S22.32XA - Fracture of one rib, left side, initial encounter for closed fracture Condition: Stable Instructions: ED Dehydration, ED Fx Rib, ED UTI Cystitis Female Follow-Up: Miguel Angel Torres MD [Primary Care Provider] - Prescriptions: Hydrocodone/Acetaminophen [Hydrocodon-Acetaminophen 5-325] 1 - 2 each PO Q6H PRN #14 tablet PRN Reason: pain Sulfamethox/Trimeth 800/160 [Bactrim Ds] 1 each PO BID #14 tablet Discharge Date/Time: 07/23/19 13:39
[2019-07-23 09:48] LABS: BASOPHILS % (AUTO) 0.3 %; EOSINOPHILS # (AUTO) 0.1 10^3/uL (0.0-0.7); EOSINOPHILS % (AUTO) 1.5 %; HGB - HEMOGLOBIN 12.6 g/dL (12.0-16.0); LYMPHOCYTES # (AUTO) 1.8 10^3/uL (1.5-3.5); LYMPHOCYTES % (AUTO) 20.3 %; MEAN CORPUSCULAR HEMOGLOBIN 25.9 pg (27.0-31.0); MEAN CORPUSCULAR HGB CONC 31.5 g/dL (32.0-36.0); MEAN CORPUSCULAR VOLUME 82.3 fL (81.0-99.0); MEAN PLATELET VOLUME 9.7 fL (7.9-10.8); MONOCYTES # (AUTO) 0.4 10^3/uL (0.0-1.0); MONOCYTES % (AUTO) 4.7 %; NEUTROPHILS # (AUTO) 6.4 10^3/uL (1.5-6.6); NEUTROPHILS % (AUTO) 72.7 %; PLT - PLATELET COUNT 306 10^3/uL (130-450); RED BLOOD COUNT 4.86 10^6/uL (4.20-5.40); RED CELL DISTRIBUTION WIDTH 13.6 % (12.0-15.0); WHITE BLOOD COUNT 8.9 x10^3/uL (4.8-10.8)
[2019-07-23 10:02] LABS: ALBUMIN 4.2 g/dL (3.2-5.5); ALBUMIN/GLOBULIN RATIO 1.3 (1.0-2.2); BILIRUBIN,TOTAL 1.1 mg/dL (0.2-1.0); CALCIUM 9.2 mg/dL (8.5-10.3); CREATININE 0.8 mg/dL (0.4-1.0); TOTAL PROTEIN 7.5 g/dL (6.7-8.2)
[2019-07-23 10:06] LABS: BILIRUBIN,URINE NEGATIVE (NEGATIVE); CLARITY,URINE HAZY (CLEAR); GLUCOSE, URINE (UA) NEGATIVE (NEGATIVE); KETONES,URINE (UA) 15 mg/dL (NEGATIVE); LEUKOCYTE ESTERASE, URINE MODERATE (NEGATIVE); NITRITE,URINE NEGATIVE (NEGATIVE); OCCULT BLOOD,URINE NEGATIVE (NEGATIVE); PH,URINE 6.5 PH (5.0-7.5); PROTEIN,URINE NEGATIVE (NEGATIVE); UROBILINOGEN,URINE 0.2 (NORMAL) E.U./dL (NORMAL)
[2019-07-23 10:10] LABS: BACTERIA,URINE Few /HPF (None Seen); RBC,URINE 0-5 /HPF (0-5); SQUAMOUS EPITHELIAL CELL,UR MOD Squamous (<= Few)
[2019-07-23] MEDS ORDERED: cefTRIAXone 1 GM in SODIUM CHLORIDE 0.9% MINIBAG 100 ML IV STA (10:31)
[2019-07-23] MEDS ORDERED: KETOROLAC 30 MG/ML VIAL IVP STA (11:12)
--- NOTE | 2019-07-23 11:32 | XRAY Report ---
Reason: left upper back contusion Procedure Date: 07/23/2019 Accession Number: [id number] / [id number] Procedure: XR - Ribs w/PA Chest LT CPT Code: FULL RESULT: EXAM: LEFT RIB RADIOGRAPHY EXAM DATE: 07/23/2019 10:29 AM. CLINICAL HISTORY: Left upper back contusion. COMPARISON: CHEST 1 VIEW 07/05/2019 10:39 AM. TECHNIQUE: 1 view of the chest and 2 views of the ribs. FINDINGS: Bones: Lucency is seen along the left posterior lateral fifth rib on the oblique view. Lungs: Linear scar/atelectasis in the left lung base. No pneumothorax. No pleural effusions. Left lateral pleural thickening. Mediastinum: Cardiomegaly. Aortic tortuosity. Other: Changes are seen from inferior cervical fusion. IMPRESSION: 1. Possible posterior lateral left fifth rib fracture with adjacent pleural thickening. No displacement. 2. No pneumothorax. No pleural effusions. RADIA
--- NOTE | 2019-07-23 12:56 | CT Report ---
Reason: head injury neck pain Procedure Date: 07/23/2019 Accession Number: [id number] / [id number] Procedure: CT - CERVICAL SPINE WO CPT Code: FULL RESULT: EXAM: CT CERVICAL SPINE WITHOUT CONTRAST DATE: 07/23/2019 10:05 AM. HISTORY: Head injury, neck pain. COMPARISONS: HEAD W/O 05/27/2019 4:50 PM. TECHNIQUE: Thin-section axial images were acquired of the cervical spine without contrast. Post-processing: Coronal and sagittal reformats. Other: None. In accordance with CT protocol optimization, one or more of the following dose reduction techniques were utilized for this exam: automated exposure control, adjustment of mA and/or KV based on patient size, or use of iterative reconstructive technique. FINDINGS: Alignment: Straightening of the normal cervical lordosis centered at C3-C4. Anterolisthesis of C3 on C4. Articular facets normally aligned. Occipital condyles normally aligned. Levoscoliosis of the cervical spine. Bones: No acute fracture or bony lesion. Degenerative osteophyte formation. Interspace Levels/Facets: C1-C2: Degenerative changes of the anterior arch of C1 and the dens. C2-C3: Disk space narrowing. Bilateral facet arthropathy. Mild bilateral neural foramina narrowing. C3-C4: Disk space narrowing. Facet arthropathy. Severe right and mild left neural foramina narrowing. C4-C5: Intervertebral disk space narrowing. Degenerative changes. Facet arthropathy. Mild bilateral neural foraminal narrowing. C5-C6: Anterior intervertebral disk fusion. Facet arthropathy. Intervertebral disk replacement. Mild bilateral neural foraminal narrowing. C6-C7: Anterior intervertebral disk fusion. Facet arthropathy. Intervertebral disk replacement. Mild bilateral neural foraminal narrowing. C7-T1: Degenerative changes and disk space narrowing. Facet arthropathy. Musculature: Normal. No fatty atrophy. Other: The paravertebral and prevertebral soft tissues are unremarkable. Lung apices are clear. Airways are clear. Skull base is unremarkable. No enlarged cervical lymph nodes. Visualized thyroid gland is unremarkable. IMPRESSION: 1. No acute cervical spine abnormalities are identified. 2. Status post anterior C5-C7 cervical fusion and diskectomy, stable. 3. Multilevel intervertebral disk degenerative changes of the cervical 4. Facet arthropathy. Cervical kyphosis centered at C3 and C4. RADIA
--- NOTE | 2019-07-23 12:57 | CT Report ---
Reason: head injury Procedure Date: 07/23/2019 Accession Number: [id number] / [id number] Procedure: CT - HEAD WO CPT Code: FULL RESULT: EXAM: CT HEAD EXAM DATE: 07/23/2019 10:05 AM CLINICAL HISTORY: Head injury. COMPARISON: CT HEAD W/O 05/27/2019 4:50 PM TECHNIQUE: Multiaxial CT images were obtained from the foramen magnum to the vertex. Reformats: Sagittal and coronal. IV contrast: None. In accordance with CT protocol optimization, one or more of the following dose reduction techniques were utilized for this exam: automated exposure control, adjustment of mA and/or KV based on patient size, or use of iterative reconstructive technique. FINDINGS: There is mild cerebral atrophy and mild multifocal chronic appearing white matter disease, likely from microangiopathy. Unchanged 8 mm lacunar infarct at the left external capsule. No evidence of intracranial hemorrhage, mass lesion or mass effect. No cortical infarct. Ventricles are mildly prominent consistent with atrophy. No evidence of focal extraaxial fluid collection. Clear paranasal sinuses and mastoid air cells. No acute skull fracture. There is an old small craniotomy site at the right parietal region. IMPRESSION: Chronic brain changes. No acute abnormality. RADIA
[2019-07-23 13:37] VITALS: BP 131/80
== END 2019-07-23 13:39 | disposition home or self-care (01) ==
LOC: ED 08:51
DX: S22.32XA Fracture of one rib, left side, initial encounter for closed fracture (principal); S20.219A Contusion of unspecified front wall of thorax, initial encounter; M54.6 Pain in thoracic spine; R51 Headache; W18.30XA Fall on same level, unspecified, initial encounter; Z91.81 History of falling; Y92.009 Unspecified place in unspecified non-institutional (private) residence as the place of occurrence of the external cause; E86.0 Dehydration; N30.00 Acute cystitis without hematuria; M50.30 Other cervical disc degeneration, unspecified cervical region; M40.292 Other kyphosis, cervical region; Z98.1 Arthrodesis status; Z87.820 Personal history of traumatic brain injury; I10 Essential (primary) hypertension; G40.909 Epilepsy, unspecified, not intractable, without status epilepticus; F20.9 Schizophrenia, unspecified; Z79.82 Long term (current) use of aspirin
CPT/HCPCS: 36415; 70450; 72125; 80053; 81001; 81003; 83605; 83690; 85025; 87086; 96365; 96375; 99284

== ENCOUNTER 2019-07-27 07:04 | Outpatient (CLI) | payer MEDICARE | END 2019-07-27 07:05 | disposition critical access hospital (66) | LOC: EMS 07:04 | PROVIDERS: ATTEND Surgery | DX: M25.512 Pain in left shoulder (principal); W06.XXXA Fall from bed, initial encounter; Y92.003 Bedroom of unspecified non-institutional (private) residence as the place of occurrence of the external cause | CPT/HCPCS: A0425; A0429 ==

== ENCOUNTER 2019-07-27 07:24 | Emergency (ER) | payer MEDICARE ==
--- NOTE | 2019-07-27 07:41 | ED Physician Documentation ---
PD HPI TRUNK INJURY - Stated complaint Stated Complaint: FALL - Chief complaint Chief Complaint: Ext Problem - History obtained from History obtained from: Patient, EMS - History of Present Illness Location: Left chest ( and left shoulder) Type of injury: Fall (she said she fell from bed, but does not remember it per se, just awakening abruptly on the floor. No new meds. Is her same bed. Had done this couple nights ago and had injured left shoulder/ribs, with 5th rib fracture on xray. Rx hydrocodone. Fell again today and is feeling pain increased.) Timing - onset: How many days ago (hurting couple of days due to rib fracture, and hurting worse with fall again this morning.) Timing - details: Abrupt onset Worsened by: Moving (of the shoulder and also with deep breathing.) Associated symtptoms: No: Weakness, Numbness Recently seen: Emergency Dept (yesterday) Review of Systems Constitutional: denies: Fever, Chills Nose: denies: Rhinorrhea / runny nose, Congestion Throat: denies: Sore throat Cardiac: reports: Chest pain / pressure, Pedal edema (mild chronic). denies: Palpitations Respiratory: denies: Dyspnea, Cough GI: denies: Abdominal Pain Neurologic: denies: Focal weakness, Numbness, Confused, Altered mental status, Head injury, LOC PD PAST MEDICAL HISTORY - Past Medical History Cardiovascular: Hypertension, High cholesterol, Angina Respiratory: Sleep apnea, CPAP use Neuro: TIA, Seizure disorder, Other Endocrine/Autoimmune: None GI: GERD, Hiatal hernia LOG BUYER: None : Nocturia, Frequency HEENT: Chronic vision loss, Chronic hearing loss Psych: Depression, Anxiety, Schizophrenia Musculoskeletal: Chronic back pain Derm: None - Past Surgical History Past Surgical History: Yes General: Cholecystectomy Ortho: Spine surgery /LOG BUYER: Hysterectomy Neuro: Craniotomy - Present Medications Home Medications: Ambulatory Orders Medication Instructions Recorded Confirmed Gabapentin 600 mg PO 0800,1400,2100 08/06/16 05/27/19 Omeprazole 20 mg PO BIDAC 08/06/16 05/27/19 Hydrocodone/Acetaminophen 1 tab PO QID PRN 12/21/17 05/27/19 [Hydrocodone-Acetamin 10-325 mg] Aspirin [Adult Aspirin Regimen] 81 mg PO DAILY #30 tablet. 12/22/17 05/27/19 Atorvastatin Calcium 40 mg PO QPM 04/13/18 05/27/19 Risperidone [Risperdal] 2 mg PO QPM 04/13/18 05/27/19 levETIRAcetam [Levetiracetam] 1,500 mg PO BID 04/13/18 05/27/19 Diphenoxylate/Atropine [Lomotil] 1 each PO QID PRN #12 tablet 02/08/19 05/27/19 Amlodipine Besylate [Norvasc] 2.5 mg PO DAILY #30 tablet 02/27/19 05/27/19 LORazepam [Lorazepam] 1 mg PO TID PRN 02/27/19 05/27/19 Nitroglycerin [Nitrostat] 0.4 mg SL [id number] #100 tab.subl 02/27/19 05/27/19 Sertraline HCl 150 mg PO DAILY 02/27/19 05/27/19 Cephalexin [Keflex] 500 mg PO Q6H #24 capsule 05/27/19 LORazepam [Ativan] 1 mg PO TID PRN #25 tablet 07/05/19 Hydrocodone/Acetaminophen 1 - 2 each PO Q6H PRN #14 tablet 07/23/19 [Hydrocodon-Acetaminophen 5-325] Sulfamethox/Trimeth 800/160 1 each PO BID #14 tablet 07/23/19 [Bactrim Ds] Acetaminophen [Tylenol] 650 mg PO TID #100 tablet 07/27/19 Hydrocodone/Acetaminophen 1 each PO Q6H PRN #25 tablet 07/27/19 [Hydrocodon-Acetaminophen 5-325] - Allergies Allergies/Adverse Reactions: Allergies Allergy/AdvReac Type Severity Reaction Status Date / Time NSAIDS (Non-Steroidal Allergy Unknown Verified 07/23/19 09:14 Anti-Inflamma - Social History Does the pt smoke?: No Smoking Status: Never smoker Does the pt drink ETOH?: No Does the pt have substance abuse?: No - Immunizations Immunizations are current?: Yes - POLST Patient has POLST: No POLST Status: Full Code PD ED PE NORMAL - Vitals Vital signs reviewed: Yes - General General: Alert and oriented X 3, No acute distress, Well developed/nourished - HEENT HEENT: Atraumatic, Pharynx benign - Neck Neck: Supple, no meningeal sign, No bony TTP, No adenopathy - Cardiac Cardiac: RRR, No murmur - Respiratory Respiratory: Clear bilaterally, Other (tender posterolateral ribs about 5th. No crepitance. ) - Abdomen Abdomen: Normal bowel sounds, Soft Results - Vitals Vitals: Vital Signs - 24 hr 07/27/19 07/27/19 07/27/19 07:26 09:27 11:42 Temperature 36.1 C L 36.1 C L Heart Rate 73 66 70 Respiratory 20 16 20 Rate Blood Pressure 141/117 H 145/74 H 161/88 H O2 Saturation 97 97 99 Oxygen O2 Source Room air - Labs Labs: Laboratory Tests 07/27/19 07/27/19 07/27/19 07:35 07:54 07:54 WBC 7.5 RBC 4.80 Hgb 12.8 Hct 39.4 MCV 82.1 MCH 26.7 L MCHC 32.5 RDW 13.7 Plt Count 301 MPV 9.8 Neut # (Auto) 5.2 Lymph # (Auto) 1.7 [place] # (Auto) 0.3 Eos # (Auto) 0.2 Baso # (Auto) 0.0 Absolute Nucleated RBC 0.00 Nucleated RBC % 0.0 Sodium 139 Potassium 3.8 Chloride 105 Carbon Dioxide 22 Anion Gap 12.0 BUN 19 Creatinine 1.0 Estimated GFR (MDRD) 54 L Glucose 107 H Calcium 9.2 Magnesium 2.0 Total Bilirubin 0.6 AST 15 ALT 17 Alkaline Phosphatase 66 Troponin I High Sens Total Protein 7.3 Albumin 3.9 Globulin 3.4 Albumin/Globulin Ratio 1.1 Lipase 39 Urine Color YELLOW Urine Clarity CLEAR Urine pH 5.5 Ur Specific [place] <=1.005 Urine Protein NEGATIVE Urine Glucose (UA) NEGATIVE Urine Ketones NEGATIVE Urine Occult Blood NEGATIVE Urine Nitrite NEGATIVE Urine Bilirubin NEGATIVE Urine Urobilinogen 0.2 (NORMAL) Ur Leukocyte Esterase NEGATIVE Ur Microscopic Review NOT INDICATED Urine Culture Comments NOT INDICATED 07/27/19 07:54 WBC RBC Hgb Hct MCV MCH MCHC RDW Plt Count MPV Neut # (Auto) Lymph # (Auto) [place] # (Auto) Eos # (Auto) Baso # (Auto) Absolute Nucleated RBC Nucleated RBC % Sodium Potassium Chloride Carbon Dioxide Anion Gap BUN Creatinine Estimated GFR (MDRD) Glucose Calcium Magnesium Total Bilirubin AST ALT Alkaline Phosphatase Troponin I High Sens 3.2 Total Protein Albumin Globulin Albumin/Globulin Ratio Lipase Urine Color Urine Clarity Urine pH Ur Specific [place] Urine Protein Urine Glucose (UA) Urine Ketones Urine Occult Blood Urine Nitrite Urine Bilirubin Urine Urobilinogen Ur Leukocyte Esterase Ur Microscopic Review Urine Culture Comments - Rads (name of study) chest CT Radiology: Prelim report reviewed (fractures ribs 4 and 5. No lung injruy. ), See rad report PD MEDICAL DECISION MAKING - ED course Complexity details: considered differential (consider new fracture, but more likely increased pain of recent one. However, prior imaging was CXR and I will get CT to better eval and ensure not excess number. ) Departure - Departure Disposition: 01 Home, Self Care Clinical Impression: Fall from bed, initial encounter Rib fractures Qualifiers: Encounter type: subsequent encounter Rib fracture type: multiple ribs Fracture type: closed Laterality: left Fracture healing: with routine healing Qualified Code(s): S22.42XD - Multiple fractures of ribs, left side, subsequent encounter for fracture with routine healing Condition: Stable Record reviewed to determine appropriate education?: Yes Instructions: ED Fx Rib Follow-Up: Miguel Angel Torres MD [Primary Care Provider] - Prescriptions: Acetaminophen [Tylenol] 650 mg PO TID #100 tablet Hydrocodone/Acetaminophen [Hydrocodon-Acetaminophen 5-325] 1 each PO Q6H PRN #25 tablet PRN Reason: pain Comments: Continue usual medications. Add Tylenol 3 times a day regularly. To that add hydrocodone every 6 hours if needed for pains. The pain of the rib fracture should decrease well over the first week or so to be able to take just Tylenol at that point. Discharge Date/Time: 07/27/19 11:48
[2019-07-27] MEDS ORDERED: LORazepam 0.5 MG TABLET PO STA (07:46)
[2019-07-27] MEDS ORDERED: HYDROcod/ACETAM 5/325 MG TABLET PO STA (07:46)
[2019-07-27] MEDS ORDERED: SODIUM CHLORIDE 0.9% 1,000 ML IV ONE (07:52)
[2019-07-27 07:59] LABS: BILIRUBIN,URINE NEGATIVE (NEGATIVE); GLUCOSE, URINE (UA) NEGATIVE (NEGATIVE); KETONES,URINE (UA) NEGATIVE (NEGATIVE); LEUKOCYTE ESTERASE, URINE NEGATIVE (NEGATIVE); NITRITE,URINE NEGATIVE (NEGATIVE); OCCULT BLOOD,URINE NEGATIVE (NEGATIVE); PH,URINE 5.5 PH (5.0-7.5); PROTEIN,URINE NEGATIVE (NEGATIVE); UROBILINOGEN,URINE 0.2 (NORMAL) E.U./dL (NORMAL)
[2019-07-27 08:00] LABS: BASOPHILS % (AUTO) 0.5 %; EOSINOPHILS # (AUTO) 0.2 10^3/uL (0.0-0.7); EOSINOPHILS % (AUTO) 3.2 %; HGB - HEMOGLOBIN 12.8 g/dL (12.0-16.0); LYMPHOCYTES # (AUTO) 1.7 10^3/uL (1.5-3.5); LYMPHOCYTES % (AUTO) 22.1 %; MEAN CORPUSCULAR HEMOGLOBIN 26.7 pg (27.0-31.0); MEAN CORPUSCULAR HGB CONC 32.5 g/dL (32.0-36.0); MEAN CORPUSCULAR VOLUME 82.1 fL (81.0-99.0); MEAN PLATELET VOLUME 9.8 fL (7.9-10.8); MONOCYTES # (AUTO) 0.3 10^3/uL (0.0-1.0); MONOCYTES % (AUTO) 4.4 %; NEUTROPHILS # (AUTO) 5.2 10^3/uL (1.5-6.6); NEUTROPHILS % (AUTO) 69.4 %; PLT - PLATELET COUNT 301 10^3/uL (130-450); RED CELL DISTRIBUTION WIDTH 13.7 % (12.0-15.0); WHITE BLOOD COUNT 7.5 x10^3/uL (4.8-10.8)
[2019-07-27 08:00] LABS: CLARITY,URINE CLEAR (CLEAR)
[2019-07-27] MEDS ORDERED: IOVERSOL 320 100 ML VIAL IVP ONE ×2 (08:08→12:44)
[2019-07-27 08:12] LABS: ALBUMIN 3.9 g/dL (3.2-5.5); ALBUMIN/GLOBULIN RATIO 1.1 (1.0-2.2); BILIRUBIN,TOTAL 0.6 mg/dL (0.2-1.0); CALCIUM 9.2 mg/dL (8.5-10.3); TOTAL PROTEIN 7.3 g/dL (6.7-8.2)
--- NOTE | 2019-07-27 09:37 | CT Report ---
Reason: recent fall with rib fx; worse pain today Procedure Date: 07/27/2019 Accession Number: [id number] / [id number] Procedure: CT - CHEST W CPT Code: FULL RESULT: EXAM: CT CHEST EXAM DATE: 07/27/2019 08:51 AM. CLINICAL HISTORY: Recent fall with rib fx; worse pain today. COMPARISONS: CHEST W/ 12/16/2017 1:24 PM. TECHNIQUE: Routine helical CT imaging was performed through the chest. IV contrast: 80 cc Optiray 320. Reconstructions: Coronal and sagittal. In accordance with CT protocol optimization, one or more of the following dose reduction techniques were utilized for this exam: automated exposure control, adjustment of mA and/or KV based on patient size, or use of iterative reconstructive technique. FINDINGS: Lungs/Pleura: Linear left greater than right basilar pulmonary opacities likely reflect atelectasis. Trace left basilar pleural effusion is seen. No evidence for pneumothorax. Mediastinum: Mild cardiomegaly is evident. No pericardial effusion. No central pulmonary artery filling defects. No enlarged mediastinal or hilar lymph nodes. Unremarkable thoracic aorta containing atheromatous plaque at the arch. Moderate size hiatal hernia noted. Bones: Nondisplaced left lateral fourth and fifth rib fractures are seen. Adjacent mild pleural thickening could reflect residual swelling. No other fracture lines are evident. Osteopenia. Multilevel degenerative disk disease in the spine. Visualized Abdomen: Cholecystectomy noted. Nonobstructing left interpolar renal calculus is seen. Other: None. IMPRESSION: 1. Basilar pulmonary opacities could reflect atelectasis. 2. Trace left base pleural fluid seen. 3. Nondisplaced left lateral fourth and fifth rib fractures are evident. No other fracture lines are seen. No pneumothorax. 3. Mild cardiomegaly noted. RADIA
[2019-07-27] MEDS ORDERED: MORPHINE 2 MG/ML CARPUJECT IVP STA (11:19)
[2019-07-27 11:42] VITALS: BP 161/88
== END 2019-07-27 11:48 | disposition home or self-care (01) ==
LOC: EDUNIT# → ED 07:24
DX: S22.42XA Multiple fractures of ribs, left side, initial encounter for closed fracture (principal); M25.512 Pain in left shoulder; W06.XXXA Fall from bed, initial encounter; Z91.81 History of falling; Y92.003 Bedroom of unspecified non-institutional (private) residence as the place of occurrence of the external cause; I10 Essential (primary) hypertension; Z79.82 Long term (current) use of aspirin
CPT/HCPCS: 36415; 71260; 80053; 81003; 83690; 83735; 84484; 85025; 93005; 96361; 96374; 99284; A9270; Q9967; 81001; 87086

== ENCOUNTER 2019-08-28 13:45 | Outpatient (CLI) | payer MEDICARE | END 2019-08-28 13:46 | disposition critical access hospital (66) | LOC: EMS 13:45 | PROVIDERS: ATTEND Surgery | DX: R29.810 Facial weakness (principal); R51 Headache; R47.81 Slurred speech | CPT/HCPCS: A0425; A0427 ==

== ENCOUNTER 2019-08-28 13:59 | Inpatient (IN) | payer MEDICARE ==
--- NOTE | 2019-08-28 13:59 | ED Physician Documentation ---
History of Present Illness - Stated complaint Stated Complaint: STROKE SYMPTOMS - Additonal information Additional information: This is a 74-year-old female with history of TIA and past CVA With possible mild left-sided residual weakness who presents with right facial numbness and slurred speech that began at 945 today. Patient was at the [facility] and she started to feel like her face was numb on the right side, she noticed that her speech also became slurred and she thought she could not move the right side of her tongue properly. She denies weakness or numbness on her right upper or lower extremities. She states that she has some mild residual weakness in the left side from past CVAs. She also feels nauseated and additionally she has a headache which is moderate to severe and began at a similar time as her symptoms. Review of Systems Constitutional: denies: Fever Cardiac: denies: Chest pain / pressure Respiratory: denies: Dyspnea GI: reports: Nausea : denies: Dysuria Skin: denies: Rash Neurologic: reports: Difficulty speaking. denies: Generalized weakness Immunocompromised: denies: Immunocompromised PD PAST MEDICAL HISTORY - Past Medical History Cardiovascular: Hypertension, High cholesterol Neuro: CVA, TIA, Seizure disorder - Present Medications Home Medications: Ambulatory Orders Medication Instructions Recorded Confirmed Gabapentin 600 mg PO 0800,1400,2100 08/06/16 08/28/19 Omeprazole 20 mg PO BIDAC 08/06/16 08/28/19 Aspirin [Adult Aspirin Regimen] 81 mg PO DAILY #30 tablet. 12/22/17 08/28/19 Atorvastatin Calcium 40 mg PO QPM 04/13/18 08/28/19 Risperidone [Risperdal] 2 mg PO QPM 04/13/18 08/28/19 levETIRAcetam [Levetiracetam] 1,500 mg PO BID 04/13/18 08/28/19 Amlodipine Besylate [Norvasc] 2.5 mg PO DAILY #30 tablet 02/27/19 08/28/19 LORazepam [Lorazepam] 1 mg PO TID PRN 02/27/19 08/28/19 Sertraline HCl 200 mg PO DAILY 02/27/19 08/28/19 Acetaminophen [Tylenol] 650 mg PO TID #100 tablet 07/27/19 08/28/19 Hydrocodone/Acetaminophen 1 each PO Q6H PRN #25 tablet 07/27/19 08/28/19 [Hydrocodon-Acetaminophen 5-325] Melatonin 20 mg PO DAILY PM 08/28/19 08/28/19 diphenhydrAMINE [Benadryl] 50 mg PO HS 08/28/19 08/28/19 - Allergies Allergies/Adverse Reactions: Allergies Allergy/AdvReac Type Severity Reaction Status Date / Time NSAIDS (Non-Steroidal Allergy Unknown Verified 08/28/19 15:07 Anti-Inflamma - Social History Does the pt have substance abuse?: No PD ED PE NORMAL - Vitals Vital signs reviewed: Yes - General General: Alert and oriented X 3 - HEENT HEENT: Atraumatic - Cardiac Cardiac: RRR - Respiratory Respiratory: No respiratory distress, Clear bilaterally - Abdomen Abdomen: Soft, Non tender - Extremities Extremities: No deformity - Neuro Neuro: Other (Patient is alert and oriented x3. She does have slightly slurred speech, no visual asymmetry with smile, eyebrow raising, or Tongue protrusion. She has reduced sensation to light touch over her face and just fusion of V1 V2 and V3. She has no visual field deficits to confrontation. She has 5 out of 5 strength with hand squeeze and she has no drift in either upper or lower bilateral extremities. No dysmetria. No neglect. Sensation is intact light touch over all extremities. Speech is fluent) Results - Vitals Vitals: Vital Signs - 24 hr 08/28/19 08/28/19 08/28/19 14:06 14:38 15:28 Temperature 36.7 C Heart Rate 87 66 61 Respiratory 20 26 H 17 Rate Blood Pressure 161/87 H 161/87 H 161/93 H O2 Saturation 97 98 97 08/28/19 08/28/19 08/28/19 16:21 16:46 17:09 Temperature Heart Rate 61 62 78 Respiratory 16 20 17 Rate Blood Pressure 155/72 H 160/122 H 128/109 H O2 Saturation 93 96 100 08/28/19 18:41 Temperature Heart Rate 64 Respiratory 19 Rate Blood Pressure 172/96 H O2 Saturation 96 Oxygen O2 Source Room air - EKG (time done) 14:22 Other comments: Other comments (Rate 61, rhythm sinus, there is no ST segment intervals are within normal limits. There is some T wave flattening lateral precordial leads) - Labs Labs: Laboratory Tests 08/28/19 08/28/1919 14:31 14:31 14:31 WBC 8.0 RBC 4.30 Hgb 11.8 L Hct 35.7 L MCV 83.0 MCH 27.4 MCHC 33.1 RDW 14.1 Plt Count 304 MPV 10.3 Neut # (Auto) 4.9 Lymph # (Auto) 2.2 [place] # (Auto) 0.5 Eos # (Auto) 0.2 Baso # (Auto) 0.0 Absolute Nucleated RBC 0.00 Nucleated RBC % 0.0 PT 13.1 H INR 1.2 Sodium 138 Potassium 3.6 Chloride 105 Carbon Dioxide 23 Anion Gap 10.0 BUN 12 Creatinine 0.8 Estimated GFR (MDRD) 70 L Glucose 92 Calcium 8.5 Total Bilirubin 0.4 AST 18 ALT 20 Alkaline Phosphatase 64 Troponin I High Sens Total Protein 7.1 Albumin 4.0 Globulin 3.1 Albumin/Globulin Ratio 1.3 Lipase 37 TSH Ethyl Alcohol < 5.0 08/28/19 08/28/19 14:31 14:31 WBC RBC Hgb Hct MCV MCH MCHC RDW Plt Count MPV Neut # (Auto) Lymph # (Auto) [place] # (Auto) Eos # (Auto) Baso # (Auto) Absolute Nucleated RBC Nucleated RBC % PT INR Sodium Potassium Chloride Carbon Dioxide Anion Gap BUN Creatinine Estimated GFR (MDRD) Glucose Calcium Total Bilirubin AST ALT Alkaline Phosphatase Troponin I High Sens < 2.3 L Total Protein Albumin Globulin Albumin/Globulin Ratio Lipase TSH 1.26 Ethyl Alcohol - Rads (name of study) CT head WO Radiology: Other (No acute bleed or intracranial abnormality) CTA head and neck Radiology: Other (Several areas of stenosis of 50%, but no large vessel occlusion) PD MEDICAL DECISION MAKING - ED course Complexity details: considered differential (Stroke, intracranial hemorrhage, migraine, Foster's paralysis, electrolyte abnormality) ED course: Patient arrives with right-sided facial numbness and slurred speech. Her symptoms began at 945 and she arrives at 1405. She was taken immediately for CT of her head. She is within minutes of the window for TPA, and by the time it is mixed she will be out of the 4.5 hour window for thrombolytics. Additionally, some of her symptoms are atypical for ischemic stroke including the headache and nausea, and she does have a history of seizures though no report of seizure today. I received the radiology report at 14: 18 there is no acute hemorrhage or signs of acute infarct seen. I reevaluated the patient at 15: 25, she has new right- sided drift with the right upper arm and weakness in her right leg. She did not have weakness when she arrived. CTA of her head and neck was ordered. Patient does state that she felt she is becoming increasingly weak on her right side since arrival. 325 mg aspirin was ordered. I spoke to Dr. Pruett of [facility] neurology at 15: 40. She agrees with the CTA of the head and neck. States patient should be on aspirin and clopidogrel at this time. CTA shows several areas of mild stenosis but no large vessel occlusion. I spoke with [facility] neurology again And the recommendation for admission for further work-up, continue aspirin and clopidogrel is unchanged. Pt does not appear to be a candidate for thrombectomy or thrombolytics. CBC, CMP, ethanol level, and urinalysis are unremarkable. Troponin is negative. Patient was admitted to the hospital for further work-up of apparent CVA, given her trend towards improvement and concurrent headache complex migraine is also a consideration. On repeat evaluation prior to admission she does continue to have some weakness in her right arm, but her strength is actually slightly improved from prior. She agrees with the plan of care. Departure - Departure Disposition: 66 [facility] DC/Xfer Clinical Impression: Stroke Qualifiers: CVA mechanism: unspecified Qualified Code(s): I63.9 - Cerebral infarction, unspecified Condition: Good Discharge Date/Time: 08/28/19 19:02
[2019-08-28] MEDS ORDERED: METOCLOPRAMIDE 10 MG/2 ML VIAL IVP STA (14:06)
--- NOTE | 2019-08-28 14:26 | CT Report ---
Reason: R face numbness and slurred speech Procedure Date: 08/28/2019 Accession Number: [id number] / [id number] Procedure: CT - Head W/O Stroke Protocol CPT Code: Final Report FULL RESULT: EXAM: CT HEAD EXAM DATE: 08/28/2019 02:10 PM. CLINICAL HISTORY: 76-year-old presenting with right face numbness and slurred speech. Evaluate for intracranial pathology. COMPARISON: CERVICAL SPINE W/O 07/23/2019 9:58 AM. HEAD W/O 07/23/2019 9:58 AM. BRAIN W/WO 05/27/2019 6:34 PM. TECHNIQUE: Multiaxial CT images were obtained from the foramen magnum to the vertex. Reformats: Sagittal and coronal. IV contrast: None. In accordance with CT protocol optimization, one or more of the following dose reduction techniques were utilized for this exam: automated exposure control, adjustment of mA and/or KV based on patient size, or use of iterative reconstructive technique. FINDINGS: Parenchyma: No acute parenchymal hemorrhage, mass, or midline shift. There is mild bilateral areas of white matter abnormality seen that appears similar to MR brain 05/27/2019. There is no convincing CT evidence of acute infarct. Mild cortical volume loss. Extraaxial Spaces: Postsurgical changes of right frontal craniotomy. No abnormal extra-axial fluid collection/mass seen. Ventricles appear prominent but appropriate for the extent of volume loss. No hydrocephalus. No midline shift. No subdural or epidural collections identified. Ventricles: Normal in size and position. Sinuses and Orbits: Imaged paranasal sinuses, orbits, and mastoids show no significant abnormality. Bones: No evidence of fracture or calvarial defect. Changes of hyperostosis frontalis manufacturing engineer paint. Other: Vascular calcifications of the cavernous ICA segments. IMPRESSION: 1. No definite acute infarct seen. If there is clinical concern for acute stroke or symptoms persist, an MR brain could be considered to evaluate for small or subtle pathology. ASPECTS: 10 right/10 left. 2. No acute intracranial hemorrhage, mass, hydrocephalus, or midline shift. 3. Mild white matter changes seen that appears similar to MR brain 05/27/2019 and may represent sequela of chronic small vessel ischemic disease. RADIA The critical test notification system was initiated by Dr. Jung Umanzor at 02:16 PM on 08/28/2019. The above critical test findings were discussed with Graham Em by Dr. Jung Umanzor at 02:18 PM on 08/28/2019.
--- NOTE | 2019-08-28 14:46 | XRAY Report ---
Reason: chest pain Procedure Date: 08/28/2019 Accession Number: [id number] / [id number] Procedure: XR - Chest 1 View X-Ray CPT Code: 74757 Final Report FULL RESULT: EXAM: CHEST RADIOGRAPHY, PORTABLE 1 VIEW EXAM DATE: 08/28/2019 02:19 PM. CLINICAL HISTORY: Chest pain and sudden onset of right-sided weakness in a 76-year-old female. COMPARISON: RIBS W/PA CHEST LT 07/23/2019 9:[address] CHEST W/ 07/27/2019 8:42 AM. TECHNIQUE: 1417 Hours AP portable view. FINDINGS: Lungs/Pleura: No focal opacities evident. No pleural effusion. No pneumothorax. Prominent hiatus hernia left lower chest. Mediastinum: Heart size normal, without adenopathy or pulmonary vascular congestion. Other: Trachea is midline. Osseous structures unremarkable as demonstrated. IMPRESSION: No pneumonia, CHF or other acute process noted. Moderate sized hiatus hernia, as seen previously. RADIA
[2019-08-28 14:50] LABS: BASOPHILS % (AUTO) 0.5 %; EOSINOPHILS # (AUTO) 0.2 10^3/uL (0.0-0.7); EOSINOPHILS % (AUTO) 2.8 %; HGB - HEMOGLOBIN 11.8 g/dL (12.0-16.0); LYMPHOCYTES # (AUTO) 2.2 10^3/uL (1.5-3.5); MEAN CORPUSCULAR HEMOGLOBIN 27.4 pg (27.0-31.0); MEAN CORPUSCULAR HGB CONC 33.1 g/dL (32.0-36.0); MEAN PLATELET VOLUME 10.3 fL (7.9-10.8); MONOCYTES # (AUTO) 0.5 10^3/uL (0.0-1.0); MONOCYTES % (AUTO) 6.6 %; NEUTROPHILS # (AUTO) 4.9 10^3/uL (1.5-6.6); NEUTROPHILS % (AUTO) 61.7 %; PLT - PLATELET COUNT 304 10^3/uL (130-450); RED CELL DISTRIBUTION WIDTH 14.1 % (12.0-15.0)
[2019-08-28 15:00] LABS: INR 1.2 (0.8-1.2); PT - PROTHROMBIN TIME 13.1 secs (9.9-12.6)
[2019-08-28 15:02] LABS: ALBUMIN/GLOBULIN RATIO 1.3 (1.0-2.2); ALKALINE PHOSPHATASE 64 IU/L (42-121); ALT ALANINE AMINOTRANSFERASE 20 IU/L (10-60); AST ASPARTATE AMINOTRANSFERASE 18 IU/L (10-42); BILIRUBIN,TOTAL 0.4 mg/dL (0.2-1.0); BUN - BLOOD UREA NITROGEN 12 mg/dL (6-20); CALCIUM 8.5 mg/dL (8.5-10.3); CARBON DIOXIDE - CO2 23 mmol/L (21-32); CHLORIDE 105 mmol/L (101-111); CREATININE 0.8 mg/dL (0.4-1.0); GFR - MDRD 70 (>89); GLUCOSE 92 mg/dL (70-100); LIPASE 37 U/L (22-51); SODIUM 138 mmol/L (135-145); TOTAL PROTEIN 7.1 g/dL (6.7-8.2)
[2019-08-28] MEDS ORDERED: IOVERSOL 320 100 ML VIAL IVP ONE ×2 (15:44→16:17)
[2019-08-28 15:56] LABS: BILIRUBIN,URINE NEGATIVE (NEGATIVE); GLUCOSE, URINE (UA) NEGATIVE (NEGATIVE); KETONES,URINE (UA) NEGATIVE (NEGATIVE); LEUKOCYTE ESTERASE, URINE TRACE (NEGATIVE); NITRITE,URINE NEGATIVE (NEGATIVE); OCCULT BLOOD,URINE NEGATIVE (NEGATIVE); PROTEIN,URINE NEGATIVE (NEGATIVE); UROBILINOGEN,URINE 0.2 (NORMAL) E.U./dL (NORMAL)
[2019-08-28 15:58] LABS: CLARITY,URINE CLEAR (CLEAR)
[2019-08-28 16:08] LABS: BACTERIA,URINE Rare /HPF (None Seen); RBC,URINE 0-5 /HPF (0-5); SQUAMOUS EPITHELIAL CELL,UR FEW Squamous (<= Few)
--- NOTE | 2019-08-28 16:51 | CT Report ---
Reason: R face numbness, arm and leg weakness Procedure Date: 08/28/2019 Accession Number: [id number] / [id number] Procedure: CT - ANGIO NECK W CPT Code: Final Report FULL RESULT: EXAM: CT ANGIOGRAM NECK EXAM DATE: 08/28/2019 04:14 PM. CLINICAL HISTORY: Right face numbness, arm and leg weakness. COMPARISON: HEAD W/O STROKE PROTOCOL 08/28/2019 2:08 PM; NECK ANGIO 02/10/2019. TECHNIQUE: Routine axial helical imaging was performed from the skull base through the aortic arch. Reconstructions: Routine multiplanar 3D MIP reconstructions. IV Contrast: 80 mL Optiray 320. Evaluation of arterial stenosis is based on a NASCET method of measurement. In accordance with CT protocol optimization, one or more of the following dose reduction techniques were utilized for this exam: automated exposure control, adjustment of mA and/or KV based on patient size, or use of iterative reconstructive technique. This study was protocoled on site using the institution's protocol. FINDINGS: There is a mild degree of subsegmental atelectasis. There is straightening of the normal cervical lordosis. There are surgical changes of anterior fusion from C5 through C7 utilizing anterior cortical plating with interbody fusion devices. There are multilevel moderate degenerative changes of the cervical spine. There is fluid density within a few right and left mastoid air cells. The imaged portions of the paranasal sinuses are normally aerated. The imaged portions of the orbits are normal in appearance. The right and left parotid spaces enhance symmetrically. The openings of the eustachian tubes are normally aerated. The torus tubarius are symmetric. The fossa of Rosenmuller are normally aerated bilaterally. The bilateral parapharyngeal spaces exhibit normal fat densities. The binder technician spaces exhibit symmetric densities. The extrinsic and the intrinsic muscles of the tongue exhibit symmetric densities. There is no significant adenopathy in the level IA pk chain. The bilateral submandibular glands exhibit symmetric size and enhancement. The vallecula are symmetric. The preepiglottic space and paraglottic spaces exhibit normal fat densities. The aryepiglottic folds and pyriform sinuses are symmetric. The false and true cords are normal in appearance. The subglottic space is normal. The cervical and thoracic esophagus within the provided field of view is unremarkable. There is no significant adenopathy within the imaged portions of the superior mediastinum. There is a common origin of the right brachiocephalic artery and the left common carotid artery. There is a punctate focus of calcific plaquing of the right carotid bulb, but without significant stenosis. The extracranial right internal carotid artery is smooth and nonstenotic. The right common carotid artery is smooth and nonstenotic. The left common carotid artery, carotid bulb, and extracranial left internal carotid artery are smooth and nonstenotic. There is fairly extensive beam-hardening artifact from the patient's surgical hardware of the cervical spine. There are small areas of the right V1 and proximal V2 segments of the right vertebral artery that are obscured due to superimposed artifact. Given this limitation, grossly there does not appear to be a flow-limiting stenosis within the visualized portions of the right V1, V2, and V3 segments that are outside of the areas of beam-hardening artifact. The left vertebral artery V1, V2, and V3 segments are without flow limiting stenosis. IMPRESSION: 1. Somewhat limited evaluation of the bilateral vertebral artery V1 and proximal V2 segments secondary to superimposed beam-hardening artifact. Given this limitation, grossly there does not appear to be a flow-limiting stenosis within either the right or left vertebral arteries within the neck. 2. There is no hemodynamically significant stenosis within the carotids within the neck.
[2019-08-28] MEDS ORDERED: ACETAMINOPHEN 325 MG TABLET PO STA (16:54)
[2019-08-28] MEDS ORDERED: fentaNYL 100 MCG/2 ML VIAL IVP STA (16:54)
--- NOTE | 2019-08-28 17:02 | CT Report ---
Reason: R numbness, R arm and leg drift Procedure Date: 08/28/2019 Accession Number: [id number] / [id number] Procedure: CT - ANGIO HEAD W/WO CPT Code: Final Report FULL RESULT: EXAM: CT ANGIOGRAM HEAD. CT SCAN OF THE HEAD WITH CONTRAST. EXAM DATE: 08/28/2019 04:14 PM CLINICAL HISTORY: R numbness, R arm and leg drift. COMPARISON: HEAD W/O STROKE PROTOCOL 08/28/2019 2:08 PM NECK ANGIO 08/28/2019 3:56 PM HEAD ANGIO 02/10/2019 12:29 PM. TECHNIQUE: - CT Scan Head: Using a multidetector scanner, axial images were acquired from the foramen magnum to the skull vertex following contrast administration. - CT Angiogram: Using a multidetector scanner, high-resolution axial images were acquired from the skull base through vertex following rapid infusion of intravenous contrast. Reformats: Multiplanar MIP reformats were reconstructed. Nascet criteria used for stenosis measurement. IV Contrast: 80 mL Optiray 320. In accordance with CT protocol optimization, one or more of the following dose reduction techniques were utilized for this exam: automated exposure control, adjustment of mA and/or KV based on patient size, or use of iterative reconstructive technique. FINDINGS: CT scan of the head with contrast: There is normal enhancement within the deep venous sinuses. There is normal enhancement within the brain parenchyma. CTA of the head: The imaged portions of the orbits are normal in appearance. The right vertebral artery intradural segment is smooth and nonstenotic. There is a small focus of calcific plaquing within the proximal left vertebral artery intradural segment producing an approximately 25% stenosis. The visualized portions of the right posterior inferior cerebellar artery within the provided field of view are without flow limiting stenosis. The left posterior-inferior cerebellar artery is without flow-limiting stenosis. There is narrowing suggested within the proximal to mid right anterior inferior cerebellar artery measuring approximately 50%. It is likely overestimated. There is a hypoplastic left anterior inferior cerebellar artery suggested. Overall, it is somewhat poorly demonstrated which is likely secondary to its small size. Therefore, its evaluation is limited. The basilar artery is without flow-limiting stenosis. The right superior cerebellar artery is without flow-limiting stenosis. The left superior cerebellar artery is without flow-limiting stenosis. The left P1 and P2 segments of the left posterior cerebral artery are without flow-limiting stenosis. The right P1 and P2 segments of the right posterior cerebral artery are without flow-limiting stenosis. There is small foci of calcific plaque in the right cavernous and supraclinoid intracranial internal carotid artery producing less than 25% stenosis. There is a similar appearance of the left cavernous and supraclinoid segment. The right M1 and proximal M2 segments of the right middle cerebral artery are smooth and nonstenotic. The left M1 and proximal M2 segments of the left middle cerebral artery are smooth and nonstenotic. The right A1 segment is smooth and nonstenotic. The left A1 segment is smooth and nonstenotic. There is a small anterior communicating artery. The right A2 segment of the right anterior cerebral artery is smooth and nonstenotic. The left A2 segment of the left anterior cerebral artery is smooth and nonstenotic. There is normal enhancement within the deep venous sinuses. IMPRESSION: 1. Normal postcontrast CT scan of the head. 2. There is a mild stenosis of the proximal left vertebral artery intradural segment measuring approximately 25%. 3. There is a 50% stenosis suggested in the right anterior inferior cerebellar artery. This is likely overestimated. 4. There is no evidence of cerebral aneurysm. If the patient has persistent symptoms and additional imaging is desired, it can be obtained with MRI of the brain without contrast.
[2019-08-28] MEDS ORDERED: CLOPIDOGREL 300 MG TABLET PO STA (17:05)
[2019-08-28] MEDS ORDERED: ACETAMINOPHEN 325 MG TABLET PO PRN (19:20)
[2019-08-28] MEDS ORDERED: SODIUM CHLORIDE FLUSH 0.9% 10 ML SYRINGE IVP PRN (19:20)
--- NOTE | 2019-08-28 20:03 | HISTORY & PHYSICAL EXAMINATION ---
Chief Complaint - Chief Complaint Chief Complaint: Right facial numbness History of Present Illness - Admitted From Admitted From:: Home - History Obtained From Records Reviewed: Yes History obtained from: Patient, EMR - History of Present Illness HPI Comment/Other: This is a 74-year-old female with a past medical history significant for prior CVA with residual left-sided weakness, hypertension, seizure disorder, insomnia, depression who presents today complaining of right facial numbness that began at around 9:45 AM. She states she noted the right side of her face was numb from her eyebrow down. She also felt like her tongue was weaker on the right side and that her speech was slurred. She states she was with people and 1 of them mentioned that her speech was abnormal. She also reports having significant headache associated with nausea during that time. She denied photophobia. She also reported some mild right upper and lower extremity weakness which has since been improving. Initially after symptoms occurred she called her daughter and there was discussion of taking her to her primary care physician but they did not have a vehicle available. The patient went home from [facility] and she felt that around 12:45 PM her symptoms progressed and she felt just generally very weak and she called 911. Reports she has a history of migraines but today was much more severe. She also has a history of seizures but her last one was a few months ago and today did not feel like a seizure. Typical symptoms consist of some upper extremity jerking and occasionally lower extremity involvement as well. In the emergency department, she underwent imaging which did not show an acute infarct. Neurology was contacted and recommended obtaining a CTA of the head and neck. They also recommended starting the patient on aspirin and Plavix. CTA of the head and neck did not show severe stenosis. As her symptoms continue to persist, medicine was consulted for admission. I did discuss with the patient regarding goals of care and she would like to be a full code. History - Past Medical History Cardiovascular: reports: Hypertension, High cholesterol, Angina Respiratory: reports: Sleep apnea Neuro: reports: TIA, Seizure disorder, Other Endocrine/Autoimmune: reports: None GI: reports: GERD, Hiatal hernia ELECTRICAL CONTINUITY INSPECTOR: reports: None : reports: Nocturia, Frequency HEENT: reports: Chronic vision loss, Chronic hearing loss Psych: reports: Depression, Anxiety, Schizophrenia Musculoskeletal: reports: Chronic back pain Derm: reports: None MRSA Hx?: No - Past Surgical History General: reports: Cholecystectomy Ortho: reports: Spine surgery /ELECTRICAL CONTINUITY INSPECTOR: reports: Hysterectomy Neuro: reports: Craniotomy - Family & Social History Family History: Mother: , Father: Family History Comment/Other: Her mother had hypertension and heart disease. She from a severe stroke. Her father also had hypertension. She reports no diabetes in her family. Living arrangement: At home Living Situation: With family Social History Notes: The patient currently lives with her daughter, son-in-law, and grandson. She moved to [facility] 6 years ago. She previously lived near [place], [place]. 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 She is a non-smoker and does not drink alcohol. - Substance History Use: Uses substance without health or social issues: NONE - POLST Patient has POLST: No Meds/Allgy - Home Medications Home Medications: Ambulatory Orders Medication Instructions Recorded Confirmed Gabapentin 600 mg PO 0800,1400,2100 08/06/16 08/28/19 Omeprazole 20 mg PO BIDAC 08/06/16 08/28/19 Aspirin [Adult Aspirin Regimen] 81 mg PO DAILY #30 tablet. 12/22/17 08/28/19 Atorvastatin Calcium 40 mg PO QPM 04/13/18 08/28/19 Risperidone [Risperdal] 2 mg PO QPM 04/13/18 08/28/19 levETIRAcetam [Levetiracetam] 1,500 mg PO BID 04/13/18 08/28/19 Amlodipine Besylate [Norvasc] 2.5 mg PO DAILY #30 tablet 02/27/19 08/28/19 LORazepam [Lorazepam] 1 mg PO TID PRN 02/27/19 08/28/19 Sertraline HCl 200 mg PO DAILY 02/27/19 08/28/19 Acetaminophen [Tylenol] 650 mg PO TID #100 tablet 07/27/19 08/28/19 Hydrocodone/Acetaminophen 1 each PO Q6H PRN #25 tablet 07/27/19 08/28/19 [Hydrocodon-Acetaminophen 5-325] Melatonin 20 mg PO DAILY PM 08/28/19 08/28/19 diphenhydrAMINE [Benadryl] 50 mg PO HS 08/28/19 08/28/19 - Allergies Allergies/Adverse Reactions: Allergies Allergy/AdvReac Type Severity Reaction Status Date / Time NSAIDS (Non-Steroidal Allergy Unknown Verified 08/28/19 15:07 Anti-Inflamma Review of Systems - Constitutional Constitutional: reports: Fatigue, Weakness. denies: Fever, Chills, Poor appetite - Eyes Eyes: reports: Blurred vision. denies: Vision loss - Cardiovascular Cariovascular: reports: Edema. denies: Chest pain, Exertional dyspnea, Decr. exercise tolerance - Respiratory Respiratory: denies: Cough, SOB at rest, SOB with exertion - Gastrointestinal Gastrointestinal: reports: Nausea. denies: Abdominal pain, Vomiting - Genitourinary Genitourinary: denies: Dysuria, Frequency, Urgency - Musculoskeletal Musculoskeletal: reports: Limited range of motion, Muscle weakness - Integumentary Integumentary: denies: Rash - Neurological Neurological: reports: General weakness, Focal weakness, Headache, Numbness, Sl urred speech. denies: Seizures - All Other Systems All Other Systems: reports: Reviewed and negative Prior Level of Functionality: She ambulates on her own and is independent with her ADLs. Exam - Vital Signs Reviewed Vital Signs: Yes Vital Signs: Vital Signs x48h Temp Pulse Pulse Resp BP BP Pulse Ox 08/28/19 19:15 36.5 C 57 L 22 164/82 H 98 08/28/19 18:41 64 19 172/96 H 96 08/28/19 17:09 78 17 128/109 H 100 08/28/19 16:46 62 20 160/122 H 96 08/28/19 16:21 61 16 155/72 H 93 08/28/19 15:28 61 17 161/93 H 97 08/28/19 14:38 66 26 H 161/87 H 98 08/28/19 14:06 36.7 C 87 20 161/87 H 97 - Physical Exam General Appearance: positive: No acute distress, Alert Eyes Bilateral: positive: Normal inspection ENT: positive: ENT inspection nml Neck: positive: Nml inspection Respiratory: positive: No respiratory distress. negative: Wheezes, Rales, Rhonchi Cardiovascular: positive: Regular rate & rhythm, No murmur. negative: Tachycardia, Bradycardia, Systolic murmur, Diastolic murmur Abdomen: positive: Non-tender, No distention. negative: Tenderness, Guarding, Rebound Skin: positive: No rash, Warm, Dry Extremities: positive: Full ROM, Pedal edema (Trace pitting edema in the bilateral lower extremities.) Neurologic/Psychiatric: positive: Oriented x3, CN's nml (2-12) (Cranial nerves appear grossly intact except for sensation over the right side of her face.), Weakness (She has 5 out of 5 motor strength in her left upper and lower extremities. Her strength is about 4 out of 5 in her right upper and lower extremities. Her strength is overall quite good but there is a deficit on exam compared to her left extremities.), Sensory loss (She reports decreased sensation in her right upper and lower extremities compared to her left extremities. She also reports decreased sensation over the right side of her face.). negative: Disoriented to person, Disoriented to place, Disoriented to time, Facial droop, Slurred/abnml speech Conclusion/Plan - Problem List (1) Cerebrovascular accident (CVA) Conclusion/Plan: Her presentation is concerning for a stroke. Other differentials include TIA and possible hemiplegic migraine given that she had a headache and nausea with onset of her symptoms. She was not a candidate for alteplase given she is outside of the window. Her symptoms have improved including her slurred speech but she continues to have mild right-sided weakness in the upper and lower extremities along with decreased sensation on the right side of her face and up per and lower extremities. CT the head showed chronic ischemic changes but no hemorrhage. CTA of the head and neck did not reveal significant stenoses. She has been started on aspirin and Plavix as recommended by neurology. We will continue aspirin 81 mg daily and Plavix 75 mg daily. Will obtain an MRI of the brain in the morning. We will place her on telemetry. Neurochecks every 2 hours. Will consult PT and OT. Will allow for permissive hypertension given the concern for stroke. Qualifiers: CVA mechanism: unspecified Qualified Code(s): I63.9 - Cerebral infarction, unspecified (2) Seizure disorder Conclusion/Plan: She is on Keppra and gabapentin which we will continue. It does not appear this current episode was a seizure. (3) Depression with anxiety Conclusion/Plan: Stable. Continue sertraline. (4) Hyperlipidemia Conclusion/Plan: We will increase her Lipitor to 80 mg from 40 mg given the concern for stroke. (5) Hypertension Conclusion/Plan: She is currently hypertensive with systolics in the 160s. Given the concern for stroke, will allow for permissive hypertension. We will hold her amlodipine. (6) Insomnia Conclusion/Plan: She is on risperidone and lorazepam as needed. Will resume these home medications. (7) Osteoarthritis Conclusion/Plan: She has osteoarthritis of her cervical spine and bilateral shoulders. We will continue her home hydrocodone and Tylenol as needed. - Lab Results Lab results reviewed: Yes Fish Bones: 08/28/19 14:31 08/28/19 14:31 - Diagnostic Imaging Results Diagnostic Imaging Results: positive: Final report reviewed - EKG Results EKG Interpreted Independently: Yes EKG Findings: Her EKG reveals a sinus rhythm with flattening of T waves throughout all leads. QTC is prolonged at 482. Core Measures - Anticipated LOS I expect patient to be DC'd or transferred within 96 hours.: Yes - Issues Hospital Issues and Management Plan: TIA and stroke like symptoms. Rule out CVA. - DVT/VTE - Prophylaxis VTE/DVT Device ordered at admit?: Yes VTE/DVT Prophylaxis med ordered at admit?: Yes
[2019-08-28] MEDS: HYDROcod/ACETAM 5/325 MG TABLET PO PRN (20:39)
[2019-08-28] MEDS: levETIRAcetam 250 MG TABLET PO SCH (20:42)
[2019-08-28] MEDS: HEPARIN 5,000 UNIT/ML VIAL SUBQ SCH (20:44)
[2019-08-28] MEDS ORDERED: levETIRAcetam 250 MG TABLET PO SCH (21:00)
[2019-08-28] MEDS ORDERED: risperiDONE 1 MG TABLET PO SCH (21:00)
[2019-08-28] MEDS ORDERED: ATORVASTATIN 40 MG TABLET PO SCH (21:00)
[2019-08-28] MEDS ORDERED: GABAPENTIN 400 MG CAPSULE PO SCH (22:00)
[2019-08-29] MEDS: LORazepam 1 MG TABLET PO PRN ×3 (00:15→13:49)
[2019-08-29] MEDS: HYDROcod/ACETAM 5/325 MG TABLET PO PRN ×2 (01:06→09:24)
[2019-08-29] MEDS: SODIUM CHLORIDE FLUSH 0.9% 10 ML SYRINGE IVP SCH ×2 (01:16→09:26)
[2019-08-29 05:59] LABS: BASOPHILS % (AUTO) 0.6 %; EOSINOPHILS # (AUTO) 0.3 10^3/uL (0.0-0.7); EOSINOPHILS % (AUTO) 3.8 %; HGB - HEMOGLOBIN 11.1 g/dL (12.0-16.0); LYMPHOCYTES # (AUTO) 1.7 10^3/uL (1.5-3.5); LYMPHOCYTES % (AUTO) 25.7 %; MEAN CORPUSCULAR HEMOGLOBIN 26.9 pg (27.0-31.0); MEAN PLATELET VOLUME 9.7 fL (7.9-10.8); MONOCYTES # (AUTO) 0.4 10^3/uL (0.0-1.0); MONOCYTES % (AUTO) 6.4 %; NEUTROPHILS # (AUTO) 4.1 10^3/uL (1.5-6.6); NEUTROPHILS % (AUTO) 63.2 %; PLT - PLATELET COUNT 263 10^3/uL (130-450); RED BLOOD COUNT 4.13 10^6/uL (4.20-5.40); WHITE BLOOD COUNT 6.5 x10^3/uL (4.8-10.8)
[2019-08-29 06:09] LABS: CALCIUM 8.8 mg/dL (8.5-10.3); CREATININE 0.8 mg/dL (0.4-1.0)
[2019-08-29] MEDS ORDERED: GABAPENTIN 300 MG CAPSULE PO SCH (06:37)
--- NOTE | 2019-08-29 08:45 | MRI Report ---
Reason: Right sided weakness. Slurred speech. Eval for CVA Procedure Date: 08/29/2019 Accession Number: [id number] / [id number] Procedure: MRI - Brain W/O CPT Code: Final Report FULL RESULT: EXAM: MRI BRAIN WITHOUT CONTRAST EXAM DATE: 08/29/2019 08:22 AM. CLINICAL HISTORY: Right-sided weakness. Slurred speech. Evaluate for CVA. COMPARISON: HEAD ANGIO 08/28/2019 3:56 PM. NECK ANGIO 08/28/2019 3:56 PM. HEAD W/O STROKE PROTOCOL 08/28/2019 2:08 PM. TECHNIQUE: Multiplanar, multisequence T1-weighted and fluid-sensitive MR sequences of the brain were performed. Sequences optimized for routine evaluation. Other: None. IV Contrast: None. FINDINGS: The diffusion-weighted images are normal. There is no evidence of acute or subacute cerebral infarction. The images are degraded by motion. There is an old lacunar infarction of the left lentiform nucleus. There are punctate and confluent areas of T2 hyperintensity of the subcortical, deep, and periventricular white matter of the supratentorial brain consistent with a mild to moderate degree of chronic small vessel ischemia. There is fluid intensity within a few mastoid air cells bilaterally. There are surgical changes of the right parietal craniotomy. The cerebral vascular flow voids are patent. The T2* sequence is normal. There is no evidence of subacute or chronic hemorrhage. The corpus callosum is of normal size and configuration. The pituitary and sella are normal. The craniocervical junction is normal. The optic nerves demonstrate symmetric signal intensity and size. There is a mild degree of mucosal thickening in the bilateral maxillary sinuses. The bilateral parotid spaces exhibit normal signal intensity. The cerebral vascular flow voids are patent. IMPRESSION: 1. The images are degraded by motion. 2. Given the above limitations, there is no large area of diffusion restriction to suggest a large area of acute or subacute cerebral infarction. 3. There is mild to moderate degree of chronic small vessel ischemia.
[2019-08-29] MEDS ORDERED: ASPIRIN EC 81 MG TABLET PO SCH (09:00)
[2019-08-29] MEDS ORDERED: CLOPIDOGREL 75 MG TABLET PO SCH (09:00)
[2019-08-29] MEDS ORDERED: SERTRALINE 50 MG TABLET PO SCH (09:00)
[2019-08-29] MEDS: levETIRAcetam 250 MG TABLET PO SCH (09:25)
[2019-08-29] MEDS: GABAPENTIN 300 MG CAPSULE PO SCH ×2 (09:25→13:49)
[2019-08-29] MEDS: HEPARIN 5,000 UNIT/ML VIAL SUBQ SCH (09:26)
--- NOTE | 2019-08-29 11:12 | Discharge Plan ---
Discharge Plan Problem Reviewed?: Yes Disposition: Home, Self Care Condition: Stable Prescriptions: Atorvastatin Calcium [Lipitor] 80 mg PO QPM #30 tablet Clopidogrel [Plavix] 75 mg PO DAILY #30 tablet Diet: Cardiac Activity Restrictions: Activity as Tolerated Shower Restrictions: No Health Concerns: You were admitted with stroke-like symptoms. Work-up showed the old stroke, no bleeding but you need medication adjustments. Please follow the new medication list. Plan of Treatment: Follow the new list of medications, some are new meds. The prescriptions were e- sent to your pharmacy. You can use up your Lipitor 40 mg tablets by taking 2 together to =80 mg. See your PCP in hospital follow-up in the next 5-10 days. Care Goals: Stabilization of symptoms. Assessment: The patient understood. No Smoking: If you smoke, Please STOP! Call for help. Follow-up with: Miguel Angel Torres MD [Physician No Access] -
[2019-08-29 12:53] VITALS: BP 145/82
--- NOTE | 2019-08-29 17:06 | DISCHARGE SUMMARY ---
Discharge Summary Admit Date: 08/28/19 Discharge Date: 08/29/19 Discharging Provider: Dr Gricelda Rahman Primary Care Provider: Miguel Angel Torres Code Status: Attempt Resuscitation Condition at Discharge: Stable Discharge Disposition: 01 Home, Self Care - DIAGNOSES Admission Diagnoses: (1) Cerebrovascular accident (CVA) (2) Seizure disorder (3) Depression with anxiety (4) Hyperlipidemia (5) Hypertension (6) Insomnia (7) Osteoarthritis Discharge Diagnoses with Status of Each Condition: See below - HPI History of Present Illness: From the admission H&P of Dr Will Hubbard: This is a 74-year-old female with a past medical history significant for prior CVA with residual left-sided weakness, hypertension, seizure disorder, insomnia, depression who presents today complaining of right facial numbness that began at around 9:45 AM. She states she noted the right side of her face was numb from her eyebrow down. She also felt like her tongue was weaker on the right side and that her speech was slurred. She states she was with people and 1 of them mentioned that her speech was abnormal. She also reports having significant headache associated with nausea during that time. She denied photophobia. She also reported some mild right upper and lower extremity weakness which has since been improving. Initially after symptoms occurred she called her daughter and there was discussion of taking her to her primary care physician but they did not have a vehicle available. The patient went home from [facility] and she felt that around 12:45 PM her symptoms progressed and she felt just generally very weak and she called 911. Reports she has a history of migraines but today was much more severe. She also has a history of seizures but her last one was a few months ago and today did not feel like a seizure. Typical symptoms consist of some upper extremity jerking and occasionally lower extremity involvement as well. In the emergency department, she underwent imaging which did not show an acute infarct. Neurology was contacted and recommended obtaining a CTA of the head and neck. They also recommended starting the patient on aspirin and Plavix. CTA of the head and neck did not show severe stenosis. As her symptoms continue to persist, medicine was consulted for admission. - HOSPITAL COURSE Hospital Course: (1) Cerebrovascular accident (CVA) Her presentation was concerning for a stroke vs TIA vs possible hemiplegic migraine given that she had a headache and nausea with onset of her symptoms. She was not a candidate for alteplase given she is outside of the window. Her symptoms improved including her slurred speech but she continues to have mild right-sided weakness in the upper and lower extremities along with decreased sensation on the right side of her face and upper and lower extremities. CT the head showed chronic ischemic changes but no hemorrhage. CTA of the head and neck did not reveal significant stenoses. Telemetry showed no Afib. She has been started on aspirin and Plavix as recommended by neurology. The MRI of the brain showed no acute findings but an old lacunar stroke of the left lentiform nucleaus was seen. (2) Seizure disorder She was kept on Keppra and Gabapentin (3) Depression with anxiety Stable on her sertraline. (4) Hyperlipidemia Her Lipitor was increased to 80 mg from 40 mg and she was discharged with this order. (5) Hypertension She was mildly hypertensive with systolics in the 160s. Given the concern for stroke, we allowed for permissive hypertension and her amlodipine was on hold while here, to be resumed after Dch. (6) Insomnia She was on risperidone and lorazepam prn. (7) Osteoarthritis She has osteoarthritis of her cervical spine and bilateral shoulders. Her home doses of hydrocodone and Tylenol prn were ordered. - ALLERGIES Allergies/Adverse Reactions: Allergies Allergy/AdvReac Type Severity Reaction Status Date / Time NSAIDS (Non-Steroidal Allergy Unknown Verified 08/28/19 15:07 Anti-Inflamma - MEDICATIONS Home Medications: Ambulatory Orders Medication Instructions Recorded Confirmed Gabapentin 600 mg PO 0800,1400,2100 08/06/16 08/28/19 Omeprazole 20 mg PO BIDAC 08/06/16 08/28/19 Aspirin [Adult Aspirin Regimen] 81 mg PO DAILY #30 tablet. 12/22/17 08/28/19 Risperidone [Risperdal] 2 mg PO QPM 04/13/18 08/28/19 levETIRAcetam [Levetiracetam] 1,500 mg PO BID 04/13/18 08/28/19 Amlodipine Besylate [Norvasc] 2.5 mg PO DAILY #30 tablet 02/27/19 08/28/19 LORazepam [Lorazepam] 1 mg PO TID PRN 02/27/19 08/28/19 Sertraline HCl 200 mg PO DAILY 02/27/19 08/28/19 Acetaminophen [Tylenol] 650 mg PO TID #100 tablet 07/27/19 08/28/19 Hydrocodone/Acetaminophen 1 each PO Q6H PRN #25 tablet 07/27/19 08/28/19 [Hydrocodone-Acetamin 5-325 mg] Melatonin 20 mg PO DAILY PM 08/28/19 08/28/19 diphenhydrAMINE [Benadryl] 50 mg PO HS 08/28/19 08/28/19 Atorvastatin Calcium [Lipitor] 80 mg PO QPM #30 tablet 08/29/19 Clopidogrel [Plavix] 75 mg PO DAILY #30 tablet 08/29/19 - PHYSICAL EXAM AT DISCHARGE General Appearance: positive: No acute distress, Alert Eyes Bilateral: positive: Normal inspection, PERRL ENT: positive: ENT inspection nml, No signs of dehydration Neck: positive: Nml inspection, No JVD Respiratory: positive: No respiratory distress, Breath sounds nml Cardiovascular: positive: Regular rate & rhythm, No murmur Abdomen: positive: Non-tender, No distention Skin: positive: Color nml Extremities: positive: No pedal edema Neurologic/Psychiatric: positive: Other (Mild weakness present) - LABS Result Diagrams: 08/29/19 05:37 08/29/19 05:37 - DIAGNOSTIC IMAGING Diagnostic Imaging Results: Final report reviewed - FOLLOW UP Follow Up: See PCP in 5-10 days - TIME SPENT Time Spent in Discharge (Minutes): 30
== END 2019-08-29 14:00 | disposition home or self-care (01) | DRG 65 ==
LOC: EDUNIT# → EDBD → ED 13:59 → MS2 18:43
PROVIDERS: ADMIT Internal Medicine; ATTEND Internal Medicine
DX: I63.9 Cerebral infarction, unspecified (principal); G81.91 Hemiplegia, unspecified affecting right dominant side; E78.00 Pure hypercholesterolemia, unspecified; I69.954 Hemiplegia and hemiparesis following unspecified cerebrovascular disease affecting left non-dominant side; R47.81 Slurred speech; R29.810 Facial weakness; G40.909 Epilepsy, unspecified, not intractable, without status epilepticus; Z86.73 Personal history of transient ischemic attack (TIA), and cerebral infarction without residual deficits; I10 Essential (primary) hypertension; E78.5 Hyperlipidemia, unspecified; G47.00 Insomnia, unspecified; G89.29 Other chronic pain; M47.812 Spondylosis without myelopathy or radiculopathy, cervical region; M19.012 Primary osteoarthritis, left shoulder; M19.011 Primary osteoarthritis, right shoulder; K21.9 Gastro-esophageal reflux disease without esophagitis; K44.9 Diaphragmatic hernia without obstruction or gangrene; R35.1 Nocturia; R35.0 Frequency of micturition; F20.9 Schizophrenia, unspecified; F41.8 Other specified anxiety disorders; H54.7 Unspecified visual loss; H91.90 Unspecified hearing loss, unspecified ear; Z79.82 Long term (current) use of aspirin; Z98.1 Arthrodesis status; Z79.891 Long term (current) use of opiate analgesic; Z79.899 Other long term (current) drug therapy
CPT/HCPCS: 36415; 70496; 70498; 70551; 71045; 80048; 80053; 81001; 83690; 84443; 84484; 85025; 85610; 87086; 93005; 93306; 96374; 96375; 97161; 99284; 99285; A9270; J2765; J8499; Q9967; 70450; 80320; 81003

== ENCOUNTER 2019-10-13 10:45 | Outpatient (CLI) | payer MEDICARE | END 2019-10-13 23:59 | disposition critical access hospital (66) | LOC: EMS 10:45 | PROVIDERS: ATTEND Surgery | DX: R07.89 Other chest pain (principal); R05 Cough | CPT/HCPCS: A0425; A0427 ==

== ENCOUNTER 2019-10-13 11:03 | Emergency (ER) | payer MEDICARE ==
--- NOTE | 2019-10-13 11:58 | XRAY Report ---
Reason: CP,HX of CVA Procedure Date: 10/13/2019 Accession Number: [id number] / [id number] Procedure: XR - Chest 2 View X-Ray CPT Code: 63948 Final Report FULL RESULT: EXAM: CHEST RADIOGRAPHY EXAM DATE: 10/13/2019 11:43 AM. CLINICAL HISTORY: Cp, hx of CVA. COMPARISON: CHEST 1 VIEW 08/28/2019 2:17 PM CHEST W/ 07/27/2019 8:42 AM. TECHNIQUE: 2 views. FINDINGS: Lungs/Pleura: No focal opacities evident. No pleural effusion. No pneumothorax. Normal volumes. Mediastinum: Mild cardiomegaly. Other: Prior cervical spine ACDF. Gallbladder fossa surgical clips. Hiatal hernia. IMPRESSION: 1. No consolidation. 2. Hiatal hernia. RADIA
[2019-10-13 12:07] LABS: BASOPHILS % (AUTO) 0.5 %; EOSINOPHILS # (AUTO) 0.2 10^3/uL (0.0-0.7); EOSINOPHILS % (AUTO) 2.3 %; HGB - HEMOGLOBIN 11.8 g/dL (12.0-16.0); LYMPHOCYTES % (AUTO) 22.1 %; MEAN CORPUSCULAR HGB CONC 31.9 g/dL (32.0-36.0); MEAN CORPUSCULAR VOLUME 84.7 fL (81.0-99.0); MONOCYTES # (AUTO) 0.4 10^3/uL (0.0-1.0); MONOCYTES % (AUTO) 4.6 %; NEUTROPHILS # (AUTO) 6.2 10^3/uL (1.5-6.6); NEUTROPHILS % (AUTO) 70.3 %; PLT - PLATELET COUNT 237 10^3/uL (130-450); RED BLOOD COUNT 4.37 10^6/uL (4.20-5.40); RED CELL DISTRIBUTION WIDTH 13.7 % (12.0-15.0); WHITE BLOOD COUNT 8.8 x10^3/uL (4.8-10.8)
[2019-10-13] MEDS ORDERED: ONDANSETRON 4 MG/2 ML VIAL IVP STA (12:11)
[2019-10-13] MEDS ORDERED: LORazepam 1 MG TABLET PO STA (12:11)
--- NOTE | 2019-10-13 12:12 | ED Physician Documentation ---
PD HPI CHEST PAIN - Stated complaint Stated Complaint: CP - Chief complaint Chief Complaint: Cardiac - History obtained from History obtained from: Patient - History of Present Illness Timing - onset: Today (74-year-old woman developed substernal chest pinching while watching TV at 10 AM today. She notes almost immediately that this was after missing her morning dose of Ativan which was not in her medicine at for some reason. She still has some discomfort but it is better. Now she is anxious and nauseous. She denies shortness of breath or pedal edema. Of note she frequently has chest pain which is felt to be noncardiac. She had a angiogram done about 9 months ago which was negative for any coronary disease.) Review of Systems Ten Systems: 10 systems reviewed and negative Constitutional: denies: Fever, Chills Cardiac: reports: Chest pain / pressure. denies: Palpitations, Pedal edema, Calf pain Respiratory: denies: Dyspnea, Cough, Hemoptysis, Wheezing GI: reports: Nausea. denies: Abdominal Pain PD PAST MEDICAL HISTORY - Past Medical History Cardiovascular: Hypertension, High cholesterol, Angina Respiratory: Sleep apnea Neuro: CVA, TIA, Seizure disorder, Other Endocrine/Autoimmune: None GI: GERD, Hiatal hernia ACCOUNT LEADER: None : Nocturia, Frequency HEENT: Chronic vision loss, Chronic hearing loss Psych: Depression, Anxiety, Schizophrenia Musculoskeletal: Chronic back pain Derm: None - Past Surgical History Past Surgical History: Yes General: Cholecystectomy Ortho: Spine surgery /ACCOUNT LEADER: Hysterectomy Neuro: Craniotomy - Present Medications Home Medications: Ambulatory Orders Medication Instructions Recorded Confirmed Gabapentin 600 mg PO 0800,1400,2100 08/06/16 08/28/19 Omeprazole 20 mg PO BIDAC 08/06/16 08/28/19 Aspirin [Adult Aspirin Regimen] 81 mg PO DAILY #30 tablet. 12/22/17 08/28/19 Risperidone [Risperdal] 2 mg PO QPM 04/13/18 08/28/19 levETIRAcetam [Levetiracetam] 1,500 mg PO BID 04/13/18 08/28/19 Amlodipine Besylate [Norvasc] 2.5 mg PO DAILY #30 tablet 02/27/19 08/28/19 LORazepam [Lorazepam] 1 mg PO TID PRN 02/27/19 08/28/19 Sertraline HCl 200 mg PO DAILY 02/27/19 08/28/19 Acetaminophen [Tylenol] 650 mg PO TID #100 tablet 07/27/19 08/28/19 Hydrocodone/Acetaminophen 1 each PO Q6H PRN #25 tablet 07/27/19 08/28/19 [Hydrocodone-Acetamin 5-325 mg] Melatonin 20 mg PO DAILY PM 08/28/19 08/28/19 diphenhydrAMINE [Benadryl] 50 mg PO HS 08/28/19 08/28/19 Atorvastatin Calcium [Lipitor] 80 mg PO QPM #30 tablet 08/29/19 Clopidogrel [Plavix] 75 mg PO DAILY #30 tablet 08/29/19 - Allergies Allergies/Adverse Reactions: Allergies Allergy/AdvReac Type Severity Reaction Status Date / Time NSAIDS (Non-Steroidal Allergy Unknown Verified 10/13/19 11:09 Anti-Inflamma - Social History Does the pt smoke?: No Smoking Status: Never smoker Does the pt drink ETOH?: No Does the pt have substance abuse?: No - Immunizations Immunizations are current?: Yes - POLST Patient has POLST: No POLST Status: Full Code PD ED PE NORMAL - Vitals Vital signs reviewed: Yes - General General: Alert and oriented X 3, No acute distress - HEENT HEENT: PERRL, EOMI - Neck Neck: Supple, no meningeal sign, No bony TTP - Cardiac Cardiac: RRR, No murmur, Other (Tender over the sternum,) - Respiratory Respiratory: No respiratory distress, Clear bilaterally - Abdomen Abdomen: Non tender - Extremities Extremities: No edema, No calf tenderness / cord - Neuro Neuro: Alert and oriented X 3, Normal speech Results - Vitals Vitals: Vital Signs - 24 hr 10/13/19 10/13/19 11:04 11:20 Temperature 36.4 C L 36.6 C Heart Rate 70 69 Respiratory 18 12 Rate Blood Pressure 137/76 H 133/92 H O2 Saturation 95 97 Oxygen O2 Source Room air - Labs Labs: Laboratory Tests 10/13/19 10/13/19 10/13/19 12:00 12:00 12:00 WBC 8.8 RBC 4.37 Hgb 11.8 L Hct 37.0 MCV 84.7 MCH 27.0 MCHC 31.9 L RDW 13.7 Plt Count 237 MPV 10.0 Neut # (Auto) 6.2 Lymph # (Auto) 2.0 [place] # (Auto) 0.4 Eos # (Auto) 0.2 Baso # (Auto) 0.0 Absolute Nucleated RBC 0.00 Nucleated RBC % 0.0 Sodium 139 Potassium 3.7 Chloride 104 Carbon Dioxide 27 Anion Gap 8.0 BUN 14 Creatinine 0.7 Estimated GFR (MDRD) 82 L Glucose 99 Calcium 8.7 Total Bilirubin 0.8 AST 17 ALT 19 Alkaline Phosphatase 69 Troponin I High Sens < 2.3 L Total Protein 6.8 Albumin 3.9 Globulin 2.9 Albumin/Globulin Ratio 1.3 Lipase 29 PD MEDICAL DECISION MAKING - ED course ED course: 74-year-old woman with a negative coronary angiogram in the last year and f requent ED visits for anxiety related chest pain presents with what seems like the same, no pertinent positive findings on work-up. Departure - Departure Disposition: 01 Home, Self Care Clinical Impression: Atypical chest pain Condition: Good Record reviewed to determine appropriate education?: Yes Instructions: ED Chest Pain Noncardiac Ch Comments: Call your doctor to arrange a follow-up appointment, make the next available appointment. In the interim, return anytime if worse or if new symptoms develop.
[2019-10-13 12:21] LABS: ALBUMIN 3.9 g/dL (3.2-5.5); ALBUMIN/GLOBULIN RATIO 1.3 (1.0-2.2); BILIRUBIN,TOTAL 0.8 mg/dL (0.2-1.0); CALCIUM 8.7 mg/dL (8.5-10.3); CREATININE 0.7 mg/dL (0.4-1.0); TOTAL PROTEIN 6.8 g/dL (6.7-8.2)
[2019-10-13 12:55] VITALS: BP 151/80
== END 2019-10-13 14:19 | disposition home or self-care (01) ==
LOC: EDUNIT# → ED 11:03
DX: R07.89 Other chest pain (principal); I10 Essential (primary) hypertension
CPT/HCPCS: 36415; 71046; 80053; 83690; 84484; 85025; 93005; 96374; 99284; J8499

== ENCOUNTER 2019-10-15 02:46 | Outpatient (CLI) | payer MEDICARE | END 2019-10-15 02:47 | disposition critical access hospital (66) | LOC: EMS 02:46 | PROVIDERS: ATTEND Surgery | DX: M25.551 Pain in right hip (principal); M54.2 Cervicalgia; R47.81 Slurred speech; W06.XXXA Fall from bed, initial encounter; Y92.003 Bedroom of unspecified non-institutional (private) residence as the place of occurrence of the external cause | CPT/HCPCS: A0425; A0429 ==

== ENCOUNTER 2019-10-15 03:04 | Emergency (ER) | payer MEDICARE ==
[2019-10-15 03:35] LABS: BASOPHILS # (AUTO) 0.1 10^3/uL (0.0-0.1); BASOPHILS % (AUTO) 0.8 %; EOSINOPHILS # (AUTO) 0.4 10^3/uL (0.0-0.7); EOSINOPHILS % (AUTO) 5.9 %; HGB - HEMOGLOBIN 11.9 g/dL (12.0-16.0); LYMPHOCYTES % (AUTO) 31.1 %; MEAN CORPUSCULAR HEMOGLOBIN 27.1 pg (27.0-31.0); MEAN CORPUSCULAR HGB CONC 31.8 g/dL (32.0-36.0); MEAN CORPUSCULAR VOLUME 85.2 fL (81.0-99.0); MONOCYTES # (AUTO) 0.5 10^3/uL (0.0-1.0); MONOCYTES % (AUTO) 8.2 %; NEUTROPHILS # (AUTO) 3.5 10^3/uL (1.5-6.6); NEUTROPHILS % (AUTO) 53.7 %; PLT - PLATELET COUNT 239 10^3/uL (130-450); RED BLOOD COUNT 4.39 10^6/uL (4.20-5.40); RED CELL DISTRIBUTION WIDTH 13.8 % (12.0-15.0); WHITE BLOOD COUNT 6.5 x10^3/uL (4.8-10.8)
[2019-10-15 03:49] LABS: ALBUMIN 3.7 g/dL (3.2-5.5); ALBUMIN/GLOBULIN RATIO 1.3 (1.0-2.2); BILIRUBIN,TOTAL 0.3 mg/dL (0.2-1.0); CALCIUM 8.9 mg/dL (8.5-10.3); CREATININE 0.9 mg/dL (0.4-1.0); TOTAL PROTEIN 6.6 g/dL (6.7-8.2)
[2019-10-15 04:02] LABS: BILIRUBIN,URINE NEGATIVE (NEGATIVE); GLUCOSE, URINE (UA) NEGATIVE (NEGATIVE); KETONES,URINE (UA) NEGATIVE (NEGATIVE); LEUKOCYTE ESTERASE, URINE NEGATIVE (NEGATIVE); NITRITE,URINE NEGATIVE (NEGATIVE); OCCULT BLOOD,URINE NEGATIVE (NEGATIVE); PH,URINE 5.5 PH (5.0-7.5); PROTEIN,URINE NEGATIVE (NEGATIVE); UROBILINOGEN,URINE 0.2 (NORMAL) E.U./dL (NORMAL)
--- NOTE | 2019-10-15 04:02 | XRAY Report ---
Reason: chest pain Procedure Date: 10/15/2019 Accession Number: [id number] / [id number] Procedure: XR - Chest 1 View X-Ray CPT Code: 06858 Final Report FULL RESULT: EXAM: CHEST RADIOGRAPHY EXAM DATE: 10/15/2019 03:49 AM. CLINICAL HISTORY: Chest pain. COMPARISON: CHEST 2 VIEW 10/13/2019 11:34 AM. TECHNIQUE: 1 view. FINDINGS: Lungs/Pleura: No focal opacities evident. No pleural effusion. No pneumothorax. Mediastinum: Within exam limitations, the cardiomediastinal contour is normal. Other: Status post anterior lower cervical spine fusion. IMPRESSION: No acute cardiopulmonary process. RADIA
[2019-10-15 04:06] LABS: CLARITY,URINE CLEAR (CLEAR)
[2019-10-15] MEDS ORDERED: SODIUM CHLORIDE 0.9% 1,000 ML IV ONE (04:13)
--- NOTE | 2019-10-15 04:17 | CT Report ---
Reason: head injury Procedure Date: 10/15/2019 Accession Number: [id number] / [id number] Procedure: CT - HEAD WO CPT Code: Final Report FULL RESULT: EXAM: CT HEAD EXAM DATE: 10/15/2019 03:51 AM. CLINICAL HISTORY: Head injury. Found down. COMPARISON: BRAIN W/O 08/29/2019 7:56 AM. TECHNIQUE: Multiaxial CT images were obtained from the foramen magnum to the vertex. Reformats: Sagittal and coronal. IV contrast: None. In accordance with CT protocol optimization, one or more of the following dose reduction techniques were utilized for this exam: automated exposure control, adjustment of mA and/or KV based on patient size, or use of iterative reconstructive technique. FINDINGS: Parenchyma: No intraparenchymal hemorrhage. No evidence of mass, midline shift, or CT findings of infarction. Penn-white differentiation is distinct. Mild to moderate small vessel disease. Extraaxial Spaces: Normal for age. No subdural or epidural collections identified. Ventricles: Normal in size and position. Sinuses and Orbits: Imaged paranasal sinuses, orbits, and mastoids show no significant abnormality. Bones: Right parietal craniotomy again seen. Other: None. IMPRESSION: 1. No acute intracranial abnormality. 2. Small vessel disease and old right parietal craniotomy. RADIA
--- NOTE | 2019-10-15 04:19 | CT Report ---
Reason: head injury neck pain Procedure Date: 10/15/2019 Accession Number: [id number] / [id number] Procedure: CT - CERVICAL SPINE WO CPT Code: Final Report FULL RESULT: EXAM: CT CERVICAL SPINE WITHOUT CONTRAST DATE: 10/15/2019 03:51 AM. HISTORY: Head injury neck pain. Fall from bed. COMPARISONS: CERVICAL SPINE W/O 07/23/2019 9:58 AM. TECHNIQUE: Thin-section axial images were acquired of the cervical spine without contrast. Post-processing: Coronal and sagittal reformats. Other: None. In accordance with CT protocol optimization, one or more of the following dose reduction techniques were utilized for this exam: automated exposure control, adjustment of mA and/or KV based on patient size, or use of iterative reconstructive technique. FINDINGS: Alignment: Upper cervical lordosis appears similar. No spondylolisthesis. Bones: No fracture or bone lesion. Anterior fusion of C5-C7. Interspace Levels/Facets: C1-C2: Degenerative changes of the anterior or chip C1 and the dens. C2-C3: Disk space narrowing and bilateral facet joint degeneration. Mild bilateral neuroforaminal narrowing. C3-C4: Disk space narrowing. Bilateral facet joint degeneration. Severe right and mild left neural foraminal narrowing. C4-C5: Disk degeneration and bilateral facet fusion. C5-C6: Anterior intervertebral disk fusion. Mild bilateral neural foraminal narrowing. C6-C7: Anterior intervertebral disk fusion. Mild bilateral neuroforaminal narrowing. C7-T1: Degenerative disk and facet joint changes. Musculature: Normal. No fatty atrophy. Other: The paravertebral and prevertebral soft tissues are unremarkable. The lung apices are clear. IMPRESSION: No fracture or subluxation. Similar appearance of the multilevel disk and facet joint degeneration. Status post C5C7 -anterior intervertebral body fusion without hardware complication. Severe left temporomandibular joint degeneration. RADIA
--- NOTE | 2019-10-15 04:33 | ED Physician Documentation ---
PD HPI HEAD INJURY - Stated complaint Stated Complaint: FALL - Chief complaint Chief Complaint: Neuro - History obtained from History obtained from: Patient, EMS - History of Present Illness Mechanism of head injury: Fell Where head injury occurred: Home Timing - onset: Today Location of injury: Right, Top Quality of pain: Pain Associated symptoms: AMS Symptoms improve with: Rest Symptoms worsen with: Palpation, Movement Similar symptoms before: Diagnosis (subdural) Recently seen: Emergency Dept - Additional information Additional information: 74-year-old female with history of schizophrenia hypertension TIAs seizure and prior subdural dural hematoma in 2011Was found on the floor of her room this morning confused and her son called the ambulance. Review of Systems Constitutional: denies: Fever Eyes: denies: Decreased vision Ears: denies: Ear pain Nose: denies: Congestion Throat: denies: Sore throat Cardiac: denies: Chest pain / pressure, Palpitations Respiratory: denies: Dyspnea, Cough GI: reports: Nausea. denies: Abdominal Pain Musculoskeletal: reports: Neck pain, Back pain Neurologic: reports: Generalized weakness, Difficulty speaking, Altered mental status, Head injury. 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 12/22/17 10/15/19 Risperidone [Risperdal] 2 mg PO QPM 04/13/18 10/15/19 levETIRAcetam [Levetiracetam] 1,500 mg PO BID 04/13/18 10/15/19 Amlodipine Besylate [Norvasc] 2.5 mg PO DAILY #30 tablet 02/27/19 10/15/19 LORazepam [Lorazepam] 1 mg PO TID PRN 02/27/19 10/15/19 Sertraline HCl 200 mg PO DAILY 02/27/19 10/15/19 Acetaminophen [Tylenol] 650 mg PO TID #100 tablet 07/27/19 10/15/19 Hydrocodone/Acetaminophen 1 each PO Q6H PRN #25 tablet 07/27/19 10/15/19 [Hydrocodone-Acetamin 5-325 mg] Melatonin 20 mg PO DAILY PM 08/28/19 10/15/19 diphenhydrAMINE [Benadryl] 50 mg PO HS 08/28/19 10/15/19 Atorvastatin Calcium [Lipitor] 80 mg PO QPM #30 tablet 08/29/19 10/15/19 Clopidogrel [Plavix] 75 mg PO DAILY #30 tablet 08/29/19 10/15/19 - Allergies Allergies/Adverse Reactions: Allergies Allergy/AdvReac Type Severity Reaction Status Date / Time NSAIDS (Non-Steroidal Allergy Unknown Verified 10/15/19 03:25 Anti-Inflamma - Social History Does the pt smoke?: No Smoking Status: Never smoker Does the pt drink ETOH?: No Does the pt have substance abuse?: No - Immunizations Immunizations are current?: Yes - POLST Patient has POLST: No POLST Status: Full Code PD ED PE NORMAL - Vitals Vital signs reviewed: Yes (hpyertensive ) - General General: No acute distress, Well developed/nourished - HEENT HEENT: PERRL, EOMI, Other (There is tenderness without abrasion ) - Neck Neck: Other (There is midline point tenderness to the mid cervical spine) - Cardiac Cardiac: RRR, No murmur - Respiratory Respiratory: No respiratory distress, Clear bilaterally - Abdomen Abdomen: Soft, Non tender, No organomegaly - Back Back: No CVA TTP, No spinal TTP - Derm Derm: Normal color, Warm and dry, No rash - Extremities Extremities: No deformity, No tenderness to palpate, Normal ROM s pain, No edema , No calf tenderness / cord, Other (no shortening or external rotation without pain to flex/extend/rotate) - Neuro Neuro: gynaecological oncologist 2-12 intact, No motor deficit, No sensory deficit Eye Opening: To Voice Motor: Obeys Commands Verbal: Oriented GCS Score: 14 - Psych Psych: Normal mood, Normal affect Results - Vitals Vitals: Oxygen O2 Source Room air - Labs Labs: Microbiology 10/15/19 03:25 Blood Culture - Preliminary Blood NO GROWTH AFTER 2 DAYS 10/15/19 03:20 Blood Culture - Preliminary Blood NO GROWTH AFTER 2 DAYS Laboratory Tests 10/15/19 10/15/19 10/15/19 03:20 03:20 03:20 WBC 6.5 RBC 4.39 Hgb 11.9 L Hct 37.4 MCV 85.2 MCH 27.1 MCHC 31.8 L RDW 13.8 Plt Count 239 MPV 10.0 Neut # (Auto) 3.5 Lymph # (Auto) 2.0 [place] # (Auto) 0.5 Eos # (Auto) 0.4 Baso # (Auto) 0.1 Absolute Nucleated RBC 0.00 Nucleated RBC % 0.0 Sodium 143 Potassium 3.5 Chloride 109 Carbon Dioxide 30 Anion Gap 4.0 L BUN 18 Creatinine 0.9 Estimated GFR (MDRD) 61 L Glucose 101 H Lactic Acid 1.1 Calcium 8.9 Total Bilirubin 0.3 AST 16 ALT 16 Alkaline Phosphatase 73 Total Protein 6.6 L Albumin 3.7 Globulin 2.9 Albumin/Globulin Ratio 1.3 Lipase 32 Urine Color Urine Clarity Urine pH Ur Specific [place] Urine Protein Urine Glucose (UA) Urine Ketones Urine Occult Blood Urine Nitrite Urine Bilirubin Urine Urobilinogen Ur Leukocyte Esterase Ur Microscopic Review Urine Culture Comments 10/15/19 03:55 WBC RBC Hgb Hct MCV MCH MCHC RDW Plt Count MPV Neut # (Auto) Lymph # (Auto) [place] # (Auto) Eos # (Auto) Baso # (Auto) Absolute Nucleated RBC Nucleated RBC % Sodium Potassium Chloride Carbon Dioxide Anion Gap BUN Creatinine Estimated GFR (MDRD) Glucose Lactic Acid Calcium Total Bilirubin AST ALT Alkaline Phosphatase Total Protein Albumin Globulin Albumin/Globulin Ratio Lipase Urine Color YELLOW Urine Clarity CLEAR Urine pH 5.5 Ur Specific [place] 1.025 Urine Protein NEGATIVE Urine Glucose (UA) NEGATIVE Urine Ketones NEGATIVE Urine Occult Blood NEGATIVE Urine Nitrite NEGATIVE Urine Bilirubin NEGATIVE Urine Urobilinogen 0.2 (NORMAL) Ur Leukocyte Esterase NEGATIVE Ur Microscopic Review NOT INDICATED Urine Culture Comments NOT INDICATED - Rads (name of study) c-spine Radiology: Prelim report reviewed (Impression: No fracture or subluxation. Similar appearance of the multi-level disc and facet joint degeneration. Status post C5 C7 anterior intervertebral body fusion without hardware complication. Severe left temporomandibular joint degeneration.), EMP read indepedently, See rad report CT head without Radiology: Prelim report reviewed, EMP read indepedently, See rad report Chest Radiology: Prelim report reviewed (Impression: No acute cardiopulmonary process.), EMP read indepedently, See rad report Procedures - IVC sono (time) 0405 Bedside IVC sono: IVC measures (cm) (1.1), Dehydration (est 1 liter deficit) PD MEDICAL DECISION MAKING - ED course Complexity details: reviewed old records, reviewed results, re-evaluated patient, considered differential, d/w patient, d/w family ED course: 74-year-old female with a fall out of bed has no injury on CT of the head and neck she did have some improvement to her baseline. And is discharged to the care of family. Departure - Departure Disposition: 01 Home, Self Care Clinical Impression: Dehydration, Fall from bed, initial encounter Condition: Stable Instructions: Falls Preventing, ED Dehydration, ED Mechanical Fall Follow-Up: Miguel Angel Torres MD [Physician No Access] - Discharge Date/Time: 10/15/19 07:05
[2019-10-15] MEDS ORDERED: HYDROmorphone 1 MG/ML CARPUJECT IVP STA (04:41)
[2019-10-15] MEDS ORDERED: ONDANSETRON 4 MG/2 ML VIAL IVP STA (04:41)
[2019-10-15 06:36] VITALS: BP 179/81
== END 2019-10-15 07:05 | disposition home or self-care (01) ==
LOC: EDUNIT# → ED 03:04
DX: E86.0 Dehydration (principal); M50.31 Other cervical disc degeneration, high cervical region; M47.812 Spondylosis without myelopathy or radiculopathy, cervical region; R40.2412 Glasgow coma scale score 13-15, at arrival to emergency department; F20.9 Schizophrenia, unspecified; I10 Essential (primary) hypertension; G40.909 Epilepsy, unspecified, not intractable, without status epilepticus; Z86.73 Personal history of transient ischemic attack (TIA), and cerebral infarction without residual deficits; Z86.79 Personal history of other diseases of the circulatory system; Z79.899 Other long term (current) drug therapy; Z79.82 Long term (current) use of aspirin; Z79.02 Long term (current) use of antithrombotics/antiplatelets; Z98.1 Arthrodesis status; Z91.81 History of falling
CPT/HCPCS: 36415; 51701; 70450; 71045; 72125; 80053; 81003; 83605; 83690; 85025; 87040; 96361; 96374; 96375; 99284; J1170; 81001; 87086

== ENCOUNTER 2019-12-24 18:20 | Emergency (ER) | payer MEDICARE ==
[2019-12-24 19:03] LABS: BASOPHILS # (AUTO) 0.1 10^3/uL (0.0-0.1); BASOPHILS % (AUTO) 0.7 %; EOSINOPHILS # (AUTO) 0.2 10^3/uL (0.0-0.7); EOSINOPHILS % (AUTO) 2.9 %; HGB - HEMOGLOBIN 12.3 g/dL (12.0-16.0); LYMPHOCYTES # (AUTO) 2.3 10^3/uL (1.5-3.5); LYMPHOCYTES % (AUTO) 29.4 %; MEAN CORPUSCULAR HEMOGLOBIN 27.1 pg (27.0-31.0); MEAN CORPUSCULAR HGB CONC 32.8 g/dL (32.0-36.0); MEAN CORPUSCULAR VOLUME 82.6 fL (81.0-99.0); MONOCYTES # (AUTO) 0.6 10^3/uL (0.0-1.0); MONOCYTES % (AUTO) 7.3 %; NEUTROPHILS # (AUTO) 4.5 10^3/uL (1.5-6.6); NEUTROPHILS % (AUTO) 59.2 %; PLT - PLATELET COUNT 254 10^3/uL (130-450); RED BLOOD COUNT 4.54 10^6/uL (4.20-5.40); RED CELL DISTRIBUTION WIDTH 13.2 % (12.0-15.0); WHITE BLOOD COUNT 7.7 x10^3/uL (4.8-10.8)
--- NOTE | 2019-12-24 19:12 | ED Physician Documentation ---
History of Present Illness - Stated complaint Stated Complaint: CP - Chief complaint Chief Complaint: Cardiac - History obtained from History obtained from: Patient (the patient is a 74 y/o f who p/w a cc of anxiety and palpitations. the patient states that she is having a lot of anxiety over the covid 19 and is very concerned that her family could get the covid. she denies chest pain currently and is asking for anxiety medication as well as something for a headache. she denies any recent falls or trauma, denies any hi/si or aud/vis hallucinations. denies any hx of mi/pe/dvt/dissection/aneurysm/pthx/tamponade. 02/2019 patient had an abnormal stress test and the patient reports she went to [facility] cardiology had a negative cardiac cath. patient denies any chest pain currently, denies le swelling, hemoptysis, any exogenous estrogen use, recent stasis or any recent surgery or injuries.) Review of Systems Constitutional: reports: Reviewed and negative Eyes: reports: Reviewed and negative Ears: reports: Reviewed and negative Nose: reports: Reviewed and negative Throat: reports: Reviewed and negative Cardiac: reports: Reviewed and negative Respiratory: reports: Reviewed and negative GI: reports: Reviewed and negative : reports: Reviewed and negative Skin: reports: Reviewed and negative Musculoskeletal: reports: Reviewed and negative Neurologic: reports: Reviewed and negative Psychiatric: reports: Anxiety Endocrine: reports: Reviewed and negative Immunocompromised: reports: Reviewed and negative PD PAST MEDICAL HISTORY - Past Medical History Past Medical History: Yes Cardiovascular: Hypertension, High cholesterol, Angina Respiratory: Sleep apnea Neuro: CVA, TIA, Seizure disorder, Other Endocrine/Autoimmune: None GI: GERD, Hiatal hernia 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 12/22/17 12/24/19 Risperidone [Risperdal] 2 mg PO QPM 04/13/18 12/24/19 levETIRAcetam [Levetiracetam] 1,500 mg PO BID 04/13/18 12/24/19 Amlodipine Besylate [Norvasc] 2.5 mg PO DAILY #30 tablet 02/27/19 12/24/19 LORazepam [Lorazepam] 1 mg PO TID PRN 02/27/19 12/24/19 Sertraline HCl 200 mg PO DAILY 02/27/19 12/24/19 Acetaminophen [Tylenol] 650 mg PO TID #100 tablet 07/27/19 12/24/19 Hydrocodone/Acetaminophen 1 each PO Q6H PRN #25 tablet 07/27/19 12/24/19 [Hydrocodone-Acetamin 5-325 mg] Melatonin 20 mg PO DAILY PM 08/28/19 12/24/19 diphenhydrAMINE [Benadryl] 50 mg PO HS 08/28/19 12/24/19 Atorvastatin Calcium [Lipitor] 80 mg PO QPM #30 tablet 08/29/19 12/24/19 Clopidogrel [Plavix] 75 mg PO DAILY #30 tablet 08/29/19 12/24/19 - Allergies Allergies/Adverse Reactions: Allergies Allergy/AdvReac Type Severity Reaction Status Date / Time NSAIDS (Non-Steroidal Allergy Unknown Verified 12/24/19 19:17 Anti-Inflamma - Social History Does the pt smoke?: No Smoking Status: Never smoker Does the pt drink ETOH?: No Does the pt have substance abuse?: No - Immunizations Immunizations are current?: Yes - POLST Patient has POLST: No POLST Status: Full Code PD ED PE NORMAL - Vitals Vital signs reviewed: Yes - General General: Alert and oriented X 3, No acute distress, Well developed/nourished - HEENT HEENT: Atraumatic, PERRL, Moist mucous membranes, Pharynx benign - Neck Neck: Supple, no meningeal sign, No adenopathy, No JVD - Cardiac Cardiac: RRR, No murmur, Strong equal pulses - Respiratory Respiratory: No respiratory distress, Clear bilaterally - Abdomen Abdomen: Normal bowel sounds, Soft, Non tender, Non distended, No organomegaly - Back Back: No CVA TTP, No spinal TTP - Derm Derm: Normal color, Warm and dry, No rash - Extremities Extremities: No deformity, No tenderness to palpate, Normal ROM s pain, No edema, No calf tenderness / cord - Neuro Neuro: Alert and oriented X 3, manager financial systems 2-12 intact, No motor deficit, No sensory deficit, Normal speech - Psych Psych: Other (anxious appearing) Results - Vitals Vitals: Vital Signs - 24 hr 12/24/19 12/24/19 12/24/19 18:25 18:45 19:14 Temperature 36.5 C 36.5 C Heart Rate 89 77 73 Respiratory 18 16 22 Rate Blood Pressure 144/90 H 150/101 H 150/91 H O2 Saturation 93 96 96 12/24/19 12/24/19 20:04 20:42 Temperature 36.5 C Heart Rate 69 71 Respiratory 20 16 Rate Blood Pressure 161/101 H 179/86 H O2 Saturation 97 97 Oxygen O2 Source Room air - EKG (time done) 18:34 Rate: Other (no stemi) 20:30 Rate: Other (no stemi) - Labs Labs: Laboratory Tests 12/24/19 12/24/19 12/24/19 18:57 18:57 18:57 WBC 7.7 RBC 4.54 Hgb 12.3 Hct 37.5 MCV 82.6 MCH 27.1 MCHC 32.8 RDW 13.2 Plt Count 254 MPV 10.0 Neut # (Auto) 4.5 Lymph # (Auto) 2.3 [place] # (Auto) 0.6 Eos # (Auto) 0.2 Baso # (Auto) 0.1 Absolute Nucleated RBC 0.00 Nucleated RBC % 0.0 Sodium 136 Potassium 3.5 Chloride 103 Carbon Dioxide 25 Anion Gap 8.0 BUN 18 Creatinine 0.8 Estimated GFR (MDRD) 70 L Glucose 97 Calcium 8.7 Total Bilirubin 0.4 AST 17 ALT 20 Alkaline Phosphatase 66 Troponin I High Sens 3.6 Total Protein 6.9 Albumin 3.8 Globulin 3.1 Albumin/Globulin Ratio 1.2 Lipase 32 Urine Color Urine Clarity Urine pH Ur Specific [place] Urine Protein Urine Glucose (UA) Urine Ketones Urine Occult Blood Urine Nitrite Urine Bilirubin Urine Urobilinogen Ur Leukocyte Esterase Urine RBC Urine WBC Ur Squamous Epith Cells Urine Bacteria Ur Microscopic Review Urine Culture Comments 12/24/19 12/24/19 20:05 20:35 WBC RBC Hgb Hct MCV MCH MCHC RDW Plt Count MPV Neut # (Auto) Lymph # (Auto) [place] # (Auto) Eos # (Auto) Baso # (Auto) Absolute Nucleated RBC Nucleated RBC % Sodium Potassium Chloride Carbon Dioxide Anion Gap BUN Creatinine Estimated GFR (MDRD) Glucose Calcium Total Bilirubin AST ALT Alkaline Phosphatase Troponin I High Sens 3.4 Total Protein Albumin Globulin Albumin/Globulin Ratio Lipase Urine Color YELLOW Urine Clarity CLEAR Urine pH 7.0 Ur Specific [place] 1.015 Urine Protein NEGATIVE Urine Glucose (UA) NEGATIVE Urine Ketones NEGATIVE Urine Occult Blood TRACE-INTA Urine Nitrite NEGATIVE Urine Bilirubin NEGATIVE Urine Urobilinogen 0.2 (NORMAL) Ur Leukocyte Esterase SMALL H Urine RBC 0-5 Urine WBC 4-5 Ur Squamous Epith Cells FEW Squamous Urine Bacteria Rare Ur Microscopic Review INDICATED Urine Culture Comments INDICATED PD MEDICAL DECISION MAKING - ED course Complexity details: considered differential (patient c/o anxiety. her ekg is unremarkable x 2 2 hours apart. trop is negative x 2. hx and exam not concerning for pe. no signs of dissection, aneurysm, pthx, tamponade or esophageal rupture. patient had a neg cardiac cath within last 6 months, patient is asking for ativan as well as vicodin. will dc home with close follow up.) Departure - Departure Disposition: Home, Self Care Clinical Impression: Anxiety Chest pain Qualifiers: Chest pain type: unspecified Qualified Code(s): R07.9 - Chest pain, unspecified Condition: Stable Instructions: ED Chest Pain Atypical Unkn Cause Follow-Up: your, doctor [Other] - Tomorrow Discharge Date/Time: 12/24/19 20:49
[2019-12-24 19:17] LABS: ALBUMIN 3.8 g/dL (3.2-5.5); ALBUMIN/GLOBULIN RATIO 1.2 (1.0-2.2); BILIRUBIN,TOTAL 0.4 mg/dL (0.2-1.0); CALCIUM 8.7 mg/dL (8.5-10.3); CREATININE 0.8 mg/dL (0.4-1.0); TOTAL PROTEIN 6.9 g/dL (6.7-8.2)
[2019-12-24] MEDS ORDERED: ACETAMINOPHEN 325 MG TABLET PO STA (19:26)
[2019-12-24] MEDS ORDERED: LORazepam 1 MG TABLET PO STA (19:26)
--- NOTE | 2019-12-24 19:28 | XRAY Report ---
Reason: Chest pain Procedure Date: 12/24/2019 Accession Number: [id number] / [id number] Procedure: XR - Chest 1 View X-Ray CPT Code: 30492 Final Report FULL RESULT: EXAM: CHEST RADIOGRAPHY EXAM DATE: 12/24/2019 07:07 PM. CLINICAL HISTORY: Chest pain. Nausea. Shortness of breath. COMPARISON: CHEST 1 VIEW 10/15/2019 3:20 AM. TECHNIQUE: Upright AP view. FINDINGS: Lungs/Pleura: No focal opacities evident. No peribronchial cuffing or interstitial abnormality. No pleural effusion. No pneumothorax. Mediastinum: Within exam limitations, the cardiomediastinal contour is normal. Minimal aortic arch calcification. Other: No pneumoperitoneum or gaseous distention of the stomach. Anterior plate and screws at the lower cervical spine. Prior distal right clavicle resection. IMPRESSION: Normal single view chest. RADIA
[2019-12-24] MEDS ORDERED: HYDROcod/ACETAM 5/325 MG TABLET PO STA (19:59)
[2019-12-24 20:41] LABS: BILIRUBIN,URINE NEGATIVE (NEGATIVE); GLUCOSE, URINE (UA) NEGATIVE (NEGATIVE); KETONES,URINE (UA) NEGATIVE (NEGATIVE); LEUKOCYTE ESTERASE, URINE SMALL (NEGATIVE); NITRITE,URINE NEGATIVE (NEGATIVE); OCCULT BLOOD,URINE TRACE-INTA (NEGATIVE); PROTEIN,URINE NEGATIVE (NEGATIVE); UROBILINOGEN,URINE 0.2 (NORMAL) E.U./dL (NORMAL)
[2019-12-24 20:42] LABS: CLARITY,URINE CLEAR (CLEAR)
[2019-12-24 20:43] VITALS: BP 179/86
[2019-12-24 20:50] LABS: BACTERIA,URINE Rare /HPF (None Seen); RBC,URINE 0-5 /HPF (0-5); SQUAMOUS EPITHELIAL CELL,UR FEW Squamous (<= Few)
== END 2019-12-24 20:49 | disposition home or self-care (01) ==
LOC: ED 18:20
DX: F41.9 Anxiety disorder, unspecified (principal); R07.9 Chest pain, unspecified; I10 Essential (primary) hypertension
CPT/HCPCS: 36415; 71045; 80053; 81001; 83690; 84484; 85025; 87086; 93005; 99283; 99284; A9270; J8499; 81003

== ENCOUNTER 2021-07-19 14:39 | Outpatient (CLI) | payer MEDICARE | END 2021-07-19 14:40 | disposition critical access hospital (66) | LOC: EMS 14:39 | DX: Z04.3 Encounter for examination and observation following other accident (principal); M54.2 Cervicalgia; M54.9 Dorsalgia, unspecified | CPT/HCPCS: A0425; A0427 ==

== ENCOUNTER 2021-07-19 14:53 | Emergency (ER) | payer MEDICARE ==
[2021-07-19 15:37] LABS: BASOPHILS % (AUTO) 0.3 %; EOSINOPHILS % (AUTO) 0.1 %; HCT - HEMATOCRIT 38.1 % (37.0-47.0); HGB - HEMOGLOBIN 12.2 g/dL (12.0-16.0); LYMPHOCYTES # (AUTO) 0.7 10^3/uL (1.5-3.5); LYMPHOCYTES % (AUTO) 4.6 %; MEAN CORPUSCULAR HEMOGLOBIN 26.3 pg (27.0-31.0); MEAN CORPUSCULAR VOLUME 82.1 fL (81.0-99.0); MEAN PLATELET VOLUME 10.6 fL (7.9-10.8); MONOCYTES # (AUTO) 0.8 10^3/uL (0.0-1.0); MONOCYTES % (AUTO) 5.2 %; NEUTROPHILS % (AUTO) 89.4 %; PLT - PLATELET COUNT 278 10^3/uL (130-450); RED BLOOD COUNT 4.64 10^6/uL (4.20-5.40); RED CELL DISTRIBUTION WIDTH 13.2 % (12.0-15.0); WHITE BLOOD COUNT 14.5 x10^3/uL (4.8-10.8)
--- NOTE | 2021-07-19 15:47 | ED Physician Documentation ---
History of Present Illness - Stated complaint Stated Complaint: GLF - Chief complaint Chief Complaint: Trauma Ch/Bk - History obtained from History obtained from: Patient, EMS - History of Present Illness Timing: Last night Pain level max: 5 Pain level now: 5 - Additonal information Additional information: 75 year old female fell at home last night Patient was unable to get up off of the ground, did finally stand up, fell again and then fell a third time. She states that she did hit her head and has neck and back pain. Also has left shoulder pain.No loss of consciousness. Patient is on Plavix. Patient also complains of a rash underneath her breasts, she normally has a powder for this but ran out. No fevers. No chills. No cough. worse with movement and better with rest. 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 12/22/17 12/24/19 levETIRAcetam [Levetiracetam] 1,500 mg PO BID 04/13/18 12/24/19 risperiDONE [Risperdal] 2 mg PO QPM 04/13/18 12/24/19 Amlodipine Besylate [Norvasc] 2.5 mg PO DAILY #30 tablet 02/27/19 12/24/19 LORazepam [Lorazepam] 1 mg PO TID PRN 02/27/19 12/24/19 Sertraline HCl 200 mg PO DAILY 02/27/19 12/24/19 Acetaminophen [Tylenol] 650 mg PO TID #100 tablet 07/27/19 12/24/19 Hydrocodone/Acetaminophen 1 each PO Q6H PRN #25 tablet 07/27/19 12/24/19 [Hydrocodone-Acetamin 5-325 mg] Melatonin 20 mg PO DAILY PM 08/28/19 12/24/19 diphenhydrAMINE [Benadryl] 50 mg PO HS 08/28/19 12/24/19 Atorvastatin Calcium [Lipitor] 80 mg PO QPM #30 tablet 08/29/19 12/24/19 Clopidogrel [Plavix] 75 mg PO DAILY #30 tablet 08/29/19 12/24/19 Nystatin [Nystop] 1 applic TOP BID #15 gm 07/19/21 - Allergies Allergies/Adverse Reactions: Allergies Allergy/AdvReac Type Severity Reaction Status Date / Time NSAIDS (Non-Steroidal Allergy Unknown Verified 07/19/21 15:10 Anti-Inflamma - Social History Does the pt smoke?: No Smoking Status: Never smoker Does the pt drink ETOH?: No Does the pt have substance abuse?: No - Immunizations Immunizations are current?: Yes - POLST Patient has POLST: No POLST Status: Full Code PD ED PE NORMAL - Vitals Vital signs reviewed: Yes - General General: Alert and oriented X 3, No acute distress - HEENT HEENT: Atraumatic, PERRL, Moist mucous membranes, Pharynx benign - Neck Neck: Supple, no meningeal sign, No bony TTP (mild midline TTP, no step off or deformity. ) - Cardiac Cardiac: RRR, Strong equal pulses - Respiratory Respiratory: No respiratory distress, Clear bilaterally - Abdomen Abdomen: Soft, Non tender, Non distended - Back Back: Other (mild diffuse midline tenderness. no step off or deformity. ) - Derm Derm: Warm and dry, Other (mild abrasions to the B knees. Underneath the B breasts, there is an erythematous rash with satellite lesions. ) - Extremities Extremities: Other (mild TTP over the L shoulder, mild pain with ROM. NVI. no deformity. 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, No motor deficit, No sensory deficit, Normal speech Eye Opening: Spontaneous Motor: Obeys Commands Verbal: Oriented GCS Score: 15 Results - Vitals Vitals: Vital Signs - 24 hr 07/19/21 07/19/21 07/19/21 14:59 16:20 18:52 Temperature 37.2 C 37.1 C Heart Rate 108 H 90 97 Respiratory 22 16 13 Rate Blood Pressure 124/80 146/108 H 156/92 H O2 Saturation 98 99 96 07/19/21 07/19/21 07/19/21 20:53 21:48 22:12 Temperature 36.1 C L Heart Rate 88 97 Respiratory 11 L 18 Rate Blood Pressure 156/92 H 160/94 H O2 Saturation 94 99 Oxygen O2 Source Room air - Labs Labs: Laboratory Tests 07/19/21 07/19/21 07/19/21 15:31 15:31 20:26 WBC 14.5 H RBC 4.64 Hgb 12.2 Hct 38.1 MCV 82.1 MCH 26.3 L MCHC 32.0 RDW 13.2 Plt Count 278 MPV 10.6 Neut # (Auto) 13.0 H Lymph # (Auto) 0.7 L Thurston # (Auto) 0.8 Eos # (Auto) 0.0 Baso # (Auto) 0.0 Absolute Nucleated RBC 0.00 Nucleated RBC % 0.0 Sodium 136 Potassium 3.7 Chloride 101 Carbon Dioxide 23 Anion Gap 12.0 BUN 21 H Creatinine 1.2 H Estimated GFR (MDRD) 44 L Glucose 106 H Calcium 9.2 Total Bilirubin 1.1 H AST 36 ALT 22 Alkaline Phosphatase 65 Total Creatine Kinase 1992 H* 3249 H* Total Protein 7.2 Albumin 4.0 Globulin 3.2 Albumin/Globulin Ratio 1.3 Lipase 44 - Rads (name of study) head CT Radiology: Final report received, EMP read contemporaneously, See rad report (possible small SDH) cervical spine cT Radiology: Final report received, EMP read contemporaneously, See rad report (no acute abnormality) T spine CT Radiology: Final report received, EMP read contemporaneously, See rad report (no acute abnormality) L spine CT Radiology: Final report received, EMP read contemporaneously, See rad report (no acute abnormality) repeat head CT Radiology: Final report received, EMP read contemporaneously, See rad report (no acute abnormality.) L shoulder xray Radiology: Final report received, EMP read contemporaneously, See rad report (no acute abnormality. ) PD MEDICAL DECISION MAKING - ED course Complexity details: reviewed results, re-evaluated patient, considered differential, d/w patient, d/w healthcare economics consultant (Dr. Oreilly, neurosurgery) ED course: 75-year-old female status post a fall last night and then 2 more falls today. She had a potential subdural hemorrhage on head CT, discussed the case with neurosurgery at [facility], they recommended a repeat head CT in 4 to [address] does not show any evidence of hemorrhage. She does have a mild elevation of her CK. No significant renal dysfunction. Tolerating p.o. without difficulty here. Given fluids. We will have her recheck her CK with her primary care provider. Patient is ambulating well here. She does have a walker at home but states that she does not use it, I recommend she use this at home. No other acute injuries. Patient counseled regarding signs and symptoms for which I believe and urgent re-evaluation would be necessary. Patient with good understanding of and agreement to plan and is comfortable going home at this time This document was made in part using voice recognition software. While efforts are made to proofread this document, sound alike and grammatical errors may occur. We will also place the same back on nystatin powder for her candidal infection under her breasts Departure - Departure Disposition: 01 Home, Self Care Clinical Impression: Winsome infection of flexural skin, Abrasion, Elevated creatine kinase level Fall Qualifiers: Encounter type: initial encounter Qualified Code(s): W19.XXXA - Unspecified fal l, initial encounter Condition: Good Instructions: ED Abrasion, ED Candidiasis Cutaneous Follow-Up: Miguel Angel Torres MD [Primary Care Provider] - Within 3 Days Prescriptions: Nystatin [Nystop] 1 applic TOP BID #15 gm Comments: You need to have your creatine kinase rechecked with your doctor within 3 days. Please stop your statin until told to restart it by your doctor. The nystatin powder was sent to the pharmacy for you. Return if you develop worsening symptoms such as worsening headache, muscle aches or other new or worrisome symptoms. Your prescriptions were sent to [facility]. Discharge Date/Time: 07/19/21 22:12
[2021-07-19 15:58] LABS: ALBUMIN/GLOBULIN RATIO 1.3 (1.0-2.2); BILIRUBIN,TOTAL 1.1 mg/dL (0.2-1.0); CALCIUM 9.2 mg/dL (8.5-10.3); CREATININE 1.2 mg/dL (0.4-1.0); POTASSIUM 3.7 mmol/L (3.5-5.0); TOTAL PROTEIN 7.2 g/dL (6.7-8.2)
[2021-07-19] MEDS ORDERED: SODIUM CHLORIDE 0.9% 1,000 ML IV STA ×2 (16:02→17:54)
--- NOTE | 2021-07-19 16:15 | CT Report ---
PROCEDURE: CERVICAL SPINE WO INDICATIONS: fall, neck pain TECHNIQUE: Noncontrast 3 mm thick sections acquired from the skull base to the T4 level. Sagittal and coronal r eformats were then constructed. For radiation dose reduction, the following was used: automated exp osure control, adjustment of mA and/or kV according to patient size. COMPARISON: 10/15/2019. FINDINGS: Image quality: Excellent. Bones: There is prior anterior fusion of cervical spine at C5-C7 levels. Straightening of normal cer vical lordosis is seen. Minimal anterolisthesis of C3 on C4 is also noted. There is no acute fracture or dislocation. No gross hardware loosening or failure. Degenerative endplate changes and bilateral facet hypertrophic changes are noted at C2-3, C3-4, C4-5 and C7-T1 levels. Visualized superior ribs a re intact. Soft tissues: Prevertebral soft tissues are normal in thickness. No paravertebral hematomas. No ap ical pneumothoraces. IMPRESSION: 1. No acute cervical spine fracture or dislocation. 2. Prior anterior fusion at C5-C7 levels unchanged from prior study. No gross hardware complication. 3. Degenerative disc disease throughout cervical spine more prominent at C4-5 and C7-T1 levels. No si gnificant changes from previous study. Reviewed by: Garrison Bill MD on 07/19/2021 4:14 PM PDT Approved by: Garrison Bill MD on 07/19/2021 4:14 PM PDT Station ID: [id number]
--- NOTE | 2021-07-19 16:20 | CT Report ---
PROCEDURE: HEAD WO INDICATIONS: Fall, head pain TECHNIQUE: Noncontrast 4.5 mm thick angled axial sections acquired from the foramen magnum to the vertex. For r adiation dose reduction, the following was used: automated exposure control, adjustment of mA and/or kV according to patient size. COMPARISON: October 15, 2019. FINDINGS: BRAIN PARENCHYMA: No acute cortical based (large territory) infarction. Hyperdense extra-axial focus in the right parietal region, measuring 7.2 mm in width (series 4, image 24). White matter hypoatten uation, which may represent the sequelae of microvascular ischemic disease. The density in the larger dural venous sinuses is grossly normal. VENTRICLES: Normal in size, shape, and position. BONES/SINUSES: The skull base and calvarium demonstrate no acute abnormality. Redemonstrated right pa rietal craniotomy changes. The paranasal sinuses and mastoid air cells are well aerated. IMPRESSION: 1.Small right parietal subdural hematoma underlying the patient's craniotomy. Findings were discussed with ordering physician at time of dictation. Reviewed by: Hayder Darling MD on 07/19/2021 4:19 PM PDT Approved by: Hayder Darling MD on 07/19/2021 4:19 PM PDT Station ID: [id number]
--- NOTE | 2021-07-19 16:22 | CT Report ---
PROCEDURE: LUMBAR SPINE WO INDICATIONS: fall, back pain TECHNIQUE: Noncontrast 3 mm thick sections acquired from the T12 level to the sacrum. Sagittal and coronal refo rmats were constructed. For radiation dose reduction, the following was used: automated exposure co ntrol, adjustment of mA and/or kV according to patient size. COMPARISON: CT of abdomen and pelvis dated 02/08/2019. FINDINGS: Image quality: Excellent. Bones: There is normal bony alignment. No acute vertebral body compression fractures. No suspiciou s lytic or blastic bony lesions. Central spinal caliber is of normal overall caliber. No pars defec ts. T12-L1: Normal in appearance. L1-L2: Mild degenerative endplate changes are noted. No significant disc bulge, canal stenosis or neural foraminal narrowing. L2-L3: Loss of disc height, vacuum disc phenomenon and degenerative endplate changes are noted wit h anterior disc osteophyte complex formation. There is suggestion of mild broad-based disc bulge and bilateral facet arthrosis with mild central canal stenosis and mild left-sided neural foraminal narro wing. L3-L4: Degenerative endplate changes are seen. Broad-based is bulge and bilateral facet arthrosis w ith hypertrophy of ligamentum flavum is noted causing [id number] central canal stenosis and mil d bilateral neural foraminal narrowing. L4-L5: Degenerative endplate changes are noted. Broad-based disc bulge and bilateral facet arthrosi s is seen causing moderate central canal stenosis and bilateral neural foraminal narrowing. L5-S1: Vacuum disc phenomenon, loss of disc height and extensive degenerative endplate changes are seen. Broad-based, more right-sided disc bulge and bilateral facet arthrosis is seen causing mild to moderate central canal stenosis and moderate to severe right-sided neural foraminal narrowing. Soft tissues: No retroperitoneal masses or hematomas. Visualized aorta is normal in caliber. Nonob structing stones in posterior cortex of mid to lower pole left kidney is seen. IMPRESSION: 1. No acute lumbar spine fracture or dislocation. 2. Degenerative endplate changes and bilateral facet arthrosis throughout lumbar spine as described i n detail above. Reviewed by: Garrison Bill MD on 07/19/2021 4:21 PM PDT Approved by: Garrison Bill MD on 07/19/2021 4:21 PM PDT Station ID: [id number]
--- NOTE | 2021-07-19 16:25 | CT Report ---
PROCEDURE: THORACIC SPINE WO INDICATIONS: fall, back pain TECHNIQUE: Noncontrast 3 mm thick sections acquired through the region of interest in the thoracic spine. Sagit sav[place] and coronal reformats were then constructed. For radiation dose reduction, the following was used : automated exposure control, adjustment of mA and/or kV according to patient size. COMPARISON: None. FINDINGS: Image quality: Excellent. Bones: There is normal overall bony alignment. Minimal anterolisthesis at T3 on T4 and T4 and T5 is seen. Degenerative endplate changes and loss of disc height throughout thoracic spine is seen more pr ominent at T6-7 and T7-8 levels. No acute vertebral body compression fractures. No suspicious scler otic or lytic bony lesions. Central spinal canal is of normal overall caliber. Soft tissues: No paravertebral masses or hematomas. Visualized posteromedial lungs appear clear. IMPRESSION: 1. No acute cervical spine fracture or dislocation. 2. Degenerative disc disease throughout cervical spine no prominent in mid to lower cervical spine as above. No significant central canal stenosis. 3. No significant paraspinous soft tissue abnormality. Reviewed by: Garrison Bill MD on 07/19/2021 4:23 PM PDT Approved by: Garrison Bill MD on 07/19/2021 4:23 PM PDT Station ID: [id number]
--- NOTE | 2021-07-19 16:25 | XRAY Report ---
PROCEDURE: Shoulder 3 View LT INDICATIONS: L shoulder pain TECHNIQUE: 3 views of the shoulder were acquired. COMPARISON: None. FINDINGS: Bones: No fractures or dislocations. Moderate acromioclavicular joint and glenohumeral joint osteoar thritic changes are seen. No suspicious bony lesions. Visualized ribs appear intact. Soft tissues: No suspicious soft tissue calcifications. IMPRESSION: Moderate left shoulder joint osteoarthritis. No acute fracture or dislocation. No gross soft tissue abnormality. Reviewed by: Garrison Bill MD on 07/19/2021 4:24 PM PDT Approved by: Garrison Bill MD on 07/19/2021 4:24 PM PDT Station ID: [id number]
[2021-07-19] MEDS ORDERED: HYDROcod/ACETAM 5/325 MG TABLET PO STA (17:54)
--- NOTE | 2021-07-19 20:50 | CT Report ---
PROCEDURE: HEAD WO INDICATIONS: possible subdural on earlier CT TECHNIQUE: Noncontrast 4.5 mm thick angled axial sections acquired from the foramen magnum to the vertex. For r adiation dose reduction, the following was used: automated exposure control, adjustment of mA and/or kV according to patient size. COMPARISON: 07/19/2021 at 1557 hours. FINDINGS: Image quality: Excellent. CSF spaces: Basal cisterns are patent. No extra-axial fluid collections. Ventricles are normal in size and shape. Brain: No midline shift. No intracranial masses or hemorrhage. Penn-white matter interface is norm al. Skull and face: Postsurgical changes compatible prior right parietal craniotomy are stable. Visualize d facial bones are intact, without suspicious lesions. Sinuses: Visualized sinuses and mastoids are clear. IMPRESSION: . 1. No acute intracranial disease process. 2. No intracranial hemorrhage. Reviewed by: Rosanna Cherry MD, PhD on 07/19/2021 8:49 PM PDT Approved by: Rosanna Cherry MD, PhD on 07/19/2021 8:49 PM PDT Station ID: [id number]
[2021-07-19 21:49] VITALS: BP 160/94
== END 2021-07-19 22:12 | disposition home or self-care (01) ==
LOC: EDUNIT# → ED 14:53
DX: S09.90XA Unspecified injury of head, initial encounter (principal); S80.212A Abrasion, left knee, initial encounter; S80.211A Abrasion, right knee, initial encounter; W18.30XA Fall on same level, unspecified, initial encounter; Y92.009 Unspecified place in unspecified non-institutional (private) residence as the place of occurrence of the external cause; Z91.81 History of falling; B37.2 Candidiasis of skin and nail; R79.89 Other specified abnormal findings of blood chemistry; M50.321 Other cervical disc degeneration at C4-C5 level; M47.816 Spondylosis without myelopathy or radiculopathy, lumbar region; M47.814 Spondylosis without myelopathy or radiculopathy, thoracic region; M19.012 Primary osteoarthritis, left shoulder; I10 Essential (primary) hypertension; Z86.73 Personal history of transient ischemic attack (TIA), and cerebral infarction without residual deficits; Z79.02 Long term (current) use of antithrombotics/antiplatelets; Z79.82 Long term (current) use of aspirin
CPT/HCPCS: 36415; 70450; 72125; 72128; 72131; 73030; 80053; 82550; 83690; 85025; 99284; A9270

== ENCOUNTER 2022-07-03 11:27 | Outpatient (CLI) | payer MEDICARE | END 2022-07-03 11:28 | disposition critical access hospital (66) | LOC: EMS 11:27 | DX: R29.810 Facial weakness (principal); R53.1 Weakness; R51.9 Headache, unspecified; R47.81 Slurred speech | CPT/HCPCS: A0425; A0427 ==

== ENCOUNTER 2022-07-03 11:40 | Emergency (ER) | payer MEDICARE ==
[2022-07-03] MEDS ORDERED: MORPHINE 2 MG/ML CARPUJECT IVP STA ×2 (11:42→14:00)
--- NOTE | 2022-07-03 11:44 | ED Physician Documentation ---
PD HPI FOCAL NEURO - Stated complaint Stated Complaint: POSS STROKE - History obtained from History obtained from: Patient, EMS - Additional information Additional information: 76-year-old woman with history of stroke she is on dual antiplatelet therapy with both Plavix and aspirin. At 1020 this morning she developed headache and weakness on the left side. Note made that prior H&P from August 2019 notes that she has residual left-sided deficits from prior stroke. She notes facial droop on the left side and weakness in the left leg worse than her usual. Also weakness in the left arm. Prehospital blood sugar was 130. 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 12/22/17 07/03/22 levETIRAcetam [Levetiracetam] 1,500 mg PO BID 04/13/18 07/03/22 risperiDONE [Risperdal] 2 mg PO QPM 04/13/18 07/03/22 Amlodipine Besylate [Norvasc] 2.5 mg PO DAILY #30 tablet 02/27/19 07/03/22 LORazepam [Lorazepam] 1 mg PO TID PRN 02/27/19 12/24/19 Sertraline HCl 200 mg PO DAILY 02/27/19 07/03/22 Acetaminophen [Tylenol] 650 mg PO TID #100 tablet 07/27/19 12/24/19 Hydrocodone/Acetaminophen 1 each PO Q6H PRN #25 tablet 07/27/19 12/24/19 [Hydrocodone-Acetamin 5-325 mg] Melatonin 20 mg PO DAILY PM 08/28/19 07/03/22 diphenhydrAMINE [Benadryl] 50 mg PO HS 08/28/19 07/03/22 Atorvastatin Calcium [Lipitor] 80 mg PO QPM #30 tablet 08/29/19 12/24/19 Clopidogrel [Plavix] 75 mg PO DAILY #30 tablet 08/29/19 07/03/22 Nystatin [Nystop] 1 applic TOP BID #15 gm 07/19/21 HYDROcod/ACETAM 5/325 [[place] 5/325] 1 - 2 tab PO Q6H PRN #7 tablet 07/03/22 - Allergies Allergies/Adverse Reactions: Allergies Allergy/AdvReac Type Severity Reaction Status Date / Time NSAIDS (Non-Steroidal Allergy Unknown Verified 07/03/22 11:43 Anti-Inflamma - Social History Does the pt smoke?: No Smoking Status: Never smoker Does the pt drink ETOH?: No Does the pt have substance abuse?: No - Immunizations Immunizations are current?: Yes - POLST Patient has POLST: No POLST Status: Full Code PD ED PE NORMAL - Vitals Vital signs reviewed: Yes - General General: Alert and oriented X 3, No acute distress - HEENT HEENT: PERRL, EOMI, Other (She does have a left facial droop) - Neck Neck: Supple, no meningeal sign, No bony TTP - Cardiac Cardiac: RRR, No murmur - Respiratory Respiratory: No respiratory distress, Clear bilaterally - Abdomen Abdomen: Normal bowel sounds, Soft, Non tender - Back Back: No CVA TTP, No spinal TTP - Derm Derm: Normal color, Warm and dry - Extremities Extremities: No edema, No calf tenderness / cord - Neuro Neuro: Alert and oriented X 3, Normal speech Eye Opening: Spontaneous Motor: Obeys Commands Verbal: Oriented GCS Score: 15 NIHSS - Level of Consciousness Level of consciousness: (0) Alert, Keenly responsive LOC Questions: (0) Answers both Q's correct LOC Commands: (0) Performs both correctly - Gaze Best Gaze: (0) Normal - Visual Visual: (0) No loss - Facial Palsy Facial Palsy: (0) Normal, symmetrical movement - Motor Arms (both separate) Motor Arm (right): (0) No drift Motor Arm (left): (1) Drift - Motor Legs (both separate) Motor Leg (right): (0) No drift Motor Leg (left): (1) Drift - Limb Ataxia Limb Ataxia: (0) Absent - Sensory Sensory: (0) Normal - Best Language Best Language: (0) No aphasia - Dysarthria Dysarthria: (0) Normal - Extinction and Inattention (formally neg Extinction and inattention: (0) No abnormality - Total Score/Results Total Score/Result: 2 Results - Vitals Vitals: Vital Signs - 24 hr 07/03/22 07/03/22 07/03/22 11:43 12:33 13:39 Temperature 36.3 C L Heart Rate 75 68 64 Respiratory 16 14 12 Rate Blood Pressure 155/100 H 159/91 H 154/76 H O2 Saturation 96 95 96 Oxygen O2 Source Room air - EKG (time done) 1241 Rate: Rate (enter#) (70) Rhythm: NSR [place]: Normal Intervals: Normal [place] QRS: Normal Ischemia: Normal ST segments - Labs Labs: Laboratory Tests 07/03/22 07/03/22 07/03/22 12:06 12:06 12:06 WBC 6.7 RBC 4.65 Hgb 12.7 Hct 37.8 MCV 81.3 MCH 27.3 MCHC 33.6 RDW 14.0 Plt Count 279 MPV 9.7 Neut # (Auto) 4.6 Lymph # (Auto) 1.4 L [place] # (Auto) 0.5 Eos # (Auto) 0.1 Baso # (Auto) 0.0 Absolute Nucleated RBC 0.00 Nucleated RBC % 0.0 PT 12.3 INR 1.1 Sodium 134 L Potassium 3.9 Chloride 101 Carbon Dioxide 25 Anion Gap 8.0 BUN 8 Creatinine 0.8 Estimated GFR (MDRD) 70 L Glucose 117 H Calcium 8.7 Nasal Adenovirus (PCR) Nasal B. parapertussis DNA (PCR) Nasal Coronavir 229E PCR Nasal Coronavir HKU1 PCR Nasal Coronavir NL63 PCR Nasal Coronavir OC43 PCR Nasal Enterovir/Rhinovir PCR Nasal Influenza B PCR Nasal Influenza A PCR Nasal Parainfluen 1 PCR Nasal Parainfluen 2 PCR Nasal Parainfluen 3 PCR Nasal Parainfluen 4 PCR Nasal RSV (PCR) Nasal B.pertussis DNA PCR Nasal C.pneumoniae (PCR) [place] Human Metapneumo PCR Nasal M.pneumoniae (PCR) Nasal SARS-CoV-2 (PCR) 07/03/22 12:40 WBC RBC Hgb Hct MCV MCH MCHC RDW Plt Count MPV Neut # (Auto) Lymph # (Auto) [place] # (Auto) Eos # (Auto) Baso # (Auto) Absolute Nucleated RBC Nucleated RBC % PT INR Sodium Potassium Chloride Carbon Dioxide Anion Gap BUN Creatinine Estimated GFR (MDRD) Glucose Calcium Nasal Adenovirus (PCR) NOT DETECTED Nasal B. parapertussis DNA (PCR) NOT DETECTED Nasal Coronavir 229E PCR NOT DETECTED Nasal Coronavir HKU1 PCR NOT DETECTED Nasal Coronavir NL63 PCR NOT DETECTED Nasal Coronavir OC43 PCR NOT DETECTED Nasal Enterovir/Rhinovir PCR NOT DETECTED Nasal Influenza B PCR NOT DETECTED Nasal Influenza A PCR NOT DETECTED Nasal Parainfluen 1 PCR NOT DETECTED Nasal Parainfluen 2 PCR NOT DETECTED Nasal Parainfluen 3 PCR NOT DETECTED Nasal Parainfluen 4 PCR NOT DETECTED Nasal RSV (PCR) NOT DETECTED Nasal B.pertussis DNA PCR NOT DETECTED Nasal C.pneumoniae (PCR) NOT DETECTED [place] Human Metapneumo PCR NOT DETECTED Nasal M.pneumoniae (PCR) NOT DETECTED Nasal SARS-CoV-2 (PCR) NOT DETECTED - Rads (name of study) CT of the head and CT angiography of the head/neck Radiology: EMP read contemporaneously (CT of the head and CT angiography of the head and neck showing mild to moderate atrophy and chronic microvascular changes but without significant vascular occlusion or disease.) PD MEDICAL DECISION MAKING - ED course ED course: 76-year-old woman brought in as a stroke code with symptoms starting at 1020 this morning and she has a history of stroke on dual antiplatelet therapy. She was examined briefly and then taken over to CT, the initial Noncon CT showed no bleeding. She was then evaluated by Dr. Henning of teleneurology who noted that the patient has a history of craniotomy and mild symptoms and recommended against tPA. Alternative diagnoses also considered migrainous etiology versus postseizure although she had no seizure activity today. Agrees with MRI but again no tPA now. The MRI was subsequently negative for acute pathology ruling out stroke. Her symptoms improved here, given the prominent headache presume this is migrainous. Her headache got a lot better but was not completely gone on discharge but the facial droop had resolved. Departure - Departure Disposition: 01 Home, Self Care Clinical Impression: Headache, Stroke-like symptoms Condition: Good Record reviewed to determine appropriate education?: Yes Instructions: ED Transient Ischemic Attack Prescriptions: HYDROcod/ACETAM 5/325 [[place] 5/325] 1 - 2 tab PO Q6H PRN #7 tablet PRN Reason: Pain Comments: I sent your prescription electronically to [facility] in [place]. Today you were seen for strokelike symptoms associated with headache. Thankfully both CT, CT angiography, and MRI are negative ruling out stroke. So this could be migrainous or related to a very minor seizure. Continue current medications. For the headache I sent a few pain meds to [facility]. Return if worse. Follow-up with your primary care physician, next available appointment.
--- NOTE | 2022-07-03 12:12 | CT Report ---
PROCEDURE: Head W/O Stroke Protocol INDICATIONS: Stroke symptoms with left-sided deficits TECHNIQUE: Noncontrast 4.5 mm thick angled axial sections acquired from the foramen magnum to the vertex, with c oronal reformats. For radiation dose reduction, the following was used: automated exposure control, adjustment of mA and/or kV according to patient size. COMPARISON: CTA head and neck 07/03/2022, CTA head 07/19/2021 FINDINGS: Image quality: Excellent. The ventricular system and cortical sulci demonstrate atrophy, consistent for patient's stated age. There are areas of hypodensity in the periventricular and subcortical white matter. There is no acut e intra or extra-axial fluid collection. No acute hemorrhage, mass lesion or midline shift. Brainst em is unremarkable. Globes are symmetrical. Sinuses are aerated. Osseous structures are intact. IMPRESSION: 1. No acute intracranial process. 2. Mild atrophy and chronic microvascular ischemic changes. This study fulfills neurological imaging criteria for inclusion or exclusion of acute stroke therapie s based on available published neurological imaging guidelines. Reviewed by: Ngoc Rois MD on 07/03/2022 12:10 PM PDT Approved by: Ngoc Rios MD on 07/03/2022 12:10 PM PDT Station ID: [id number]
[2022-07-03 12:13] LABS: BASOPHILS % (AUTO) 0.4 %; EOSINOPHILS # (AUTO) 0.1 10^3/uL (0.0-0.7); EOSINOPHILS % (AUTO) 1.9 %; HCT - HEMATOCRIT 37.8 % (37.0-47.0); HGB - HEMOGLOBIN 12.7 g/dL (12.0-16.0); LYMPHOCYTES # (AUTO) 1.4 10^3/uL (1.5-3.5); LYMPHOCYTES % (AUTO) 20.8 %; MEAN CORPUSCULAR HEMOGLOBIN 27.3 pg (27.0-31.0); MEAN CORPUSCULAR HGB CONC 33.6 g/dL (32.0-36.0); MEAN CORPUSCULAR VOLUME 81.3 fL (81.0-99.0); MEAN PLATELET VOLUME 9.7 fL (7.9-10.8); MONOCYTES # (AUTO) 0.5 10^3/uL (0.0-1.0); MONOCYTES % (AUTO) 7.2 %; NEUTROPHILS # (AUTO) 4.6 10^3/uL (1.5-6.6); NEUTROPHILS % (AUTO) 69.3 %; PLT - PLATELET COUNT 279 10^3/uL (130-450); RED BLOOD COUNT 4.65 10^6/uL (4.20-5.40); WHITE BLOOD COUNT 6.7 x10^3/uL (4.8-10.8)
--- NOTE | 2022-07-03 12:15 | CT Report ---
PROCEDURE: ANGIO HEAD W/WO INDICATIONS: Stroke symptoms with left-sided deficits CONTRAST: IV CONTRAST: Optiray 320 ml: 100 PO CONTRAST: *NO PO CONTRAST TECHNIQUE: Precontrast 4.5 mm thick angled axial sections acquired from the foramen magnum to the vertex. Afte r the administration of intravenous contrast, 1 mm thick sections acquired through the [place] of [place] is. Postcontrast 4.5 mm thick sections then re-acquired from the foramen magnum to the vertex. 3-di mensional kpbdvft-ldcawladd-iwvhkgmnab (MIP) and/or volume rendering reformats were acquired of the c entral intracranial vasculature. For radiation dose reduction, the following was used: automated ex posure control, adjustment of mA and/or kV according to patient size. COMPARISON: CTA head and neck 07/03/2022, 08/28/2019, CTA head 07/19/2021 FINDINGS: Image quality: Excellent. Anterior circulation: Intracranial internal carotid arteries are normal in size and flow. The flow within the paired anterior cerebral arteries is normal and symmetric. The flow within the middle cer ebral arteries is normal and symmetric. The anterior communicating artery is seen. No aneurysms are seen. Posterior circulation: Visualized portions of the vertebral arteries demonstrate normal caliber, and join to form a normal appearing basilar artery. Flow within the posterior cerebral arteries is norm al and symmetric. No aneurysms are seen. The ventricular system and cortical sulci demonstrate atrophy, consistent for patient's stated age. There are areas of hypodensity in the periventricular and subcortical white matter. There is no acut e intra or extra-axial fluid collection. No acute hemorrhage, mass lesion or midline shift. Brainst em is unremarkable. Globes are symmetrical. Sinuses are aerated. Osseous structures are intact. IMPRESSION: 1. No acute intracranial process. 2. Mild to moderate atrophy and chronic microvascular ischemic changes. 3. No areas of hemodynamically significant stenosis, vascular occlusion or aneurysmal dilation within the anterior or posterior circulation. Reviewed by: Ngoc Rios MD on 07/03/2022 12:13 PM PDT Approved by: Ngoc Rios MD on 07/03/2022 12:13 PM PDT Station ID: [id number]
[2022-07-03 12:18] LABS: INR 1.1 (0.8-1.2); PT - PROTHROMBIN TIME 12.3 secs (9.9-12.6)
[2022-07-03 12:20] LABS: CALCIUM 8.7 mg/dL (8.5-10.3); CREATININE 0.8 mg/dL (0.4-1.0); POTASSIUM 3.9 mmol/L (3.5-5.0)
--- OUTSIDE RECORDS SUMMARY | 2022-07-03 12:20 | EXTERNAL MEDICAL SUMMARY RPT | Continuity of Care Document ---
:1945 Author Organization [facility] Address [address] [place] [address] Phone Allergies and Intolerances date description facility type (no date) [facility] (unknown) Encounters No information. Functional Status No information. Immunizations No information. Medications date description facility +0000 Lorazepam 1 MG Oral Tablet [facility] [id number] Risperidone 2 MG Oral Tablet [facility] ospital Problems No information. Procedures date description facility [id number] Diagnosis [facility] [id number] Finding [facility] [id number] General Physician [facility] Results/Labs No information. Social History date description facility (no date) Never smoked tobacco (finding) [facility] Vital Signs No information.
[2022-07-03] MEDS ORDERED: DROPERIDOL 5 MG/2 ML VIAL IVP STA (12:24)
--- NOTE | 2022-07-03 12:24 | CT Report ---
PROCEDURE: ANGIO NECK W INDICATIONS: Stroke symptoms with left-sided deficits CONTRAST: IV CONTRAST: Optiray 320 ml: 100 PO CONTRAST: *NO PO CONTRAST TECHNIQUE: After the administration of intravenous contrast, 1.5 mm axial sections acquired from the aortic arch to the [place] of [place]. Coronal 3-D maximum intensity projection (MIP) and/or volume rendering ref ormats were then performed. For radiation dose reduction, the following was used: automated exposur e control, adjustment of mA and/or kV according to patient size. COMPARISON: CT head, CTA head and neck 07/03/2022, 08/28/2019 FINDINGS: Image quality: Excellent. The origins of the left and right common, internal and external carotid arteries demonstrate no areas of hemodynamically significant stenosis, vascular occlusion or aneurysmal dilation. There is a left vertebral artery dominance. Origins of the vertebral arteries are markedly obscured secondary to joey fact and cannot be assessed. 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 Limited, visualized portions of the subclavian vasculature are unremarkable. IMPRESSION: Origins of the vertebral arteries are secured secondary to artifact and cannot be evaluated. No hemodynamically significant stenosis within the internal carotid arteries. The estimate of stenosis included in the report of the imaging study was calculated using the NASCET method CLINICAL RECOMMENDATION STATEMENTS: In patients <35 years with an ITN detected on CT, MRI, or extrathyroidal ultrasound, the Committee re commends further evaluation with dedicated thyroid ultrasound if the nodule is "e1 cm and has no susp icious imaging features, and if the patient has normal life expectancy. In patients "e35 years with an ITN detected on CT, MRI, or extrathyroidal ultrasound, the Committee r ecommends further evaluation with dedicated thyroid ultrasound if the nodule is "e1.5 cm and has no s uspicious imaging features, and if the patient has normal life expectancy. (ACR, 2014) Reviewed by: Ngoc Rios MD on 07/03/2022 12:23 PM PDT Approved by: Ngoc Rios MD on 07/03/2022 12:23 PM PDT Station ID: [id number]
[2022-07-03 13:44] LABS: B. PARAPERTUSSIS- RESP PCR PAN NOT DETECTED; B. PERTUSSIS- RESP PCR PANEL NOT DETECTED; C. PNEUMONIAE- RESP PCR PANEL NOT DETECTED; CORONAVIRUS 229E-RESP PCR NOT DETECTED; CORONAVIRUS HKU1-RESP PCR NOT DETECTED; CORONAVIRUS NL63-RESP PCR NOT DETECTED; CORONAVIRUS OC43-RESP PCR NOT DETECTED; HUMAN METAPNEUMOVIRUS NOT DETECTED; INFLUENZA A- RESP PCR PANEL NOT DETECTED; INFLUENZA B - RESP PCR PANEL NOT DETECTED; M. PNEUMONIAE- RESP PCR PANEL NOT DETECTED; PARAINFLUENZA VIRUS 1 NOT DETECTED; PARAINFLUENZA VIRUS 2 NOT DETECTED; PARAINFLUENZA VIRUS 3 NOT DETECTED; PARAINFLUENZA VIRUS 4 NOT DETECTED; RHINOVIRUS/ENTEROVIRUS NOT DETECTED; RSV- RESP PCR PANEL NOT DETECTED; SARS-CoV-2 -RESP PCR PANEL NOT DETECTED
--- NOTE | 2022-07-03 13:53 | MRI Report ---
PROCEDURE: Brain W/O INDICATIONS: stroke sx TECHNIQUE: Noncontrast axial T1 spin echo, axial T2 fast spin echo, sagittal and axial FLAIR, coronal T2 fast sp in echo, axial gradient echo, axial diffusion and ADC through the brain. COMPARISON: CT head, CTA head and neck 07/03/2022, 08/28/2019. FINDINGS: Image quality: Excellent. The ventricular system and cortical sulci demonstrate atrophy, consistent for patient's stated age. There are areas of hyperintense T2/FLAIR signal in the periventricular and subcortical white matter. There is no acute intra or extra-axial fluid collection. No acute hemorrhage, mass lesion or midlin e shift. Brainstem is unremarkable. There are no areas of restricted diffusion. Globes are symmetr ical. Sinuses are aerated. Osseous structures are intact. IMPRESSION: 1. No acute intracranial process. 2. Mild to moderate atrophy and chronic microvascular ischemic changes. Reviewed by: Ngoc Rios MD on 07/03/2022 1:52 PM PDT Approved by: Ngoc Rios MD on 07/03/2022 1:52 PM PDT Station ID: [id number]
[2022-07-03] MEDS ORDERED: SUMAtriptan 6 MG/0.5 ML VIAL SUBQ STA (14:00)
[2022-07-03 14:58] VITALS: BP 154/77
== END 2022-07-03 15:04 | disposition home or self-care (01) ==
LOC: EDUNIT# → ED 11:40
DX: R51.9 Headache, unspecified (principal); R29.898 Other symptoms and signs involving the musculoskeletal system; R29.810 Facial weakness; Z20.822 Contact with and (suspected) exposure to COVID-19; Z79.02 Long term (current) use of antithrombotics/antiplatelets
CPT/HCPCS: 36415; 70450; 70496; 70498; 70551; 80048; 85025; 85610; 87633; 93005; 96372; 96374; 96375; 96376; 99283; 99284; Q9967

== ENCOUNTER 2022-08-18 13:32 | Emergency (ER) | payer MEDICARE ==
--- OUTSIDE RECORDS SUMMARY | 2022-08-18 13:46 | EXTERNAL MEDICAL SUMMARY RPT | Continuity of Care Document ---
:1945 Author Organization [place] Address [address] [place] [address] Phone Care Team Providers Name Role Phone Miguel Angel Torres Unavailable Unavailable Omar Enrique Unavailable Unavailable Allergies and Intolerances date description facility type (no date) [facility] (unknown) Encounters No information. Functional Status No information. Immunizations No information. Medications date description facility [id number] [facility] [id number] [facility] [id number] [facility] [id number] [facility] [id number] [facility] [id number] [facility] Problems No information. Procedures No information. Results/Labs test date author facility value unit interpret ation Result panel 1 (unknown) (no (unknown) (unknown) (no value) (units (unk nown) date) unknown) (unknown) (no (unknown) (unknown) 08/15/22 (units (unkno wn) date) unknown) (unknown) (no (unknown) (unknown) [address] (units (unkno wn) date) unknown) (unknown) (no (unknown) (unknown) Age/Sex: 77 / F (units (unknown) date) Date of Service: unknown) (unknown) (no (unknown) (unknown) Allergies (units (unkn own) date) unknown) (unknown) (no (unknown) (unknown) [place], [place] (units ( unknown) date) [id number] unknown) (unknown) (no (unknown) (unknown) Anemia (units (unkno wn) date) unknown) (unknown) (no (unknown) (unknown) Anxiety and (units (un known) date) depression unknown) (unknown) (no (unknown) (unknown) Attending Dr: (units ( unknown) date) Omar Sotelo MD unknown) (unknown) (no (unknown) (unknown) Branch: currently (units (unknown) date) and sleep walking unknown) Sleep Walking Branch: currently (unknown) (no (unknown) (unknown) Branch: never, (units (unknown) date) reports caffeine unknown) Sleep Caffeine Branch: 1-5 servings a day, (unknown) (no (unknown) (unknown) Brother Heart (units ( unknown) date) disease unknown) (unknown) (no (unknown) (unknown) CVA (cerebral (units ( unknown) date) vascular accident) unknown) (unknown) (no (unknown) (unknown) Chief Complaint: (units (unknown) date) Patient with unknown) complaint of snoring, daytime sleepiness and night (unknown) (no (unknown) (unknown) Chronic pain (units (u nknown) date) unknown) (unknown) (no (unknown) (unknown) Condition is (units (u nknown) date) Onset: Chronic and unknown) ongoing (unknown) (no (unknown) (unknown) : 1945 (units (unknown) date) Acct:[id number] unknown) (unknown) (no (unknown) (unknown) Daughter (units (unkno wn) date) Hypertension unknown) (unknown) (no (unknown) (unknown) Dept at (units (unkno wn) date) . unknown) (unknown) (no (unknown) (unknown) Details: (units (unkno wn) date) unknown) (unknown) (no (unknown) (unknown) Dizziness (units (unkn own) date) unknown) (unknown) (no (unknown) (unknown) Documented By: (units (unknown) date) Omar Sotelo MD unknown) 08/15/22 1305 (unknown) (no (unknown) (unknown) Draft (units (unkno wn) date) unknown) (unknown) (no (unknown) (unknown) Edema (units (unkno wn) date) unknown) (unknown) (no (unknown) (unknown) Epilepsy (units (unkno wn) date) unknown) (unknown) (no (unknown) (unknown) Exacerbating/[place]amonte (units (unknown) date) viating Factors unknown) (unknown) (no (unknown) (unknown) Family History (units (unknown) date) (Reviewed 01/12/20 unknown) @ 13:00 by Estiven Rivera MD) (unknown) (no (unknown) (unknown) Fusion of spine, (units (unknown) date) cervical region unknown) (-2008) (unknown) (no (unknown) (unknown) Generalized (units (un known) date) anxiety disorder unknown) (unknown) (no (unknown) (unknown) H/O craniotomy (units (unknown) date) () unknown) (unknown) (no (unknown) (unknown) H/O: hysterectomy (units (unknown) date) () unknown) (unknown) (no (unknown) (unknown) HPI Sleep New (units ( unknown) date) Patient unknown) (unknown) (no (unknown) (unknown) HPI (units (unkno wn) date) unknown) (unknown) (no (unknown) (unknown) High cholesterol (units (unknown) date) unknown) (unknown) (no (unknown) (unknown) History of CVA (units (unknown) date) with residual unknown) deficit (unknown) (no (unknown) (unknown) History of (units (unk nown) date) posttraumatic unknown) stress disorder (PTSD) (unknown) (no (unknown) (unknown) Hx of (units (unkno wn) date) cholecystectomy unknown) () (unknown) (no (unknown) (unknown) Intake (units (unkno wn) date) unknown) (unknown) (no (unknown) (unknown) Loc: SLEEP (units (unk nown) date) unknown) (unknown) (no (unknown) (unknown) Major depressive (units (unknown) date) disorder, unknown) recurrent episode, severe with mood-incongruent (unknown) (no (unknown) (unknown) Medical History (units (unknown) date) (Reviewed 01/12/20 unknown) @ 13:00 by Estiven Rivera MD) (unknown) (no (unknown) (unknown) Mother (units (unkno wn) date) Hypertension unknown) (unknown) (no (unknown) (unknown) PFSH (units (unkno wn) date) unknown) (unknown) (no (unknown) (unknown) Panic disorder (units (unknown) date) unknown) (unknown) (no (unknown) (unknown) Patient denies (units (unknown) date) working night unknown) shift, reports stress Sleep Stress Branch: both (unknown) (no (unknown) (unknown) Patient is here (units (unknown) date) today for initial unknown) evaluation of sleep apnea symptoms and initial (unknown) (no (unknown) (unknown) Patient reports (units (unknown) date) that she has been unknown) told she is snoring at night for the last 5 (unknown) (no (unknown) (unknown) Patient: (units (unkno wn) date) Marion Roth MR#: unknown) [id number] (unknown) (no (unknown) (unknown) Reason For Visit (units (unknown) date) unknown) (unknown) (no (unknown) (unknown) Signed By: (units (unk nown) date) unknown) (unknown) (no (unknown) (unknown) Sister Melanoma (units (unknown) date) unknown) (unknown) (no (unknown) (unknown) Sleep Visit (units (un known) date) unknown) (unknown) (no (unknown) (unknown) [facility] unknown) (unknown) (no (unknown) (unknown) Sleep disturbance (units (unknown) date) unknown) (unknown) (no (unknown) (unknown) Smoking Status: (units (unknown) date) Never smoker unknown) (unknown) (no (unknown) (unknown) Social History (units (unknown) date) unknown) (unknown) (no (unknown) (unknown) Stroke (units (unkno wn) date) unknown) (unknown) (no (unknown) (unknown) Surgical History (units (unknown) date) (Reviewed 01/12/20 unknown) @ 13:00 by Estiven Rivera MD) (unknown) (no (unknown) (unknown) Symptom Course (units ( unknown) date) After Onset: unknown) difficulty falling asleep Difficulty Falling Asleep: (unknown) (no (unknown) (unknown) Symptoms (units (unkno wn) date) unknown) (unknown) (no (unknown) (unknown) TIA (transient (units (unknown) date) ischemic attack) unknown) (unknown) (no (unknown) (unknown) This note may (units ( unknown) date) have been all or unknown) partially generated using voice recognition (unknown) (no (unknown) (unknown) Tobacco + (units (unkn own) date) Substance Use unknown) (unknown) (no (unknown) (unknown) Tobacco Status (units (unknown) date) unknown) (unknown) (no (unknown) (unknown) Visit Reasons: (units (unknown) date) Consult unknown) (unknown) (no (unknown) (unknown) WEAKNESS (units (unkno wn) date) unknown) (unknown) (no (unknown) (unknown) alcohol intake: (units (unknown) date) never unknown) (unknown) (no (unknown) (unknown) and feels (units (unkn own) date) sleepier during unknown) the day of late. She had a sleep study 12 years ago (unknown) (no (unknown) (unknown) and was diagnosed (units (unknown) date) with sleep apnea unknown) for which she was started on nasal CPAP, but (unknown) (no (unknown) (unknown) awakenings (units (unk nown) date) unknown) (unknown) (no (unknown) (unknown) choking or (units (unk nown) date) gasping Choking or unknown) Gasping Branch: currently, epworth sleep scale (unknown) (no (unknown) (unknown) denied, (units (unkno wn) date) difficulty staying unknown) asleep Difficulty Staying Asleep: frequent, early (unknown) (no (unknown) (unknown) elevated or (units (un known) date) reports sleeping unknown) pills (melatonin and risperidone) (unknown) (no (unknown) (unknown) evaluation of (units ( unknown) date) insomnia unknown) (unknown) (no (unknown) (unknown) has not been on (units (unknown) date) it for the last 2 unknown) years. (unknown) (no (unknown) (unknown) have occurred. If (units (unknown) date) there are any unknown) questions, please contact the Medical Records (unknown) (no (unknown) (unknown) home + work (units (un known) date) Stress Both unknown) Branch: not at all, reports alcohol Sleep Alcohol (unknown) (no (unknown) (unknown) household (units (unkn own) date) members: family unknown) and children (unknown) (no (unknown) (unknown) may occur. 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 Please (unknown) (no (unknown) (unknown) psychotic (units (unkn own) date) features unknown) (unknown) (no (unknown) (unknown) read the note (units ( unknown) date) carefully and unknown) recognize, using context, where these substitutions (unknown) (no (unknown) (unknown) reports non-supine (units (unknown) date) sleeping, denies unknown) stimulant therapy, denies sleeping with head (unknown) (no (unknown) (unknown) schedule Sleep (units (unknown) date) Schedule Branch: unknown) consistent, daytime somnolence Daytime (unknown) (no (unknown) (unknown) score (02/27), (units (unknown) date) bruxism Bruxism unknown) Branch: currently, sleep talking Sleep Talking (unknown) (no (unknown) (unknown) sleeping a (units (unk nown) date) little, normal unknown) bedtime (1999), normal wake time (629), sleep (unknown) (no (unknown) (unknown) software. 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 She also (units (unknown) date) reports that she unknown) is waking up frequently throughout the night Result panel 2 (unknown) (no (unknown) (unknown) (no value) (units (unk nown) date) unknown) (unknown) (no (unknown) (unknown) (1) Obstructive (units (unknown) date) sleep apnea (adult) unknown) (pediatric): (unknown) (no (unknown) (unknown) (2) Insomnia: (units ( unknown) date) unknown) (unknown) (no (unknown) (unknown) 0 = Would never (units (unknown) date) doze or sleep, 1 = unknown) Slight chance of dozing or sleeping, 2 = (unknown) (no (unknown) (unknown) 10/29/17 [History (units (unknown) date) Confirmed 08/15/22] unknown) (unknown) (no (unknown) (unknown) 08/15/22 (units (unkno wn) date) unknown) (unknown) (no (unknown) (unknown) 08/15/22] (units (unkn own) date) unknown) (unknown) (no (unknown) (unknown) 08/29/21] (units (unkn own) date) unknown) (unknown) (no (unknown) (unknown) [id number] (units (unkno wn) date) unknown) (unknown) (no (unknown) (unknown) Adhere to regular (units (unknown) date) mealtime schedule, unknown) avoid snacking (unknown) (no (unknown) (unknown) Age/Sex: 77 / F (units (unknown) date) Date of Service: unknown) (unknown) (no (unknown) (unknown) Allergies (units (unkn own) date) unknown) (unknown) (no (unknown) (unknown) [place], [place] (units ( unknown) date) [id number] unknown) (unknown) (no (unknown) (unknown) Anemia (units (unkno wn) date) unknown) (unknown) (no (unknown) (unknown) Anxiety and (units (un known) date) depression unknown) (unknown) (no (unknown) (unknown) Appearance: (units (un known) date) grossly normal unknown) (unknown) (no (unknown) (unknown) Assessment + Plan (units (unknown) date) unknown) (unknown) (no (unknown) (unknown) Assessment and (units (unknown) date) Plan: unknown) (unknown) (no (unknown) (unknown) Associate your bed (units (unknown) date) with sleep. It's unknown) not a good idea to use your bed to watch TV, (unknown) (no (unknown) (unknown) Attending Dr: (units ( unknown) date) Omar Sotelo MD unknown) (unknown) (no (unknown) (unknown) Attitude: (units (unkn own) date) cooperative unknown) (unknown) (no (unknown) (unknown) Avoid alcohol (units ( unknown) date) after 4 pm unknown) (unknown) (no (unknown) (unknown) Avoid medications (units (unknown) date) which may interfere unknown) with sleep (unknown) (no (unknown) (unknown) Avoid random (units (u nknown) date) napping during the unknown) day; it can disturb the normal pattern of sleep (unknown) (no (unknown) (unknown) Avoid stimulants (units (unknown) date) such as caffeine, unknown) nicotine, and alcohol too close to bedtime. (unknown) (no (unknown) (unknown) Being a passenger (units (unknown) date) in a motor vehicle unknown) for an hour or so: 0 = Never (None) (unknown) (no (unknown) (unknown) Branch: currently (units (unknown) date) and sleep walking unknown) Sleep Walking Branch: currently (unknown) (no (unknown) (unknown) Branch: never, (units (unknown) date) reports caffeine unknown) Sleep Caffeine Branch: 1-5 servings a day, (unknown) (no (unknown) (unknown) Brother Heart (units ( unknown) date) disease unknown) (unknown) (no (unknown) (unknown) CVA (cerebral (units ( unknown) date) vascular accident) unknown) (unknown) (no (unknown) (unknown) Cardiac (units (unkno wn) date) unknown) (unknown) (no (unknown) (unknown) Chief Complaint: (units (unknown) date) Patient with unknown) complaint of snoring, daytime sleepiness and night (unknown) (no (unknown) (unknown) Chronic pain (units (u nknown) date) unknown) (unknown) (no (unknown) (unknown) Condition is (units (u nknown) date) Onset: Chronic and unknown) ongoing (unknown) (no (unknown) (unknown) Confirmed (units (unkn own) date) 08/15/22] unknown) (unknown) (no (unknown) (unknown) Conjunctivae: (units ( unknown) date) conjunctivae normal unknown) (unknown) (no (unknown) (unknown) Consider weaning (units (unknown) date) caffeine use, unknown) starting with no caffeine after 3pm (unknown) (no (unknown) (unknown) Const (units (unkno wn) date) unknown) (unknown) (no (unknown) (unknown) : 1945 (units (unknown) date) Acct:[id number] unknown) (unknown) (no (unknown) (unknown) Daughter (units (unkno wn) date) Hypertension unknown) (unknown) (no (unknown) (unknown) Denies history of (units (unknown) date) transfusions or unknown) history of anemia (unknown) (no (unknown) (unknown) Denies nocturia (units (unknown) date) unknown) (unknown) (no (unknown) (unknown) Dept at (units (unkno wn) date) . unknown) (unknown) (no (unknown) (unknown) Dermatological (units (unknown) date) unknown) (unknown) (no (unknown) (unknown) Details: (units (unkno wn) date) unknown) (unknown) (no (unknown) (unknown) Dizziness (units (unkn own) date) unknown) (unknown) (no (unknown) (unknown) Documented By: (units (unknown) date) Omar Sotelo MD unknown) 08/15/22 1305 (unknown) (no (unknown) (unknown) Draft (units (unkno wn) date) unknown) (unknown) (no (unknown) (unknown) ENT (units (unkno wn) date) unknown) (unknown) (no (unknown) (unknown) Ears: hearing (units ( unknown) date) grossly normal unknown) bilaterally and external ears normal (unknown) (no (unknown) (unknown) Edema (units (unkno wn) date) unknown) (unknown) (no (unknown) (unknown) Effort + (units (unkno wn) date) Inspection: normal unknown) respiratory effort, able to speak in complete (unknown) (no (unknown) (unknown) Ensure adequate (units (unknown) date) exposure to natural unknown) light. This is particularly important for (unknown) (no (unknown) (unknown) Epilepsy (units (unkno wn) date) unknown) (unknown) (no (unknown) (unknown) [place] Score: 5 (units (unknown) date) unknown) (unknown) (no (unknown) (unknown) [place] Sleepiness (units (unknown) date) Scale unknown) (unknown) (no (unknown) (unknown) Establish a regular (units (unknown) date) relaxing bedtime unknown) routine. Try to avoid emotionally upsetting (unknown) (no (unknown) (unknown) Exacerbating/Allev (units (unknown) date) iating Factors unknown) (unknown) (no (unknown) (unknown) Exam (units (unkno wn) date) unknown) (unknown) (no (unknown) (unknown) Eyes (units (unkno wn) date) unknown) (unknown) (no (unknown) (unknown) Family History (units (unknown) date) (Reviewed 08/15/22 unknown) @ 13:17 by Omar Sotelo MD) (unknown) (no (unknown) (unknown) Food can be (units (un known) date) disruptive right unknown) before sleep; stay away from large meals close to (unknown) (no (unknown) (unknown) Fusion of spine, (units (unknown) date) cervical region unknown) () (unknown) (no (unknown) (unknown) GI (units (unkno wn) date) unknown) (unknown) (no (unknown) (unknown) (units (unkno wn) date) unknown) (unknown) (no (unknown) (unknown) General: (units (unkno wn) date) cooperative and no unknown) acute distress (unknown) (no (unknown) (unknown) General: patient (units (unknown) date) alert and patient unknown) awake (unknown) (no (unknown) (unknown) Generalized (units (un known) date) anxiety disorder unknown) (unknown) (no (unknown) (unknown) Get regular (units (un known) date) moderate exercise unknown) (30 minutes, 3x/week) (unknown) (no (unknown) (unknown) H/O craniotomy (units (unknown) date) () unknown) (unknown) (no (unknown) (unknown) H/O: hysterectomy (units (unknown) date) () unknown) (unknown) (no (unknown) (unknown) HENMT (units (unkno wn) date) unknown) (unknown) (no (unknown) (unknown) HPI Sleep New (units ( unknown) date) Patient unknown) (unknown) (no (unknown) (unknown) HPI (units (unkno wn) date) unknown) (unknown) (no (unknown) (unknown) Head: normal to (units (unknown) date) inspection unknown) (unknown) (no (unknown) (unknown) Hematologic (units (un known) date) unknown) (unknown) (no (unknown) (unknown) High cholesterol (units (unknown) date) unknown) (unknown) (no (unknown) (unknown) History of CVA (units (unknown) date) with residual unknown) deficit (unknown) (no (unknown) (unknown) History of (units (unk nown) date) posttraumatic unknown) stress disorder (PTSD) (unknown) (no (unknown) (unknown) Hx of (units (unkno wn) date) cholecystectomy unknown) (-2007) (unknown) (no (unknown) (unknown) Insomnia type: (units (unknown) date) unspecified unknown) Qualified Code(s): G47.00 - Insomnia, (unknown) (no (unknown) (unknown) Intake (units (unkno wn) date) unknown) (unknown) (no (unknown) (unknown) Light exposure (units (unknown) date) during the day unknown) helps maintain a healthy sleep-wake cycle. In (unknown) (no (unknown) (unknown) Loc: SLEEP (units (unk nown) date) unknown) (unknown) (no (unknown) (unknown) Lying down in the (units (unknown) date) afternoon: 1 = unknown) Slight (unknown) (no (unknown) (unknown) Major depressive (units (unknown) date) disorder, recurrent unknown) episode, severe with mood-incongruent (unknown) (no (unknown) (unknown) Make sure that the (units (unknown) date) sleep environment unknown) is pleasant and relaxing. The bed should be (unknown) (no (unknown) (unknown) Medical History (units (unknown) date) (Reviewed 08/15/22 unknown) @ 13:17 by Omar Sotelo MD) (unknown) (no (unknown) (unknown) Medications (units (un known) date) unknown) (unknown) (no (unknown) (unknown) Mental Status: (units (unknown) date) mental status unknown) grossly normal (unknown) (no (unknown) (unknown) Moderate chance of (units (unknown) date) dozing or sleeping, unknown) 3 = High chance of dozing or sleeping (unknown) (no (unknown) (unknown) Mood: congruent (units (unknown) date) mood unknown) (unknown) (no (unknown) (unknown) Mother (units (unkno wn) date) Hypertension unknown) (unknown) (no (unknown) (unknown) Musc (units (unkno wn) date) unknown) (unknown) (no (unknown) (unknown) Neuro (units (unkno wn) date) unknown) (unknown) (no (unknown) (unknown) Neurological (units (u nknown) date) unknown) (unknown) (no (unknown) (unknown) Nutritional (units (un known) date) Appearance: obese unknown) (unknown) (no (unknown) (unknown) Orientation: alert (units (unknown) date) and awake unknown) (unknown) (no (unknown) (unknown) PFSH (units (unkno wn) date) unknown) (unknown) (no (unknown) (unknown) PO DAILY 11/11/18 (units (unknown) date) [History Confirmed unknown) 08/29/21] (unknown) (no (unknown) (unknown) PT. NECK (units (unkno wn) date) MEASUREMENT: 16.5 unknown) IN. (unknown) (no (unknown) (unknown) Pain scale (1-10): (units (unknown) date) 5 (NECK PAIN) unknown) (unknown) (no (unknown) (unknown) Pain (units (unkno wn) date) unknown) (unknown) (no (unknown) (unknown) Panic disorder (units (unknown) date) unknown) (unknown) (no (unknown) (unknown) Patient denies (units (unknown) date) working night unknown) shift, reports stress Sleep Stress Branch: both (unknown) (no (unknown) (unknown) Patient is here (units (unknown) date) today for initial unknown) evaluation of sleep apnea symptoms and initial (unknown) (no (unknown) (unknown) Patient reports a (units (unknown) date) history of snoring unknown) and a disturbed sleep pattern. There is (unknown) (no (unknown) (unknown) Patient reports (units (unknown) date) symptoms of chronic unknown) insomnia for more than 3 months as evidenced (unknown) (no (unknown) (unknown) Patient reports (units (unknown) date) that she has been unknown) told she is snoring at night for the last 12 (unknown) (no (unknown) (unknown) Patient was (units (un known) date) instructed to unknown) return sooner if any questions or concerns arise. (unknown) (no (unknown) (unknown) Patient will be (units (unknown) date) scheduled for a unknown) split-night sleep study based on sleep lab (unknown) (no (unknown) (unknown) Patient: (units (unkno wn) date) Marion Roth MR#: unknown) [id number] (unknown) (no (unknown) (unknown) Plan (units (unkno wn) date) unknown) (unknown) (no (unknown) (unknown) Properly timed (units (unknown) date) exercise can unknown) promote good sleep. Vigorous exercise should be (unknown) (no (unknown) (unknown) Psych (units (unkno wn) date) unknown) (unknown) (no (unknown) (unknown) Psychological (units ( unknown) date) unknown) (unknown) (no (unknown) (unknown) Qualifiers: (units (un known) date) unknown) (unknown) (no (unknown) (unknown) Questionnaires (units (unknown) date) unknown) (unknown) (no (unknown) (unknown) ROS Sleep (units (unkn own) date) unknown) (unknown) (no (unknown) (unknown) Reason For Visit (units (unknown) date) unknown) (unknown) (no (unknown) (unknown) Reports arthralgia (units (unknown) date) interfering with unknown) sleep; Denies myalgia interfering with (unknown) (no (unknown) (unknown) Reports chills, (units (unknown) date) Reports fatigue, unknown) Reports lethargy, Reports night sweats, Reports (unknown) (no (unknown) (unknown) Reports dyspnea at (units (unknown) date) night; Denies cough unknown) (unknown) (no (unknown) (unknown) Reports morning (units (unknown) date) headache, dizzy in unknown) the morning, vertigo and trouble (unknown) (no (unknown) (unknown) Reports napping on (units (unknown) date) a regular basis; unknown) Denies hypnagogic hallucinations or sleep (unknown) (no (unknown) (unknown) Reports nocturnal (units (unknown) date) palpitations; unknown) Denies chest pain (unknown) (no (unknown) (unknown) Reports pruritus; (units (unknown) date) Denies hives or unknown) rash (unknown) (no (unknown) (unknown) Reports reflux (units (unknown) date) pain at night unknown) (unknown) (no (unknown) (unknown) Reports runny nose (units (unknown) date) and dry mouth in unknown) the morning; Denies epistaxis, nasal (unknown) (no (unknown) (unknown) Reports seasonal (units (unknown) date) allergies; Denies unknown) itchy eyes, redness, blurry vision or eye (unknown) (no (unknown) (unknown) Resp (units (unkno wn) date) unknown) (unknown) (no (unknown) (unknown) Respiratory (units (un known) date) unknown) (unknown) (no (unknown) (unknown) Return visit in 2 (units (unknown) date) weeks to review unknown) sleep study results (unknown) (no (unknown) (unknown) Sclera: sclerae (units (unknown) date) normal unknown) (unknown) (no (unknown) (unknown) Score III (units (unkn own) date) unknown) (unknown) (no (unknown) (unknown) Signed By: (units (unk nown) date) unknown) (unknown) (no (unknown) (unknown) Sister Melanoma (units (unknown) date) unknown) (unknown) (no (unknown) (unknown) Sitting and (units (un known) date) Readin = Never unknown) (None) (unknown) (no (unknown) (unknown) Sitting and (units (un known) date) talking to someone: unknown) 0 = Never (None) (unknown) (no (unknown) (unknown) Sitting inactive (units (unknown) date) in a public place: unknown) 0 = Never (None) (unknown) (no (unknown) (unknown) Sitting quietly (units (unknown) date) after lunch (no unknown) alcohol): 2 = Moderate (unknown) (no (unknown) (unknown) Sleep Procedure (units (unknown) date) unknown) (unknown) (no (unknown) (unknown) Sleep Visit (units (un known) date) unknown) (unknown) (no (unknown) (unknown) [facility] unknown) (unknown) (no (unknown) (unknown) Sleep disturbance (units (unknown) date) unknown) (unknown) (no (unknown) (unknown) Sleep hygiene and (units (unknown) date) sleep schedules unknown) were discussed. This will be reassessed after (unknown) (no (unknown) (unknown) Smoking Status: (units (unknown) date) Never smoker unknown) (unknown) (no (unknown) (unknown) Social History (units (unknown) date) unknown) (unknown) (no (unknown) (unknown) Speech and (units (unk nown) date) Movement: speech unknown) clear (unknown) (no (unknown) (unknown) Speech: speech (units (unknown) date) normal unknown) (unknown) (no (unknown) (unknown) Stopped for a few (units (unknown) date) minutes in traffic: unknown) 0 = Never (None) (unknown) (no (unknown) (unknown) Stroke (units (unkno wn) date) unknown) (unknown) (no (unknown) (unknown) Surgical History (units (unknown) date) (Reviewed 08/15/22 unknown) @ 13:17 by Omar Sotelo MD) (unknown) (no (unknown) (unknown) Symptom Course (units ( unknown) date) After Onset: unknown) difficulty falling asleep Difficulty Falling Asleep: (unknown) (no (unknown) (unknown) Symptoms (units (unkno wn) date) unknown) (unknown) (no (unknown) (unknown) TIA (transient (units (unknown) date) ischemic attack) unknown) (unknown) (no (unknown) (unknown) Tech Observations (units (unknown) date) unknown) (unknown) (no (unknown) (unknown) Tech Observations: (units (unknown) date) unknown) (unknown) (no (unknown) (unknown) This note may have (units (unknown) date) been all or unknown) partially generated using voice recognition (unknown) (no (unknown) (unknown) Throat: posterior (units (unknown) date) oropharynx normal unknown) Throat Post Oph Norm Branch: Mallampati (unknown) (no (unknown) (unknown) Tobacco + (units (unkn own) date) Substance Use unknown) (unknown) (no (unknown) (unknown) Tobacco Status (units (unknown) date) unknown) (unknown) (no (unknown) (unknown) Visit Reasons: (units (unknown) date) Consult unknown) (unknown) (no (unknown) (unknown) WEAKNESS (units (unkno wn) date) unknown) (unknown) (no (unknown) (unknown) Watching TV: 2 = (units (unknown) date) Moderate unknown) (unknown) (no (unknown) (unknown) While alcohol is (units (unknown) date) well known to speed unknown) the onset of sleep, it disrupts sleep in (unknown) (no (unknown) (unknown) activities, you (units (unknown) date) may have more unknown) problems getting back to sleep during the night. (unknown) (no (unknown) (unknown) addition, avoiding (units (unknown) date) nighttime bright unknown) light exposure, which can occur with many (unknown) (no (unknown) (unknown) alcohol intake: (units (unknown) date) never unknown) (unknown) (no (unknown) (unknown) also a history of (units (unknown) date) depression and unknown) witnessed apnea with a positive sleep study (unknown) (no (unknown) (unknown) amlodipine 2.5 mg (units (unknown) date) tablet 2.5 mg PO unknown) DAILY 07/09/19 [History Confirmed 08/15/22] (unknown) (no (unknown) (unknown) and feels sleepier (units (unknown) date) during the day of unknown) late. She had a sleep study 12 years ago (unknown) (no (unknown) (unknown) and questions (units ( unknown) date) answered. The unknown) patient is willing to proceed with the sleep study. (unknown) (no (unknown) (unknown) and the effect on (units (unknown) date) sleep in general unknown) were discussed at length. After review of the (unknown) (no (unknown) (unknown) and wakefulness. (units (unknown) date) Scheduled napping unknown) may be considered if appropriate for the (unknown) (no (unknown) (unknown) and was diagnosed (units (unknown) date) with sleep apnea unknown) for which she was started on nasal CPAP, but (unknown) (no (unknown) (unknown) aspirin 81 mg (units ( unknown) date) chewable tablet 81 unknown) mg PO DAILY 06/18/18 [History Confirmed (unknown) (no (unknown) (unknown) atorvastatin 40 mg (units (unknown) date) tablet 80 mg PO unknown) BEDTIME 09/17/19 [History Confirmed 08/29/21] (unknown) (no (unknown) (unknown) awakenings (units (unk nown) date) unknown) (unknown) (no (unknown) (unknown) bedtime. Also (units (u nknown) date) dietary changes can unknown) cause sleep problems, if someone is struggling (unknown) (no (unknown) (unknown) bring your (units (unk nown) date) problems to bed. unknown) (unknown) (no (unknown) (unknown) by trouble staying (units (unknown) date) asleep and unknown) non-restorative sleep. This can be seen secondary (unknown) (no (unknown) (unknown) choking or gasping (units (unknown) date) Choking or Gasping unknown) Branch: currently, epworth sleep scale (unknown) (no (unknown) (unknown) cholecalciferol (units (unknown) date) (vitamin D3) 125 unknown) mcg (5,000 unit) tablet (Vitamin D3) 5,000 unit (unknown) (no (unknown) (unknown) clopidogrel 75 mg (units (unknown) date) tablet (Plavix) 75 unknown) mg PO DAILY 08/15/22 [History Confirmed (unknown) (no (unknown) (unknown) comfortable, the (units (unknown) date) room should be unknown) quiet, not too hot or cold, or too bright. (unknown) (no (unknown) (unknown) concentrating or (units (unknown) date) focusing unknown) (unknown) (no (unknown) (unknown) congestion at (units ( unknown) date) night or sore unknown) throat in the morning (unknown) (no (unknown) (unknown) constellation of (units (unknown) date) symptoms a unknown) split-night sleep study is indicated. The specifics (unknown) (no (unknown) (unknown) conversations and (units (unknown) date) activities before unknown) trying to go to sleep. Don't dwell on, or (unknown) (no (unknown) (unknown) denied, difficulty (units (unknown) date) staying asleep unknown) Difficulty Staying Asleep: frequent, early (unknown) (no (unknown) (unknown) diagnostic sleep (units (unknown) date) study is indicated. unknown) Sleep study options were outlined, (unknown) (no (unknown) (unknown) diphenhydramine (units (unknown) date) HCl 25 mg tablet unknown) (Benadryl Allergy) 50 mg PO BEDTIME ##0 (unknown) (no (unknown) (unknown) dishes. And, (units (u nknown) date) remember, chocolate unknown) has caffeine. (unknown) (no (unknown) (unknown) done before bed to (units (unknown) date) help initiate a unknown) restful night's sleep. (unknown) (no (unknown) (unknown) evaluation of (units ( unknown) date) insomnia unknown) (unknown) (no (unknown) (unknown) gabapentin 600 mg (units (unknown) date) tablet (Neurontin) unknown) 600 mg PO TID #270 tabs 12/19/21 [Rx (unknown) (no (unknown) (unknown) gastroesophageal (units (unknown) date) reflux disease #60 unknown) caps 06/18/18 [Rx Confirmed 08/15/22] (unknown) (no (unknown) (unknown) has not been on it (units (unknown) date) for the last 2 unknown) years. When she was using CPAP she reports no (unknown) (no (unknown) (unknown) have occurred. If (units (unknown) date) there are any unknown) questions, please contact the Medical Records (unknown) (no (unknown) (unknown) head elevated and (units (unknown) date) reports sleeping unknown) pills (melatonin and risperidone) (unknown) (no (unknown) (unknown) home + work Stress (units (unknown) date) Both Branch: not at unknown) all, reports alcohol Sleep Alcohol (unknown) (no (unknown) (unknown) household members: (units (unknown) date) family and children unknown) (unknown) (no (unknown) (unknown) including the (units ( unknown) date) benefits and unknown) limitations of different study types. Given the (unknown) (no (unknown) (unknown) levetiracetam 500 (units (unknown) date) mg tablet 1,500 mg unknown) PO BID 06/18/18 [History Confirmed (unknown) (no (unknown) (unknown) listen to the (units ( unknown) date) radio, or read as unknown) if you associate falling asleep with these (unknown) (no (unknown) (unknown) lorazepam 1 mg (units (unknown) date) tablet 1 mg PO BID unknown) PRN Anxiety #45 tabs 07/24/22 [Rx Confirmed (unknown) (no (unknown) (unknown) may occur. 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 Please (unknown) (no (unknown) (unknown) of a split-night (units (unknown) date) sleep study were unknown) reviewed. Treatment options were also reviewed (unknown) (no (unknown) (unknown) older people who (units (unknown) date) may not venture unknown) outside as frequently as children and adults. (unknown) (no (unknown) (unknown) omeprazole 20 mg (units (unknown) date) capsule,delayed unknown) release 20 mg PO BID New pains/chronic (unknown) (no (unknown) (unknown) optimal sleep (units ( unknown) date) schedule. unknown) (unknown) (no (unknown) (unknown) pain (units (unkno wn) date) unknown) (unknown) (no (unknown) (unknown) paralysis (units (unkn own) date) unknown) (unknown) (no (unknown) (unknown) personal (units (unkno wn) date) electronic devices, unknown) can also help maintain a healthy sleep-wake cycle. (unknown) (no (unknown) (unknown) physical findings (units (unknown) date) and clinical unknown) history it was determined that a repreat (unknown) (no (unknown) (unknown) policies and (units (u nknown) date) procedures. unknown) (unknown) (no (unknown) (unknown) problems with the (units (unknown) date) pressure or the unknown) masks and felt she was sleeping better than (unknown) (no (unknown) (unknown) psychotic features (units (unknown) date) unknown) (unknown) (no (unknown) (unknown) read the note (units ( unknown) date) carefully and unknown) recognize, using context, where these substitutions (unknown) (no (unknown) (unknown) reports non-supine (units (unknown) date) sleeping, denies unknown) stimulant therapy, reports sleeping with (unknown) (no (unknown) (unknown) risperidone 2 mg (units (unknown) date) tablet 2 mg PO unknown) BEDTIME #90 tabs 04/30/22 [Rx Confirmed (unknown) (no (unknown) (unknown) schedule Sleep (units (unknown) date) Schedule Branch: unknown) consistent, daytime somnolence Daytime (unknown) (no (unknown) (unknown) score (02/27), (units (unknown) date) bruxism Bruxism unknown) Branch: currently, sleep talking Sleep Talking (unknown) (no (unknown) (unknown) sentences, no (units ( unknown) date) audible wheezes, no unknown) grunting and not labored (unknown) (no (unknown) (unknown) sertraline 100 mg (units (unknown) date) tablet 200 mg PO unknown) QAM Depression #180 tabs 11/20/21 [Rx (unknown) (no (unknown) (unknown) she is now. (units (un known) date) unknown) (unknown) (no (unknown) (unknown) sleep, weakness (units (unknown) date) associated with unknown) strong emotion or sleep paralysis (unknown) (no (unknown) (unknown) sleeping a little, (units (unknown) date) normal bedtime unknown) (1999), normal wake time (0630), sleep (unknown) (no (unknown) (unknown) snoring and (units (un known) date) Reports stops unknown) breathing during sleep (unknown) (no (unknown) (unknown) software. 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 A relaxing exercise, like yoga, can be (unknown) (no (unknown) (unknown) the second half as (units (unknown) date) the body begins to unknown) metabolize the alcohol, causing arousal. (unknown) (no (unknown) (unknown) the sleep study. (units (unknown) date) unknown) (unknown) (no (unknown) (unknown) to sleep apnea, (units (unknown) date) depression, medical unknown) conditions or can be an independent problem. (unknown) (no (unknown) (unknown) unspecified (units (un known) date) unknown) (unknown) (no (unknown) (unknown) with a Mallampati (units (unknown) date) score of III. The unknown) basics of the pathophysiology of sleep apnea (unknown) (no (unknown) (unknown) with a sleep (units (u nknown) date) problem, it's not a unknown) good time to start experimenting with spicy (unknown) (no (unknown) (unknown) years. She also (units (unknown) date) reports that she is unknown) waking up frequently throughout the night Result panel 3 (unknown) (no (unknown) (unknown) (no value) (units (unk nown) date) unknown) (unknown) (no (unknown) (unknown) (1) Obstructive (units (unknown) date) sleep apnea (adult) unknown) (pediatric): (unknown) (no (unknown) (unknown) (2) Insomnia: (units ( unknown) date) unknown) (unknown) (no (unknown) (unknown) 0 = Would never (units (unknown) date) doze or sleep, 1 = unknown) Slight chance of dozing or sleeping, 2 = (unknown) (no (unknown) (unknown) 10/29/17 [History (units (unknown) date) Confirmed 08/15/22] unknown) (unknown) (no (unknown) (unknown) 08/15/22 1335 (units ( unknown) date) unknown) (unknown) (no (unknown) (unknown) 08/15/22 (units (unkno wn) date) unknown) (unknown) (no (unknown) (unknown) 08/15/22] (units (unkn own) date) unknown) (unknown) (no (unknown) (unknown) 08/29/21] (units (unkn own) date) unknown) (unknown) (no (unknown) (unknown) [address] (units (unkno wn) date) unknown) (unknown) (no (unknown) (unknown) Adhere to regular (units (unknown) date) mealtime schedule, unknown) avoid snacking (unknown) (no (unknown) (unknown) Age/Sex: 77 / F (units (unknown) date) Date of Service: unknown) (unknown) (no (unknown) (unknown) Allergies (units (unkn own) date) unknown) (unknown) (no (unknown) (unknown) [place], [place] (units ( unknown) date) [id number] unknown) (unknown) (no (unknown) (unknown) Anemia (units (unkno wn) date) unknown) (unknown) (no (unknown) (unknown) Anxiety and (units (un known) date) depression unknown) (unknown) (no (unknown) (unknown) Appearance: (units (un known) date) grossly normal unknown) (unknown) (no (unknown) (unknown) Assessment + Plan (units (unknown) date) unknown) (unknown) (no (unknown) (unknown) Assessment and (units (unknown) date) Plan: unknown) (unknown) (no (unknown) (unknown) Associate your bed (units (unknown) date) with sleep. It's unknown) not a good idea to use your bed to watch TV, (unknown) (no (unknown) (unknown) Attending Dr: (units ( unknown) date) Omar Sotelo MD unknown) (unknown) (no (unknown) (unknown) Attitude: (units (unkn own) date) cooperative unknown) (unknown) (no (unknown) (unknown) Avoid alcohol (units ( unknown) date) after 4 pm unknown) (unknown) (no (unknown) (unknown) Avoid medications (units (unknown) date) which may interfere unknown) with sleep (unknown) (no (unknown) (unknown) Avoid random (units (u nknown) date) napping during the unknown) day; it can disturb the normal pattern of sleep (unknown) (no (unknown) (unknown) Avoid stimulants (units (unknown) date) such as caffeine, unknown) nicotine, and alcohol too close to bedtime. (unknown) (no (unknown) (unknown) Being a passenger (units (unknown) date) in a motor vehicle unknown) for an hour or so: 0 = Never (None) (unknown) (no (unknown) (unknown) Branch: currently (units (unknown) date) and sleep walking unknown) Sleep Walking Branch: currently (unknown) (no (unknown) (unknown) Branch: never, (units (unknown) date) reports caffeine unknown) Sleep Caffeine Branch: 1-5 servings a day, (unknown) (no (unknown) (unknown) Brother Heart (units ( unknown) date) disease unknown) (unknown) (no (unknown) (unknown) CVA (cerebral (units ( unknown) date) vascular accident) unknown) (unknown) (no (unknown) (unknown) Cardiac (units (unkno wn) date) unknown) (unknown) (no (unknown) (unknown) Chief Complaint: (units (unknown) date) Patient with unknown) complaint of snoring, daytime sleepiness and night (unknown) (no (unknown) (unknown) Chronic pain (units (u nknown) date) unknown) (unknown) (no (unknown) (unknown) Condition is (units (u nknown) date) Onset: Chronic and unknown) ongoing (unknown) (no (unknown) (unknown) Confirmed (units (unkn own) date) 08/15/22] unknown) (unknown) (no (unknown) (unknown) Conjunctivae: (units ( unknown) date) conjunctivae normal unknown) (unknown) (no (unknown) (unknown) Consider weaning (units (unknown) date) caffeine use, unknown) starting with no caffeine after 3pm (unknown) (no (unknown) (unknown) Const (units (unkno wn) date) unknown) (unknown) (no (unknown) (unknown) : 1945 (units (unknown) date) Acct:[id number] unknown) (unknown) (no (unknown) (unknown) Daughter (units (unkno wn) date) Hypertension unknown) (unknown) (no (unknown) (unknown) Denies history of (units (unknown) date) transfusions or unknown) history of anemia (unknown) (no (unknown) (unknown) Denies nocturia (units (unknown) date) unknown) (unknown) (no (unknown) (unknown) Dept at (units (unkno wn) date) . unknown) (unknown) (no (unknown) (unknown) Dermatological (units (unknown) date) unknown) (unknown) (no (unknown) (unknown) Details: (units (unkno wn) date) unknown) (unknown) (no (unknown) (unknown) Dizziness (units (unkn own) date) unknown) (unknown) (no (unknown) (unknown) Documented By: (units (unknown) date) Omar Sotelo MD unknown) 08/15/22 1305 (unknown) (no (unknown) (unknown) ENT (units (unkno wn) date) unknown) (unknown) (no (unknown) (unknown) Ears: hearing (units ( unknown) date) grossly normal unknown) bilaterally and external ears normal (unknown) (no (unknown) (unknown) Edema (units (unkno wn) date) unknown) (unknown) (no (unknown) (unknown) Effort + (units (unkno wn) date) Inspection: normal unknown) respiratory effort, able to speak in complete (unknown) (no (unknown) (unknown) Ensure adequate (units (unknown) date) exposure to natural unknown) light. This is particularly important for (unknown) (no (unknown) (unknown) Epilepsy (units (unkno wn) date) unknown) (unknown) (no (unknown) (unknown) [place] Score: 5 (units (unknown) date) unknown) (unknown) (no (unknown) (unknown) [place] Sleepiness (units (unknown) date) Scale unknown) (unknown) (no (unknown) (unknown) Establish a regular (units (unknown) date) relaxing bedtime unknown) routine. Try to avoid emotionally upsetting (unknown) (no (unknown) (unknown) Exacerbating/Allev (units (unknown) date) iating Factors unknown) (unknown) (no (unknown) (unknown) Exam (units (unkno wn) date) unknown) (unknown) (no (unknown) (unknown) Eyes (units (unkno wn) date) unknown) (unknown) (no (unknown) (unknown) Family History (units (unknown) date) (Reviewed 08/15/22 unknown) @ 13:17 by Omar Sotelo MD) (unknown) (no (unknown) (unknown) Food can be (units (un known) date) disruptive right unknown) before sleep; stay away from large meals close to (unknown) (no (unknown) (unknown) Fusion of spine, (units (unknown) date) cervical region unknown) (-2008) (unknown) (no (unknown) (unknown) GI (units (unkno wn) date) unknown) (unknown) (no (unknown) (unknown) (units (unkno wn) date) unknown) (unknown) (no (unknown) (unknown) General: (units (unkno wn) date) cooperative and no unknown) acute distress (unknown) (no (unknown) (unknown) General: patient (units (unknown) date) alert and patient unknown) awake (unknown) (no (unknown) (unknown) Generalized (units (un known) date) anxiety disorder unknown) (unknown) (no (unknown) (unknown) Get regular (units (un known) date) moderate exercise unknown) (30 minutes, 3x/week) (unknown) (no (unknown) (unknown) H/O craniotomy (units (unknown) date) () unknown) (unknown) (no (unknown) (unknown) H/O: hysterectomy (units (unknown) date) () unknown) (unknown) (no (unknown) (unknown) HENMT (units (unkno wn) date) unknown) (unknown) (no (unknown) (unknown) HPI Sleep New (units ( unknown) date) Patient unknown) (unknown) (no (unknown) (unknown) HPI (units (unkno wn) date) unknown) (unknown) (no (unknown) (unknown) Head: normal to (units (unknown) date) inspection unknown) (unknown) (no (unknown) (unknown) Hematologic (units (un known) date) unknown) (unknown) (no (unknown) (unknown) High cholesterol (units (unknown) date) unknown) (unknown) (no (unknown) (unknown) History of CVA (units (unknown) date) with residual unknown) deficit (unknown) (no (unknown) (unknown) History of (units (unk nown) date) posttraumatic unknown) stress disorder (PTSD) (unknown) (no (unknown) (unknown) Hx of (units (unkno wn) date) cholecystectomy unknown) (-2007) (unknown) (no (unknown) (unknown) Insomnia type: (units (unknown) date) unspecified unknown) Qualified Code(s): G47.00 - Insomnia, (unknown) (no (unknown) (unknown) Intake (units (unkno wn) date) unknown) (unknown) (no (unknown) (unknown) Light exposure (units (unknown) date) during the day unknown) helps maintain a healthy sleep-wake cycle. In (unknown) (no (unknown) (unknown) Loc: SLEEP (units (unk nown) date) unknown) (unknown) (no (unknown) (unknown) Lying down in the (units (unknown) date) afternoon: 1 = unknown) Slight (unknown) (no (unknown) (unknown) Major depressive (units (unknown) date) disorder, recurrent unknown) episode, severe with mood-incongruent (unknown) (no (unknown) (unknown) Make sure that the (units (unknown) date) sleep environment unknown) is pleasant and relaxing. The bed should be (unknown) (no (unknown) (unknown) Medical History (units (unknown) date) (Reviewed 08/15/22 unknown) @ 13:17 by Omar Sotelo MD) (unknown) (no (unknown) (unknown) Medications (units (un known) date) unknown) (unknown) (no (unknown) (unknown) Mental Status: (units (unknown) date) mental status unknown) grossly normal (unknown) (no (unknown) (unknown) Moderate chance of (units (unknown) date) dozing or sleeping, unknown) 3 = High chance of dozing or sleeping (unknown) (no (unknown) (unknown) Mood: congruent (units (unknown) date) mood unknown) (unknown) (no (unknown) (unknown) Mother (units (unkno wn) date) Hypertension unknown) (unknown) (no (unknown) (unknown) Musc (units (unkno wn) date) unknown) (unknown) (no (unknown) (unknown) Neuro (units (unkno wn) date) unknown) (unknown) (no (unknown) (unknown) Neurological (units (u nknown) date) unknown) (unknown) (no (unknown) (unknown) Nutritional (units (un known) date) Appearance: obese unknown) (unknown) (no (unknown) (unknown) Orientation: alert (units (unknown) date) and awake unknown) (unknown) (no (unknown) (unknown) PFSH (units (unkno wn) date) unknown) (unknown) (no (unknown) (unknown) PO DAILY 11/11/18 (units (unknown) date) [History Confirmed unknown) 08/29/21] (unknown) (no (unknown) (unknown) PT. NECK (units (unkno wn) date) MEASUREMENT: 16.5 unknown) IN. (unknown) (no (unknown) (unknown) Pain scale (1-10): (units (unknown) date) 5 (NECK PAIN) unknown) (unknown) (no (unknown) (unknown) Pain (units (unkno wn) date) unknown) (unknown) (no (unknown) (unknown) Panic disorder (units (unknown) date) unknown) (unknown) (no (unknown) (unknown) Patient denies (units (unknown) date) working night unknown) shift, reports stress Sleep Stress Branch: both (unknown) (no (unknown) (unknown) Patient is here (units (unknown) date) today for initial unknown) evaluation of sleep apnea symptoms and initial (unknown) (no (unknown) (unknown) Patient reports a (units (unknown) date) history of snoring unknown) and a disturbed sleep pattern. There is (unknown) (no (unknown) (unknown) Patient reports (units (unknown) date) symptoms of chronic unknown) insomnia for more than 3 months as evidenced (unknown) (no (unknown) (unknown) Patient reports (units (unknown) date) that she has been unknown) told she is snoring at night for the last 12 (unknown) (no (unknown) (unknown) Patient was (units (un known) date) instructed to unknown) return sooner if any questions or concerns arise. (unknown) (no (unknown) (unknown) Patient will be (units (unknown) date) scheduled for a unknown) split-night sleep study based on sleep lab (unknown) (no (unknown) (unknown) Patient: (units (unkno wn) date) Marion Roth MR#: unknown) [id number] (unknown) (no (unknown) (unknown) Plan (units (unkno wn) date) unknown) (unknown) (no (unknown) (unknown) Properly timed (units (unknown) date) exercise can unknown) promote good sleep. Vigorous exercise should be (unknown) (no (unknown) (unknown) Psych (units (unkno wn) date) unknown) (unknown) (no (unknown) (unknown) Psychological (units ( unknown) date) unknown) (unknown) (no (unknown) (unknown) Qualifiers: (units (un known) date) unknown) (unknown) (no (unknown) (unknown) Questionnaires (units (unknown) date) unknown) (unknown) (no (unknown) (unknown) ROS Sleep (units (unkn own) date) unknown) (unknown) (no (unknown) (unknown) Reason For Visit (units (unknown) date) unknown) (unknown) (no (unknown) (unknown) Reports arthralgia (units (unknown) date) interfering with unknown) sleep; Denies myalgia interfering with (unknown) (no (unknown) (unknown) Reports chills, (units (unknown) date) Reports fatigue, unknown) Reports lethargy, Reports night sweats, Reports (unknown) (no (unknown) (unknown) Reports dyspnea at (units (unknown) date) night; Denies cough unknown) (unknown) (no (unknown) (unknown) Reports morning (units (unknown) date) headache, dizzy in unknown) the morning, vertigo and trouble (unknown) (no (unknown) (unknown) Reports napping on (units (unknown) date) a regular basis; unknown) Denies hypnagogic hallucinations or sleep (unknown) (no (unknown) (unknown) Reports nocturnal (units (unknown) date) palpitations; unknown) Denies chest pain (unknown) (no (unknown) (unknown) Reports pruritus; (units (unknown) date) Denies hives or unknown) rash (unknown) (no (unknown) (unknown) Reports reflux (units (unknown) date) pain at night unknown) (unknown) (no (unknown) (unknown) Reports runny nose (units (unknown) date) and dry mouth in unknown) the morning; Denies epistaxis, nasal (unknown) (no (unknown) (unknown) Reports seasonal (units (unknown) date) allergies; Denies unknown) itchy eyes, redness, blurry vision or eye (unknown) (no (unknown) (unknown) Resp (units (unkno wn) date) unknown) (unknown) (no (unknown) (unknown) Respiratory (units (un known) date) unknown) (unknown) (no (unknown) (unknown) Return visit in 2 (units (unknown) date) weeks to review unknown) sleep study results (unknown) (no (unknown) (unknown) Sclera: sclerae (units (unknown) date) normal unknown) (unknown) (no (unknown) (unknown) Score III (units (unkn own) date) unknown) (unknown) (no (unknown) (unknown) Signed By: (units (unk nown) date) <Electronically unknown) signed by Omar Sotelo MD> (unknown) (no (unknown) (unknown) Signed (units (unkno wn) date) unknown) (unknown) (no (unknown) (unknown) Sister Melanoma (units (unknown) date) unknown) (unknown) (no (unknown) (unknown) Sitting and (units (un known) date) Readin = Never unknown) (None) (unknown) (no (unknown) (unknown) Sitting and (units (un known) date) talking to someone: unknown) 0 = Never (None) (unknown) (no (unknown) (unknown) Sitting inactive (units (unknown) date) in a public place: unknown) 0 = Never (None) (unknown) (no (unknown) (unknown) Sitting quietly (units (unknown) date) after lunch (no unknown) alcohol): 2 = Moderate (unknown) (no (unknown) (unknown) Sleep Procedure (units (unknown) date) unknown) (unknown) (no (unknown) (unknown) Sleep Visit (units (un known) date) unknown) (unknown) (no (unknown) (unknown) [facility] unknown) (unknown) (no (unknown) (unknown) Sleep disturbance (units (unknown) date) unknown) (unknown) (no (unknown) (unknown) Sleep hygiene and (units (unknown) date) sleep schedules unknown) were discussed. This will be reassessed after (unknown) (no (unknown) (unknown) Smoking Status: (units (unknown) date) Never smoker unknown) (unknown) (no (unknown) (unknown) Social History (units (unknown) date) unknown) (unknown) (no (unknown) (unknown) Speech and (units (unk nown) date) Movement: speech unknown) clear (unknown) (no (unknown) (unknown) Speech: speech (units (unknown) date) normal unknown) (unknown) (no (unknown) (unknown) Stopped for a few (units (unknown) date) minutes in traffic: unknown) 0 = Never (None) (unknown) (no (unknown) (unknown) Stroke (units (unkno wn) date) unknown) (unknown) (no (unknown) (unknown) Surgical History (units (unknown) date) (Reviewed 08/15/22 unknown) @ 13:17 by Omar Sotelo MD) (unknown) (no (unknown) (unknown) Symptom Course (units ( unknown) date) After Onset: unknown) difficulty falling asleep Difficulty Falling Asleep: (unknown) (no (unknown) (unknown) Symptoms (units (unkno wn) date) unknown) (unknown) (no (unknown) (unknown) TIA (transient (units (unknown) date) ischemic attack) unknown) (unknown) (no (unknown) (unknown) Tech Observations (units (unknown) date) unknown) (unknown) (no (unknown) (unknown) Tech Observations: (units (unknown) date) unknown) (unknown) (no (unknown) (unknown) This note may have (units (unknown) date) been all or unknown) partially generated using voice recognition (unknown) (no (unknown) (unknown) Throat: posterior (units (unknown) date) oropharynx normal unknown) Throat Post Oph Norm Branch: Mallampati (unknown) (no (unknown) (unknown) Tobacco + (units (unkn own) date) Substance Use unknown) (unknown) (no (unknown) (unknown) Tobacco Status (units (unknown) date) unknown) (unknown) (no (unknown) (unknown) Visit Reasons: (units (unknown) date) Consult unknown) (unknown) (no (unknown) (unknown) WEAKNESS (units (unkno wn) date) unknown) (unknown) (no (unknown) (unknown) Watching TV: 2 = (units (unknown) date) Moderate unknown) (unknown) (no (unknown) (unknown) While alcohol is (units (unknown) date) well known to speed unknown) the onset of sleep, it disrupts sleep in (unknown) (no (unknown) (unknown) activities, you (units (unknown) date) may have more unknown) problems getting back to sleep during the night. (unknown) (no (unknown) (unknown) addition, avoiding (units (unknown) date) nighttime bright unknown) light exposure, which can occur with many (unknown) (no (unknown) (unknown) alcohol intake: (units (unknown) date) never unknown) (unknown) (no (unknown) (unknown) also a history of (units (unknown) date) depression and unknown) witnessed apnea with a positive sleep study (unknown) (no (unknown) (unknown) amlodipine 2.5 mg (units (unknown) date) tablet 2.5 mg PO unknown) DAILY 07/09/19 [History Confirmed 08/15/22] (unknown) (no (unknown) (unknown) and feels sleepier (units (unknown) date) during the day of unknown) late. She had a sleep study 12 years ago (unknown) (no (unknown) (unknown) and questions (units ( unknown) date) answered. The unknown) patient is willing to proceed with the sleep study. (unknown) (no (unknown) (unknown) and the effect on (units (unknown) date) sleep in general unknown) were discussed at length. After review of the (unknown) (no (unknown) (unknown) and wakefulness. (units (unknown) date) Scheduled napping unknown) may be considered if appropriate for the (unknown) (no (unknown) (unknown) and was diagnosed (units (unknown) date) with sleep apnea unknown) for which she was started on nasal CPAP, but (unknown) (no (unknown) (unknown) aspirin 81 mg (units ( unknown) date) chewable tablet 81 unknown) mg PO DAILY 06/18/18 [History Confirmed (unknown) (no (unknown) (unknown) atorvastatin 40 mg (units (unknown) date) tablet 80 mg PO unknown) BEDTIME 09/17/19 [History Confirmed 08/29/21] (unknown) (no (unknown) (unknown) awakenings (units (unk nown) date) unknown) (unknown) (no (unknown) (unknown) bedtime. Also (units (u nknown) date) dietary changes can unknown) cause sleep problems, if someone is struggling (unknown) (no (unknown) (unknown) bring your (units (unk nown) date) problems to bed. unknown) (unknown) (no (unknown) (unknown) by trouble staying (units (unknown) date) asleep and unknown) non-restorative sleep. This can be seen secondary (unknown) (no (unknown) (unknown) choking or gasping (units (unknown) date) Choking or Gasping unknown) Branch: currently, epworth sleep scale (unknown) (no (unknown) (unknown) cholecalciferol (units (unknown) date) (vitamin D3) 125 unknown) mcg (5,000 unit) tablet (Vitamin D3) 5,000 unit (unknown) (no (unknown) (unknown) clopidogrel 75 mg (units (unknown) date) tablet (Plavix) 75 unknown) mg PO DAILY 08/15/22 [History Confirmed (unknown) (no (unknown) (unknown) comfortable, the (units (unknown) date) room should be unknown) quiet, not too hot or cold, or too bright. (unknown) (no (unknown) (unknown) concentrating or (units (unknown) date) focusing unknown) (unknown) (no (unknown) (unknown) congestion at (units ( unknown) date) night or sore unknown) throat in the morning (unknown) (no (unknown) (unknown) constellation of (units (unknown) date) symptoms a unknown) split-night sleep study is indicated. The specifics (unknown) (no (unknown) (unknown) conversations and (units (unknown) date) activities before unknown) trying to go to sleep. Don't dwell on, or (unknown) (no (unknown) (unknown) denied, difficulty (units (unknown) date) staying asleep unknown) Difficulty Staying Asleep: frequent, early (unknown) (no (unknown) (unknown) diagnostic sleep (units (unknown) date) study is indicated. unknown) Sleep study options were outlined, (unknown) (no (unknown) (unknown) diphenhydramine (units (unknown) date) HCl 25 mg tablet unknown) (Benadryl Allergy) 50 mg PO BEDTIME ##0 (unknown) (no (unknown) (unknown) dishes. And, (units (u nknown) date) remember, chocolate unknown) has caffeine. (unknown) (no (unknown) (unknown) done before bed to (units (unknown) date) help initiate a unknown) restful night's sleep. (unknown) (no (unknown) (unknown) evaluation of (units ( unknown) date) insomnia unknown) (unknown) (no (unknown) (unknown) gabapentin 600 mg (units (unknown) date) tablet (Neurontin) unknown) 600 mg PO TID #270 tabs 12/19/21 [Rx (unknown) (no (unknown) (unknown) gastroesophageal (units (unknown) date) reflux disease #60 unknown) caps 06/18/18 [Rx Confirmed 08/15/22] (unknown) (no (unknown) (unknown) has not been on it (units (unknown) date) for the last 2 unknown) years. When she was using CPAP she reports no (unknown) (no (unknown) (unknown) have occurred. If (units (unknown) date) there are any unknown) questions, please contact the Medical Records (unknown) (no (unknown) (unknown) head elevated and (units (unknown) date) reports sleeping unknown) pills (melatonin and risperidone) (unknown) (no (unknown) (unknown) home + work Stress (units (unknown) date) Both Branch: not at unknown) all, reports alcohol Sleep Alcohol (unknown) (no (unknown) (unknown) household members: (units (unknown) date) family and children unknown) (unknown) (no (unknown) (unknown) including the (units ( unknown) date) benefits and unknown) limitations of different study types. Given the (unknown) (no (unknown) (unknown) levetiracetam 500 (units (unknown) date) mg tablet 1,500 mg unknown) PO BID 06/18/18 [History Confirmed (unknown) (no (unknown) (unknown) listen to the (units ( unknown) date) radio, or read as unknown) if you associate falling asleep with these (unknown) (no (unknown) (unknown) lorazepam 1 mg (units (unknown) date) tablet 1 mg PO BID unknown) PRN Anxiety #45 tabs 07/24/22 [Rx Confirmed (unknown) (no (unknown) (unknown) may occur. 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 Please (unknown) (no (unknown) (unknown) of a split-night (units (unknown) date) sleep study were unknown) reviewed. Treatment options were also reviewed (unknown) (no (unknown) (unknown) older people who (units (unknown) date) may not venture unknown) outside as frequently as children and adults. (unknown) (no (unknown) (unknown) omeprazole 20 mg (units (unknown) date) capsule,delayed unknown) release 20 mg PO BID New pains/chronic (unknown) (no (unknown) (unknown) optimal sleep (units ( unknown) date) schedule. unknown) (unknown) (no (unknown) (unknown) pain (units (unkno wn) date) unknown) (unknown) (no (unknown) (unknown) paralysis (units (unkn own) date) unknown) (unknown) (no (unknown) (unknown) personal (units (unkno wn) date) electronic devices, unknown) can also help maintain a healthy sleep-wake cycle. (unknown) (no (unknown) (unknown) physical findings (units (unknown) date) and clinical unknown) history it was determined that a repreat (unknown) (no (unknown) (unknown) policies and (units (u nknown) date) procedures. unknown) (unknown) (no (unknown) (unknown) problems with the (units (unknown) date) pressure or the unknown) masks and felt she was sleeping better than (unknown) (no (unknown) (unknown) psychotic features (units (unknown) date) unknown) (unknown) (no (unknown) (unknown) read the note (units ( unknown) date) carefully and unknown) recognize, using context, where these substitutions (unknown) (no (unknown) (unknown) reports non-supine (units (unknown) date) sleeping, denies unknown) stimulant therapy, reports sleeping with (unknown) (no (unknown) (unknown) risperidone 2 mg (units (unknown) date) tablet 2 mg PO unknown) BEDTIME #90 tabs 04/30/22 [Rx Confirmed (unknown) (no (unknown) (unknown) schedule Sleep (units (unknown) date) Schedule Branch: unknown) consistent, daytime somnolence Daytime (unknown) (no (unknown) (unknown) score (02/27), (units (unknown) date) bruxism Bruxism unknown) Branch: currently, sleep talking Sleep Talking (unknown) (no (unknown) (unknown) sentences, no (units ( unknown) date) audible wheezes, no unknown) grunting and not labored (unknown) (no (unknown) (unknown) sertraline 100 mg (units (unknown) date) tablet 200 mg PO unknown) QAM Depression #180 tabs 11/20/21 [Rx (unknown) (no (unknown) (unknown) she is now. (units (un known) date) unknown) (unknown) (no (unknown) (unknown) sleep, weakness (units (unknown) date) associated with unknown) strong emotion or sleep paralysis (unknown) (no (unknown) (unknown) sleeping a little, (units (unknown) date) normal bedtime unknown) (1999), normal wake time (30), sleep (unknown) (no (unknown) (unknown) snoring and (units (un known) date) Reports stops unknown) breathing during sleep (unknown) (no (unknown) (unknown) software. 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 A relaxing exercise, like yoga, can be (unknown) (no (unknown) (unknown) the second half as (units (unknown) date) the body begins to unknown) metabolize the alcohol, causing arousal. (unknown) (no (unknown) (unknown) the sleep study. (units (unknown) date) unknown) (unknown) (no (unknown) (unknown) to sleep apnea, (units (unknown) date) depression, medical unknown) conditions or can be an independent problem. (unknown) (no (unknown) (unknown) unspecified (units (un known) date) unknown) (unknown) (no (unknown) (unknown) with a Mallampati (units (unknown) date) score of III. The unknown) basics of the pathophysiology of sleep apnea (unknown) (no (unknown) (unknown) with a sleep (units (u nknown) date) problem, it's not a unknown) good time to start experimenting with spicy (unknown) (no (unknown) (unknown) years. She also (units (unknown) date) reports that she is unknown) waking up frequently throughout the night Social History date description facility [id number] Never smoked tobacco (finding) [facility] [id number] Never smoked tobacco (finding) [facility] +0000 Never smoked tobacco (finding) [facility] Vital Signs date measurement value units +0000 BMI BMI 0.3 kg/m2 +0000 BP_diastolic BP_diastolic 105 mmHg +0000 BP_systolic BP_systolic 170 mmHg +0000 heart_rate heart_rate 75 /min +0000 height_metric height_metric 1676.4 cm +0000 height_standard height_standard 660 in +0000 respiration_rate respiration_rate 16 /min +0000 temperature_metric temperature_metric 36.28 C +0000 temperature_standard temperature_standard 9 7.3 F +0000 weight_metric weight_metric 93.44 kg +0000 weight_standard weight_standard 206 lb
[2022-08-18] MEDS ORDERED: ONDANSETRON 4 MG/2 ML VIAL IVP STA (13:54)
[2022-08-18] MEDS ORDERED: LORazepam 2 MG/ML VIAL IVP STA (13:54)
--- NOTE | 2022-08-18 13:57 | ED Physician Documentation ---
History of Present Illness - Stated complaint Stated Complaint: HIGH BP,NAUSEA - Chief complaint Chief Complaint: Cardiac - History obtained from History obtained from: Patient - History of Present Illness Timing: How many days ago (5) Pain level max: 7 Pain level now: 7 - Additonal information Additional information: Patient is a 77-year-old female who presents to the emergency department complaining of a headache for the past 5 days. She states it is on the top of her head. She states that nothing seems to make it better or worse. Took Tylenol without relief. She states her blood pressure has been higher than usual as well. She states that she has not been taking her Ativan recently. She states she feels mildly short of breath, but no chest pain. No focal weakness or numbness. No difficulty with speech. No vision changes. The headache is worse with movement, light and sound. She states she does have a history of migraines. The headache was gradual in onset. Review of Systems Constitutional: denies: Fever, Chills Throat: denies: Sore throat Cardiac: denies: Chest pain / pressure, Palpitations Respiratory: denies: Cough, Hemoptysis, Wheezing GI: reports: Nausea. 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 12/22/17 07/03/22 levETIRAcetam [Levetiracetam] 1,500 mg PO BID 04/13/18 07/03/22 risperiDONE [Risperdal] 2 mg PO QPM 04/13/18 07/03/22 Amlodipine Besylate [Norvasc] 2.5 mg PO DAILY #30 tablet 02/27/19 07/03/22 LORazepam [Lorazepam] 1 mg PO TID PRN 02/27/19 12/24/19 Sertraline HCl 200 mg PO DAILY 02/27/19 07/03/22 Acetaminophen [Tylenol] 650 mg PO TID #100 tablet 07/27/19 12/24/19 Hydrocodone/Acetaminophen 1 each PO Q6H PRN #25 tablet 07/27/19 12/24/19 [Hydrocodone-Acetamin 5-325 mg] Melatonin 20 mg PO DAILY PM 08/28/19 07/03/22 diphenhydrAMINE [Benadryl] 50 mg PO HS 08/28/19 07/03/22 Atorvastatin Calcium [Lipitor] 80 mg PO QPM #30 tablet 08/29/19 12/24/19 Clopidogrel [Plavix] 75 mg PO DAILY #30 tablet 08/29/19 07/03/22 Nystatin [Nystop] 1 applic TOP BID #15 gm 07/19/21 HYDROcod/ACETAM 5/325 [[place] 5/325] 1 - 2 tab PO Q6H PRN #7 tablet 07/03/22 - Allergies Allergies/Adverse Reactions: Allergies Allergy/AdvReac Type Severity Reaction Status Date / Time NSAIDS (Non-Steroidal Allergy Unknown Verified 07/03/22 11:43 Anti-Inflamma - Social History Does the pt smoke?: No Smoking Status: Never smoker Does the pt drink ETOH?: No Does the pt have substance abuse?: No - Immunizations Immunizations are current?: Yes - POLST Patient has POLST: No POLST Status: Full Code PD ED PE NORMAL - Vitals Vital signs reviewed: Yes - General General: Alert and oriented X 3, No acute distress, Well developed/nourished - HEENT HEENT: Atraumatic, PERRL, Ears normal, Moist mucous membranes, Pharynx benign - Neck Neck: Supple, no meningeal sign - Cardiac Cardiac: RRR, Strong equal pulses - Respiratory Respiratory: No respiratory distress, Clear bilaterally - Abdomen Abdomen: Soft, Non tender, Non distended - Back Back: No CVA TTP, No spinal TTP - Derm Derm: Warm and dry - Extremities Extremities: No edema, No calf tenderness / cord - Neuro Neuro: Alert and oriented X 3, show girl 2-12 intact, No motor deficit, No sensory deficit, Normal speech - Psych Psych: Normal mood, Normal affect Results - Vitals Vitals: Vital Signs - 24 hr 08/18/22 08/18/22 08/18/22 13:40 14:14 15:30 Temperature 37.0 C Heart Rate 95 74 67 Respiratory 22 17 16 Rate Blood Pressure 181/101 H 216/98 H 177/92 H O2 Saturation 100 98 96 08/18/22 16:00 Temperature Heart Rate 65 Respiratory 17 Rate Blood Pressure 180/89 H O2 Saturation 99 Oxygen O2 Source Room air - EKG (time done) 1343 Rate: Rate (enter#) (82) Rhythm: NSR [place]: Normal Intervals: Normal VA QRS: Normal Ischemia: Non specific changes - Labs Labs: Laboratory Tests 08/18/22 08/18/22 08/18/22 13:45 14:41 14:41 WBC 8.0 RBC 4.72 Hgb 12.7 Hct 38.8 MCV 82.2 MCH 26.9 L MCHC 32.7 RDW 13.2 Plt Count 274 MPV 9.6 Neut # (Auto) 5.4 Lymph # (Auto) 2.0 [place] # (Auto) 0.4 Eos # (Auto) 0.1 Baso # (Auto) 0.0 Absolute Nucleated RBC 0.00 Nucleated RBC % 0.0 Sodium 132 L Potassium 3.5 Chloride 99 L Carbon Dioxide 24 Anion Gap 9.0 BUN 8 Creatinine 0.8 Estimated GFR (MDRD) 69 L Glucose 86 POC Whole Bld Glucose 107 H Calcium 8.8 Total Bilirubin 0.4 AST 20 ALT 15 Alkaline Phosphatase 58 Troponin I High Sens Total Protein 6.8 Albumin 3.9 Globulin 2.9 Albumin/Globulin Ratio 1.3 Lipase 30 08/18/22 14:41 WBC RBC Hgb Hct MCV MCH MCHC RDW Plt Count MPV Neut # (Auto) Lymph # (Auto) [place] # (Auto) Eos # (Auto) Baso # (Auto) Absolute Nucleated RBC Nucleated RBC % Sodium Potassium Chloride Carbon Dioxide Anion Gap BUN Creatinine Estimated GFR (MDRD) Glucose POC Whole Bld Glucose Calcium Total Bilirubin AST ALT Alkaline Phosphatase Troponin I High Sens 3.5 Total Protein Albumin Globulin Albumin/Globulin Ratio Lipase - Rads (name of study) head ct Radiology: Final report received, EMP read contemporaneously, See rad report cxr Radiology: Final report received, EMP read contemporaneously, See rad report PD MEDICAL DECISION MAKING - ED course Complexity details: reviewed results, re-evaluated patient, considered differential, d/w patient ED course: Patient is well-appearing, nontoxic. Afebrile. No acute neurological findings. Head CT does not show any acute abnormalities. Headache resolved. Blood pressure improved. We will continue supportive care and have her follow-up with her doctor. Patient counseled regarding signs and symptoms for which I believe and urgent re-evaluation would be necessary. Patient with good understanding of and agreement to plan and is comfortable going home at this time This document was made in part using voice recognition software. While efforts are made to proofread this document, sound alike and grammatical errors may occur. Departure - Departure Disposition: 01 Home, Self Care Clinical Impression: Hypertension Qualifiers: Hypertension type: unspecified Qualified Code(s): I10 - Essential (primary) hypertension Headache Qualifiers: Headache type: unspecified Headache chronicity pattern: acute headache Intractability: not intractable Qualified Code(s): R51.9 - Headache, unspecified Condition: Good Instructions: ED Cephalgia Unspecified Follow-Up: ALEKSANDRA ESTRELLA MD [Primary Care Provider] - Within 1 week Comments: Please follow-up with your doctor for further care. Return if you worsen. Your laboratory testing does not show any acute abnormalities today. Continue your current medications at home. Your head CT also does not show any acute abnormalities. Discharge Date/Time: 08/18/22 16:20
--- NOTE | 2022-08-18 14:37 | CT Report ---
PROCEDURE: HEAD WO INDICATIONS: headache x 5 days TECHNIQUE: Noncontrast 4.5 mm thick angled axial sections acquired from the foramen magnum to the vertex. For r adiation dose reduction, the following was used: automated exposure control, adjustment of mA and/or kV according to patient size. COMPARISON: 07/03/2022. FINDINGS: Image quality: Excellent. CSF spaces: Basal cisterns are patent. No extra-axial fluid collections. Ventricles are normal in size and shape. Brain: No midline shift. No intracranial masses or hemorrhage. [place]-white matter interface is norm al. Stable age-related senescent changes and periventricular white matter hypoattenuation compatible with chronic small vessel ischemic disease. Skull and face: Calvarium and visualized facial bones are intact, without suspicious lesions. Stabl e postsurgical changes of the posterior right parietal calvarium. Sinuses: Visualized sinuses and mastoids are clear. IMPRESSION: Stable CT of the head. No acute intracranial abnormalities. Stable age-related senescent changes and sequela of chronic small vessel ischemic disease. Reviewed by: Eddy Moreau MD on 08/18/2022 2:36 PM PST Approved by: Eddy Moreau MD on 08/18/2022 2:36 PM PST Station ID: [id number]
--- NOTE | 2022-08-18 14:38 | XRAY Report ---
PROCEDURE: Chest 1 View X-Ray INDICATIONS: Chest Pain TECHNIQUE: One view of the chest was acquired. COMPARISON: None. FINDINGS: Surgical changes and devices: Status post prior ACDF. Lungs and pleura: No pleural effusions or pneumothorax. Lungs are clear. Mediastinum: Mediastinal contours appear normal. Heart size is normal. Bones and chest wall: No suspicious bony lesions. Overlying soft tissues appear unremarkable. IMPRESSION: Chest without acute cardiopulmonary abnormalities or focal airspace disease. Reviewed by: Eddy Moreau MD on 08/18/2022 2:37 PM PST Approved by: Eddy Moreau MD on 08/18/2022 2:37 PM PST Station ID: [id number]
[2022-08-18 14:47] LABS: BASOPHILS % (AUTO) 0.5 %; EOSINOPHILS # (AUTO) 0.1 10^3/uL (0.0-0.7); EOSINOPHILS % (AUTO) 1.4 %; HCT - HEMATOCRIT 38.8 % (37.0-47.0); HGB - HEMOGLOBIN 12.7 g/dL (12.0-16.0); LYMPHOCYTES % (AUTO) 25.3 %; MEAN CORPUSCULAR HEMOGLOBIN 26.9 pg (27.0-31.0); MEAN CORPUSCULAR HGB CONC 32.7 g/dL (32.0-36.0); MEAN CORPUSCULAR VOLUME 82.2 fL (81.0-99.0); MEAN PLATELET VOLUME 9.6 fL (7.9-10.8); MONOCYTES # (AUTO) 0.4 10^3/uL (0.0-1.0); MONOCYTES % (AUTO) 5.3 %; NEUTROPHILS # (AUTO) 5.4 10^3/uL (1.5-6.6); NEUTROPHILS % (AUTO) 67.2 %; PLT - PLATELET COUNT 274 10^3/uL (130-450); RED BLOOD COUNT 4.72 10^6/uL (4.20-5.40); RED CELL DISTRIBUTION WIDTH 13.2 % (12.0-15.0)
[2022-08-18 15:14] LABS: ALBUMIN 3.9 g/dL (3.2-5.5); ALBUMIN/GLOBULIN RATIO 1.3 (1.0-2.2); BILIRUBIN,TOTAL 0.4 mg/dL (0.2-1.0); CALCIUM 8.8 mg/dL (8.5-10.3); CREATININE 0.8 mg/dL (0.4-1.0); POTASSIUM 3.5 mmol/L (3.5-5.0); TOTAL PROTEIN 6.8 g/dL (6.7-8.2)
[2022-08-18] MEDS ORDERED: MORPHINE 2 MG/ML CARPUJECT IVP STA (15:37)
[2022-08-18 16:20] VITALS: BP 180/89
== END 2022-08-18 16:20 | disposition home or self-care (01) ==
LOC: ED 13:32
DX: I10 Essential (primary) hypertension (principal); R51.9 Headache, unspecified
CPT/HCPCS: 36415; 70450; 71045; 80053; 83690; 84484; 85025; 93005; 96374; 96375; 99284; J2060

== ENCOUNTER 2022-09-17 11:20 | Emergency (ER) | payer MEDICARE ==
[2022-09-17] MEDS ORDERED: iohexoL-300 100 ML VIAL ONE (11:47)
--- NOTE | 2022-09-17 11:48 | CT Report ---
PROCEDURE: Head W/O Stroke Protocol INDICATIONS: headache/L sided weakness TECHNIQUE: Noncontrast 4.5 mm thick angled axial sections acquired from the foramen magnum to the vertex, with c oronal reformats. For radiation dose reduction, the following was used: automated exposure control, adjustment of mA and/or kV according to patient size. COMPARISON: FINDINGS: Image quality: Excellent. CSF spaces: Basal cisterns are patent. No extra-axial fluid collections. Ventricles are symmetric in size and shape. Brain: No midline shift. No acute intracranial hemorrhage or mass effect. Hypodensities in the subco rtical and periventricular white matter most commonly seen in setting of chronic microvascular ischem ic changes. There is mild cerebral and cerebellar parenchymal volume loss. Skull and face: Stable right craniotomy changes. Calvarium and visualized facial bones are intact, w ithout suspicious lesions. Sinuses: Visualized sinuses and mastoids are clear. IMPRESSION: 1.No acute intracranial abnormality. 2.Stable chronic microvascular ischemic changes and parenchymal volume loss but Findings were discussed with the referring physician, Dr. Coleman, by telephone on 09/17/2022 at 11: 47 AM. This study fulfills neurological imaging criteria for inclusion or exclusion of acute stroke therapie s based on available published neurological imaging guidelines. Reviewed by: Jono Gerber MD on 09/17/2022 11:47 AM PST Approved by: Jono Gerber MD on 09/17/2022 11:47 AM PST Station ID: [id number]
[2022-09-17 11:53] LABS: BASOPHILS % (AUTO) 0.6 %; EOSINOPHILS # (AUTO) 0.1 10^3/uL (0.0-0.7); EOSINOPHILS % (AUTO) 1.3 %; HCT - HEMATOCRIT 36.9 % (37.0-47.0); HGB - HEMOGLOBIN 11.9 g/dL (12.0-16.0); LYMPHOCYTES # (AUTO) 1.7 10^3/uL (1.5-3.5); LYMPHOCYTES % (AUTO) 24.5 %; MEAN CORPUSCULAR HEMOGLOBIN 26.9 pg (27.0-31.0); MEAN CORPUSCULAR HGB CONC 32.2 g/dL (32.0-36.0); MEAN CORPUSCULAR VOLUME 83.3 fL (81.0-99.0); MEAN PLATELET VOLUME 9.9 fL (7.9-10.8); MONOCYTES # (AUTO) 0.4 10^3/uL (0.0-1.0); MONOCYTES % (AUTO) 5.5 %; NEUTROPHILS # (AUTO) 4.8 10^3/uL (1.5-6.6); NEUTROPHILS % (AUTO) 67.8 %; PLT - PLATELET COUNT 305 10^3/uL (130-450); RED BLOOD COUNT 4.43 10^6/uL (4.20-5.40); RED CELL DISTRIBUTION WIDTH 13.1 % (12.0-15.0); WHITE BLOOD COUNT 7.1 x10^3/uL (4.8-10.8)
[2022-09-17 11:59] LABS: PT - PROTHROMBIN TIME 11.5 secs (9.9-12.6)
[2022-09-17 12:06] LABS: ALBUMIN 3.8 g/dL (3.2-5.5); ALBUMIN/GLOBULIN RATIO 1.7 (1.0-2.2); BILIRUBIN,TOTAL 0.5 mg/dL (0.2-1.0); CALCIUM 8.9 mg/dL (8.5-10.3); CREATININE 0.9 mg/dL (0.4-1.0); POTASSIUM 3.9 mmol/L (3.5-5.0)
[2022-09-17] MEDS ORDERED: SUMAtriptan 6 MG/0.5 ML VIAL SUBQ STA (12:07)
[2022-09-17] MEDS ORDERED: SODIUM CHLORIDE 0.9% 500 ML IV STA ×2 (12:07→13:45)
--- NOTE | 2022-09-17 12:13 | CT Report ---
PROCEDURE: ANGIO HEAD W/WO INDICATIONS: Stroke like symptoms CONTRAST: 80ml Omnipaque 300 TECHNIQUE: Precontrast 4.5 mm thick angled axial sections acquired from the foramen magnum to the vertex. Afte r the administration of intravenous contrast, 1 mm thick sections acquired through the [place] of [place] is. Postcontrast 4.5 mm thick sections then re-acquired from the foramen magnum to the vertex. 3-di mensional zivvlsk-hcmkpiydz-krbgxwpikp (MIP) and/or volume rendering reformats were acquired of the c entral intracranial vasculature. For radiation dose reduction, the following was used: automated ex posure control, adjustment of mA and/or kV according to patient size. COMPARISON: 08/18/2022, 07/03/2022, 08/28/2019. FINDINGS: Image quality: Excellent. Anterior circulation: Intracranial internal carotid arteries are normal in size and flow. The flow within the paired anterior cerebral arteries is normal and symmetric. The flow within the middle cer ebral arteries is normal and symmetric. The anterior communicating artery is seen. No aneurysms are seen. Posterior circulation: Visualized portions of the vertebral arteries demonstrate normal caliber, and join to form a normal appearing basilar artery. Flow within the posterior cerebral arteries is norm al and symmetric. No aneurysms are seen. CSF spaces: Ventricles are normal in size and shape. Basal cisterns are patent. No extra-axial flu id collections. Brain: No midline shift. No intracranial bleeds or masses. [place]-white matter interface appears int act. No area of abnormal contrast enhancement. Skull and face: Prior right posterior parietal craniotomy is again seen with postsurgical changes. No acute skull fracture. Sinuses: Visualized sinuses and mastoids are clear. IMPRESSION: 1. No CT evidence of acute intracranial abnormalities. No area of abnormal intracranial enhancement. 2. Age-related volume loss and mild to moderate white matter chronic small vessel ischemic changes ar e again seen unchanged from prior studies. 3. No hemodynamically significant stenosis or aneurysm is seen in the intracranial circulation. Reviewed by: Garrison Bill MD on 09/17/2022 12:12 PM PST Approved by: Garrison Bill MD on 09/17/2022 12:12 PM PST Station ID: [id number]
--- NOTE | 2022-09-17 12:17 | ED Physician Documentation ---
PD HPI FOCAL NEURO - Stated complaint Stated Complaint: CODE STROKE - Chief complaint Chief Complaint: Neuro - History obtained from History obtained from: Patient, EMS - Additional information Additional information: Patient is a 77-year-old female with a history of previous strokes on aspirin and Plavix presenting for evaluation of slurred speech, left-sided facial droop and left arm and leg weakness starting around 1020. Patient reports having a headache that started around that time and feeling dizzy.She does have a history of some mild right weakness still from her previous stroke. Patient denies recent illness. She does have a history of migraine headaches.She was seen in June with similar presentation with a negative stroke work-up. 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 12/22/17 07/03/22 levETIRAcetam [Levetiracetam] 1,500 mg PO BID 04/13/18 07/03/22 risperiDONE [Risperdal] 2 mg PO QPM 04/13/18 07/03/22 Amlodipine Besylate [Norvasc] 2.5 mg PO DAILY #30 tablet 02/27/19 07/03/22 LORazepam [Lorazepam] 1 mg PO TID PRN 02/27/19 12/24/19 Sertraline HCl 200 mg PO DAILY 02/27/19 07/03/22 Acetaminophen [Tylenol] 650 mg PO TID #100 tablet 07/27/19 12/24/19 Hydrocodone/Acetaminophen 1 each PO Q6H PRN #25 tablet 07/27/19 12/24/19 [Hydrocodone-Acetamin 5-325 mg] Melatonin 20 mg PO DAILY PM 08/28/19 07/03/22 diphenhydrAMINE [Benadryl] 50 mg PO HS 08/28/19 07/03/22 Atorvastatin Calcium [Lipitor] 80 mg PO QPM #30 tablet 08/29/19 12/24/19 Clopidogrel [Plavix] 75 mg PO DAILY #30 tablet 08/29/19 07/03/22 Nystatin [Nystop] 1 applic TOP BID #15 gm 07/19/21 HYDROcod/ACETAM 5/325 [[place] 5/325] 1 - 2 tab PO Q6H PRN #7 tablet 07/03/22 - Allergies Allergies/Adverse Reactions: Allergies Allergy/AdvReac Type Severity Reaction Status Date / Time NSAIDS (Non-Steroidal Allergy Unknown Verified 07/03/22 11:43 Anti-Inflamma - Social History Does the pt smoke?: No Smoking Status: Never smoker Does the pt drink ETOH?: No Does the pt have substance abuse?: No - Immunizations Immunizations are current?: Yes - POLST Patient has POLST: No POLST Status: Full Code PD ED PE NORMAL - General General: Alert and oriented X 3, No acute distress, Well developed/nourished - HEENT HEENT: Atraumatic, PERRL, EOMI, Pharynx benign, Other (Left-sided facial droop) - Neck Neck: Supple, no meningeal sign, No bony TTP - Cardiac Cardiac: RRR, No murmur - Respiratory Respiratory: No respiratory distress, Clear bilaterally - Abdomen Abdomen: Soft, Non tender, Non distended - Derm Derm: Warm and dry - Extremities Extremities: No edema, No calf tenderness / cord NIHSS - Level of Consciousness Level of consciousness: (0) Alert, Keenly responsive LOC Questions: (0) Answers both Q's correct LOC Commands: (0) Performs both correctly - Gaze Best Gaze: (0) Normal - Visual Visual: (0) No loss - Facial Palsy Facial Palsy: (1) Minor paralysis - Motor Arms (both separate) Motor Arm (right): (0) No drift Motor Arm (left): (1) Drift - Motor Legs (both separate) Motor Leg (right): (0) No drift Motor Leg (left): (1) Drift - Limb Ataxia Limb Ataxia: (0) Absent - Sensory Sensory: (0) Normal - Best Language Best Language: (0) No aphasia - Dysarthria Dysarthria: (1) Aqaf-qm-mxlnlrri dysarthria - Extinction and Inattention (formally neg Extinction and inattention: (0) No abnormality - Total Score/Results Total Score/Result: 4 Results - Vitals Vitals: Vital Signs - 24 hr 09/17/22 09/17/22 09/17/22 11:20 12:01 13:01 Temperature 36.7 C Heart Rate 73 70 69 Respiratory 14 24 20 Rate Blood Pressure 158/89 H 166/94 H 172/100 H O2 Saturation 97 95 97 09/17/22 09/17/22 09/17/22 14:00 14:30 15:00 Temperature Heart Rate 70 64 64 Respiratory 20 18 13 Rate Blood Pressure 172/90 H 169/93 H 174/88 H O2 Saturation 98 93 95 09/17/22 09/17/22 09/17/22 15:30 16:00 16:30 Temperature Heart Rate 67 67 73 Respiratory 15 14 18 Rate Blood Pressure 176/100 H 190/90 H 190/90 H O2 Saturation 95 95 98 09/17/22 17:00 Temperature Heart Rate 71 Respiratory 21 Rate Blood Pressure 190/88 H O2 Saturation 97 Oxygen O2 Source Room air - EKG (time done) 1144 Rate: Rate (enter#) (70) Rhythm: NSR Ischemia: No: ST elevation c/w ischemia - Labs Labs: Laboratory Tests 09/17/22 09/17/22 09/17/22 11:49 11:49 11:49 WBC 7.1 RBC 4.43 Hgb 11.9 L Hct 36.9 L MCV 83.3 MCH 26.9 L MCHC 32.2 RDW 13.1 Plt Count 305 MPV 9.9 Neut # (Auto) 4.8 Lymph # (Auto) 1.7 [place] # (Auto) 0.4 Eos # (Auto) 0.1 Baso # (Auto) 0.0 Absolute Nucleated RBC 0.00 Nucleated RBC % 0.0 PT 11.5 INR 1.0 Sodium 135 Potassium 3.9 Chloride 101 Carbon Dioxide 25 Anion Gap 9.0 BUN 10 Creatinine 0.9 Estimated GFR (MDRD) 61 L Glucose 89 Calcium 8.9 Total Bilirubin 0.5 AST 16 ALT 14 Alkaline Phosphatase 58 Total Protein 6.0 L Albumin 3.8 Globulin 2.2 Albumin/Globulin Ratio 1.7 PD MEDICAL DECISION MAKING - ED course Complexity details: reviewed results, re-evaluated patient ED course: 1215 - Seen by teleneurology at the bedside. Telestroke does not recommend tPA given the patient's prior history of strokes and that her symptoms are quickly improving. Agrees with plan to continue with aspirin and Plavix sent for MRI. May need a Holter monitor as an outpatient. Pt with headache and L sided weakness. Code stroke activated and pt seen by telestroke. Given improvement in symptoms and her history she was not a TPA candidate. Ct, angios, and MRi were reviewed. No ischemic event noted. Pt in NSR. Has history of similar presentation in June with unremarkable work up. SYmptoms resolved here and pt ambulating at her baseline. Pt counseled on need for follow up and advised on return precautions. Departure - Departure Disposition: 01 Home, Self Care Clinical Impression: Headache, Stroke-like symptom Condition: Stable Instructions: ED Headache Migraine, ED Transient Ischemic Attack Comments: You presented with stroke symptoms. Your MRI does not show a stroke at this time but your symptoms are still concerning For possibly a mini stroke. It could also be related to migraines or partial seizures. Please have close follow-up with your primary care doctor. May need a Holter monitor to make sure you are not having irregular rhythms. You may also need to follow-up with a neurologist. Please continue with your aspirin and Plavix and your other medications. If you have any worsening symptoms please return to the emergency department. Discharge Date/Time: 09/17/22 17:23
--- NOTE | 2022-09-17 12:23 | CT Report ---
PROCEDURE: ANGIO NECK W INDICATIONS: Stroke like symptoms CONTRAST: 80ml Omnipaque 300 TECHNIQUE: After the administration of intravenous contrast, 1.5 mm axial sections acquired from the aortic arch to the [place] of [place]. Coronal 3-D maximum intensity projection (MIP) and/or volume rendering ref ormats were then performed. For radiation dose reduction, the following was used: automated exposur e control, adjustment of mA and/or kV according to patient size. COMPARISON: 07/03/2022, 08/28/2019, 02/10/2019 and 12/21/2017. FINDINGS: Image quality: Excellent. Carotid system: The great vessels demonstrate a conventional anatomy as they arise from the aortic a rch. The origins of the common carotid arteries appear patent. The common carotid arteries demonstr ate normal calibers and courses. The bifurcation regions appear normal bilaterally. The internal ca rotid arteries demonstrate normal caliber and course. Posterior circulation: The origins of the vertebral arteries appear patent. The more superior porti ons of the vertebral arteries demonstrate normal course and caliber. They join to form a normal appe aring basilar artery. Soft tissues: Visualized neck soft tissues demonstrate no suspicious abnormalities. The thyroid is normal in size and there are no incidental findings. Bones: No suspicious bony lesions. Visualized cervical spine appears normally aligned. IMPRESSION: No hemodynamically significant stenosis is seen in bilateral neck arteries. The estimate of stenosis included in the report of the imaging study was calculated using the NASCET method CLINICAL RECOMMENDATION STATEMENTS: In patients <35 years with an ITN detected on CT, MRI, or extrathyroidal ultrasound, the Committee re commends further evaluation with dedicated thyroid ultrasound if the nodule is "e1 cm and has no susp icious imaging features, and if the patient has normal life expectancy. In patients "e35 years with an ITN detected on CT, MRI, or extrathyroidal ultrasound, the Committee r ecommends further evaluation with dedicated thyroid ultrasound if the nodule is "e1.5 cm and has no s uspicious imaging features, and if the patient has normal life expectancy. (ACR, 2014) Reviewed by: Garrison Bill MD on 09/17/2022 12:22 PM PST Approved by: Garrison Bill MD on 09/17/2022 12:22 PM PST Station ID: [id number]
[2022-09-17] MEDS ORDERED: ONDANSETRON 4 MG/2 ML VIAL IVP STA (13:44)
[2022-09-17] MEDS ORDERED: MORPHINE 2 MG/ML CARPUJECT IVP STA (13:44)
--- NOTE | 2022-09-17 13:59 | MRI Report ---
PROCEDURE: BRAIN WO INDICATIONS: L sided weakness TECHNIQUE: Noncontrast axial T1 spin echo, axial T2 fast spin echo, sagittal and axial FLAIR, coronal T2 fast sp in echo, axial gradient echo, axial diffusion and ADC through the brain. COMPARISON: CTA dated 09/17/2022; MRI dated 08/29/2019 FINDINGS: Image quality: Degraded by motion artifact CSF Spaces: Basal cisterns are patent. No extra-axial fluid collections. Ventricles are normal in size and shape. Brain: No intracranial masses or hemorrhage. Penn/white matter interface is normal. Brainstem appe ars normal. Diffusion-weighted images demonstrate no acute ischemic insult. There is mild diffuse ce rebral volume loss. There is a mild degree of patchy high FLAIR signal within the periventricular and subcortical white matter, consistent with small vessels coming disease, as before. Normal intravascu lar flow voids are present. Skull and face: Calvarium has normal marrow signal. Orbits appear normal. Sinuses: Small amount of bilateral mastoid fluid. Sinuses and mastoids are otherwise clear. IMPRESSION: 1. No acute process. No recent infarct. 2. Mild volume loss and small vessel ischemic disease. Reviewed by: Laureano Green MD on 09/17/2022 12:58 PM [facility] Approved by: Laureano Green MD on 09/17/2022 12:58 PM [facility] Station ID: [id number]
[2022-09-17 17:06] VITALS: BP 190/88
[2022-09-17] MEDS ORDERED: iohexoL-300 100 ML VIAL IVP ONE (17:57)
== END 2022-09-17 17:23 | disposition home or self-care (01) ==
LOC: EDBD → EDUNIT# → ED 11:20
DX: R47.81 Slurred speech (principal); R29.810 Facial weakness; R29.898 Other symptoms and signs involving the musculoskeletal system; R51.9 Headache, unspecified; Z79.01 Long term (current) use of anticoagulants
CPT/HCPCS: 36415; 70450; 70496; 70498; 70551; 80053; 85025; 85610; 93005; 96372; 96374; 96375; 99283; 99284; Q9967

== ENCOUNTER → 2022-09-17 | Outpatient (CLI) | payer MEDICARE | END | disposition critical access hospital (66) | LOC: EMS 11:05 | DX: R47.81 Slurred speech (principal); R29.810 Facial weakness; R53.1 Weakness; R51.9 Headache, unspecified | CPT/HCPCS: A0425; A0429 ==

== ENCOUNTER 2022-11-04 16:39 | Emergency (ER) | payer MEDICARE ==
--- NOTE | 2022-11-04 16:50 | ED Physician Documentation ---
PD HPI HEAD INJURY - Stated complaint Stated Complaint: GLF/HEAD INJ - Chief complaint Chief Complaint: Trauma Hd/Nk - History obtained from History obtained from: Patient - History of Present Illness Mechanism of head injury: Fell (She states she slipped on a slipper on the floor and fell to the right striking her right parietal head on the floor. No loss of consciousness. She is having local head pain in that area. Also some neck pain. No neurologic symptoms. She is concerned because she had a prior craniotomy there.) Where head injury occurred: Home Timing - onset: How many hours ago (1), Today Location of injury: Right (parietal area) Quality of pain: Pain, Aching Associated symptoms: Neck pain. No: LOC, AMS, Paresthesias Contributing factors: No: Anticoagulated, Intoxicated Similar symptoms before: Other (Remote prior craniotomy in the right parietal area. No subsequent problems) Recently seen: Not recently seen Review of Systems Eyes: reports: Decreased vision (some blurring of vision after fall) Cardiac: denies: Chest pain / pressure GI: denies: Abdominal Pain Skin: denies: Abrasion (s), Laceration (s) Neurologic: denies: Focal weakness, Numbness PD PAST MEDICAL HISTORY - Past Medical History Cardiovascular: Hypertension, High cholesterol, Angina Respiratory: Sleep apnea Neuro: CVA, TIA, Seizure disorder, Other Endocrine/Autoimmune: None GI: GERD, Hiatal hernia FILAMENT TESTER: None : Nocturia, Frequency HEENT: Chronic vision loss, Chronic hearing loss Psych: Depression, Anxiety, Schizophrenia Musculoskeletal: Chronic back pain Derm: None - Past Surgical History Past Surgical History: Yes General: Cholecystectomy Ortho: Spine surgery /FILAMENT TESTER: Hysterectomy Neuro: Craniotomy - Present Medications Home Medications: Ambulatory Orders Medication Instructions Recorded Confirmed Gabapentin 600 mg PO 0800,1400,2100 08/06/16 11/04/22 Omeprazole 20 mg PO BIDAC 08/06/16 11/04/22 Aspirin [Adult Aspirin Regimen] 81 mg PO DAILY #30 tablet. 12/22/17 11/04/22 levETIRAcetam [Levetiracetam] 1,500 mg PO BID 04/13/18 11/04/22 risperiDONE [Risperdal] 2 mg PO QPM 04/13/18 11/04/22 LORazepam [Lorazepam] 1 mg PO TID PRN 02/27/19 11/04/22 Sertraline HCl 200 mg PO DAILY 02/27/19 11/04/22 Acetaminophen [Tylenol] 650 mg PO TID #100 tablet 07/27/19 11/04/22 Melatonin 20 mg PO DAILY PM 08/28/19 11/04/22 diphenhydrAMINE [Benadryl] 50 mg PO HS 08/28/19 11/04/22 Atorvastatin Calcium [Lipitor] 80 mg PO QPM #30 tablet 08/29/19 11/04/22 Clopidogrel [Plavix] 75 mg PO DAILY #30 tablet 08/29/19 11/04/22 Nystatin [Nystop] 1 applic TOP BID #15 gm 07/19/21 Amlodipine Besylate [Norvasc] 5 mg PO DAILY 11/04/22 11/04/22 HYDROcod/ACETAM 5/325 [[place] 5/325] 1 ea PO Q6H PRN #14 tablet 11/04/22 Sumatriptan Succinate [Imitrex] 50 mg PO PRN PRN 11/04/22 11/04/22 - Allergies Allergies/Adverse Reactions: Allergies Allergy/AdvReac Type Severity Reaction Status Date / Time NSAIDS (Non-Steroidal Allergy Unknown Verified 11/04/22 16:47 Anti-Inflamma - Social History Does the pt smoke?: No Smoking Status: Never smoker Does the pt drink ETOH?: No Does the pt have substance abuse?: No - Immunizations Immunizations are current?: Yes - POLST Patient has POLST: No POLST Status: Full Code PD ED PE NORMAL - Vitals Vital signs reviewed: Yes - General General: Alert and oriented X 3, No acute distress, Well developed/nourished - HEENT HEENT: Other (right parietal scalp with some local tenderness and mild swelling. ) - Neck Neck: Supple, no meningeal sign, No bony TTP (tender right paracervical area without deformity. She is mvoing neck spontaneously without apparent pain. ), No adenopathy - Respiratory Respiratory: Clear bilaterally, Other (no chestwall tenderness. ) - Abdomen Abdomen: Soft, Non tender - Back Back: No spinal TTP - Derm Derm: Normal color, Warm and dry - Neuro Neuro: Alert and oriented X 3, No motor deficit, No sensory deficit, Normal speech Results - Vitals Vitals: Vital Signs - 24 hr 11/04/22 11/04/22 16:42 18:08 Temperature 36.7 C Heart Rate 81 66 Respiratory 24 18 Rate Blood Pressure 158/103 H 167/96 H O2 Saturation 97 96 Oxygen O2 Source Room air - Rads (name of study) head CT Radiology: Prelim report reviewed, EMP read indepedently, See rad report cervical CT Radiology: Prelim report reviewed, EMP read indepedently, See rad report PD Medical Decision Making - ED course Complexity details: reviewed results, considered differential (She tripped and fell and struck her head. She is not on blood thinners and is not having concussive symptoms. She has had previous craniotomy and strokes and is concerned about injury in the area. She also has some pain in the neck area without neurologic symptoms. head/neck CT indicated. ), d/w patient Reviewed Lab Results: CT scans of the head and neck were performed due to concerns for intracranial injury and also neck fracture or acute injury. She did fall and had impact to the head and has headache and neck pain. She has had prior surgical changes of a craniotomy and cervical spine fusion with hardware. It was cummings to ensure these are still intact and no other new acute injuries. The CT scans of the head were read as normal without any acute injury or/abnormality. The patient was feeling a bit improved after some p.o. Tylenol and IM narcotic medication. She did not have any ill effect from the medication such as sedation or nausea. Her pain is improved. Pharmacies are going to be closed at this point in the evening so a prepack was given to her for this evening. Departure - Departure Disposition: 01 Home, Self Care Clinical Impression: Fall from slip, trip, or stumble, Head contusion, Neck muscle strain Condition: Stable Record reviewed to determine appropriate education?: Yes Follow-Up: ALEKSANDRA ESTRELLA MD [Primary Care Provider] - Prescriptions: HYDROcod/ACETAM 5/325 [[place] 5/325] 1 ea PO Q6H PRN #14 tablet PRN Reason: Pain Comments: The CT scans of your head and neck are without any acute abnormalities. Your prior surgical changes of the craniotomy in the head and the spine fusion and hardware are looking appropriate. No acute fractures or bleeding or swelling. You will still be hurting in the head from hitting it and your neck will be sore from the strain of the fall. Heat and gentle stretching for the neck to help with the muscles. Use Tylenol every 4-6 hours for mild pains and use it regularly over the next several days to week. Interpose use of hydrocodone every 4-6 hours if needed for worse pains. This would be intended short-term. Be aware that can be constipating and also cause some sedation and lightheadedness. We did send you home with a few tablets for tonight since pharmacies are closed. If you were to need more, I did have a prescription to your preferred pharmacy in [place]. I would anticipate improvement in your pains over the next several days to week. I am prescribing a short course of narcotic pain medication for you. These are potentially dangerous and addictive medications that should be used carefully. These medications may constipate you. Take an hdpw-fit-xapyure stool softener such as docusate twice daily with plenty of water while taking these medications. If you go 24 hours without a bowel movement, take [id number] MiraLAX, per package instructions. Do not drink or drive while taking these medications. If you received narcotic or sedating medications while in the emergency department do not drive for 24 hours. Store this medication in a safe, secure place and out of reach of children. It is a violation of federal law to give or sell this medication to another person or to use in a manner other than prescribed. The ED will not refill narcotic prescriptions, including prescriptions lost or stolen. You can dispose of unwanted medications at the [facility] office or at several pharmacies such as [facility].
[2022-11-04] MEDS ORDERED: HYDROmorphone 1 MG/ML CARPUJECT IM STA (16:56)
[2022-11-04] MEDS ORDERED: ACETAMINOPHEN 325 MG TABLET PO STA (16:56)
--- OUTSIDE RECORDS SUMMARY | 2022-11-04 17:32 | EXTERNAL MEDICAL SUMMARY RPT | Continuity of Care Document ---
:1945 Author Organization [facility] Address [address] [place] [address] Phone Care Team Providers Name Role Phone Miguel Angel Torres Unavailable Unavailable Allergies and Intolerances date description facility type (no date) [facility] (unknown) Encounters No information. Functional Status No information. Immunizations No information. Medications date description facility 2022-08-23 00:00 Lorazepam [facility] 2022-09-25 00:00 Lorazepam [facility] 2022-09-25 00:00 Amlodipine [facility] 2022-08-15 00:00 Clopidogrel [facility] 2022-09-10 00:00 Sertraline [facility] 2022-09-25 00:00 Sertraline [facility] 2022-09-25 00:00 Sumatriptan Succinate [facility] Problems No information. Procedures No information. Results/Labs test date author facility value unit interpret ation Result panel 1 (unknown) (no (unknown) (unknown) (no value) (units (unk nown) date) unknown) (unknown) (no (unknown) (unknown) 08/15/22 (units (unkno wn) date) unknown) (unknown) (no (unknown) (unknown) [address] (units (unkno wn) date) unknown) (unknown) (no (unknown) (unknown) Age/Sex: 77 / F (units (unknown) date) Date of Service: unknown) (unknown) (no (unknown) (unknown) Allergies (units (unkn own) date) unknown) (unknown) (no (unknown) (unknown) [place], [place] (units ( unknown) date) [id number] unknown) (unknown) (no (unknown) (unknown) Anemia (units [...] (unknown) (unknown) : 1945 (units (unknown) date) Acct:[id number] unknown) (unknown) (no (unknown) (unknown) Daughter (units [...] region unknown) () (unknown) (no (unknown) (unknown) Generalized (units (un [...] (unknown) (unknown) Patient: (units (unkno wn) date) Minnie Roth MR#: unknown) [id number] (unknown) (no (unknown) [...] (unknown) (unknown) morning awakening (units (unknown) date) 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 (units (unkn own) date) Although every unknown) effort is made to edit content, senior accounting associate errors (unknown) (no (unknown) (unknown) somnolence is: [...] own) date) unknown) (unknown) (no (unknown) (unknown) [address] (units (unkno wn) date) unknown) (unknown) (no (unknown) (unknown) Adhere to regular (units (unknown) date) mealtime schedule, unknown) avoid snacking (unknown) (no (unknown) (unknown) Age/Sex: 77 / F (units (unknown) date) Date of Service: unknown) (unknown) (no (unknown) (unknown) Allergies (units (unkn own) date) unknown) (unknown) (no (unknown) (unknown) [place], [place] (units ( unknown) date) [address] unknown) (unknown) (no (unknown) (unknown) Anemia (units [...] (unknown) (unknown) : 1945 (units (unknown) date) Acct:[id number] unknown) (unknown) (no (unknown) (unknown) Daughter (units [...] wn) date) unknown) (unknown) (no (unknown) (unknown) Macy Score: 5 (units (unknown) date) unknown) (unknown) (no (unknown) (unknown) Macy Sleepiness (units (unknown) date) Scale unknown) (unknown) [...] (unknown) (unknown) Patient: (units (unkno wn) date) Minnie Roth MR#: unknown) M0002 (unknown) (no (unknown) [...] (unknown) (unknown) morning awakening (units (unknown) date) 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) Awakeness: denied, spending time in bed [...] effort is unknown) made to edit content, senior accounting associate errors (unknown) (no (unknown) (unknown) somnolence is: [...] own) date) unknown) (unknown) (no (unknown) (unknown) [address] (units (unkno wn) date) unknown) (unknown) (no (unknown) (unknown) Adhere to regular (units (unknown) date) mealtime schedule, unknown) avoid snacking (unknown) (no (unknown) (unknown) Age/Sex: 77 / F (units (unknown) date) Date of Service: unknown) (unknown) (no (unknown) (unknown) Allergies (units (unkn own) date) unknown) (unknown) (no (unknown) (unknown) [place], [place] (units ( unknown) date) [id number] unknown) (unknown) (no (unknown) (unknown) Anemia (units [...] (unknown) (unknown) : 1945 (units (unknown) date) Acct:[id number] unknown) (unknown) (no (unknown) (unknown) Daughter (units [...] wn) date) unknown) (unknown) (no (unknown) (unknown) Macy Score: 5 (units (unknown) date) unknown) (unknown) (no (unknown) (unknown) Macy Sleepiness (units (unknown) date) Scale unknown) (unknown) [...] (unknown) (unknown) Patient: (units (unkno wn) date) Minnie Roth MR#: unknown) M0002 (unknown) (no (unknown) [...] (unknown) (unknown) morning awakening (units (unknown) date) 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) Awakeness: denied, spending time in bed [...] effort is unknown) made to edit content, senior accounting associate errors (unknown) (no (unknown) (unknown) somnolence is: [...] the night Social History date description facility 2022-08-15 00:00 Never smoked tobacco (finding) [facility] 2022-09-25 00:00 Never smoked tobacco (finding) [facility] Vital Signs date measurement value units 2022-08-15 00:00 BMI 0.3 kg/m2 2022-08-15 00:00 BMI 34.2 kg/m2 2022-08-15 00:00 BP_diastolic 105 mmHg 2022-08-15 00:00 BP_systolic 170 mmHg 2022-08-15 00:00 heart_rate 75 /min 2022-08-15 00:00 height_metric 165.1 cm 2022-08-15 00:00 height_metric 1676.4 cm 2022-08-15 00:00 height_standard 65 in 2022-08-15 00:00 height_standard 660 in 2022-08-15 00:00 respiration_rate 16 /min 2022-08-15 00:00 temperature_metric 36.28 C 2022-08-15 00:00 temperature_standard 97.3 F 2022-08-15 00:00 weight_metric 93.44 kg 2022-08-15 00:00 weight_standard 206 lb
--- NOTE | 2022-11-04 17:34 | CT Report ---
PROCEDURE: HEAD WO INDICATIONS: trip/fall, struck right parietal TECHNIQUE: Noncontrast 4.5 mm thick angled axial sections acquired from the foramen magnum to the vertex. For r adiation dose reduction, the following was used: automated exposure control, adjustment of mA and/or kV according to patient size. COMPARISON: 09/17/2022, CTs and brain MRI. 09/17/2022 Correlation is made with the accompanying cerv ical spine CT, 11/04/2022. FINDINGS: Image quality: There is streak artifact seen through the skull base. CSF spaces: Basal cisterns are patent. No extra-axial fluid collections. Ventricles are normal in size and shape. Brain: No midline shift. No intracranial masses or hemorrhage. Penn-white matter interface is norm al. Skull and face: Remote, stable right parietal craniotomy change can be seen. No complication can be seen. Calvarium and visualized facial bones are intact, without suspicious lesions. Sinuses: Visualized sinuses and mastoids are clear. IMPRESSION: No intracranial hemorrhage is seen. No significant intracranial abnormality is seen. Right sided craniotomy change, without complication or fracture. Reviewed by: Robby Bateman MD on 11/04/2022 4:32 PM [facility] Approved by: Robby Bateman MD on 11/04/2022 4:32 PM [facility] Station ID: [id number]
--- NOTE | 2022-11-04 17:36 | CT Report ---
PROCEDURE: CERVICAL SPINE WO INDICATIONS: trip/fall, right neck pain, normal neuro TECHNIQUE: Noncontrast 3 mm thick sections acquired from the skull base to the T4 level. Sagittal and coronal r eformats were then constructed. For radiation dose reduction, the following was used: automated exp osure control, adjustment of mA and/or kV according to patient size. COMPARISON: 07/19/2021. Correlation is made with the accompanying head CT, 11/04/2022. FINDINGS: Image quality: Excellent. Bones: No fractures or dislocations. Visualized superior ribs are intact. There is an intact anterior fusion plate seen at C5-C7. Disc spacers are seen at C5-C6 and C6-C7. There is reversal of the normal cervical lordosis seen, with the apex at the C4-C5 level. Mild grade 1 anterolisthesis is seen at C3-C4. Focal degenerative change can be seen involving the C1-C2 interface anteriorly. There is moderate dis c space narrowing at C2-C3, with moderate to severe disc space narrowing seen at C4-C5 and at C7-T1. Endplate irregularity and sclerosis are seen, which are worst at C7-T1. Soft tissues: Prevertebral soft tissues are normal in thickness. No paravertebral hematomas. No ap ical pneumothoraces. IMPRESSION: Negative for fracture. Intact appearing hardware. Extensive degenerative changes are seen. Reviewed by: Robby Bateman MD on 11/04/2022 4:35 PM [facility] Approved by: Robby Bateman MD on 11/04/2022 4:35 PM [facility] Station ID: [id number]
[2022-11-04 18:09] VITALS: BP 167/96
[2022-11-04] MEDS ORDERED: HYDROcod/ACET 5/325 Prepack 4 PO STA (18:18)
== END 2022-11-04 18:47 | disposition home or self-care (01) ==
LOC: ED 16:39
DX: S00.03XA Contusion of scalp, initial encounter (principal); S16.1XXA Strain of muscle, fascia and tendon at neck level, initial encounter; W01.190A Fall on same level from slipping, tripping and stumbling with subsequent striking against furniture, initial encounter; Y92.009 Unspecified place in unspecified non-institutional (private) residence as the place of occurrence of the external cause; Z98.1 Arthrodesis status; Z98.890 Other specified postprocedural states
CPT/HCPCS: 70450; 72125; 96372; 99284; A9270; J1170

== ENCOUNTER 2022-12-02 15:33 | Emergency (ER) | payer MEDICARE ==
[2022-12-02 15:44] VITALS: BP 185/99
[2022-12-02] MEDS ORDERED: SODIUM CHLORIDE 0.9% 500 ML IV STA (15:47)
--- OUTSIDE RECORDS SUMMARY | 2022-12-02 15:50 | EXTERNAL MEDICAL SUMMARY RPT | Continuity of Care Document ---
:1945 Author Organization [facility] Address [address] [place] [address] Phone Care Team Providers Name Role Phone Miguel Angel Torres Unavailable Unavailable Allergies No information. Encounters No information. Functional Status No information. Immunizations No information. Medications date description facility [facility] Lor[facility] 2022-09-25 00:00 Amlodipine [facility] 2022-10-09 00:00 Gabapentin [facility] 2022-09-10 [facility] Sumatriptan Succinate [facility] Problems No information. Procedures No information. Results/Labs No information. Social History date description facility 2022-09-25 00:00 Never smoked tobacco (finding) [facility] 2022-11-29 00:00 Never smoked tobacco (finding) [facility] Vital Signs No information.
[2022-12-02 16:06] LABS: BASOPHILS % (AUTO) 0.5 %; EOSINOPHILS # (AUTO) 0.2 10^3/uL (0.0-0.7); EOSINOPHILS % (AUTO) 2.7 %; HCT - HEMATOCRIT 41.3 % (37.0-47.0); HGB - HEMOGLOBIN 13.5 g/dL (12.0-16.0); LYMPHOCYTES # (AUTO) 2.3 10^3/uL (1.5-3.5); MEAN CORPUSCULAR HEMOGLOBIN 26.6 pg (27.0-31.0); MEAN CORPUSCULAR HGB CONC 32.7 g/dL (32.0-36.0); MEAN CORPUSCULAR VOLUME 81.3 fL (81.0-99.0); MEAN PLATELET VOLUME 10.4 fL (7.9-10.8); MONOCYTES # (AUTO) 0.4 10^3/uL (0.0-1.0); MONOCYTES % (AUTO) 5.7 %; NEUTROPHILS # (AUTO) 4.7 10^3/uL (1.5-6.6); PLT - PLATELET COUNT 295 10^3/uL (130-450); RED BLOOD COUNT 5.08 10^6/uL (4.20-5.40); RED CELL DISTRIBUTION WIDTH 13.2 % (12.0-15.0); WHITE BLOOD COUNT 7.7 x10^3/uL (4.8-10.8)
[2022-12-02 16:19] LABS: ALBUMIN 3.9 g/dL (3.2-5.5); ALBUMIN/GLOBULIN RATIO 1.1 (1.0-2.2); BILIRUBIN,TOTAL 0.6 mg/dL (0.2-1.0); CALCIUM 9.5 mg/dL (8.5-10.3); CREATININE 0.8 mg/dL (0.4-1.0); POTASSIUM 3.6 mmol/L (3.5-5.0); TOTAL PROTEIN 7.4 g/dL (6.7-8.2)
--- NOTE | 2022-12-02 16:31 | CT Report ---
PROCEDURE: CT brain without contrast INDICATIONS: more frequent seizures/history of ICH TECHNIQUE: Noncontrast 4.5 mm thick angled axial sections acquired from the foramen magnum to the vertex. For r adiation dose reduction, the following was used: automated exposure control, adjustment of mA and/or kV according to patient size. COMPARISON: CT brain 11/04/2022 FINDINGS: Image quality: Excellent. CSF spaces: Basal cisterns are patent. No extra-axial fluid collections. Ventricles are normal in size and shape. Brain: No midline shift. No intracranial masses or hemorrhage. Penn-white matter interface is norm al. Mild atrophy and white matter chronic ischemic change Skull and face: Small right parietal keyhole craniotomy secured with round and straight plates Sinuses: Visualized sinuses and mastoids are clear. IMPRESSION: Atrophy and chronic ischemic change without intracranial hemorrhage or mass effect Reviewed by: Rd Deal MD on 12/02/2022 3:29 PM [facility] Approved by: Rd Deal MD on 12/02/2022 3:29 PM [facility] Station ID: [id number]
[2022-12-02 16:50] LABS: BILIRUBIN,URINE NEGATIVE (NEGATIVE); GLUCOSE, URINE (UA) NEGATIVE (NEGATIVE); KETONES,URINE (UA) NEGATIVE (NEGATIVE); LEUKOCYTE ESTERASE, URINE SMALL (NEGATIVE); NITRITE,URINE NEGATIVE (NEGATIVE); OCCULT BLOOD,URINE NEGATIVE (NEGATIVE); PROTEIN,URINE NEGATIVE (NEGATIVE); UROBILINOGEN,URINE 0.2 (NORMAL) E.U./dL (NORMAL)
[2022-12-02 17:04] LABS: CLARITY,URINE HAZY (CLEAR); RBC,URINE None Seen /HPF (0-5); SQUAMOUS EPITHELIAL CELL,UR RARE Squamous (<= Few)
[2022-12-02 17:05] LABS: BACTERIA,URINE None Seen /HPF (None Seen)
--- NOTE | 2022-12-02 17:11 | ED Physician Documentation ---
PD HPI SEIZURE - Stated complaint Stated Complaint: SEIZURES - Chief complaint Chief Complaint: Neuro - History obtained from History obtained from: Patient - Additional information Additional information: Patient is a 77-year-old female presenting for evaluation of possible seizure activity today. She reports a known seizure disorder and is on Keppra 1500 mg twice daily. She does not currently see a neurologist. She states her last seizure was 1 week ago and prior to that had been a long time. She denies any recent injuries or falls. She denies vomiting or diarrhea or recent illness. She denies UTI symptoms, cough or congestion. She denies any current pain. She states that around 2:00 this afternoon she was at home just sitting down when she felt her left leg cramp up And she had difficulty moving it. She states this happened 3 times and that this is similar to when she has had prior seizures. There were no family members with her to witness this. She has not had any further episodes since.She reports being compliant with her medications.She is on Plavix for history of strokes and does have a history of an intracranial hemorrhage with prior craniotomy. Review of Systems Constitutional: denies: Fever Cardiac: denies: Chest pain / pressure Respiratory: denies: Dyspnea GI: denies: Abdominal Pain Musculoskeletal: denies: Back pain Neurologic: reports: Seizure, Headache. 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 12/22/17 11/04/22 levETIRAcetam [Levetiracetam] 1,500 mg PO BID 04/13/18 11/04/22 risperiDONE [Risperdal] 2 mg PO QPM 04/13/18 11/04/22 LORazepam [Lorazepam] 1 mg PO TID PRN 02/27/19 11/04/22 Sertraline HCl 200 mg PO DAILY 02/27/19 11/04/22 Acetaminophen [Tylenol] 650 mg PO TID #100 tablet 07/27/19 11/04/22 Melatonin 20 mg PO DAILY PM 08/28/19 11/04/22 diphenhydrAMINE [Benadryl] 50 mg PO HS 08/28/19 11/04/22 Atorvastatin Calcium [Lipitor] 80 mg PO QPM #30 tablet 08/29/19 11/04/22 Clopidogrel [Plavix] 75 mg PO DAILY #30 tablet 08/29/19 11/04/22 Nystatin [Nystop] 1 applic TOP BID #15 gm 07/19/21 Amlodipine Besylate [Norvasc] 5 mg PO DAILY 11/04/22 11/04/22 HYDROcod/ACETAM 5/325 [[place] 5/325] 1 ea PO Q6H PRN #14 tablet 11/04/22 Sumatriptan Succinate [Imitrex] 50 mg PO PRN PRN 11/04/22 11/04/22 - Allergies Allergies/Adverse Reactions: Allergies Allergy/AdvReac Type Severity Reaction Status Date / Time NSAIDS (Non-Steroidal Allergy Unknown Verified 12/02/22 15:45 Anti-Inflamma - Social History Does the pt smoke?: No Smoking Status: Never smoker Does the pt drink ETOH?: No Does the pt have substance abuse?: No - Immunizations Immunizations are current?: Yes - POLST Patient has POLST: No POLST Status: Full Code PD ED PE NORMAL - General General: Alert and oriented X 3, No acute distress, Well developed/nourished - HEENT HEENT: Atraumatic, PERRL, EOMI, Moist mucous membranes, Pharynx benign (Tongue is midline) - Neck Neck: Supple, no meningeal sign - Cardiac Cardiac: RRR - Respiratory Respiratory: No respiratory distress, Clear bilaterally - Abdomen Abdomen: Soft, Non tender, Non distended - Derm Derm: Warm and dry - Extremities Extremities: No edema - Neuro Neuro: Alert and oriented X 3, generation engineer 2-12 intact, No motor deficit, No sensory deficit, Normal speech Eye Opening: Spontaneous Motor: Obeys Commands Verbal: Oriented GCS Score: 15 Results - Vitals Vitals: Vital Signs - 24 hr 12/02/22 12/02/22 15:36 15:43 Temperature 37.0 C 37.0 C Heart Rate 80 80 Respiratory 23 23 Rate Blood Pressure 185/99 H 185/99 H O2 Saturation 93 93 Oxygen O2 Source Room air - EKG (time done) 1551 Rate: Rate (enter#) (74) Rhythm: NSR Intervals: No: Prolonged QT Ischemia: No: ST elevation c/w ischemia - Labs Labs: Laboratory Tests 12/02/22 12/02/22 12/02/22 16:00 16:00 16:41 WBC 7.7 RBC 5.08 Hgb 13.5 Hct 41.3 MCV 81.3 MCH 26.6 L MCHC 32.7 RDW 13.2 Plt Count 295 MPV 10.4 Neut # (Auto) 4.7 Lymph # (Auto) 2.3 [place] # (Auto) 0.4 Eos # (Auto) 0.2 Baso # (Auto) 0.0 Absolute Nucleated RBC 0.00 Nucleated RBC % 0.0 Sodium 135 Potassium 3.6 Chloride 98 L Carbon Dioxide 28 Anion Gap 9.0 BUN 11 Creatinine 0.8 Estimated GFR (MDRD) 69 L Glucose 93 Calcium 9.5 Total Bilirubin 0.6 AST 22 ALT 21 Alkaline Phosphatase 66 Total Protein 7.4 Albumin 3.9 Globulin 3.5 Albumin/Globulin Ratio 1.1 Urine Color YELLOW Urine Clarity HAZY Urine pH 7.0 Ur Specific [place] 1.010 Urine Protein NEGATIVE Urine Glucose (UA) NEGATIVE Urine Ketones NEGATIVE Urine Occult Blood NEGATIVE Urine Nitrite NEGATIVE Urine Bilirubin NEGATIVE Urine Urobilinogen 0.2 (NORMAL) Ur Leukocyte Esterase SMALL H Urine RBC None Seen Urine WBC 4-5 Ur Squamous Epith Cells RARE Squamous Urine Bacteria None Seen Ur Microscopic Review INDICATED Urine Culture Comments INDICATED PD Medical Decision Making - ED course Complexity details: reviewed results, re-evaluated patient, d/w patient ED course: Pt with seizure disorder presenting for possible seizure episodes today. Contrary to triage note, there were no witnesses at pt's home. Pt states she was aware during the episodes. CT head obtained given history of ICH and is negative. Labs reviewed and unremarkable. No signs of UTI. Neuro exam is normal here and no seizure like activity witnessed. Pt has been at her baseline here with no signs of stroke or further seizures and appears stable for discharge home with close PCP follow up. She was encouraged to establish care with a neurologist given her extensive history. Pt counseled on concerning symptoms to return for. Departure - Departure Disposition: 01 Home, Self Care Clinical Impression: Seizure disorder Condition: Stable Instructions: ED Seizure Recurrent Follow-Up: ISHAN CRESPO PA-C [Primary Care Provider] - Comments: Please make sure you continue to take your antiseizure medication. I would recommend close follow-up with your primary care provider. Given your extensive medical history including your seizure disorder you would benefit from having a neurologist I would recommend having your primary care provider help you find a neurologist that you are able to have close follow-up with to see if any of your medications need adjustment. Please make sure to stay hydrated. If you have any new or recurrent symptoms please consider return to the ER. Discharge Date/Time: 12/02/22 18:02
[2022-12-02] MEDS ORDERED: ACETAMINOPHEN 325 MG TABLET PO STA (17:16)
== END 2022-12-02 18:02 | disposition home or self-care (01) ==
LOC: ED 15:33
DX: G40.909 Epilepsy, unspecified, not intractable, without status epilepticus (principal)
CPT/HCPCS: 36415; 70450; 80053; 81001; 85025; 87086; 93005; 99283; 99284; A9270; 81003

== ENCOUNTER 2022-12-14 16:27 | Emergency (ER) | payer MEDICARE ==
[2022-12-14] MEDS ORDERED: SODIUM CHLORIDE 0.9% 1,000 ML IV STA (16:48)
[2022-12-14] MEDS ORDERED: HYDROmorphone 1 MG/ML CARPUJECT IVP STA ×2 (16:48→17:44)
--- NOTE | 2022-12-14 16:48 | ED Physician Documentation ---
PD HPI HEAD INJURY - Stated complaint Stated Complaint: GLF - Chief complaint Chief Complaint: Neuro - History obtained from History obtained from: Patient - Additional information Additional information: 76-year-old woman with history of stroke on dual antiplatelet therapy has had chest pressure all day today. It started early this morning. She got out of bed just within the last hour or so and had a dizzy episode and fainted. She had the back of her head and has a severe headache. She denies shortness of breath, no pedal edema or calf pain. The headache is quite bad, "severe." She also has neck pain. PD PAST MEDICAL HISTORY - Past Medical History Cardiovascular: Hypertension, High cholesterol, Angina Respiratory: Sleep apnea Neuro: CVA, TIA, Seizure disorder, Other Endocrine/Autoimmune: None GI: GERD, Hiatal hernia PERSONNEL ASSOCIATE: None : Nocturia, Frequency HEENT: Chronic vision loss, Chronic hearing loss Psych: Depression, Anxiety, Schizophrenia Musculoskeletal: Chronic back pain Derm: None - Past Surgical History Past Surgical History: Yes General: Cholecystectomy Ortho: Spine surgery /PERSONNEL ASSOCIATE: Hysterectomy Neuro: Craniotomy - Present Medications Home Medications: Ambulatory Orders Medication Instructions Recorded Confirmed Gabapentin 600 mg PO 0800,1400,2100 08/06/16 11/04/22 Omeprazole 20 mg PO BIDAC 08/06/16 11/04/22 Aspirin [Adult Aspirin Regimen] 81 mg PO DAILY #30 tablet. 12/22/17 11/04/22 levETIRAcetam [Levetiracetam] 1,500 mg PO BID 04/13/18 11/04/22 risperiDONE [Risperdal] 2 mg PO QPM 04/13/18 11/04/22 LORazepam [Lorazepam] 1 mg PO TID PRN 02/27/19 11/04/22 Sertraline HCl 200 mg PO DAILY 02/27/19 11/04/22 Acetaminophen [Tylenol] 650 mg PO TID #100 tablet 07/27/19 11/04/22 Melatonin 20 mg PO DAILY PM 08/28/19 11/04/22 diphenhydrAMINE [Benadryl] 50 mg PO HS 08/28/19 11/04/22 Atorvastatin Calcium [Lipitor] 80 mg PO QPM #30 tablet 08/29/19 11/04/22 Clopidogrel [Plavix] 75 mg PO DAILY #30 tablet 08/29/19 11/04/22 Nystatin [Nystop] 1 applic TOP BID #15 gm 07/19/21 Amlodipine Besylate [Norvasc] 5 mg PO DAILY 11/04/22 11/04/22 HYDROcod/ACETAM 5/325 [[place] 5/325] 1 ea PO Q6H PRN #14 tablet 11/04/22 Sumatriptan Succinate [Imitrex] 50 mg PO PRN PRN 11/04/22 11/04/22 - Allergies Allergies/Adverse Reactions: Allergies Allergy/AdvReac Type Severity Reaction Status Date / Time NSAIDS (Non-Steroidal Allergy Unknown Verified 12/14/22 16:46 Anti-Inflamma - Social History Does the pt smoke?: No Smoking Status: Never smoker Does the pt drink ETOH?: No Does the pt have substance abuse?: No - Immunizations Immunizations are current?: Yes - POLST Patient has POLST: No POLST Status: Full Code PD ED PE NORMAL - Vitals Vital signs reviewed: Yes - General General: Alert and oriented X 3, No acute distress - HEENT HEENT: PERRL, EOMI - Neck Neck: Other (Mild tenderness of the upper and mid cervical spine) - Cardiac Cardiac: RRR, No murmur - Respiratory Respiratory: No respiratory distress, Clear bilaterally - Abdomen Abdomen: Non tender - Back Back: No CVA TTP, No spinal TTP - Derm Derm: Normal color, Warm and dry - Extremities Extremities: No edema, No calf tenderness / cord - Neuro Neuro: Alert and oriented X 3, lock tender chief operator 2-12 intact, Normal speech Eye Opening: Spontaneous Motor: Obeys Commands Verbal: Oriented GCS Score: 15 - Psych Psych: Normal mood, Normal affect Results - Vitals Vitals: Vital Signs - 24 hr 12/14/22 12/14/22 12/14/22 16:34 17:25 17:30 Temperature 36.0 C L Heart Rate 82 70 69 Respiratory 18 16 16 Rate Blood Pressure 156/87 H 159/85 H 144/85 H O2 Saturation 97 94 92 12/14/22 18:14 Temperature Heart Rate Respiratory Rate Blood Pressure O2 Saturation 95 Oxygen O2 Source Room air - EKG (time done) 1648 EKG releavant findings:: EKG personally interpreted by author of this note. Relevant findings are: Rate: Rate (enter#) (76) Rhythm: NSR [place]: Normal Intervals: Normal MO QRS: Normal Ischemia: Normal ST segments. No: ST elevation c/w ischemia - Labs Labs: Laboratory Tests 12/14/22 12/14/22 12/14/22 16:48 16:48 16:48 WBC 9.3 RBC 4.80 Hgb 13.1 Hct 38.7 MCV 80.6 L MCH 27.3 MCHC 33.9 RDW 13.4 Plt Count 328 MPV 10.2 Neut # (Auto) 5.5 Lymph # (Auto) 3.0 [place] # (Auto) 0.6 Eos # (Auto) 0.2 Baso # (Auto) 0.1 Absolute Nucleated RBC 0.00 Nucleated RBC % 0.0 Sodium 140 Potassium 4.0 Chloride 105 Carbon Dioxide 25 Anion Gap 10.0 BUN 13 Creatinine 0.8 Estimated GFR (MDRD) 69 L Glucose 85 Calcium 9.1 Total Bilirubin 0.6 AST 25 ALT 26 Alkaline Phosphatase 68 Troponin I High Sens 3.3 Total Protein 7.0 Albumin 3.7 Globulin 3.3 Albumin/Globulin Ratio 1.1 Lipase 63 H - Rads (name of study) CT of the head shows some volume loss and small vessel ischemic change with remote craniotomy, no acute changes Relevant Findings:: Final report received, EMP independent interpretation of test CT of the cervical spine demonstrates no acute trauma, she does have extensive cervical spondylitic change. Relevant Findings:: Final report received, EMP independent interpretation of test Single view chest x-ray is unremarkable Relevant Findings:: Final report received, EMP independent interpretation of test PD Medical Decision Making - ED course ED course: 77-year-old woman who had a syncopal episode today. She has a history of seizures but she is sure this was not a seizure. She hit the back of her head and now has a severe headache. CBC reviewed and normal. CMP reviewed and normal. Troponin reviewed and normal. CT of the head and cervical spine were both without pertinent positive traumatic findings. She felt much better after some pain medication. Departure - Departure Disposition: 01 Home, Self Care Clinical Impression: Atypical chest pain, Head contusion Condition: Good Record reviewed to determine appropriate education?: Yes Instructions: ED Chest Pain Atypical Unkn Cause, ED Head Injury Closed Comments: No evidence of active heart disease today, and your brain is looking okay without evidence of injury. Take it easy the rest of the day and drink plenty of fluids. Call your doctor to arrange a follow-up appointment, make the next available appointment. In the interim, return anytime if worse or if new symptoms develop. Discharge Date/Time: 12/14/22 18:15
[2022-12-14 16:55] LABS: BASOPHILS # (AUTO) 0.1 10^3/uL (0.0-0.1); BASOPHILS % (AUTO) 0.5 %; EOSINOPHILS # (AUTO) 0.2 10^3/uL (0.0-0.7); EOSINOPHILS % (AUTO) 1.7 %; HCT - HEMATOCRIT 38.7 % (37.0-47.0); HGB - HEMOGLOBIN 13.1 g/dL (12.0-16.0); LYMPHOCYTES % (AUTO) 32.2 %; MEAN CORPUSCULAR HEMOGLOBIN 27.3 pg (27.0-31.0); MEAN CORPUSCULAR HGB CONC 33.9 g/dL (32.0-36.0); MEAN CORPUSCULAR VOLUME 80.6 fL (81.0-99.0); MEAN PLATELET VOLUME 10.2 fL (7.9-10.8); MONOCYTES # (AUTO) 0.6 10^3/uL (0.0-1.0); MONOCYTES % (AUTO) 6.6 %; NEUTROPHILS # (AUTO) 5.5 10^3/uL (1.5-6.6); NEUTROPHILS % (AUTO) 58.8 %; PLT - PLATELET COUNT 328 10^3/uL (130-450); RED CELL DISTRIBUTION WIDTH 13.4 % (12.0-15.0); WHITE BLOOD COUNT 9.3 x10^3/uL (4.8-10.8)
[2022-12-14 17:07] LABS: ALBUMIN 3.7 g/dL (3.2-5.5); ALBUMIN/GLOBULIN RATIO 1.1 (1.0-2.2); BILIRUBIN,TOTAL 0.6 mg/dL (0.2-1.0); CALCIUM 9.1 mg/dL (8.5-10.3); CREATININE 0.8 mg/dL (0.4-1.0)
--- OUTSIDE RECORDS SUMMARY | 2022-12-14 17:25 | EXTERNAL MEDICAL SUMMARY RPT | Continuity of Care Document ---
:1945 Author Organization [facility] Address [address] [place] [address] Phone Care Team Providers Name Role Phone Miguel Angel Torres Unavailable Unavailable Allergies No information. Encounters No information. Functional Status No information. Immunizations No information. Medications date description [facility] 2022-09-25 00:00 Amlodipine [facility] 2022-10-09 00:00 Gabapentin [facility] 2022-09-25 00:00 Sertraline [facility] 2022-09-25 00:00 Sumatriptan Succinate [facility] Problems No information. Procedures No information. Results/Labs No information. Social History date description facility 2022-09-25 00:00 Never smoked tobacco (finding) [facility] 2022-11-29 00:00 Never smoked tobacco (finding) [facility] Vital Signs No information.
--- NOTE | 2022-12-14 17:33 | CT Report ---
PROCEDURE: HEAD WO INDICATIONS: Head and neck injury TECHNIQUE: Noncontrast 4.5 mm thick angled axial sections acquired from the foramen magnum to the vertex. For r adiation dose reduction, the following was used: automated exposure control, adjustment of mA and/or kV according to patient size. COMPARISON: 12/02/2022. FINDINGS: Image quality: Excellent. CSF spaces: Basal cisterns are patent. No extra-axial fluid collections. Ventricles are normal in size and shape. Brain: No midline shift. No intracranial masses or hemorrhage. [place]-white matter interface is norm al. Age-related volume loss and small vessel ischemic change. Intracranial carotid calcifications. Skull and face: Remote right temporal craniotomy. Calvarium and visualized facial bones are intact, w ithout suspicious lesions. Sinuses: Visualized sinuses and mastoids are clear. IMPRESSION: 1. Age-related volume loss, small vessel ischemic change, remote right temporal craniotomy. 2. No evidence acute intracranial abnormality. Reviewed by: Maksim No MD on 12/14/2022 5:31 PM PST Approved by: Maksim No MD on 12/14/2022 5:31 PM PST Station ID: [id number]
--- NOTE | 2022-12-14 17:34 | CT Report ---
PROCEDURE: CERVICAL SPINE WO INDICATIONS: Head and neck injury TECHNIQUE: Noncontrast 3 mm thick sections acquired from the skull base to the T4 level. Sagittal and coronal r eformats were then constructed. For radiation dose reduction, the following was used: automated exp osure control, adjustment of mA and/or kV according to patient size. COMPARISON: 11/04/2022. FINDINGS: Image quality: Excellent. Bones: No fractures or dislocations. Visualized superior ribs are intact. Severe cervical spondyli tic change. Remote ACDF at C5-C7 with intact surgical hardware. Mild chronic anterolisthesis of C3 on C4, and reversal of the normal lordotic curvature secondary to chronic C4 anterior vertebral body he ight loss. Multilevel facet arthropathy. Soft tissues: Prevertebral soft tissues are normal in thickness. No paravertebral hematomas. No ap ical pneumothoraces. IMPRESSION: 1. No evidence of acute cervical fracture or dislocation. 2. Extensive cervical spondylitic change. Reviewed by: Maksim No MD on 12/14/2022 5:33 PM PST Approved by: Maksim No MD on 12/14/2022 5:33 PM PST Station ID: [id number]
--- NOTE | 2022-12-14 17:37 | XRAY Report ---
PROCEDURE: Chest 1 View X-Ray INDICATIONS: Chest pain TECHNIQUE: One view of the chest was acquired. COMPARISON: 08/18/2022. FINDINGS: Surgical changes and devices: None. Lungs and pleura: No pleural effusions or pneumothorax. Lungs are clear. Mediastinum: Mediastinal contours appear normal. Mild cardiomegaly. Bones and chest wall: No suspicious bony lesions. Overlying soft tissues appear unremarkable. IMPRESSION: Mild cardiomegaly. No evidence acute pulmonary process. Reviewed by: Maksim No MD on 12/14/2022 5:36 PM PST Approved by: Maksim No MD on 12/14/2022 5:36 PM PST Station ID: [id number]
[2022-12-14 18:04] VITALS: BP 144/85
== END 2022-12-14 18:15 | disposition home or self-care (01) ==
LOC: ED 16:27
DX: R07.89 Other chest pain (principal); R55 Syncope and collapse; S00.03XA Contusion of scalp, initial encounter; W18.39XA Other fall on same level, initial encounter; Y93.89 Activity, other specified; Y92.003 Bedroom of unspecified non-institutional (private) residence as the place of occurrence of the external cause
CPT/HCPCS: 36415; 70450; 71045; 72125; 80053; 83690; 84484; 85025; 93005; 96374; 99283; 99284; J1170

== ENCOUNTER 2023-01-07 23:30 | Outpatient (CLI) | payer MEDICARE | END 2023-01-07 23:31 | disposition critical access hospital (66) | LOC: EMS 23:30 | DX: R51.9 Headache, unspecified (principal); M54.9 Dorsalgia, unspecified; R53.1 Weakness; W18.12XA Fall from or off toilet with subsequent striking against object, initial encounter; Y92.002 Bathroom of unspecified non-institutional (private) residence as the place of occurrence of the external cause; Z79.01 Long term (current) use of anticoagulants | CPT/HCPCS: A0425; A0429 ==

== ENCOUNTER 2023-01-07 23:42 | Emergency (ER) | payer MEDICARE ==
[2023-01-07 23:59] LABS: BASOPHILS % (AUTO) 0.4 %; EOSINOPHILS # (AUTO) 0.2 10^3/uL (0.0-0.7); EOSINOPHILS % (AUTO) 2.4 %; HCT - HEMATOCRIT 37.2 % (37.0-47.0); HGB - HEMOGLOBIN 12.1 g/dL (12.0-16.0); LYMPHOCYTES # (AUTO) 2.2 10^3/uL (1.5-3.5); LYMPHOCYTES % (AUTO) 22.5 %; MEAN CORPUSCULAR HEMOGLOBIN 27.1 pg (27.0-31.0); MEAN CORPUSCULAR HGB CONC 32.5 g/dL (32.0-36.0); MEAN CORPUSCULAR VOLUME 83.4 fL (81.0-99.0); MEAN PLATELET VOLUME 9.8 fL (7.9-10.8); MONOCYTES # (AUTO) 0.7 10^3/uL (0.0-1.0); MONOCYTES % (AUTO) 7.3 %; NEUTROPHILS # (AUTO) 6.5 10^3/uL (1.5-6.6); NEUTROPHILS % (AUTO) 67.2 %; PLT - PLATELET COUNT 256 10^3/uL (130-450); RED BLOOD COUNT 4.46 10^6/uL (4.20-5.40); RED CELL DISTRIBUTION WIDTH 13.8 % (12.0-15.0); WHITE BLOOD COUNT 9.7 x10^3/uL (4.8-10.8)
--- OUTSIDE RECORDS SUMMARY | 2023-01-07 23:59 | EXTERNAL MEDICAL SUMMARY RPT | Continuity of Care Document ---
:1945 Author Organization [facility] Address [address] [place] [address] Phone Care Team Providers Name Role Phone Miguel Angel Torres Unavailable Unavailable Allergies No information. Encounters No information. Functional Status No information. Immunizations No information. Medications date description facility 2022-11-09 00:00 Lorazepam [facility] 2022-10-09 00:00 Gabapentin [facility] Problems No information. Procedures No information. Results/Labs No information. Social History date description facility 2022-11-29 00:00 Never smoked tobacco ([facility]) [facility] Vital Signs No information.
[2023-01-08 00:13] LABS: PT - PROTHROMBIN TIME 11.1 secs (9.9-12.6)
[2023-01-08 00:24] LABS: ALBUMIN 3.4 g/dL (3.2-5.5); ALBUMIN/GLOBULIN RATIO 1.1 (1.0-2.2); BILIRUBIN,TOTAL 0.5 mg/dL (0.2-1.0); CALCIUM 8.8 mg/dL (8.5-10.3); CREATININE 0.8 mg/dL (0.4-1.0); POTASSIUM 3.7 mmol/L (3.5-5.0); TOTAL PROTEIN 6.4 g/dL (6.7-8.2)
--- NOTE | 2023-01-08 00:52 | ED Physician Documentation ---
PD HPI HEAD INJURY - Stated complaint Stated Complaint: FALL - Chief complaint Chief Complaint: Trauma Hd/Nk - History obtained from History obtained from: Patient - Additional information Additional information: Patient is a 77-year-old female presenting for evaluation after ground-level fall fall with head injury that occurred just prior to arrival. Patient is reported that her legs have felt weak for the past several days. She got up to go to the bathroom and was trying to pull her pants up when her legs gave out on her and she fell down. She reports hitting her head but having no LOC. She reports pain to the head, neck and low back. Per EMS she was able to ambulate at the scene. She is on Plavix. 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 12/22/17 11/04/22 levETIRAcetam [Levetiracetam] 1,500 mg PO BID 04/13/18 11/04/22 risperiDONE [Risperdal] 2 mg PO QPM 04/13/18 11/04/22 LORazepam [Lorazepam] 1 mg PO TID PRN 02/27/19 11/04/22 Sertraline HCl 200 mg PO DAILY 02/27/19 11/04/22 Acetaminophen [Tylenol] 650 mg PO TID #100 tablet 07/27/19 11/04/22 Melatonin 20 mg PO DAILY PM 08/28/19 11/04/22 diphenhydrAMINE [Benadryl] 50 mg PO HS 08/28/19 11/04/22 Atorvastatin Calcium [Lipitor] 80 mg PO QPM #30 tablet 08/29/19 11/04/22 Clopidogrel [Plavix] 75 mg PO DAILY #30 tablet 08/29/19 11/04/22 Nystatin [Nystop] 1 applic TOP BID #15 gm 07/19/21 Amlodipine Besylate [Norvasc] 5 mg PO DAILY 11/04/22 11/04/22 HYDROcod/ACETAM 5/325 [[place] 5/325] 1 ea PO Q6H PRN #14 tablet 11/04/22 Sumatriptan Succinate [Imitrex] 50 mg PO PRN PRN 11/04/22 11/04/22 - Allergies Allergies/Adverse Reactions: Allergies Allergy/AdvReac Type Severity Reaction Status Date / Time NSAIDS (Non-Steroidal Allergy Unknown Verified 01/07/23 23:53 Anti-Inflamma - Social History Does the pt smoke?: No Smoking Status: Never smoker Does the pt drink ETOH?: No Does the pt have substance abuse?: No - Immunizations Immunizations are current?: Yes - POLST Patient has POLST: No POLST Status: Full Code PD ED PE NORMAL - General General: Alert and oriented X 3, No acute distress, Well developed/nourished - HEENT HEENT: Atraumatic - Neck Neck: Supple, no meningeal sign. 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, No motor deficit, No sensory deficit, Normal speech Eye Opening: Spontaneous Motor: Obeys Commands Verbal: Oriented GCS Score: 15 Results - Vitals Vitals: Vital Signs - 24 hr 01/07/23 01/08/23 01/08/23 23:49 00:27 00:30 Temperature 36.9 C Heart Rate 73 69 68 Respiratory 18 17 19 Rate Blood Pressure 158/88 H 171/78 H 168/90 H O2 Saturation 97 97 97 01/08/23 01/08/23 01/08/23 01:00 01:30 02:10 Temperature Heart Rate 68 65 68 Respiratory 20 20 17 Rate Blood Pressure 176/86 H 179/85 H 168/73 H O2 Saturation 97 96 97 Oxygen O2 Source Room air - Labs Labs: Laboratory Tests 01/07/23 01/07/23 01/07/23 23:54 23:54 23:54 WBC 9.7 RBC 4.46 Hgb 12.1 Hct 37.2 MCV 83.4 MCH 27.1 MCHC 32.5 RDW 13.8 Plt Count 256 MPV 9.8 Neut # (Auto) 6.5 Lymph # (Auto) 2.2 [place] # (Auto) 0.7 Eos # (Auto) 0.2 Baso # (Auto) 0.0 Absolute Nucleated RBC 0.00 Nucleated RBC % 0.0 PT 11.1 INR 1.0 Sodium 138 Potassium 3.7 Chloride 103 Carbon Dioxide 27 Anion Gap 8.0 BUN 13 Creatinine 0.8 Estimated GFR (MDRD) 69 L Glucose 114 H Calcium 8.8 Total Bilirubin 0.5 AST 14 ALT 12 Alkaline Phosphatase 71 Total Protein 6.4 L Albumin 3.4 Globulin 3.0 Albumin/Globulin Ratio 1.1 PD Medical Decision Making - ED course Complexity details: reviewed results, re-evaluated patient, d/w patient ED course: Patient is a 77-year-old presenting for evaluation after a head injury. She is on Plavix. Her neuro exam appears to be at her baseline without any signs of any focal deficits.She did initially complain of neck pain so cervical collar was placed by EMS. CT head, C-spine and L-spine were obtained which I reviewed. There are no signs of acute injuries. Her C-spine was also cleared clinically. CBC and chemistries were reviewed given patient's report of leg weakness for a few days.There are no No significant abnormalities. Pt has been able to ambulate since her fall. She has a walker at home which she is supposed to use but was not when she fell. She Was encouraged to use her walker.There are no indications for admission at this time and patient was counseled on need for close follow-up with her PCP And is also advised on return precautions. Departure - Departure Disposition: 01 Home, Self Care Clinical Impression: Fall at home, Head injury Condition: Stable Instructions: ED Head Injury Closed, ED Prevention Fall Comments: Your CT scans of your head, cervical spine and lumbar spine do not show any injuries from your fall tonight. Please continue with Tylenol and lidocaine patches as needed for any areas that are sore. Please make sure you are using your walker. Your labs are also reassuring without a clear cause for why your legs gave out. I would recommend close follow-up with your primary care doctor. Discharge Date/Time: 01/08/23 02:16
--- NOTE | 2023-01-08 01:18 | CT Report ---
PROCEDURE: HEAD WO INDICATIONS: fall on plavix TECHNIQUE: Noncontrast 4.5 mm thick angled axial sections acquired from the foramen magnum to the vertex. For r adiation dose reduction, the following was used: automated exposure control, adjustment of mA and/or kV according to patient size. COMPARISON: CT head 12/14/2022. FINDINGS: Image quality: Excellent. CSF spaces: There is mild cerebral volume loss with prominence of the ventricles and sulci. Basal ci sterns are patent. No extra-axial fluid collections. Brain: No intracranial hemorrhage, mass, or mass effect. [place]-white matter interface is preserved. T here are subcortical and periventricular white matter hypodensities consistent with mild chronic smal l vessel ischemic changes. Skull and face: Calvarium and visualized facial bones demonstrate no acute fractures. There are pos tsurgical changes consistent with prior right frontal craniotomy. Sinuses: Visualized sinuses and mastoids are clear. IMPRESSION: 1. No acute intracranial abnormality. 2. Mild chronic white matter small vessel ischemic changes. Reviewed by: Colt Webster MD on 01/08/2023 1:17 AM PDT Approved by: Colt Webster MD on 01/08/2023 1:17 AM PDT Station ID: [id number]
--- NOTE | 2023-01-08 01:23 | CT Report ---
PROCEDURE: CERVICAL SPINE WO INDICATIONS: fall on plavix/pain TECHNIQUE: Noncontrast 3 mm thick sections acquired from the skull base to the T4 level. Sagittal and coronal r eformats were then constructed. For radiation dose reduction, the following was used: automated exp osure control, adjustment of mA and/or kV according to patient size. COMPARISON: CT cervical spine 12/14/2022. FINDINGS: Image quality: Excellent. Bones: No fractures or subluxation. There is slight reversal of cervical lordosis centered at C3-C4 where there is minimal anterolisthesis. Postsurgical changes are again noted status post ACDF at C5-C 7. Partial fusion also demonstrated at C4-C5. There is moderate degenerative disc disease at C7-T1 as well as extensive multilevel facet arthropathy throughout the cervical spine. Visualized superior ri bs are intact. Soft tissues: Prevertebral soft tissues are normal in thickness. No paravertebral hematomas. No ap ical pneumothoraces. IMPRESSION: 1. No acute fracture or subluxation. 2. Slight reversal of the cervical lordosis at C3-C4 where there is associated minimal retrolisthesis . 3. Extensive multilevel degenerative disc disease and facet arthropathy. Reviewed by: Colt Webster MD on 01/08/2023 1:22 AM PDT Approved by: Colt Webster MD on 01/08/2023 1:22 AM PDT Station ID: [id number]
--- NOTE | 2023-01-08 01:49 | CT Report ---
PROCEDURE: LUMBAR SPINE WO INDICATIONS: fall TECHNIQUE: Noncontrast 3 mm thick sections acquired from the T12 level to the sacrum. Sagittal and coronal refo rmats were constructed. For radiation dose reduction, the following was used: automated exposure co ntrol, adjustment of mA and/or kV according to patient size. COMPARISON: CT lumbar spine 07/19/2021. FINDINGS: Image quality: Evaluation slightly limited by oblique positioning for. Bones: There is unchanged bony alignment. No acute vertebral body compression fractures. There are endplate spurs nodes at T11-T12 and L1-L2. No suspicious lytic or blastic bony lesions. Central spin al caliber is of normal overall caliber. No pars defects. T12-L1: No spinal canal or neuroforaminal narrowing. L1-L2: Mild loss of disc height with a small broad-based disc bulge. There is minimal spinal canal na rrowing and minimal bilateral neuroforaminal narrowing. L2-L3: Moderate loss of disc height with a small broad-based disc bulge and mild facet arthropathy as well as ligamentum flavum hypertrophy. Findings contribute to mild spinal canal narrowing with mild bilateral neuroforaminal narrowing. L3-L4: Mild loss of disc height with a small broad-based disc bulge as well as mild facet arthropathy and ligament hypertrophy. Findings contribute to mild spinal canal narrowing mild bilateral neurofor aminal narrowing. L4-L5: Small broad-based disc bulge with moderate facet arthropathy and ligament of flavum hypertroph y. There is associated moderate spinal canal narrowing with moderate bilateral neuroforaminal narrowi ng. L5-S1: Moderate to severe loss of disc height with a posterior disc osteophyte complex and mild facet arthropathy. There is minimal spinal canal narrowing with moderate right and mild to moderate left n euroforaminal narrowing. Soft tissues: No retroperitoneal masses or hematomas. Visualized aorta is normal in caliber. IMPRESSION: 1. No fracture or subluxation. 2. Multilevel degenerative changes redemonstrated throughout the lumbar spine including moderate spin al canal narrowing at L4-5. Reviewed by: Colt Mullen MD on 01/08/2023 1:48 AM PDT Approved by: Colt Mullen MD on 01/08/2023 1:48 AM PDT Station ID: [id number]
[2023-01-08] MEDS ORDERED: ACETAMINOPHEN 500 MG TABLET PO STA (01:56)
[2023-01-08] MEDS ORDERED: LIDOCAINE PATCH 5% TOP STA (01:56)
[2023-01-08 02:11] VITALS: BP 168/73
== END 2023-01-08 02:16 | disposition home or self-care (01) ==
LOC: EDUNIT# → ED 23:42
DX: S09.90XA Unspecified injury of head, initial encounter (principal); W18.30XA Fall on same level, unspecified, initial encounter; Y92.009 Unspecified place in unspecified non-institutional (private) residence as the place of occurrence of the external cause; I10 Essential (primary) hypertension; Z79.82 Long term (current) use of aspirin
CPT/HCPCS: 36415; 70450; 72125; 72131; 80053; 85025; 85610; 99283; 99284; A9270

== ENCOUNTER 2023-02-22 14:43 | Emergency (ER) | payer MEDICARE ==
[2023-02-22] MEDS ORDERED: MORPHINE 2 MG/ML CARPUJECT IVP STA (15:22)
[2023-02-22] MEDS ORDERED: ONDANSETRON 4 MG/2 ML VIAL IVP STA (15:22)
--- NOTE | 2023-02-22 15:23 | ED Physician Documentation ---
PD HPI CHEST PAIN - Stated complaint Stated Complaint: SOA,CHEST PX - Chief complaint Chief Complaint: Cardiac - History obtained from History obtained from: Patient - Additional information Additional information: 77-year-old woman with history of hypertension was feeling generally poorly today with headache and mild chest pressure. The headache was gradual onset and similar to prior headaches. She checked her blood pressure at home and it was 90s over 60s which is low for her. This all started around 11 AM. 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 12/22/17 11/04/22 levETIRAcetam [Levetiracetam] 1,500 mg PO BID 04/13/18 11/04/22 risperiDONE [Risperdal] 2 mg PO QPM 04/13/18 11/04/22 LORazepam [Lorazepam] 1 mg PO TID PRN 02/27/19 11/04/22 Sertraline HCl 200 mg PO DAILY 02/27/19 11/04/22 Acetaminophen [Tylenol] 650 mg PO TID #100 tablet 07/27/19 11/04/22 Melatonin 20 mg PO DAILY PM 08/28/19 11/04/22 diphenhydrAMINE [Benadryl] 50 mg PO HS 08/28/19 11/04/22 Atorvastatin Calcium [Lipitor] 80 mg PO QPM #30 tablet 08/29/19 11/04/22 Clopidogrel [Plavix] 75 mg PO DAILY #30 tablet 08/29/19 11/04/22 Nystatin [Nystop] 1 applic TOP BID #15 gm 07/19/21 Amlodipine Besylate [Norvasc] 5 mg PO DAILY 11/04/22 11/04/22 HYDROcod/ACETAM 5/325 [[place] 5/325] 1 ea PO Q6H PRN #14 tablet 11/04/22 Sumatriptan Succinate [Imitrex] 50 mg PO PRN PRN 11/04/22 11/04/22 - Allergies Allergies/Adverse Reactions: Allergies Allergy/AdvReac Type Severity Reaction Status Date / Time NSAIDS (Non-Steroidal Allergy Unknown Verified 02/22/23 15:05 Anti-Inflamma - Social History Does the pt smoke?: No Smoking Status: Never smoker Does the pt drink ETOH?: No Does the pt have substance abuse?: No - Immunizations Immunizations are current?: Yes - POLST Patient has POLST: No POLST Status: Full Code PD ED PE NORMAL - Vitals Vital signs reviewed: Yes (Here she is actually hypertensive.) - General General: Alert and oriented X 3, No acute distress - HEENT HEENT: PERRL, EOMI - Cardiac Cardiac: RRR, No murmur - Respiratory Respiratory: No respiratory distress, Clear bilaterally - Abdomen Abdomen: Non tender - Extremities Extremities: No edema, No calf tenderness / cord - Neuro 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 Relevant findings are: Rate: Rate (enter#) (78) Rhythm: NSR [place]: Normal Intervals: Normal HI QRS: Normal Ischemia: Normal ST segments - Labs Labs: Laboratory Tests 02/22/23 02/22/23 02/22/23 15:20 15:20 15:20 WBC 8.2 RBC 4.77 Hgb 13.0 Hct 39.2 MCV 82.2 MCH 27.3 MCHC 33.2 RDW 13.2 Plt Count 308 MPV 10.3 Neut # (Auto) 5.4 Lymph # (Auto) 2.2 [place] # (Auto) 0.4 Eos # (Auto) 0.2 Baso # (Auto) 0.1 Absolute Nucleated RBC 0.00 Nucleated RBC % 0.0 Sodium 138 Potassium 3.7 Chloride 104 Carbon Dioxide 23 Anion Gap 11.0 BUN 16 Creatinine 0.8 Estimated GFR (MDRD) 69 L Glucose 98 Calcium 9.0 Total Bilirubin 0.4 AST 18 ALT 19 Alkaline Phosphatase 78 Troponin I High Sens 3.6 Total Protein 6.9 Albumin 3.7 Globulin 3.2 Albumin/Globulin Ratio 1.2 Lipase 47 PD Medical Decision Making - ED course ED course: 77-year-old woman presents with very mild chest pain in the setting of low blood pressures at home not corroborated on vital signs here. Chest x-ray was unremarkable. EKG normal/nonischemic. CBC, CMP, and troponin negative. Here her main complaint was a migraine headache, gradual onset and similar to prior. Feeling pain-free after 4 mg of morphine IV. Departure - Departure Disposition: Home, Self Care Clinical Impression: Atypical chest pain Hypertension Qualifiers: Hypertension type: primary hypertension Qualified Code(s): I10 - Essential (primary) hypertension Condition: Good Record reviewed to determine appropriate education?: Yes Instructions: ED Chest Pain Atypical Unkn Cause Comments: Keep an eye on your blood pressures but recognize that here with an arm cuff as opposed to a wrist cuff they were actually high. Return for new or worsening symptoms. Follow-up with your doctor next week for recheck, calling Saturday first thing for an appointment.
--- NOTE | 2023-02-22 15:38 | XRAY Report ---
PROCEDURE: Chest 1 View X-Ray INDICATIONS: Chest pain TECHNIQUE: One view of the chest was acquired. COMPARISON: None. FINDINGS: Surgical changes and devices: None. Lungs and pleura: No pleural effusions or pneumothorax. Lungs are clear. Mediastinum: Mediastinal contours appear normal. Heart size is normal. Bones and chest wall: No suspicious bony lesions. Overlying soft tissues appear unremarkable. IMPRESSION: No acute cardiopulmonary process. Reviewed by: Estiven Bhatia on 02/22/2023 3:37 PM PDT Approved by: Estiven Bhatia on 02/22/2023 3:37 PM PDT Station ID: [id number]
[2023-02-22 16:03] LABS: BASOPHILS # (AUTO) 0.1 10^3/uL (0.0-0.1); BASOPHILS % (AUTO) 0.6 %; EOSINOPHILS # (AUTO) 0.2 10^3/uL (0.0-0.7); HCT - HEMATOCRIT 39.2 % (37.0-47.0); LYMPHOCYTES # (AUTO) 2.2 10^3/uL (1.5-3.5); LYMPHOCYTES % (AUTO) 26.3 %; MEAN CORPUSCULAR HEMOGLOBIN 27.3 pg (27.0-31.0); MEAN CORPUSCULAR HGB CONC 33.2 g/dL (32.0-36.0); MEAN CORPUSCULAR VOLUME 82.2 fL (81.0-99.0); MEAN PLATELET VOLUME 10.3 fL (7.9-10.8); MONOCYTES # (AUTO) 0.4 10^3/uL (0.0-1.0); MONOCYTES % (AUTO) 4.5 %; NEUTROPHILS # (AUTO) 5.4 10^3/uL (1.5-6.6); NEUTROPHILS % (AUTO) 66.4 %; PLT - PLATELET COUNT 308 10^3/uL (130-450); RED BLOOD COUNT 4.77 10^6/uL (4.20-5.40); RED CELL DISTRIBUTION WIDTH 13.2 % (12.0-15.0); WHITE BLOOD COUNT 8.2 x10^3/uL (4.8-10.8)
[2023-02-22 16:18] LABS: ALBUMIN 3.7 g/dL (3.2-5.5); ALBUMIN/GLOBULIN RATIO 1.2 (1.0-2.2); BILIRUBIN,TOTAL 0.4 mg/dL (0.2-1.0); CREATININE 0.8 mg/dL (0.4-1.0); POTASSIUM 3.7 mmol/L (3.5-5.0); TOTAL PROTEIN 6.9 g/dL (6.7-8.2)
[2023-02-22 17:00] VITALS: BP 170/103
== END 2023-02-22 17:04 | disposition home or self-care (01) ==
LOC: ED 14:43
DX: R07.89 Other chest pain (principal); I10 Essential (primary) hypertension; G43.909 Migraine, unspecified, not intractable, without status migrainosus
CPT/HCPCS: 36415; 80053; 83690; 84484; 85025; 93005; 96374; 96375; 99285

== ENCOUNTER 2023-06-15 17:55 | Emergency (ER) | payer MEDICARE ==
[2023-06-15 18:30] LABS: BILIRUBIN,URINE NEGATIVE (NEGATIVE); CLARITY,URINE CLEAR (CLEAR); GLUCOSE, URINE (UA) NEGATIVE (NEGATIVE); KETONES,URINE (UA) NEGATIVE (NEGATIVE); LEUKOCYTE ESTERASE, URINE SMALL (NEGATIVE); NITRITE,URINE NEGATIVE (NEGATIVE); OCCULT BLOOD,URINE NEGATIVE (NEGATIVE); PROTEIN,URINE NEGATIVE (NEGATIVE); UROBILINOGEN,URINE 0.2 (NORMAL) E.U./dL (NORMAL)
[2023-06-15 18:31] LABS: BASOPHILS # (AUTO) 0.1 10^3/uL (0.0-0.1); BASOPHILS % (AUTO) 0.7 %; EOSINOPHILS # (AUTO) 0.2 10^3/uL (0.0-0.7); EOSINOPHILS % (AUTO) 2.2 %; HCT - HEMATOCRIT 42.7 % (37.0-47.0); LYMPHOCYTES # (AUTO) 3.2 10^3/uL (1.5-3.5); LYMPHOCYTES % (AUTO) 33.2 %; MEAN CORPUSCULAR HEMOGLOBIN 27.4 pg (27.0-31.0); MEAN CORPUSCULAR HGB CONC 32.8 g/dL (32.0-36.0); MEAN CORPUSCULAR VOLUME 83.6 fL (81.0-99.0); MEAN PLATELET VOLUME 10.2 fL (7.9-10.8); MONOCYTES # (AUTO) 0.6 10^3/uL (0.0-1.0); MONOCYTES % (AUTO) 6.1 %; NEUTROPHILS # (AUTO) 5.5 10^3/uL (1.5-6.6); NEUTROPHILS % (AUTO) 57.5 %; PLT - PLATELET COUNT 298 10^3/uL (130-450); RED BLOOD COUNT 5.11 10^6/uL (4.20-5.40); RED CELL DISTRIBUTION WIDTH 13.2 % (12.0-15.0); WHITE BLOOD COUNT 9.6 x10^3/uL (4.8-10.8)
[2023-06-15 18:45] LABS: BACTERIA,URINE Rare /HPF (None Seen); EPITHELIAL CELLS,UR RARE Transitional /HPF (<= Few); RBC,URINE 0-5 /HPF (0-5); SQUAMOUS EPITHELIAL CELL,UR RARE Squamous (<= Few)
[2023-06-15 18:45] LABS: ALBUMIN 4.2 g/dL (3.2-5.5); ALBUMIN/GLOBULIN RATIO 1.5 (1.0-2.2); BILIRUBIN,TOTAL 0.3 mg/dL (0.2-1.0); CALCIUM 9.3 mg/dL (8.5-10.3); CREATININE 0.6 mg/dL (0.6-1.3); POTASSIUM 3.9 mmol/L (3.5-4.5)
--- OUTSIDE RECORDS SUMMARY | 2023-06-15 18:54 | EXTERNAL MEDICAL SUMMARY RPT | Continuity of Care Document ---
Author Name Unknown Address [address] [place] [address] Phone Organization [facility] Address [address] [place] [address] Phone Care Team Providers Care Human Capital Manager Name Role Phone LogansavannahMiguel Angel Unavailable Unavailable Medications date description facility 2023-04-11 00:00 [facility] 2023-04-11 00:00 [facility] Social History date description facility 2023-04-22 00:00 Never smoked tobacco ([facility]) [facility]
[2023-06-15] MEDS ORDERED: HYDROcod/ACETAM 5/325 MG TABLET PO STA (19:49)
[2023-06-15] MEDS ORDERED: LORazepam 1 MG TABLET PO STA (19:49)
--- NOTE | 2023-06-15 20:06 | ED Physician Documentation ---
History of Present Illness - Stated complaint Stated Complaint: ABD/HEAD PX - Chief complaint Chief Complaint: Abd Pain - History obtained from History obtained from: Patient - History of Present Illness Timing: Yesterday Pain level max: 5 Pain level now: 5 - Additonal information Additional information: 69-year-old female presents to the emergency department complaining of a headache since yesterday. Has a history of chronic headaches and this feels similar. No relief with Motrin orNo relief with Tylenol at home. She also states she has had increasing anxiety but only has 3 pills of Ativan left so did not want to take a pill at home. She also states that she had epigastric abdominal pain earlier today, this is mostly resolved. No nausea or vomiting. No diarrhea or constipation. No urinary symptoms. Nothing makes it better or worse. Review of Systems Constitutional: denies: Fever, Chills Nose: denies: Rhinorrhea / runny nose, Congestion : reports: Dysuria, Frequency Skin: denies: Rash Musculoskeletal: denies: Neck pain, Back pain Neurologic: reports: Headache (Gradual in onset, holoacranial, worse with light and sound. No trauma. Feels similar to prior headaches.). 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 12/22/17 06/15/23 levETIRAcetam [Levetiracetam] 1,500 mg PO BID 04/13/18 06/15/23 risperiDONE [Risperdal] 2 mg PO QPM 04/13/18 06/15/23 LORazepam [Lorazepam] 1 mg PO BID PRN 02/27/19 06/15/23 Sertraline HCl 200 mg PO DAILY 02/27/19 06/15/23 Melatonin 20 mg PO DAILY PM 08/28/19 06/15/23 diphenhydrAMINE [Benadryl] 50 mg PO HS 08/28/19 06/15/23 Atorvastatin Calcium [Lipitor] 80 mg PO QPM #30 tablet 08/29/19 06/15/23 Clopidogrel [Plavix] 75 mg PO DAILY #30 tablet 08/29/19 06/15/23 Amlodipine Besylate [Norvasc] 5 mg PO DAILY 11/04/22 06/15/23 Sumatriptan Succinate [Imitrex] 50 mg PO PRN PRN 11/04/22 06/15/23 Acetaminophen [Tylenol] 650 mg PO TID PRN 06/15/23 06/15/23 cephALEXin [Keflex] 500 mg PO Q6H #20 cap 06/15/23 - Allergies Allergies/Adverse Reactions: Allergies Allergy/AdvReac Type Severity Reaction Status Date / Time NSAIDS (Non-Steroidal Allergy Unknown Verified 06/15/23 18:03 Anti-Inflamma - Social History Does the pt smoke?: No Smoking Status: Never smoker Does the pt drink ETOH?: No Does the pt have substance abuse?: No - Immunizations Immunizations are current?: Yes - POLST Patient has POLST: No POLST Status: Full Code PD ED PE NORMAL - Vitals Vital signs reviewed: Yes - General General: Alert and oriented X 3, No acute distress - HEENT HEENT: PERRL, EOMI, Ears normal, Moist mucous membranes, Pharynx benign, Other (Mild left-sided facial droop, chronic for patient) - Neck Neck: Supple, no meningeal sign - Cardiac Cardiac: RRR, Strong equal pulses - Respiratory Respiratory: No respiratory distress, Clear bilaterally - Abdomen Abdomen: Soft, Non tender, Non distended - Derm Derm: Warm and dry - Extremities Extremities: No edema, No calf tenderness / cord - Neuro Neuro: Alert and oriented X 3, family services worker 2-12 intact, No motor deficit, No sensory deficit, Normal speech Eye Opening: Spontaneous Motor: Obeys Commands Verbal: Oriented GCS Score: 15 - Psych Psych: Normal mood, Normal affect Results - Vitals Vitals: Vital Signs - 24 hr 06/15/23 06/15/23 18:03 20:21 Temperature 37 C Heart Rate 88 79 Respiratory 18 18 Rate Blood Pressure 157/96 H 148/92 H O2 Saturation 96 97 Oxygen O2 Source Room air - Labs Labs: Laboratory Tests 06/15/23 06/15/23 06/15/23 18:23 18:26 18:26 WBC 9.6 RBC 5.11 Hgb 14.0 Hct 42.7 MCV 83.6 MCH 27.4 MCHC 32.8 RDW 13.2 Plt Count 298 MPV 10.2 Neut # (Auto) 5.5 Lymph # (Auto) 3.2 [place] # (Auto) 0.6 Eos # (Auto) 0.2 Baso # (Auto) 0.1 Absolute Nucleated RBC 0.00 Nucleated RBC % 0.0 Sodium 138 Potassium 3.9 Chloride 105 Carbon Dioxide 27 Anion Gap 6.0 BUN 9 Creatinine 0.6 Estimated GFR (MDRD) 97 Glucose 91 Calcium 9.3 Total Bilirubin 0.3 AST 16 ALT 19 Alkaline Phosphatase 92 Total Protein 7.0 Albumin 4.2 Globulin 2.8 Albumin/Globulin Ratio 1.5 Lipase 20 Urine Color YELLOW Urine Clarity CLEAR Urine pH 8.0 H Ur Specific [place] 1.010 Urine Protein NEGATIVE Urine Glucose (UA) NEGATIVE Urine Ketones NEGATIVE Urine Occult Blood NEGATIVE Urine Nitrite NEGATIVE Urine Bilirubin NEGATIVE Urine Urobilinogen 0.2 (NORMAL) Ur Leukocyte Esterase SMALL H Urine RBC 0-5 Urine WBC 4-5 Ur Epithelial Cells RARE Transitional Ur Squamous Epith Cells RARE Squamous Urine Bacteria Rare Ur Microscopic Review INDICATED Urine Culture Comments INDICATED PD Medical Decision Making - ED course Complexity details: considered differential, d/w patient ED course: No acute findings on neurological exam. No acute findings on laboratory testing. Was given a dose of Vicodin and Ativan. Symptoms all resolved. Patient request to go home at this time. Abdomen is soft, nontender nondistended on serial exam. No focal neurological deficits. No indication for emergent neuroimaging. No indication of subarachnoid hemorrhage. Patient counseled regarding signs and symptoms for which I believe and urgent re- evaluation would be necessary. Patient with good understanding of and agreement to plan and is comfortable going home at this time This document was made in part using voice recognition software. While efforts are made to proofread this document, sound alike and grammatical errors may occur. Patient was having some dysuria and urinary frequency, therefore we will treat the urinalysis as a true UTI. Departure - Departure Disposition: 01 Home, Self Care Clinical Impression: Anxiety Headache Qualifiers: Headache type: unspecified Headache chronicity pattern: acute headache Intractability: not intractable Qualified Code(s): R51.9 - Headache, unspecified UTI (urinary tract infection) Qualifiers: Urinary tract infection type: acute cystitis Hematuria presence: without hematuria Qualified Code(s): N30.00 - Acute cystitis without hematuria Condition: Good Instructions: ED Headache Migraine, ED UTI Cystitis Female Follow-Up: ISHAN CRESPO PA-C [Primary Care Provider] - Within 1 week Prescriptions: cephALEXin [Keflex] 500 mg PO Q6H #20 cap Comments: Your prescriptions were sent to [facility]. Please take all antibiotics until gone. Please follow-up with your doctor for further care. Please return if you worsen. Forms: PCP List Discharge Date/Time: 06/15/23 21:14
[2023-06-15 20:25] VITALS: BP 148/92; O2SAT 97
[2023-06-15] MEDS ORDERED: cephALEXin 250 MG CAPSULE PO STA (20:54)
== END 2023-06-15 21:14 | disposition home or self-care (01) ==
LOC: ED 17:55
DX: F41.9 Anxiety disorder, unspecified (principal); R51.9 Headache, unspecified; N30.00 Acute cystitis without hematuria
CPT/HCPCS: 36415; 80053; 81001; 83690; 85025; 87086; 99283; A9270; J8499; 81003

== ENCOUNTER 2023-07-16 16:35 | Emergency (ER) | payer MEDICARE ==
[2023-07-16 17:00] VITALS: BP 163/95; O2SAT 95
[2023-07-16] MEDS ORDERED: cephALEXin 250 MG CAPSULE PO STA (17:17)
[2023-07-16] MEDS ORDERED: HYDROcod/ACETAM 5/325 MG TABLET PO STA (17:17)
--- NOTE | 2023-07-16 17:19 | ED Physician Documentation ---
History of Present Illness - Stated complaint Stated Complaint: MOUTH PX,ABD PX - Chief complaint Chief Complaint: General - History obtained from History obtained from: Patient - History of Present Illness Timing: How many days ago (3) Pain level max: 5 Pain level now: 5 - Additonal information Additional information: 77-year-old female presents to the emergency department complaining of right upper dental pain. This been ongoing for the past several days, she feels like there is a foul taste draining into her mouth. She has not followed up with a dentist yet. No fevers. No chills. No facial swelling. No difficulty speaking or swallowing. 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 12/22/17 06/15/23 levETIRAcetam [Levetiracetam] 1,500 mg PO BID 04/13/18 06/15/23 risperiDONE [Risperdal] 2 mg PO QPM 04/13/18 06/15/23 LORazepam [Lorazepam] 1 mg PO BID PRN 02/27/19 06/15/23 Sertraline HCl 200 mg PO DAILY 02/27/19 06/15/23 Melatonin 20 mg PO DAILY PM 08/28/19 06/15/23 diphenhydrAMINE [Benadryl] 50 mg PO HS 08/28/19 06/15/23 Atorvastatin Calcium [Lipitor] 80 mg PO QPM #30 tablet 08/29/19 06/15/23 Clopidogrel [Plavix] 75 mg PO DAILY #30 tablet 08/29/19 06/15/23 Amlodipine Besylate [Norvasc] 5 mg PO DAILY 11/04/22 06/15/23 Sumatriptan Succinate [Imitrex] 50 mg PO PRN PRN 11/04/22 06/15/23 Acetaminophen [Tylenol] 650 mg PO TID PRN 06/15/23 06/15/23 cephALEXin [Keflex] 500 mg PO Q6H #20 cap 06/15/23 HYDROcod/ACETAM 5/325 [[place] 5/325] 1 - 2 ea PO Q6H PRN #14 tablet 07/16/23 cephALEXin [Keflex] 500 mg PO Q6H #28 cap 07/16/23 - Allergies Allergies/Adverse Reactions: Allergies Allergy/AdvReac Type Severity Reaction Status Date / Time NSAIDS (Non-Steroidal Allergy Unknown Verified 06/15/23 18:03 Anti-Inflamma - Social History Does the pt smoke?: No Smoking Status: Never smoker Does the pt drink ETOH?: No Does the pt have substance abuse?: No - Immunizations Immunizations are current?: Yes - POLST Patient has POLST: No POLST Status: Full Code PD ED PE NORMAL - Vitals Vital signs reviewed: Yes - General General: Alert and oriented X 3, No acute distress - HEENT HEENT: Moist mucous membranes, Other (Poor dentition throughout, multiple broken teeth in the right upper jaw. No drainable abscess. No fluctuance. No facial swelling. Normal phonation. No trismus.) - Neck Neck: Supple, no meningeal sign - Cardiac Cardiac: RRR - Respiratory Respiratory: No respiratory distress, Clear bilaterally - Derm Derm: Warm and dry - Neuro Neuro: Alert and oriented X 3 Results - Vitals Vitals: Vital Signs - 24 hr 07/16/23 16:55 Temperature 36.1 C L Heart Rate 72 Respiratory 20 Rate Blood Pressure 163/95 H O2 Saturation 95 Oxygen O2 Source Room air PD Medical Decision Making - ED course Complexity details: considered differential, d/w patient ED course: Patient with dental caries and poor dentition. No drainable abscess. Will place on oral antibiotics, pain medication and have her follow-up with her dentist this week. No indication for CT or further work-up at this time. Patient counseled regarding signs and symptoms for which I believe and urgent re-evaluation would be necessary. Patient with good understanding of and agreement to plan and is comfortable going home at this time This document was made in part using voice recognition software. While efforts are made to proofread this document, sound alike and grammatical errors may occur. Departure - Departure Disposition: 01 Home, Self Care Clinical Impression: Dental caries Condition: Good Instructions: ED Tooth Pain Follow-Up: ISHAN CRESPO PA-C [Primary Care Provider] - Within 1 week Prescriptions: cephALEXin [Keflex] 500 mg PO Q6H #28 cap HYDROcod/ACETAM 5/325 [[place] 5/325] 1 - 2 ea PO Q6H PRN #14 tablet PRN Reason: Pain Comments: Your prescriptions were sent to [facility]. Please follow-up with your dentist this week for further care. Please take all antibiotics until gone. Return if you worsen. I am prescribing a short course of narcotic pain medication for you. These are potentially dangerous and addictive medications that should be used carefully. These medications may constipate you. Take an [id number]-[id number] stool softener (docusate) twice daily with plenty of water while taking these medications. If you go 24 hours without a bowel movement, take [id number] miralax, per package instructions. Do not drink or drive while taking these medications. If you received narcotic or sedating medications while in the emergency department, do not drive for 24 hours. Store this medication in a safe, secure place and out of reach of children. It is a violation of federal law to give or sell this medication to another person or to use in a manner other than prescribed. The ED will not refill narcotic prescriptions, including prescriptions lost or stolen. To dispose of unwanted medications: 1. [facility] at [address] in [place] has a medication drop box. They accept prescription medications (in pill form) Saturday through Saturday 9:00 a.m. to 5:00 p.m. 2. The [facility] [employer] accepts prescription medications (in pill form only) for disposal year round. Call for more inform ation. 3. Contact the [facility] for the next [facility] sponsored prescription drug collection event. , [phone], or [phone]; Forms: PCP List Discharge Date/Time: 07/16/23 17:51
== END 2023-07-16 17:51 | disposition home or self-care (01) ==
LOC: ED 16:35
DX: K02.9 Dental caries, unspecified (principal)
CPT/HCPCS: 99282; 99283; A9270

== ENCOUNTER 2023-08-28 17:35 | Emergency (ER) | payer MEDICARE ==
[2023-08-28] MEDS ORDERED: MORPHINE 2 MG/ML CARPUJECT IVP STA (17:48)
[2023-08-28] MEDS ORDERED: DROPERIDOL 5 MG/2 ML VIAL IVP STA (17:48)
--- NOTE | 2023-08-28 17:52 | ED Physician Documentation ---
PD HPI FOCAL NEURO - Stated complaint Stated Complaint: R SIDE WEAKNESS/TROUBLE WALKING - Chief complaint Chief Complaint: Neuro - History obtained from History obtained from: Patient - Additional information Additional information: She has a history of subdural hematoma with craniotomy in 2011 at [facility] in [facility]. She has had TIAs since then and is currently maintained on dual antiplatelet therapy with aspirin and Plavix. She presents with strokelike symptoms starting at 7 PM tonight. She developed a gradual onset left-sided headache and right-sided weakness. The last few times she had similar symptoms she had negative work-ups with negative MRIs, specifically on September 17 of last year and July 03 of last year and the etiology was felt to be migrainous. 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 12/22/17 08/28/23 levETIRAcetam [Levetiracetam] 1,500 mg PO BID 04/13/18 08/28/23 risperiDONE [Risperdal] 2 mg PO QPM 04/13/18 08/28/23 LORazepam [Lorazepam] 1 mg PO BID PRN 02/27/19 08/28/23 Sertraline HCl 100 mg PO DAILY 02/27/19 08/28/23 Melatonin 10 mg PO HS 08/28/19 08/28/23 diphenhydrAMINE [Benadryl] 25 mg PO HS PRN 08/28/19 08/28/23 Atorvastatin Calcium [Lipitor] 80 mg PO QPM #30 tablet 08/29/19 08/28/23 Clopidogrel [Plavix] 75 mg PO DAILY #30 tablet 08/29/19 08/28/23 Amlodipine Besylate [Norvasc] 5 mg PO DAILY 11/04/22 08/28/23 Sumatriptan Succinate [Imitrex] 50 mg PO PRN PRN 11/04/22 08/28/23 Acetaminophen [Tylenol] 650 mg PO TID PRN 06/15/23 08/28/23 Cholecalciferol [Vitamin D3] 25 mcg PO DAILY 08/28/23 08/28/23 Gabapentin [Neurontin] 600 mg PO TID 08/28/23 08/28/23 Loperamide [Imodium] 2 mg PO DAILY PRN 08/28/23 08/28/23 Losartan Potassium 25 mg PO DAILY 08/28/23 08/28/23 No122/Iron/Folic Acid 1 each PO DAILY 08/28/23 08/28/23 [ Multi Tablet] - Allergies Allergies/Adverse Reactions: Allergies Allergy/AdvReac Type Severity Reaction Status Date / Time NSAIDS (Non-Steroidal Allergy Unknown Verified 06/15/23 18:03 Anti-Inflamma - Social History Does the pt smoke?: No Smoking Status: Never smoker Does the pt drink ETOH?: No Does the pt have substance abuse?: No - Immunizations Immunizations are current?: Yes - POLST Patient has POLST: No POLST Status: Full Code PD ED PE NORMAL - Vitals Vital signs reviewed: Yes - General General: Alert and oriented X 3, No acute distress - HEENT HEENT: PERRL, EOMI - Neck Neck: Supple, no meningeal sign, No bony TTP - Cardiac Cardiac: RRR, No murmur - Respiratory Respiratory: No respiratory distress, Clear bilaterally - Abdomen Abdomen: Non tender - Neuro Neuro: Alert and oriented X 3, double corner cutter 2-12 intact Eye Opening: Spontaneous Motor: Obeys Commands Verbal: Oriented GCS Score: 15 - Psych Psych: Normal mood, Normal affect NIHSS - Time Time: 17:45 - Level of Consciousness Level of consciousness: (0) Alert, Keenly responsive LOC Questions: (0) Answers both Q's correct LOC Commands: (0) Performs both correctly - Gaze Best Gaze: (0) Normal - Visual Visual: (0) No loss - Facial Palsy Facial Palsy: (1) Minor paralysis (Left side which is chronic) - Motor Arms (both separate) Motor Arm (right): (0) No drift Motor Arm (left): (0) No drift - Motor Legs (both separate) Motor Leg (right): (0) No drift Motor Leg (left): (0) No drift - Limb Ataxia Limb Ataxia: (0) Absent - Sensory Sensory: (0) Normal - Best Language Best Language: (0) No aphasia - Dysarthria Dysarthria: (0) Normal - Extinction and Inattention (formally neg Extinction and inattention: (0) No abnormality - Total Score/Results Total Score/Result: 1 Results - Vitals Vitals: Vital Signs - 24 hr 08/28/23 08/28/23 08/28/23 17:44 18:36 18:47 Temperature 36.5 C Heart Rate 86 74 75 Respiratory 20 19 18 Rate Blood Pressure 165/104 H 174/85 H 174/86 H O2 Saturation 97 98 96 08/28/23 08/28/23 08/28/23 18:52 19:00 19:03 Temperature Heart Rate 69 71 70 Respiratory 18 18 18 Rate Blood Pressure 177/87 H 169/79 H 169/79 H O2 Saturation 97 95 96 08/28/23 08/28/23 19:16 19:28 Temperature Heart Rate 72 75 Respiratory 18 18 Rate Blood Pressure 172/93 H 185/89 H O2 Saturation 97 95 Oxygen O2 Source Room air - EKG (time done) 1857 EKG releavant findings:: EKG personally interpreted by author of this note. Relevant findings are: Rate: Rate (enter#) (67) Rhythm: NSR [place]: Normal Intervals: Normal VT QRS: Normal Ischemia: Normal ST segments - Labs Labs: Laboratory Tests 08/28/23 08/28/23 08/28/23 17:48 17:50 17:50 WBC 9.5 RBC 4.70 Hgb 12.6 Hct 40.0 MCV 85.1 MCH 26.8 L MCHC 31.5 L RDW 12.8 Plt Count 279 MPV 9.9 Neut # (Auto) 5.7 Lymph # (Auto) 2.9 [place] # (Auto) 0.6 Eos # (Auto) 0.2 Baso # (Auto) 0.0 Absolute Nucleated RBC 0.00 Nucleated RBC % 0.0 PT 11.4 INR 1.1 Sodium Potassium Chloride Carbon Dioxide Anion Gap BUN Creatinine Estimated GFR (MDRD) Glucose POC Whole Bld Glucose 94 Calcium Total Bilirubin AST ALT Alkaline Phosphatase Total Protein Albumin Globulin Albumin/Globulin Ratio Lipase 08/28/23 17:50 WBC RBC Hgb Hct MCV MCH MCHC RDW Plt Count MPV Neut # (Auto) Lymph # (Auto) [place] # (Auto) Eos # (Auto) Baso # (Auto) Absolute Nucleated RBC Nucleated RBC % PT INR Sodium 135 Potassium 4.1 Chloride 101 Carbon Dioxide 27 Anion Gap 7.0 BUN 14 Creatinine 0.8 Estimated GFR (MDRD) 69 L Glucose 91 POC Whole Bld Glucose Calcium 8.7 Total Bilirubin 0.2 AST 15 ALT 14 Alkaline Phosphatase 75 Total Protein 6.3 L Albumin 4.0 Globulin 2.3 Albumin/Globulin Ratio 1.7 Lipase 30 - Rads (name of study) CT angiography and plain CT of the head were negative for bleed or LVO Relevant Findings:: Final report received, EMP independent interpretation of test PD Medical Decision Making - ED course ED course: 78-year-old woman presents with strokelike symptoms starting at 5 PM with right- sided deficits. The nurse noted drift in the right arm which is not present on my examination a few minutes later so presume she is rapidly improving. She has a prominent headache with this and the last few times she had this she had a negative stroke work-up and it was felt to be migrainous. The only positive neurologic finding on initial evaluation is a left facial droop which is mild and chronic.. She was seen after CT by our telestroke neurologist, Dr. Navarrete who felt that she was worsening and did recommend thrombolytic therapy after discussion of risk and benefits with the patient. Subsequently accepted by Dr. De Guzman to the [facility] ICU pending bed availability. Called into the room at 7:30 PM. At this time her blood pressure is over 180 systolic and a dose of labetalol was ordered. She has also developed some kind of diffuse gum bleeding that is not profuse and I ordered TXA for the nurse to have her swish and spit. - Critical Care Time(min): 40 Time Includes: Direct patient care, Review records, Reassess patient, Document care, Coordinate care, Medical consult Data interpretation: Labs, Pulse ox Procedures included in critical care time: Peripheral IV Procedures excluded from critical care time: EKG Departure - Departure Disposition: 02 Transfer Acute Care Hosp Clinical Impression: Cerebrovascular accident (CVA) Condition: Critical Forms: PCP List
[2023-08-28 18:01] LABS: BASOPHILS % (AUTO) 0.4 %; EOSINOPHILS # (AUTO) 0.2 10^3/uL (0.0-0.7); EOSINOPHILS % (AUTO) 2.5 %; HGB - HEMOGLOBIN 12.6 g/dL (12.0-16.0); LYMPHOCYTES # (AUTO) 2.9 10^3/uL (1.5-3.5); LYMPHOCYTES % (AUTO) 30.4 %; MEAN CORPUSCULAR HEMOGLOBIN 26.8 pg (27.0-31.0); MEAN CORPUSCULAR HGB CONC 31.5 g/dL (32.0-36.0); MEAN CORPUSCULAR VOLUME 85.1 fL (81.0-99.0); MEAN PLATELET VOLUME 9.9 fL (7.9-10.8); MONOCYTES # (AUTO) 0.6 10^3/uL (0.0-1.0); MONOCYTES % (AUTO) 6.1 %; NEUTROPHILS # (AUTO) 5.7 10^3/uL (1.5-6.6); NEUTROPHILS % (AUTO) 60.3 %; PLT - PLATELET COUNT 279 10^3/uL (130-450); RED CELL DISTRIBUTION WIDTH 12.8 % (12.0-15.0); WHITE BLOOD COUNT 9.5 x10^3/uL (4.8-10.8)
[2023-08-28 18:09] LABS: INR 1.1 (0.8-1.2); PT - PROTHROMBIN TIME 11.4 secs (9.9-12.6)
[2023-08-28 18:22] LABS: ALBUMIN/GLOBULIN RATIO 1.7 (1.0-2.2); BILIRUBIN,TOTAL 0.2 mg/dL (0.2-1.0); CALCIUM 8.7 mg/dL (8.5-10.3); CREATININE 0.8 mg/dL (0.6-1.3); POTASSIUM 4.1 mmol/L (3.5-4.5); TOTAL PROTEIN 6.3 g/dL (6.4-8.9)
--- NOTE | 2023-08-28 18:25 | CT Report ---
PROCEDURE: Head W/O Stroke Protocol INDICATIONS: Neuro deficit, acute, stroke suspected TECHNIQUE: Noncontrast 4.5 mm thick angled axial sections acquired from the foramen magnum to the vertex, with c oronal reformats. For radiation dose reduction, the following was used: automated exposure control, adjustment of mA and/or kV according to patient size. COMPARISON: None. FINDINGS: Image quality: Good CSF spaces: Basal cisterns are patent. Lateral ventricles are symmetric. Volume: Vascular calcifications. Periventricular white matter disease is commonly seen with chronic m icroangiopathy. Volume loss is present. These findings are mild to moderate. Brain: No intracranial hemorrhage. Penn-white differentiation is grossly maintained. Craniofacial structures: Right craniotomy changes. IMPRESSION: No acute intracranial hemorrhage. No large territory loss of penn-white differentiation. CTA is pendi ng. Communicated to the [facility] ED. This study fulfills neurological imaging criteria for inclusion or exclusion of acute stroke therapie s based on available published neurological imaging guidelines. Reviewed by: Zander Rios MD on 08/28/2023 6:23 PM PST Approved by: Zander Rios MD on 08/28/2023 6:23 PM PST Station ID: [id number]
[2023-08-28] MEDS ORDERED: iohexoL-300 100 ML VIAL IVP ONE (18:33)
--- NOTE | 2023-08-28 18:37 | CT Report ---
PROCEDURE: CT Angio Head/Neck INDICATIONS: cva sx TECHNIQUE: CT angiogram images were obtained of the head and neck. Multiplanar reformats were obtaine d, including maximum intensity projection images. IV contrast was used. COMPARISON: 09/17/2022 FINDINGS: Image quality: Good Head angiography Anterior circulation: ICAs: Mild to moderate cavernous carotid calcifications bilaterally ACAs: normal and symmetric MCAs: normal and symmetric AComm: no aneurysm Venous sinuses: Patent Posterior circulation: Dominance: Slightly left dominant Vertebral arteries: Mild left vertebral artery calcification. 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 ICA origins (by NASCET criteria): No significant narrowing. Mild calcifications at the right carotid bulb. ICAs: no stenosis, occlusion or aneurysm. ECAs: origins are patent. Vertebral arteries: unremarkable Soft tissues: no significant mass, aneurysm, or lymphadenopathy Prominent cervical station lymph nodes again seen. These are indeterminate and may be reactive in keshav ology. Lung apices: no pneumothorax Bones: Cervical fusion hardware and degenerative changes. IMPRESSION: No large vessel occlusion or high-grade stenosis. Consider MRI to further evaluate for infarct. Reviewed by: Zander Rios MD on 08/28/2023 6:35 PM PST Approved by: Zander Rios MD on 08/28/2023 6:35 PM PST Station ID: [id number]
[2023-08-28] MEDS ORDERED: TENECTEPLASE 50 MG/10 ML VIAL IVP STA (18:41)
[2023-08-28] MEDS ORDERED: LABETALOL 20 MG/4 ML SYRINGE IVP STA (19:30)
[2023-08-28] MEDS ORDERED: TRANEXAMIC ACID 1,000 MG/10 ML VIAL IV STA (19:31)
[2023-08-28 19:48] VITALS: O2SAT 98
[2023-08-28 20:25] VITALS: BP 142/72
== END 2023-08-28 20:34 | disposition short-term general hospital (02) ==
LOC: ED 17:35
DX: I63.9 Cerebral infarction, unspecified (principal); R29.701 NIHSS score 1; I10 Essential (primary) hypertension; K06.8 Other specified disorders of gingiva and edentulous alveolar ridge
CPT/HCPCS: 36415; 37195; 70450; 70496; 70498; 80053; 83690; 85025; 85610; 93005; 96374; 96375; 99291; J3101; Q9967

== ENCOUNTER 2024-04-17 20:50 | Emergency (ER) | payer MEDICARE ==
--- NOTE | 2024-04-17 21:04 | ED Physician Documentation ---
PD HPI Fall - Stated complaint Stated Complaint: FALL/ NECK PX - Chief complaint Chief Complaint: Trauma Hd/Nk - History obtained from History obtained from: Patient - Additional information Additional information: HPI from patient. Patient says she was getting up from bed to use bathroom and, upon standing, experienced sudden onset dizziness causing her to fall to ground. She struck her head against the floor, denies LOC but c/o generalized MOLINA and neck pain. Mild nausea but no vomiting. Denies weakness, numbness, visual changes. Her description of dizziness includes sensation of room spinning s/o vertigo. Medication list includes plavix Review of Systems Eyes: reports: Reviewed and negative Cardiac: reports: Reviewed and negative Respiratory: reports: Reviewed and negative GI: reports: Nausea. denies: Abdominal Pain, Vomiting : denies: Dysuria, Frequency Musculoskeletal: reports: Neck pain. denies: Back pain, Extremity pain, Joint pain, Extremity swelling, Joint swelling Neurologic: reports: Headache, Head injury. 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 12/22/17 08/28/23 levETIRAcetam [Levetiracetam] 1,500 mg PO BID 04/13/18 08/28/23 risperiDONE [Risperdal] 2 mg PO QPM 04/13/18 08/28/23 LORazepam [Lorazepam] 1 mg PO BID PRN 02/27/19 08/28/23 Sertraline HCl 100 mg PO DAILY 02/27/19 08/28/23 Melatonin 10 mg PO HS 08/28/19 08/28/23 diphenhydrAMINE [Benadryl] 25 mg PO HS PRN 08/28/19 08/28/23 Atorvastatin Calcium [Lipitor] 80 mg PO QPM #30 tablet 08/29/19 08/28/23 Clopidogrel [Plavix] 75 mg PO DAILY #30 tablet 08/29/19 08/28/23 Amlodipine Besylate [Norvasc] 5 mg PO DAILY 11/04/22 08/28/23 Sumatriptan Succinate [Imitrex] 50 mg PO PRN PRN 11/04/22 08/28/23 Acetaminophen [Tylenol] 650 mg PO TID PRN 06/15/23 08/28/23 Cholecalciferol [Vitamin D3] 25 mcg PO DAILY 08/28/23 08/28/23 Gabapentin [Neurontin] 600 mg PO TID 08/28/23 08/28/23 Loperamide [Imodium] 2 mg PO DAILY PRN 08/28/23 08/28/23 Losartan Potassium 25 mg PO DAILY 08/28/23 08/28/23 No122/Iron/Folic Acid 1 each PO DAILY 08/28/23 08/28/23 [ Multi Tablet] Nitrofurantoin [Macrobid] 100 mg PO BID #10 cap 04/18/24 - Allergies Allergies/Adverse Reactions: Allergies Allergy/AdvReac Type Severity Reaction Status Date / Time NSAIDS (Non-Steroidal Allergy Unknown Verified 04/17/24 20:53 Anti-Inflamma - Social History Does the pt smoke?: No Smoking Status: Never smoker Does the pt drink ETOH?: No Does the pt have substance abuse?: No - Immunizations Immunizations are current?: Yes - POLST Patient has POLST: No POLST Status: Full Code PD ED PE NORMAL - Vitals Vital signs reviewed: Yes - General General: Alert and oriented X 3, No acute distress, Well developed/nourished - HEENT HEENT: Atraumatic, PERRL, EOMI - Neck Neck: No bony TTP - Cardiac Cardiac: RRR, No murmur - Respiratory Respiratory: No respiratory distress, Clear bilaterally - Abdomen Abdomen: Soft, Non tender - Back Back: No spinal TTP - Derm Derm: Normal color, Warm and dry - Extremities Extremities: No deformity, No tenderness to palpate, Normal ROM s pain, No edema - Neuro Neuro: Alert and oriented X 3 Eye Opening: Spontaneous Motor: Obeys Commands Verbal: Oriented GCS Score: 15 Results - Vitals Vitals: Oxygen O2 Source Room air - EKG (time done) No standard instances EKG releavant findings:: EKG personally interpreted by author of this note. Relevant findings are: Rate: Rate (enter#) (66) Rhythm: NSR [place]: Normal Intervals: Normal MD QRS: Normal Ischemia: Normal ST segments - Labs Labs: Microbiology 04/17/24 22:45 Urine Culture - Final Urine,Random 10-50,000 COLONIES/ML Polymicrobial growth including potential pathogens. This is suggestive of skin or other contamination. Laboratory Tests 04/17/24 04/17/24 04/17/24 21:08 21:08 22:45 WBC 10.9 H RBC 4.63 Hgb 12.5 Hct 39.6 MCV 85.5 MCH 27.0 MCHC 31.6 L RDW 12.6 Plt Count 305 MPV 10.1 Neut # (Auto) 6.2 Lymph # (Auto) 3.7 H Josephine # (Auto) 0.6 Eos # (Auto) 0.2 Baso # (Auto) 0.1 Absolute Nucleated RBC 0.00 Nucleated RBC % 0.0 Sodium 136 Potassium 3.8 Chloride 102 Carbon Dioxide 27 Anion Gap 7.0 BUN 15 Creatinine 0.8 Estimated GFR (MDRD) 69 L Glucose 94 Calcium 9.3 Urine Color YELLOW Urine Clarity CLEAR Urine pH 6.0 Ur Specific [place] <=1.005 Urine Protein NEGATIVE Urine Glucose (UA) NEGATIVE Urine Ketones NEGATIVE Urine Occult Blood NEGATIVE Urine Nitrite NEGATIVE Urine Bilirubin NEGATIVE Urine Urobilinogen 0.2 (NORMAL) Ur Leukocyte Esterase SMALL H Urine RBC 0-5 Urine WBC 11-25 H Urine WBC Clumps PRESENT Ur Squamous Epith Cells FEW Squamous Urine Bacteria Moderate H Ur Microscopic Review INDICATED Urine Culture Comments INDICATED - Rads (name of study) chest xray Relevant Findings:: Prelim report reviewed, See rad report CTH Relevant Findings:: Prelim report reviewed, See rad report CT cervical spine Relevant Findings:: Prelim report reviewed, See rad report PD Medical Decision Making - ED course Complexity details: reviewed results, re-evaluated patient, considered different ial, d/w patient ED course: No concerning nor diagnostic findings on tonights tests including CBC, BMP, EKG, CTH, CT cervical spine, chest xray. The cause of patient's dizziness and fall is not apparent at this time although some of her descriptors regarding the dizziness are s/o vertigo. She is given 650 acetaminophen PO , 4mg IV zofran, 25mg meclizine PO. Results d/w patient; she is asking for something more for her headache and thus given tramadol PO prior to d/c. (likely) incidental finding of UTI on UA (could arguably be cause or contributing factor to her dizziness), and thus also given 100mg macrobid PO with rx for same. Return precautions reviewed. She is in NAD on arrival as well as reevaluation prior to d/c Departure - Departure Disposition: Home, Self Care Clinical Impression: Dizziness Urinary tract infection Qualifiers: Urinary tract infection type: acute cystitis Hematuria presence: with hematuria Qualified Code(s): N30.01 - Acute cystitis with hematuria Condition: Good Instructions: ED Dizziness UKO, ED UTI Cystitis Female Follow-Up: Jade Daniels MD [Primary Care Provider] - Prescriptions: Nitrofurantoin [Macrobid] 100 mg PO BID #10 cap Comments: There were no concerning findings on tonight's blood tests, EKG, CT scans (head, neck), and chest x-ray. Your urinalysis results are suggestive of a urinary tract infection; for this, you were given the first dose of an antibiotic (nitrofurantoin), and I have electronically submitted a prescription for a 5-day course of this antibiotic to the [facility] pharmacy in [place]. The cause of your dizziness is not apparent at this time. Contact your primary care provider when the office is next open to arrange for the next available appointment for follow-up/reevaluation. Discharge Date/Time: 04/18/24 00:46
[2024-04-17 21:19] LABS: BASOPHILS # (AUTO) 0.1 10^3/uL (0.0-0.1); BASOPHILS % (AUTO) 0.6 %; EOSINOPHILS # (AUTO) 0.2 10^3/uL (0.0-0.7); EOSINOPHILS % (AUTO) 2.1 %; HCT - HEMATOCRIT 39.6 % (37.0-47.0); HGB - HEMOGLOBIN 12.5 g/dL (12.0-16.0); LYMPHOCYTES # (AUTO) 3.7 10^3/uL (1.5-3.5); LYMPHOCYTES % (AUTO) 34.4 %; MEAN CORPUSCULAR HGB CONC 31.6 g/dL (32.0-36.0); MEAN CORPUSCULAR VOLUME 85.5 fL (81.0-99.0); MEAN PLATELET VOLUME 10.1 fL (7.9-10.8); MONOCYTES # (AUTO) 0.6 10^3/uL (0.0-1.0); MONOCYTES % (AUTO) 5.9 %; NEUTROPHILS # (AUTO) 6.2 10^3/uL (1.5-6.6); NEUTROPHILS % (AUTO) 56.6 %; PLT - PLATELET COUNT 305 10^3/uL (130-450); RED BLOOD COUNT 4.63 10^6/uL (4.20-5.40); RED CELL DISTRIBUTION WIDTH 12.6 % (12.0-15.0); WHITE BLOOD COUNT 10.9 x10^3/uL (4.8-10.8)
[2024-04-17 21:34] LABS: CALCIUM 9.3 mg/dL (8.5-10.3); CREATININE 0.8 mg/dL (0.6-1.3); POTASSIUM 3.8 mmol/L (3.5-4.5)
[2024-04-17] MEDS: ACETAMINOPHEN 325 MG TABLET PO STA (21:46)
[2024-04-17] MEDS: MECLIZINE 12.5 MG TABLET PO STA ×2 (22:02→23:38)
--- NOTE | 2024-04-17 22:08 | CT Report ---
PROCEDURE: Head WO INDICATIONS: fall, head injury, MOLINA TECHNIQUE: Noncontrast 4.5 mm thick angled axial sections acquired from the foramen magnum to the vertex. For r adiation dose reduction, the following was used: automated exposure control, adjustment of mA and/or kV according to patient size. COMPARISON: Head CT 08/28/2023, 01/08/2023. FINDINGS: Image quality: Excellent. CSF spaces: Basal cisterns are patent. No extra-axial fluid collections. Ventricles are normal in size and shape. Brain: No midline shift. No intracranial masses or hemorrhage. Small hypodense focus at the left i nsular cortex, (2/16), unchanged. This could be due to remote infarction. No large area of hypodensit y in a vascular distribution to suggest acute infarction. There is periventricular hypodensity consis tent with chronic microvascular ischemic disease. Age-related parenchymal loss. Skull and face: Prior right craniotomy. Calvarium and visualized facial bones are intact, without nessa picious lesions. Sinuses: Visualized sinuses and mastoids are clear. IMPRESSION: No acute intracranial pathology. Reviewed by: Dima Kingston MD on 04/17/2024 10:06 PM PDT Approved by: Dima Kingston MD on 04/17/2024 10:06 PM PDT Station ID: [id number]
[2024-04-17 22:53] VITALS: O2SAT 94
[2024-04-17 22:58] LABS: BILIRUBIN,URINE NEGATIVE (NEGATIVE); GLUCOSE, URINE (UA) NEGATIVE (NEGATIVE); KETONES,URINE (UA) NEGATIVE (NEGATIVE); LEUKOCYTE ESTERASE, URINE SMALL (NEGATIVE); NITRITE,URINE NEGATIVE (NEGATIVE); OCCULT BLOOD,URINE NEGATIVE (NEGATIVE); PROTEIN,URINE NEGATIVE (NEGATIVE); UROBILINOGEN,URINE 0.2 (NORMAL) E.U./dL (NORMAL)
[2024-04-17 23:02] LABS: CLARITY,URINE CLEAR (CLEAR)
[2024-04-17 23:07] LABS: WBC CLUMPS,URINE PRESENT
[2024-04-17 23:08] LABS: BACTERIA,URINE Moderate /HPF (None Seen); RBC,URINE 0-5 /HPF (0-5); SQUAMOUS EPITHELIAL CELL,UR FEW Squamous (<= Few)
--- NOTE | 2024-04-17 23:17 | CT Report ---
PROCEDURE: Cervical Spine WO INDICATIONS: fall, neck pain TECHNIQUE: Noncontrast 3 mm thick sections acquired from the skull base to the T4 level. Sagittal and coronal r eformats were then constructed. For radiation dose reduction, the following was used: automated exp osure control, adjustment of mA and/or kV according to patient size. COMPARISON: CT cervical spine 01/07/2023. FINDINGS: Image quality: Diagnostic. Bones: No fractures or dislocations. Visualized superior ribs are intact. Mild reversal of the nor mal cervical lordosis. Status post C5-C7 ACDF. Multilevel degenerative changes Soft tissues: Prevertebral soft tissues are normal in thickness. No paravertebral hematomas. No ap ical pneumothoraces. IMPRESSION: No acute, displaced fracture or traumatic subluxation. Reviewed by: Johana Hendricks MD, PhD on 04/17/2024 11:16 PM PDT Approved by: Johana Hendricks MD, PhD on 04/17/2024 11:16 PM PDT Station ID: [id number]
[2024-04-17] MEDS: ONDANSETRON ODT 4 MG TABLET TL STA (23:39)
--- NOTE | 2024-04-18 00:14 | XRAY Report ---
PROCEDURE: Chest 1V INDICATIONS: dizziness TECHNIQUE: One view of the chest was acquired. COMPARISON: Chest radiograph 02/22/2023. FINDINGS: Surgical changes and devices: Partially evaluated lower cervical hardware.. Lungs and pleura: Left costophrenic angle is out of the [id number]. No right pleural effusion or pneumothorax. No significant left pleural effusions or pneumothorax. Lungs are clear. Mediastinum: Mediastinal contours appear normal. Heart size is normal. Bones and chest wall: No suspicious bony lesions. Overlying soft tissues appear unremarkable. IMPRESSION: Left costophrenic angle is out of the [id number] and cannot be evaluated. Otherwise no acute cardi opulmonary process identified Reviewed by: Johana Hendricks MD, PhD on 04/18/2024 12:12 AM PDT Approved by: Johana Hendricks MD, PhD on 04/18/2024 12:12 AM PDT Station ID: [email or web address]
[2024-04-18 00:26] VITALS: BP 170/79
[2024-04-18] MEDS: traMADol 50 MG TABLET PO STA (00:38)
[2024-04-18] MEDS: NITROFURANTOIN MACRO 100 MG CAPSULE PO STA (00:39)
== END 2024-04-18 00:46 | disposition home or self-care (01) ==
LOC: ED 20:50
DX: R42 Dizziness and giddiness (principal); N30.01 Acute cystitis with hematuria
CPT/HCPCS: 36415; 70450; 71045; 72125; 80048; 81001; 85025; 87086; 93005; 99284; A9270; Q0162; 81003